=== PATIENT | female | born 1940 | race Hispanic/Latino ===

== ENCOUNTER 2019-06-08 15:08 | Inpatient (IN) | payer OTHER ==
[2019-06-08 15:45] LABS: Absolute Lymphocytes (CBC) 1.2 K/uL (0.7-4.9); Basophils % 0.5 % (0-1.3); Hematocrit 41.4 % (36.0-45.0); Lymphocytes % 16.4 % (15.3-44.8); MPV 9.6 fL (7.6-11.3); Protime INR 1.04; RBC Red Blood Cell Count 4.86 M/uL (3.86-4.86)
--- NOTE | 2019-06-08 16:03 | RAD REPORT ---
EXAM DESCRIPTION: RAD - Chest Single View - 06/08/2019 3:56 pm CLINICAL HISTORY: CHEST PAIN Chest pain. COMPARISON: Chest Pa And Lat (2 Views) dated 06/09/2016; CHEST SINGLE VIEW dated 02/24/2013; CHEST SIN GLE VIEW dated 12/13/2008; CHEST PA AND LAT 2 VIEW dated 10/28/2003; BREAST/AXILLA, LIMITED dated 018; MAMMO DIGITAL SCR BILAT W CAD dated 08/12/2014; SPINE CERVICAL W OBLIQUES dated 08/24/2014; SPINE LUMBAR W OBLIQUE dated 08/24/2014; Hip Left 2 View dated 04/05/2016 FINDINGS: Portable technique limits examination quality. Elevation of the right hemidiaphragm is seen, slightly progressive since the comparative study. Lungs are grossly clear. The heart is mildly enlarged in size. Old left posterior rib fractures.
[2019-06-08 16:04] LABS: Albumin 3.9 g/dL (3.4-5.0); Bilirubin Direct 0.1 mg/dL (0-0.2); Bilirubin Total 0.4 mg/dL (0.2-1.0); Potassium 4.3 mmol/L (3.5-5.1); Protein, Total 7.4 g/dL (6.4-8.2); Troponin (Emerg Dept Use Only) 0.08 ng/mL (0.0-0.045)
--- NOTE | 2019-06-08 16:35 | EDPHYS ---
Physician Documentation [facility] Name: Aditi Arreola Age: 78 yrs Sex: Female : 1940 Arrival Date: 06/08/2019 Time: 15:10 Bed 4 Private MD: ED Physician Gabriel Medina HPI: 06/08 14:00 This 78 yrs old Female presents to ER via Wheelchair with complaints of Chest pm1 Pain, Shortness Of Breath. 14:00 The patient or guardian reports chest pain that is located primarily in the mid-sternal pm1 area. Onset: this morning, today. The pain does not radiate. Associated signs and symptoms: Pertinent positives: headache, shortness of breath. Duration: The patient or guardian reports a single episode, that is still ongoing. Modifying factors: The symptoms are alleviated by nothing. the symptoms are aggravated by nothing. Severity of pain: in the emergency department the pain is unchanged. The patient has not experienced similar symptoms in the past. The patient has not recently seen a physician, the patient's primary care provider is Dr. Infante. Patient presents to the ER with complaints of chest pain and shortness of breath that started this AM. She reports not feeling well for th past three days that is primarily described by her as feeling chills, shaky and cold. Reports history of HTN, DM, and fibromyalgia which she apparently takes her medications as needed. Since she was feeling worst this AM she took aspirin and her prescription medications. Unable to recall her prescription medications . Historical: - Allergies: 15:26 Codeine; aj1 - Home Meds: 17:35 amlodipine 10 mg tab 1 tab once daily [Active]; aspirin 81 mg Oral chew 1 tab once sg daily [Active]; furosemide 40 mg Oral tab 1 tab once daily [Active]; hydrochlorothiazide 25 mg Oral tab 1 tab once daily [Active]; Metoprolol Tartrate Oral 1 tab 2 times per day [Active]; Tramadol Oral 1 cap [Active]; Xarelto 10 mg Oral tab 1 tab once daily [Active]; Metformin Oral [Active]; - PMHx: 15:26 Diabetes - NIDDM; Hypertension; aj1 - Immunization history:: Adult Immunizations up to date. - Social history:: Smoking status: Patient/guardian denies using tobacco. - Ebola Screening: : Patient negative for fever greater than or equal to 101.5 degrees Fahrenheit, and additional compatible Ebola Virus Disease symptoms Patient denies exposure to infectious person Patient denies travel to an Ebola-affected area in the 21 days before illness onset No symptoms or risks identified at this time. ROS: 16:14 Eyes: Negative for injury, pain, redness, and discharge, ENT: Negative for injury, pm1 pain, and discharge, Neck: Negative for injury, pain, and swelling. 16:14 Abdomen/GI: Negative for abdominal pain, nausea, vomiting, diarrhea, and constipation, Back: Negative for injury and pain, : Negative for injury, bleeding, discharge, and swelling, MS/Extremity: Negative for injury and deformity, Skin: Negative for injury, rash, and discoloration, Neuro: Negative for headache, weakness, numbness, tingling, and seizure. 16:14 Constitutional: Positive for chills, Negative for body aches, fever, poor PO intake. 16:14 Cardiovascular: Positive for chest pain, Negative for edema, orthopnea, palpitations. 16:14 Respiratory: Positive for shortness of breath, Negative for cough, sputum production, wheezing. Exam: 16:14 Constitutional: This is a well developed, well nourished patient who is awake, alert, pm1 and in no acute distress. Head/Face: Normocephalic, atraumatic. Neck: Trachea midline, no thyromegaly or masses palpated, and no cervical lymphadenopathy. Supple, full range of motion without nuchal rigidity, or vertebral point tenderness. No Meningismus. Chest/axilla: Normal chest wall appearance and motion. Nontender with no deformity. No lesions are appreciated. Cardiovascular: Regular rate and rhythm with a normal S1 and S2. No gallops, murmurs, or rubs. Normal PMI, no JVD. No pulse deficits. Respiratory: Lungs have equal breath sounds bilaterally, clear to auscultation and percussion. No rales, rhonchi or wheezes noted. No increased work of breathing, no retractions or nasal flaring. Abdomen/GI: Soft, non-tender, with normal bowel sounds. No distension or tympany. No guarding or rebound. No evidence of tenderness throughout. Back: No spinal tenderness. No costovertebral tenderness. Full range of motion. Skin: Warm, dry with normal turgor. Normal color with no rashes, no lesions, and no evidence of cellulitis. MS/ Extremity: Pulses equal, no cyanosis. Neurovascular intact. Full, normal range of motion. 16:14 Neuro: Orientation: is normal, Mentation: is normal, Motor: moves all fours, Sensation: is normal, no obvious gross deficits. Vital Signs: 15:25 BP 208 / 74; Pulse 87; Resp 17; Pulse Ox 100% on R/A; aj1 15:26 Temp 97.8(O); aj1 16:25 BP 203 / 74; Pulse 80; Resp 19; Temp 98.4(TE); Pulse Ox 100% on R/A; Pain 10/10; sg 17:02 BP 186 / 57; Pulse 72; Resp 17; Pulse Ox 100% on R/A; Pain 6/10; sg 18:00 BP 189 / 62; Pulse 77; Resp 17; Pulse Ox 100% ; sg 19:00 BP 187 / 66; Pulse 79; Resp 17; Pulse Ox 98% on R/A; rv 20:29 BP 180 / 67; Pulse 81; Resp 18; Pulse Ox 98% on R/A; rv 15:25 Patient is moving arm during vitals signs, states she does not know how much she aj1 weights or how tall she is MDM: 15:16 Patient medically screened. pm1 16:21 Data reviewed: vital signs. Data interpreted: Pulse oximetry: on room air is 100 %. pm1 Interpretation: normal. 16:29 The patient's pulmonary embolism risk score was calculated as follows: Total Score: 0-2 pm1 points. This patient was found to be at low risk for a pulmonary embolism by using the Well's assessment criteria. 16:29 Counseling: I had a detailed discussion with the patient and/or guardian regarding: the pm1 historical points, exam findings, and any diagnostic results supporting the discharge/admit diagnosis, lab results, radiology results, the need for further work-up and treatment in the hospital. 16:47 Physician consultation: Isac Aparicio MD was called at 16:47, was contacted at 16:47, pm1 regarding admission, patient's condition, and will see patient in ED. 06/08 15:16 Order name: Basic Metabolic Panel; Complete Time: 16:07 pm1 06/08 15:16 Order name: CBC with Diff; Complete Time: 15:49 pm1 06/08 15:16 Order name: LFT's; Complete Time: 16:07 pm1 06/08 15:16 Order name: Magnesium; Complete Time: 16:07 pm1 06/08 15:16 Order name: NT PRO-BNP; Complete Time: 16:07 pm1 06/08 15:16 Order name: PT-INR; Complete Time: 16:04 pm1 06/08 15:16 Order name: Troponin (emerg Dept Use Only); Complete Time: 16:07 pm1 06/08 15:16 Order name: XRAY Chest (1 view); Complete Time: 16:04 pm1 06/08 15:31 Order name: Urine Microscopic Only pm1 06/08 15:31 Order name: Flu pm1 06/08 15:31 Order name: Influenza Screen (A ; Complete Time: 16:31 EDMS 06/08 16:03 Order name: Glucose, Ancillary Testing; Complete Time: 16:07 EDMS 06/08 15:12 Order name: EKG; Complete Time: 15:12 ss 06/08 15:12 Order name: EKG - Nurse/Tech; Complete Time: 15:36 ss 06/08 15:16 Order name: Cardiac monitoring; Complete Time: 15:36 pm1 06/08 15:16 Order name: IV Saline Lock; Complete Time: 15:36 pm1 06/08 15:16 Order name: Labs collected and sent; Complete Time: 15:36 pm1 06/08 15:16 Order name: O2 Per Protocol; Complete Time: 15:36 pm1 06/08 15:16 Order name: O2 Sat Monitoring; Complete Time: 15:36 pm1 Administered Medications: 16:20 Drug: Aspirin Chewable Tablet 324 mg Route: PO; sg 17:00 Follow up: Response: No adverse reaction sg 16:50 Drug: fentaNYL (PF) 25 mcg Route: IVP; Site: right antecubital; sg 17:30 Follow up: Response: No adverse reaction; Pain is decreased sg 16:50 Drug: Zofran 4 mg Route: IVP; Site: right antecubital; sg 17:30 Follow up: Response: No adverse reaction sg 17:20 Drug: Lasix 40 mg Route: IVP; Site: right antecubital; sg 18:22 Follow up: Response: No adverse reaction sg Disposition: 06/09 07:05 Co-signature as Attending Physician, Gabriel Medina MD. rn Disposition: 06/08/19 16:34 Hospitalization ordered by Isac Aparicio for Inpatient Admission. Preliminary diagnosis are Chest pain, unspecified, Unspecified combined systolic (congestive) and diastolic (congestive) heart failure. - Bed requested for Telemetry/MedSurg (Inpatient). - Status is Inpatient Admission. rv - Condition is Stable. - Problem is new. - Symptoms have improved. UTI on Admission? No Signatures: Dispatcher [employer] EDMS Surekha Browne RN RN aj1 Kelvin Gooden RN RN Gabriel Medina MD MD rn Smirch, Shelby, RN RN ss Gary Zurita, QU[employer] ASSISTANT [employer] AND FIELD COACH pm1 Ayden Blair RN RN rv Corrections: (The following items were deleted from the chart) 06/08 18:38 16:34 Hospitalization Ordered by Isac Aparicio MD for Inpatient Admission. Preliminary ss diagnosis is Chest pain, unspecified; Unspecified combined systolic (congestive) and diastolic (congestive) heart failure. Bed requested for Telemetry/MedSurg (Inpatient). Status is Inpatient Admission. Condition is Stable. Problem is new. Symptoms have improved. UTI on Admission? No. pm1 20:37 18:38 06/08/2019 16:34 Hospitalization Ordered by Isac Aparicio MD for Inpatient rv Admission. Preliminary diagnosis is Chest pain, unspecified; Unspecified combined systolic (congestive) and diastolic (congestive) heart failure. Bed requested for Telemetry/MedSurg (Inpatient). Status is Inpatient Admission. Condition is Stable. Problem is new. Symptoms have improved. UTI on Admission? No. ss
--- NOTE | 2019-06-08 16:35 | ER ---
Nurse's Notes [facility] Name: Aditi Arreola Age: 78 yrs Sex: Female : 1940 Arrival Date: 06/08/2019 Time: 15:10 Bed 4 Private MD: Diagnosis: Chest pain, unspecified;Unspecified combined systolic (congestive) and diastolic (congestive) heart failure Presentation: 06/08 15:22 Presenting complaint: Patient states: Chest pain and shortness of breath. Patient will aj1 not answer when chest pain started. Patient states that she has not been feeling well but will not answer any further questions regarding the symptoms she is feeling. Transition of care: patient was not received from another setting of care. Onset of symptoms is unknown. Risk Assessment: Do you want to hurt yourself or someone else? Patient reports no desire to harm self or others. Initial Sepsis Screen: Does the patient meet any 2 criteria? HR > 90 bpm. No. Patient's initial sepsis screen is negative. Does the patient have a suspected source of infection? No. Patient's initial sepsis screen is negative. Care prior to arrival: None. 15:22 Method Of Arrival: Wheelchair aj1 15:22 Acuity: LUIS ARMANDO 3 aj1 Triage Assessment: 15:26 General: Appears ill, Behavior is anxious, crying. Pain: Complains of pain in chest. aj1 Neuro: Level of Consciousness is awake, alert. Cardiovascular: Patient's skin is warm and dry. Historical: - Allergies: 15:26 Codeine; aj1 - Home Meds: 17:35 amlodipine 10 mg tab 1 tab once daily [Active]; aspirin 81 mg Oral chew 1 tab once sg daily [Active]; furosemide 40 mg Oral tab 1 tab once daily [Active]; hydrochlorothiazide 25 mg Oral tab 1 tab once daily [Active]; Metoprolol Tartrate Oral 1 tab 2 times per day [Active]; Tramadol Oral 1 cap [Active]; Xarelto 10 mg Oral tab 1 tab once daily [Active]; Metformin Oral [Active]; - PMHx: 15:26 Diabetes - NIDDM; Hypertension; aj1 - Immunization history:: Adult Immunizations up to date. - Social history:: Smoking status: Patient/guardian denies using tobacco. - Ebola Screening: : Patient negative for fever greater than or equal to 101.5 degrees Fahrenheit, and additional compatible Ebola Virus Disease symptoms Patient denies exposure to infectious person Patient denies travel to an Ebola-affected area in the 21 days before illness onset No symptoms or risks identified at this time. Screenin:38 Abuse screen: Denies threats or abuse. Denies injuries from another. Nutritional ss screening: No deficits noted. Tuberculosis screening: Never had TB. 20:27 Fall Risk None identified. rv Assessment: 15:30 General: Appears in no apparent distress. well groomed, well developed, well nourished, sg Behavior is cooperative, appropriate for age, anxious. Pain: Complains of pain in mid-sternal area Pain currently is 6 out of 10 on a pain scale. Quality of pain is described as sharp. Neuro: Level of Consciousness is awake, alert, obeys commands, Oriented to person, place, time, Speech is normal, Facial symmetry appears normal. Cardiovascular: Capillary refill is brisk in bilateral fingers Patient's skin is warm and dry. Chest pain is described as mild, is located in substernal area. Respiratory: Reports shortness of breath through nose for several days due to nasal congestion Airway is patent Respiratory effort is even, unlabored, Respiratory pattern is regular, symmetrical. GI: No signs and/or symptoms were reported involving the gastrointestinal system. : No signs and/or symptoms were reported regarding the genitourinary system. EENT: Nares are clear bilaterally Oral mucosa is moist. Reports nasal congestion. Derm: Skin is pink, warm \T\ dry. Musculoskeletal: Circulation, motion, and sensation intact. Range of motion: intact in all extremities. 16:30 Reassessment: Patient appears in no apparent distress at this time. Patient and/or sg family updated on plan of care and expected duration. Pain level reassessed. Patient is alert, oriented x 3, equal unlabored respirations, skin warm/dry/pink. 17:25 Reassessment: Patient appears in no apparent distress at this time. Patient and/or sg family updated on plan of care and expected duration. Pain level reassessed. Patient is alert, oriented x 3, equal unlabored respirations, skin warm/dry/pink. pt family remains at bedside. 18:19 Reassessment: Patient appears in no apparent distress at this time. Patient and/or sg family updated on plan of care and expected duration. Pain level reassessed. Patient is alert, oriented x 3, equal unlabored respirations, skin warm/dry/pink. pt complaining of dull pain only in upper back at this time, pt reports repositioning helps, awaiting pt to void at this time. 20:27 Pain: Pain does not radiate. Pain began suddenly. rv Vital Signs: 15:25 BP 208 / 74; Pulse 87; Resp 17; Pulse Ox 100% on R/A; aj1 15:26 Temp 97.8(O); aj1 16:25 BP 203 / 74; Pulse 80; Resp 19; Temp 98.4(TE); Pulse Ox 100% on R/A; Pain 10/10; sg 17:02 BP 186 / 57; Pulse 72; Resp 17; Pulse Ox 100% on R/A; Pain 6/10; sg 18:00 BP 189 / 62; Pulse 77; Resp 17; Pulse Ox 100% ; sg 19:00 BP 187 / 66; Pulse 79; Resp 17; Pulse Ox 98% on R/A; rv 20:29 BP 180 / 67; Pulse 81; Resp 18; Pulse Ox 98% on R/A; rv 15:25 Patient is moving arm during vitals signs, states she does not know how much she aj1 weights or how tall she is ED Course: 15:10 Patient arrived in ED. as 15:12 Gary Zurita NP is PHCP. pm1 15:12 Gabriel Medina MD is Attending Physician. pm1 15:25 Triage completed. aj1 15:25 Arm band placed on. sg 15:35 Inserted saline lock: 20 gauge in right antecubital area, using aseptic technique. ss Blood collected. Patient maintains SpO2 saturation greater than 95% on room air. 15:56 XRAY Chest (1 view) In Process Unspecified. EDMS 16:34 Isac Aparicio MD is Hospitalizing Provider. pm1 16:51 Kelvin Gooden, KYLAH is Primary Nurse. sg 18:28 Flu Sent. sg 19:00 Patient has correct armband on for positive identification. Bed in low position. rv stogie packer on. Pulse ox on. NIBP on. 20:24 Ayden Blair, KYLAH is Primary Nurse. rv 20:27 No provider procedures requiring assistance completed. Patient admitted, IV remains in rv place. Administered Medications: 16:20 Drug: Aspirin Chewable Tablet 324 mg Route: PO; sg 17:00 Follow up: Response: No adverse reaction sg 16:50 Drug: fentaNYL (PF) 25 mcg Route: IVP; Site: right antecubital; sg 17:30 Follow up: Response: No adverse reaction; Pain is decreased sg 16:50 Drug: Zofran 4 mg Route: IVP; Site: right antecubital; sg 17:30 Follow up: Response: No adverse reaction sg 17:20 Drug: Lasix 40 mg Route: IVP; Site: right antecubital; sg 18:22 Follow up: Response: No adverse reaction sg Outcome: 16:34 Decision to Hospitalize by Provider. pm1 20:28 Admitted to Med/surg accompanied by tech, via wheelchair, room 209, with chart, Report rv called to RAYA MONTERO 20:28 Condition: good 20:28 Instructed on the need for admit. 20:37 Patient left the ED. rv Signatures: Dispatcher [employer] EDMS Surekha Browne RN RN aj1 Kelvin Gooden RN RN sg Martinez, Amelia as Martinez, Eric em1 Kateryna Rock RN RN Gary Zurita, QUYEN HOT DOG VENDOR pm1 Ayden Blair RN RN rv Corrections: (The following items were deleted from the chart) 15:28 15:25 BP 208 / 74; Pulse 87bpm; Resp 17bpm; Pulse Ox 100% RA; sg aj1 17:01 16:25 BP 203 / 74; Pulse 80bpm; Resp 99bpm; Pulse Ox 100% RA; Temp 98.4F Temporal; Pain sg 10/10; em1 17:18 15:30 General: Appears in no apparent distress. well groomed, well developed, well sg nourished, Behavior is calm, cooperative, appropriate for age, sg
[2019-06-08] MEDS ORDERED: ASPIRIN 81 MG CHEWABLE TABLET ONE (16:39)
[2019-06-08] MEDS ORDERED: ONDANSETRON 4 MG/2 ML VIAL ONE (16:39)
[2019-06-08] MEDS ORDERED: FENTANYL CITR 100 MCG/2 ML ONE (16:41)
[2019-06-08] MEDS ORDERED: FUROSEMIDE 40 MG/4 ML VIAL ONE (18:12)
[2019-06-08] MEDS: INSULIN -REGULAR HUMAN 50 UNIT/0.5 ML ML SQ SCH (21:19)
[2019-06-08] MEDS ORDERED: HYDRALAZINE HCL 20 MG/ML VIAL IV PRN (21:19)
[2019-06-08] MEDS ORDERED: ONDANSETRON 4 MG/2 ML VIAL IV PRN (21:19)
[2019-06-08] MEDS: METOPROLOL TAR 50 MG TAB PO SCH (22:10)
[2019-06-08] MEDS: ACETAMINOPHEN 500 MG TAB PO PRN (22:11)
--- NOTE | 2019-06-09 03:18 | HP ---
Date of Admission: 06/08/2019 Chief Complaint: Shortness of breath. Code Status: Full. Primary Care Physician: Dr. High, hospitalist service covering for Dr. High until 06/19/2019. History Of Present Illness: Patient is a 78-year-old female with past medical history of hypertensio n, diabetes, hyperlipidemia, who was in her usual state of health until 2 weeks prior to admission. Patient had sudden onset of chills. Denies any specific fevers. Also started having worsening short ness of breath over the past few days along with some edema. Patient's symptoms are worse with exert ion. She denies any ill contacts. Patient felt that she may have the flu; therefore, came into the ER for further evaluation. Her workup revealed negative flu screen. Her white blood cell count was normal. Her BNP was elevated at 3800. Creatinine was 1.36. Chest x-ray showed CHF, volume overload . Patient was given Lasix. Her blood pressure was severely elevated at 200/74. Patient was then re ferred for admission. When seen in the ER, she was awake, alert, oriented x3, in some mild distress. Past Medical History: Hypertension; hyperlipidemia; diabetes mellitus type 2, [id number]; mild coronary artery disease; diverticulosis. Surgical History: Patient has had colonoscopy with polyp removal. Allergies: CODEINE. Medications: Patient takes hydralazine 50 mg twice a day. Takes pravastatin and metformin. Patient is noncompliant with her medications. Social History: Patient denies any tobacco use, alcohol use, or illicit drug use. She has been expo sed to secondhand smoke. She is independent in her activities of daily living. Takes care of her sband and still drives. Has good social support. Family History: Patient denies any premature coronary artery disease in the family. Review of Systems: Ten-point system reviewed, negative except as per HPI. Physical Examination: Vital Signs: Blood pressure 208/74, pulse 87, respirations 17, O2 100% on room air, temperature 97.8 . General: Awake, alert, oriented x3. Elderly female, ill appearing. HEENT: Normocephalic, atraumatic. PERRLA. EOMI. Moist mucous membranes. Oropharynx is clear. Po or dentition. Conjunctivae anicteric. Neck: Supple. Trachea midline. CV: S1, S2. Regular rate and rhythm. Peripheral pulses present. Respiratory: Diminished breath sounds. Some crackles present. No wheezing or stridor. No use of a ccessory muscles. Gastrointestinal: Abdomen is soft, nontender, nondistended. Positive bowel sounds. No guarding or rigidity. Extremities: No clubbing, cyanosis. No calf tenderness. Patient has pedal edema. Neurologic: Cranial nerves 2 through 12 intact grossly. No focal neurological deficit. Speech is n ormal. Strength is symmetric bilateral upper and lower extremities. Skin: No rashes. Normal skin turgor. Psychiatric: Mood is anxious. Affect is congruent with mood. Insight and judgment are good. Laboratory Data: Sodium 145, potassium 4.3, chloride 112, CO2 of 25, BUN 21, creatinine 1.36, glucos e 96, calcium 9.1, magnesium 2. Troponin 0.08. BNP 3879. INR 1.04. WBC 7.3, H and H, 13.6 and 41. 4, platelets 195. UA is pending. Influenza screen is negative. Chest x-ray shows elevation of the right hemidiaphragm, slightly progressive since comparative study. Lungs are grossly clear. Heart i s mildly enlarged in size. Old left posterior rib fractures. Assessment: 78-year-old female with: 1.Acute new-onset congestive heart failure, unknown ejection fraction. We will start on diuretics. BNP is elevated. Chest x-ray officially does not show much in terms of pulmonary congestion; howeve r, does show enlarged heart, elevated right hemidiaphragm. We will need 2-view for further assessmen t. We will obtain echocardiogram and consult Cardiology. We will start on congestive heart failure guidelines. Start on diuretics, free fluid restriction, daily weights. 2.Elevated troponin level, likely secondary to congestive heart failure. No chest pain. 3.Hypertensive urgency. Blood pressure in the 200s. Patient also complaining of some blurry vision . We will restart home medications, hydralazine p.r.n. patient is noncompliant with her medications . 4.Diabetes mellitus, type 2, non-insulin requiring. We will start on sliding scale insulin and cont inue Accu-Cheks. 5.Mixed hyperlipidemia. Continue statin. 6.History of diverticulosis, stable. 7.Acute kidney injury. Creatinine is 1.36, baseline is normal. We will monitor kidney function alice sely. We will likely expect bump in creatinine with diuretics. We may need to adjust diuretic dose. Plan: Admit patient to Med-Surg, place as inpatient. Length of stay greater than 2 midnights. DVT prophylaxis with Lovenox renally dosed. DARLENE Voice ID: [id number]
[2019-06-09 03:32] LABS: Absolute Lymphocytes (CBC) 0.8 K/uL (0.7-4.9); Basophils % 0.2 % (0-1.3); Lymphocytes % 15.4 % (15.3-44.8); MPV 9.5 fL (7.6-11.3)
[2019-06-09 03:50] LABS: Albumin 3.1 g/dL (3.4-5.0); Bilirubin Total 0.3 mg/dL (0.2-1.0); Protein, Total 6.1 g/dL (6.4-8.2)
--- NOTE | 2019-06-09 05:33 | P.PN ---
Date of Service: 06/09/19 Noted rise in troponin from 0.08 to 0.3. The patient presenting with new onset CHF and accelerated hypertension. History of coronary artery disease. Will treat for NSTEMI with heparin drip. Cardiology consult.
[2019-06-09] MEDS ORDERED: HEPARIN 10,000 UNIT/10 ML VIAL IV ONE ×2 (05:35→07:31)
[2019-06-09] MEDS ORDERED: HEPARIN/D5W 25,000 UNIT/500 ML BAG IV PRN (05:35)
[2019-06-09 06:14] LABS: Protime INR 1.11
[2019-06-09] MEDS: INSULIN -REGULAR HUMAN 50 UNIT/0.5 ML ML SQ SCH ×4 (07:30→21:00)
[2019-06-09 07:50] VITALS: BMI 24.6
[2019-06-09] MEDS ORDERED: HEPARIN 5000 UNIT/ML 1 ML VIAL IV ONE (08:00)
[2019-06-09] MEDS: METOPROLOL TAR 50 MG TAB PO SCH ×2 (08:22→21:11)
[2019-06-09] MEDS: lisinopriL 10 MG TAB PO SCH (08:24)
[2019-06-09] MEDS: FUROSEMIDE 40 MG/4 ML VIAL IV SCH ×2 (08:24→17:21)
[2019-06-09] MEDS ORDERED: ENOXAPARIN 60 MG/0.6 ML SQ SCH (09:00)
[2019-06-09] MEDS ORDERED: ENOXAPARIN 30 MG/0.3 ML SQ SCH (09:00)
--- NOTE | 2019-06-09 09:07 | CON ---
Chief Complaint: Visual changes. Reason For Consult: Abnormal troponin. History Of Present Illness: Mrs. Arreola has had two spells now, one was 2 months ago, she did not see k medical attention for it. The second one was yesterday. She was sitting when her vision changed. Her vision did not go black or black out, it became blurred and she saw flashing, moving lights or s omething shimmered in her visual field. It lasted a couple of hours. There was nausea. No headache . Two months ago she did not seek medical attention for this. She was not having chest pain and she was brought to the hospital, troponins were drawn. She has had 3 troponins drawn and they are all s lightly elevated. Almost 3 years ago now, she had a cardiac cath. There was mild disease, but there was a 70% lesion in a small branch of the circumflex. It was recommended the patient follow up with Dr. Cartwright at that time, but the patient says that has not happened. I have not checked with our r ecords in the office. The patient has not had any history of myocardial infarction or stroke. She h as diabetes, hypertension, dyslipidemia. Apparently, yesterday in the ER, the patient gave a slightl y different history. Not sure if it was a matter of confusion or forgetfulness or she was still unde r the effect of having some kind of TIA or something migraine. Her home medications are amlodipine, aspirin, furosemide, hydrochlorothiazide, metoprolol, tramadol, Xarelto, and metformin. The patient does not know the names of her medicines or why she takes them. Physical Examination: General: She is alert, oriented, pleasant, appears to be her stated age. Her vision seems fine. HEENT: Unremarkable. Carotids: No bruit. Lungs: Clear. Cardiac: Exam within normal limits. Abdomen: Soft. Extremities: Diminished distal pulses. No cyanosis, clubbing, or edema. Troponins are elevated modestly. Her electrocardiogram shows no significant abnormality. The recommendation is the patient undergo an other cardiac cath, but she should have a neuro consult for those transient visual changes. I am not sure if it is a TIA due to migraine or true TIA, but neurological input should be had with those sym ptoms. SH/MODL Voice ID: [id number] Report ID: [id number]
--- NOTE | 2019-06-09 10:02 | RAD REPORT ---
EXAM DESCRIPTION: CT - Head Brain Wo Cont - 06/09/2019 3:02 am CLINICAL HISTORY: Transient loss of vision COMPARISON: None available TECHNIQUE: Axial CT of the head obtained from the skull apex to the skull base without contrast. FINDINGS: No acute intracranial hemorrhage identified. No mass effect, shift of the midline, abnorma l extra-axial fluid collection or CT evidence of acute ischemic change identified. Peripherally calci fied density extra-axial mass arising from the anterior midline falx measuring 1.3 x 1.5 cm. The vent ricular system and sulcal spaces are enlarged. Scattered areas of hypodensity throughout the suprat entorial white matter are nonspecific and may be related to chronic small vessel ischemic change. The visualized paranasal sinuses and the mastoids are clear. No skull fracture identified. Visua lized orbits and globes are unremarkable. Atherosclerotic calcification of the intracranial internal carotid arteries. IMPRESSION: 1. No acute intracranial abnormality by CT criteria. 2. High-density peripherally calcified extra-axial mass arising from the anterior aspect of midline falx measuring 1.5 cm in greatest dimension. No significant mass effect. This likely represents a me ningioma. Follow-up contrast-enhanced MRI of the brain recommended for complete characterization. This exam was performed according to our departmental dose-optimization program, which includes autom ated exposure control, adjustment of the mA and/or kV according to patient size and/or use of iterati ve reconstruction technique. Electronically signed by: Sebastian Bishop 06/09/2019 12:00 AM [facility] Due to temporary technical issues with the PACS/Fluency reporting system, reports are being signed by the in house radiologist as a courtesy to ensure prompt reporting. The interpreting radiologist is f ruly responsible for the content of the report.
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
--- NOTE | 2019-06-09 14:09 | RAD REPORT ---
EXAM DESCRIPTION: USCarotid Artery Bilateral06/09/2019 1:50 pm CLINICAL HISTORY: CVA COMPARISON: None FINDINGS: The velocity of the right internal carotid artery equals 133 cm/sec. The right ICA/CCA rat io 1.6 The velocity of the left internal carotid artery equals 135 cm/sec. The left ICA/CCA ratio 1.1 Mild plaque is present within the common internal carotid arteries. Moderate plaque is present within the external carotid arteries. The carotid arteries are tortuous The vertebral arteries demonstrate antegrade flow IMPRESSION: Mild plaque within the common and internal carotid arteries without evidence of a hemody namically significant stenosis NASCET criteria used. Mild 0-49% stenosis Moderate 50-69% stenosis Severe 70-99% stenosis
--- NOTE | 2019-06-09 14:27 | PN ---
Date of Progress Note: 06/09/2019 Subjective: Patient is seen and examined. Chart reviewed and case discussed with RN. Patient had uneventful night. Medications: List reviewed. Physical Examination: Vital Signs: Temperature 97.5, heart rate 61, blood pressure 183/75, respirations 16, O2 96% on room air. General: Awake, alert and oriented x3. Elderly female, in some mild distress. Ill-appearing. CV: S1, S2. Regular rate and rhythm. Respiratory: Diminished breath sounds at the bases. No wheezing or stridor. Patient has crackles. Gastrointestinal: Abdomen is soft, nontender, nondistended. Positive bowel sounds. Extremities: No clubbing, cyanosis. Trace pedal edema. Neurologic: Nonfocal. Laboratory Data: Troponin level 0.31, 0.39, 0.42. Sodium 145, potassium 4, chloride 112, CO2 of 29, BUN 26, creatinine 1.44, glucose 90, calcium 8.5, albumin 3.1. WBC 5.4, H and H of 11.7 and 36, platelets 172, neutrophils 74%. Assessment And Plan: 78-year-old female with: 1. Acute new onset congestive heart failure, unknown ejection fraction. Continue diuretics. Monitor I's and O's, free fluid restriction. Echocardiogram is pending. Appreciate Cardiology input. 2. [id number] myocardial infarction. Troponin levels became elevated last night, started on heparin drip, going for heart catheterization tomorrow. 3. Hypertensive urgency. Blood pressure still elevated, now in the 130s to 180s, initially in the 200s. Medications have been adjusted. Continue hydralazine p.r.n. 4. Blurry vision, possible transient ischemic attack. We will obtain MRI of the brain. CT head did not show any acute changes. Does show meningioma. We will consult Neurology. 5. Acute kidney injury. Creatinine is slightly elevated from yesterday, likely secondary to diuretics. We will need to monitor closely. Consult Nephrology. 6. Diabetes mellitus type 2, non-insulin requiring. We will continue sliding scale insulin. Monitor Accu-Cheks. 7. Mixed hyperlipidemia. Continue statin. 8. History of diverticulosis, stable. 9. Coronary artery disease, [place] artery and che[place]is heart, now with angina. Patient's previous heart catheterization was 3 years ago. 10. Meningioma. Has been present for several years stable. Plan: Anticipate heart catheterization in a.m. Neuro eval. Nephrology eval. MRI of the brain to rule out cerebrovascular accident. 15:28 ADDENDUM:Case discussed with Dr. Bansal. He does not feel that the meningioma is causing her visual symptoms. Possible basilar artery stroke. Follow up on MRI brain SA/MODL Voice ID: [id number] Report ID: [id number]
[2019-06-09] MEDS ORDERED: LORAZEPAM 0.5 MG TABLET PO ONE ×2 (14:29→16:00)
--- NOTE | 2019-06-09 15:26 | ECHO ---
HEIGHT: 5 ft 4 in WEIGHT: 143 lb 0 oz DATE OF STUDY: 06/09/[address]: Isac Aparicio MD 2-DIMENSIONAL: YES M.MODE: YES DOPPLER: YES COLOR FLOW: YES TDS: YES PORTABLE: NO DEFINITY: NO BUBBLE STUDY: NO DIAGNOSIS: CONGESTIVE HEART FAILURE CARDIAC HISTORY: CATHERIZATION: NO SURGERY: NO PROSTHETIC VALVE: NO PACEMAKER: NO MEASUREMENTS (cm) DIASTOLIC (NORMALS) SYSTOLIC (NORMALS) IVSd 1.0 (0.6-1.2) LA Diam 3.8 (1.9-4.0) LVEF 53% LVIDd 5.2 (3.5-5.7) LVIDs 3.8 (2.0-3.5) %FS 28% LVPWd 1.2 (0.6-1.2) Ao Diam 2.7 (2.0-3.7) 2 DIMENSIONAL ASSESSMENT: RIGHT ATRIUM: NORMAL LEFT ATRIUM: NORMAL RIGHT VENTRICLE: NORMAL LEFT VENTRICLE: NORMAL TRICUSPID VALVE: NORMAL MITRAL VALVE: NORMAL PULMONIC VALVE: NORMAL AORTIC VALVE: NORMAL PERICARDIAL EFFUSION: NONE AORTIC ROOT: NORMAL LEFT VENTRICULAR WALL MOTION: NORMAL. DOPPLER/COLOR FLOW: NORMAL. COMMENTS: NORMAL 2D ECHO WITH DOPPLER. TECHNOLOGIST: LIZZETH WAY
[2019-06-09] MEDS: ENOXAPARIN 60 MG/0.6 ML SQ SCH ×2 (17:21→18:14)
--- NOTE | 2019-06-09 17:59 | RAD REPORT ---
EXAM DESCRIPTION: MRI - MRA Head Wo Cont - 06/09/2019 5:08 pm CLINICAL HISTORY: CVA, blurred vision COMPARISON: None. TECHNIQUE: Axial and coronal 3D [id number] image acquisition was performed. 3D rotational images were generated with source and reconstruction images reviewed. Horizontal and vertical axis rotation al views generated using MIP protocol. FINDINGS: No aneurysm or vascular malformation identified. Basilar artery and distal vertebral arter y show no significant finding. Distal right vertebral artery is small as a normal variant. Distal int ernal carotid artery's shows significant atherosclerotic change near the supraclinoid portion on the right. Atherosclerotic narrowing seen in the bilateral A1 anterior cerebral artery segments. Distal a nterior cerebral artery shows no significant finding. The posterior cerebral and middle cerebral jay ry show no substantial disease. Left posterior communicating artery is present. IMPRESSION: Significant atherosclerotic changes are present near the right-side wainwright of [place] inv olving the terminal portion of the right internal carotid artery and the bilateral A1 anterior cerebr al artery segments. No aneurysm or vascular malformation.
--- NOTE | 2019-06-09 18:02 | RAD REPORT ---
EXAM DESCRIPTION: MRI - Brain W/Wo Cont - 06/09/2019 5:08 pm CLINICAL HISTORY: CVA, blurred vision, stroke-like symptoms COMPARISON: CT head June 08 TECHNIQUE: Sagittal and axial T1-weighted images were obtained. Axial PD/heavily T2-weighted and T2- FLAIR images were obtained along with axial DWI/ADC mapping sequences. Coronal heavily T2 weighted s equence obtained. Axial and coronal post-contrast T1-weighted images were also obtained. A 14 ml Mul tihance contrast following utilized. FINDINGS: No intracranial hemorrhage, intraparenchymal mass or acute infarction. There is no edema or shift of midline structures. No extra-axial fluid collections. Marie-matter/white matter junction i s preserved. Signal voids are seen as a normal finding in the major intracranial vessels. Patient childress s mild atrophy and mild to moderate chronic ischemic change. Ventricles are in proportion. Along the anterior falx there is a 15 millimeter mass. This is isodense to brain on the T1 weighted imaging. Po stcontrast images show vigorous, homogeneous enhancement. No mass effect on adjacent brain parenchyma . Post-contrast images show no abnormal enhancement of the brain parenchyma. No other site of dural thi ckening or enhancement. Mastoid air cells and paranasal sinuses are clear. IMPRESSION: No acute infarction changes present. Mild atrophy and mild to moderate chronic ischemic changes are present. Incidental 15 millimeter anterior falx meningioma.
--- NOTE | 2019-06-09 18:04 | RAD REPORT ---
EXAM DESCRIPTION: MRI - MRA Neck W/Wo Cont - 06/09/2019 5:07 pm CLINICAL HISTORY: CVA, stroke-like symptoms, blurred vision TECHNIQUE: MR angiography of the cervical vasculature performed. Coronal imaging plane acquisition u tilized. A 14 MultiHance contrast volume was utilized. Coronal reformatted images were generated and reviewed. Vertical axis 3D rotational projections obtained using maximum intensity projection protoco l. FINDINGS: Bovine configuration aortic arch shows no origin stenosis. Left vertebral artery is domina nt. Right vertebral artery is very small making it difficult to fully assess for acute finding. Left vertebral artery is tortuous. No basilar artery abnormality. Bilateral common carotid artery's are tortuous but otherwise unremarkable. No internal carotid artery significant finding from origin to skullbase. IMPRESSION: No carotid abnormalities identified. Dominant left vertebral artery is tortuous but otherwise unremarkable. Right vertebral artery is very small is a normal variant making it difficult to accurately assess for patency or significant athero sclerotic disease. Right vertebral artery cannot be confirmed is patent along its entire course.
[2019-06-09] MEDS ORDERED: levETIRAcetam 500 MG in NA CHLORIDE 0.9% 100 ML IV ONE ×2 (19:44→19:50)
[2019-06-09] MEDS ORDERED: HALOPERIDOL LACT 5 MG/ML INJ IV ONE (20:23)
[2019-06-09] MEDS: GLUCERNA SHAKE 237 ML CAN PO SCH (21:00)
[2019-06-09] MEDS ORDERED: levETIRAcetam 500 MG TAB PO SCH ×2 (21:00)
[2019-06-09] MEDS: ATORVASTATIN 40 MG TAB PO SCH (21:11)
[2019-06-09] MEDS: NA CHLORIDE 0.9% 1,000 ML IV SCH (22:45)
[2019-06-09] MEDS ORDERED: LEVETIRACETAM 500 MG/5 ML VIAL IV ONE (23:03)
[2019-06-09] MEDS ORDERED: NA CHLORIDE 0.9% 100 ML ONE (23:11)
--- NOTE | 2019-06-10 01:14 | CON ---
Reason For Consultation: Consultation called because of possible transient ischemic attacks. Primary Care Physician: Dr. High. History Of Present Illness: Ms. Arreola is a 78-year-old right-handed patient with hypertensi on and diabetes mellitus, who reports 2 episodes of sudden-onset loss of vision. One episode lasted about 20 minutes and the second episode about 10 minutes. The patient did not have loss of strength in her face, arm, or leg on either side and no numbness in the face, arm, or leg. She said she was u nable to see her hand in front of her, and after the first episode, she summoned family members who b rought her to the hospital, and by the time she arrived to the hospital, symptoms began to resolve. Her head CT scan at [facility] done at 3:02 a.m. on 06/09/2019 showed a high-density periphe ral calcified extra-axial mass arising from the anterior aspect of the falx measuring 1.5 cm. There was no acute ischemic or hemorrhagic change identified. Subsequent brain MRI done at 5:08 p.m. on showed no acute infarctions. There was mild atrophy and moderate small vessel ischemic diseas e, and again a 15 mm mass was identified along the anterior falx. The patient's family noted later t his afternoon that she actually had some visual disturbances, apparently similar to what she had in t he past, but she was seeing spots as though they were on her family's faces, but there was no confusi on or disorientation. It should be noted that the rest of the brain workup did include an MRA that s howed significant atherosclerotic changes present near the right-sided eek of [place] involving the terminal portion of the right internal carotid artery and bilateral A1 anterior cerebral artery segm ents. Her neck MRA showed a dominant left vertebral artery, which was tortuous. Right vertebral art med was very small and it cannot confirm to be patent throughout its course. Her echocardiogram show ed ejection fraction 53% and was a normal study. Carotid artery ultrasound showed mild plaque in the common and internal carotid arteries without evidence of hemodynamically significant stenosis. The patient was placed on aspirin 160 mg daily along with Lipitor 40 mg at bedtime for stroke risk reduct ion and Prinivil 10 mg daily along with Lopressor 25 mg twice daily. It should be noted her EKG did not show any significant abnormalities except for some nonspecific ST and T wave changes and was norm al sinus rhythm. The patient is now placed on Keppra 500 mg IV load and then 500 mg twice daily. Past Medical History: As indicated. Allergies: CODEINE. Medications At Home: Amlodipine 10 mg daily, aspirin 81 mg daily, furosemide 40 mg daily, hydrochlor othiazide 25 mg daily, metoprolol 25 mg daily, tramadol as needed, Xarelto once daily, and metformin. Family History: Noncontributory. Social History: No alcohol, tobacco, or IV drug use. Review of Systems: No recent fevers, chills, nausea, vomiting, myalgias, arthralgias, headache, weight change, rash, psy chiatric complaints, gastrointestinal or genitourinary issues. Physical Examination: Vital Signs: Blood pressure 148/66, pulse 73, respiratory rate 14, temperature 97.7, oxygen saturati on 97%. Weight 143 pounds, height 5 feet 4 inches, BMI 24.5. General: Ms. Arreola is sitting in bed, in no acute distress. She is normocephalic, atraumatic. Scle damian are anicteric. Oropharynx is pink and moist. Neck: Supple. Chest: Clear. Heart: Regular. Extremities: Show no clubbing, cyanosis, or edema. Neurological: She is alert and oriented to person, place, time, and situation. She follows all comm ands appropriately. She has no cranial nerve deficits. She has full visual arambula to confrontation. Pupils are equally round and reactive to light and accommodation. Her extraocular movements are in tact. Her facial sensation is intact to light touch, pinprick, temperature bilaterally. Tongue and palate are in midline. Motor examination, she has 5/5 strength proximally and distally in the upper and lower extremities. Sensory examination, she has stocking-glove loss to light touch and temperatu re in the upper and lower extremities. Reflexes are depressed at 1+ in the upper and lower extremiti es, 0 at the heels. Coordination intact in the upper and lower extremities. Gait, good stance, righ t arm swing. Assessment: Ms. Arreola is a 78-year-old patient with anterior falcine meningioma and stereotyped repe titive visual disturbances and loss of vision, potentially related to seizures. Brain MRI shows no e vidence of stroke, but chronic small vessel ischemic disease and she has some intracerebral arterial blockages that are moderate. Plan: 1.Keppra 500 mg twice daily. 2.Will have EEG in the morning. 3.Aggressive management of hypertension and continue aspirin, Plavix, although the decision may be m tracy to probably discontinue Xarelto. 4.High-dose statin. 5.VANCE inhibitor and the patient may have folic acid 1 mg daily. 6.EEG will be read tomorrow and after the patient is discharged, follow up with Dr. Bansal in 1 [address] [facility] in clinic. ALAN/CAROLE Voice ID: [id number] Report ID: [id number]
--- NOTE | 2019-06-10 04:02 | CON ---
Date of Consultation: 06/09/2019 Chief Complaint: Abnormal renal function test, severe hypertension, accelerated hypertension. History Of Present Illness: Patient presented to the hospital because of chest pain, generalized weakness. She was found to have elevated BUN and creatinine, BUN is 26, creatinine 1.44. Electrolytes as follows: Sodium 145, potassium 4.0 , chloride 112, CO2 29. The patient has multiple medical problems including history of hypertension. Patient is undergoing workup for acute coronary syndrome as well as patient had an MRI done without contrast to check for carotid artery stent. Patient was found to have abnormal troponin level and is undergoing workup to rule out acute coronary syndrome. Apparently, she has some vision changes prior to this admission as well as she was experiencing seeing flashing lights or something shimmers in her visual field. It lasted couple of hours. She denies tremor. She was having chest pain and was brought to the hospital. Troponin was elevated. She has mild coronary artery disease, 70% lesion in the small branch of circumflex. The patient has not had any history of myocardial infarction or stroke. She denies history of kidney problems. She has diabetes, hypertension, and dyslipidemia. Review of Systems: Constitutional: Denies fever, chills. Eyes: Denies diplopia, although she had blurred vision. Ears, Mouth, Nose and Throat: Denies sore throat or earaches. Respiratory: Has some shortness of breath and heaviness in the chest. GI: Denies nausea, vomiting. : Denies dysuria or hematuria. Musculoskeletal: Denies muscle aches or joint swelling. All other systems reviewed and all are negative. Past Medical History: Hypertension, diabetes mellitus, coronary artery disease , hyperlipidemia. Social History: Denies tobacco, alcohol, or illicit drugs. Family History: No kidney disease in the family. Physical Examination: General: The patient is awake, alert, follows commands. HEENT: Anicteric sclerae. EOMI. Ears, Nose, Mouth and Throat: Oral mucosa moist. No pallor. Neck: Supple. No bruits. Lungs: Few rhonchi. No wheezing Heart: S1, S2. No pericardial friction rub. Abdomen: Soft, benign, nontender. Extremities: No edema. NO clubbing Skin: warm and dry , no skin oozing Neurologic: no tremor , CN intact Laboratory Data: Hemoglobin 11.7, WBC 5.4, platelet count 172,000. Chemistries showed sodium 145, potassium 4.0, chloride 112, CO2 of 29, BUN 26, creatinine 1.44, glucose 90, calcium 8.5, albumin 3.1, total protein 6.1. Urinalysis is pending. Impression And Plan: 1. Severe hypertension and headaches, vision changes. Patient needs to be ruled out for carotid artery stenosis and MRI was ordered to rule out acute stroke. 2. Abnormal renal function. Patient has multiple risk factors for chronic kidney disease. Plan is to monitor electrolytes, fluid balance, and adjust treatment as needed for fluid overload. Patient may be need furosemide. 3. Renal osteodystrophy. Monitor phosphorus and calcium level. Adjust binders as needed. At this point, patient will continue diabetic diet. She has history of diabetes mellitus and plan is to re-evaluate phosphorus level to rule out hyperphosphatemia. BEATA/CAROLE Voice ID: [id number] Report ID: [id number] MTDMary
[2019-06-10] MEDS: ENOXAPARIN 60 MG/0.6 ML SQ SCH (05:04)
[2019-06-10 05:49] LABS: MPV 9.5 fL (7.6-11.3)
[2019-06-10] MEDS: ASPIRIN EC 81 MG TAB PO SCH (06:49)
[2019-06-10] MEDS: lisinopriL 10 MG TAB PO SCH (06:49)
[2019-06-10 07:08] LABS: Platelet Estimate ADEQ
[2019-06-10] MEDS: INSULIN -REGULAR HUMAN 50 UNIT/0.5 ML ML SQ SCH ×4 (07:30→21:00)
--- NOTE | 2019-06-10 07:32 | P.PN ---
Date of Service: 06/09/19 Called to assess patient. She appears to be sundowning. MRI of the brain was essentially unremarkable except for some atherosclerotic changes and a small meningioma. No acute findings noted. Patient thinks that people are wanting to hurt her. She apparently had woke up from a nap and was seeing things and was having paranoid thoughts. This started around 6:00 p.m.. She has not required hospitalization in quite a while. With her current mentation will give her a small dose of Haldol and hopefully she can sleep. She was given Ativan earlier today-patient is claustrophobic and prior to MRI this was given so we could complete MRI. We did notify and Neurology and they have recommended the EEG and anti epileptics. However, in the current clinical situation this is most likely delirium/sundowning. Hopefully we can get her to rest and when she wakes up she will feel much better.
[2019-06-10] MEDS: GLUCERNA SHAKE 237 ML CAN PO SCH ×2 (08:40→21:00)
[2019-06-10] MEDS: FUROSEMIDE 40 MG/4 ML VIAL IV SCH (08:42)
[2019-06-10 09:05] LABS: Absolute Lymphocytes (CBC) 1.1 K/uL (0.7-4.9); Basophils % 0.3 % (0-1.3); Hematocrit 33.2 % (36.0-45.0); Lymphocytes % 20.6 % (15.3-44.8); RBC Red Blood Cell Count 3.86 M/uL (3.86-4.86)
[2019-06-10] MEDS ORDERED: HEPA 1000U/500MLS 1,000 UNIT/500 ML BAG IV ONE (09:11)
[2019-06-10] MEDS ORDERED: MIDAZOLAM HCL 2 MG/2 ML INJ ONE (09:23)
[2019-06-10] MEDS ORDERED: NA CHLORIDE 0.9% 0 ML ONE (09:24)
[2019-06-10] MEDS ORDERED: ATROPINE SULF 1 MG/10 ML SYR IV ONE (09:24)
[2019-06-10] MEDS ORDERED: FENTANYL CITR 100 MCG/2 ML ONE (09:24)
[2019-06-10] MEDS ORDERED: NA CHLORIDE 0.9% 500 ML ONE (09:47)
[2019-06-10] MEDS ORDERED: ACETYLCYST 20% 4 ML VIAL IH ONE (10:28)
[2019-06-10] MEDS ORDERED: HYDRALAZINE HCL 20 MG/ML VIAL ONE (10:47)
[2019-06-10 11:19] LABS: Blood Morphology Comment NOT SEEN (NOT SEEN); Platelet Estimate DECR
[2019-06-10] MEDS: METOPROLOL TAR 50 MG TAB PO SCH (12:05)
[2019-06-10] MEDS: ACETAMINOPHEN 500 MG TAB PO PRN (12:51)
[2019-06-10] MEDS: levETIRAcetam 500 MG TAB PO SCH ×2 (12:55→21:28)
--- NOTE | 2019-06-10 13:32 | P.PN ---
Subjective Date of Service: 06/10/19 For cath today. Delirious overnight. Oriented to self only. Physical Examination - Vital Signs Temperature: 96.8 F Blood Pressure: 184/65 Pulse: 64 Respirations: 18 Pulse Ox (%): 97 - Physical Exam General: Alert, In no apparent distress HEENT: Atraumatic, PERRLA, EOMI Neck: Supple, JVD not distended Respiratory: Diminished, Crackles/rales Cardiovascular: Regular rate/rhythm, Normal S1 S2 Gastrointestinal: Normal bowel sounds, No tenderness Musculoskeletal: No tenderness Integumentary: No rashes Neurological: Normal speech, Normal tone, Normal affect Lymphatics: No axilla or inguinal lymphadenopathy - Studies reviewed Medications List Reviewed: Yes Assessment And Plan - Plan # Acute new onset congestive heart failure,LVEF 53%-diastolic HF - Continue diuretics. Monitor I's and O's, free fluid restriction. -procedure rn on consult. For cath today # Pyt-YS-nxjiweyka myocardial infarction. -continue on heparin drip, going for heart catheterization today # Hypertensive urgency- Blood pressure still elevated. -Medications have been adjusted yesterday, will monitor for effectiveness. - Continue hydralazine p.r.n. # Blurry vision-MRI rule out acute issues. - CT head did not show any acute changes. Does show meningioma, which is stable. -DC Neurology. # Acute kidney injury-Creatinine is elevated. - for cath today. monitor for LUTHER post procedure -Cardiology Technician on consult. # Diabetes mellitus type 2, non-insulin requiring. - continue sliding scale insulin. Monitor Accu-Cheks. # Mixed hyperlipidemia. Continue statin. # History of diverticulosis, stable. # Coronary artery disease, hamilton artery and hamilton heart, now with angina. -Patient's previous heart catheterization was 3 years ago. # Meningioma. Has been present for several years stable. DVT ppx- on heparin drip
[2019-06-10] MEDS: carvediloL 12.5 MG TAB PO SCH ×2 (14:14→18:00)
--- NOTE | 2019-06-10 14:41 | RAD REPORT ---
EXAM DESCRIPTION: US - Renal Ultrasound-Complete - 06/10/2019 2:32 pm CLINICAL HISTORY: GURMEET COMPARISON: None. FINDINGS: The right kidney measures 5.1 x 2.6 x 2.5 cm. The left kidney measures 8.9 x 4.6 x 3.7 cm . Left renal cortical thickness and echogenicity are normal. Right kidney shows significant cortical thinning with an increase in cortical echogenicity. No hydronephrosis or suspicious renal mass. A 14 mm cyst is present lower pole right kidney. No bladder wall thickening or mass. No intraluminal stone or mass. IMPRESSION: Right kidney is significantly smaller than the left and show significant cortical thinni ng and increased cortical echogenicity indicating medical renal disease. Echogenicity of the left kidney is within normal range. No bladder abnormality. No hydronephrosis or solid mass of either kidney.
--- NOTE | 2019-06-10 17:38 | PN ---
Date of Progress Note: 06/10/2019 Subjective: The patient was admitted with CHF exacerbation, acute kidney injury, lzz-QJ-wfybhglle [place] . Patient did undergo cardiac cath today. Physical Examination: Vital Signs: Blood pressure 184/65, pulse of 64. Patient had urine output only 600. Chest: Faint rales with decreased entry on the right base. Heart: S1, S2. Systolic murmur. Abdomen: Soft, nontender. Extremities: No edema. Laboratory Data: WBC 5.2, H and H of 11/33.2, platelet 143. Sodium 147, potassium 4, bicarb 29, BUN 39, creatinine 1.6. Calcium 8.5. Urine still pending. Current Medications: The patient on is: 1.Lisinopril. 2.Lovenox. 3.Heparin. 4.Atorvastatin. 5.Metoprolol. 6.Keppra. 7.Haloperidol. 8.Lasix. 9.Normal saline. Assessment And Plan: 1.Acute kidney injury secondary to toxic acute tubular necrosis, poor perfusion acute tubular necros is/cardiorenal, status post superimposed with VANCE inhibitor, status post cardiac cath today. I am go ing to go ahead and get full workup for the patient given the worsening in the kidney function, espec ially the exposure to contrast today and decline in the urine output. I am going to start the patien t on gentle hydration given the exposure to contrast. Discontinue her VANCE inhibitor and Lasix for no w and we will monitor the patient. 2.Hypertension with the presence of acute kidney injury, discontinue Lasix. 3.Aur-OS-qyhxfsuhw myocardial infarction, congestive heart failure exacerbation, status post cardiac cath today. We will follow up with Cardiology. 4.Oap-XL-zkskoeusi myocardial infarction as by Cardiology. SHAKIRA/CAROLE Voice ID: [id number] Report ID: [id number]
--- NOTE | 2019-06-10 18:05 | PN ---
Date of Progress Note: 06/10/2019 Subjective: Patient doing better, more awake today. Still blood pressure has been elevated. Patient was admitted originally with CHF exacerbation, non-ST- elevation [place]. Patient is status post cardiac cath. No intervention was done. Objective: Vital Signs: When I saw the patient, blood pressure 184/65, pulse of 64. Patient had urine output of 600. Chest: Faint crackles on the left base. Heart: S1, S2. Regular. Abdomen: Soft, nontender. Extremities: No edema. Laboratory Data: Sodium 147, potassium 4, bicarb 29, BUN 39, creatinine 1.6, calcium 8.5. WBC 5.2, H and H 11/33.2, platelets 143. Current Medications: The patient on include: 1. Aspirin. 2. Lovenox. 3. Atorvastatin. 4. Lisinopril. 5. Hydralazine. 6. Metoprolol. 7. Haloperidol. 8. Lasix. 9. Zofran. Assessment And Plan: 1. Acute kidney injury secondary to poor perfusion, acute tubular necrosis/ cardiorenal, superimposed with VANCE inhibitor, exposure to contrast yesterday. Kidney function has been plateaued. a. I am going to go ahead and discontinue IV fluid. Keep holding VANCE inhibitor for the time being. Keep holding Lasix and we will monitor the patient. b. Given the blood pressure being controlled, no over volume currently. I do not see the need to proceed with MRA for the time being. If kidney function did not improve, we will consider patient to undergo cardiac cath yesterday. 2. Hypertension, controlled, optimal with the presence of disproportion in the kidney size. Renal artery stenosis has a possibility as I mentioned above. Currently, blood pressure being controlled. I do not see the need to ruth that possibility. 3. Hqo-RN-nxfyiqiun myocardial infarction, status post cardiac cath. Follow up with Cardiology. SHAKIRA/CAROLE Voice ID: [id number] Report ID: [id number] MTDD
[2019-06-10] MEDS: NA CHLORIDE 0.9% 1,000 ML IV SCH ×2 (18:38→20:49)
[2019-06-10 19:01] LABS: Absolute Lymphocytes (CBC) 0.7 K/uL (0.7-4.9); Basophils % 0.4 % (0-1.3); Hematocrit 36.1 % (36.0-45.0); Lymphocytes % 11.3 % (15.3-44.8); MPV 9.6 fL (7.6-11.3); RBC Red Blood Cell Count 4.19 M/uL (3.86-4.86)
--- NOTE | 2019-06-10 20:11 | OP ---
Surgeon: Augustus Cartwright MD Dry Ice Maker: Jorge Almaraz. Indication: Her troponin is elevated, consistent with rfd-XY-jauledbfm myocardial infarction. She h ad come in with no chest pain, but had a possible TIA, very hypertensive. Description Of Procedure: Brought to the custodial laborer today as an inpatient. She had a left heart adriana terization with selective coronary arteriogram. She was prepped and draped in the routine sterile fa shion. Had Versed for sedation. 6-Faroese sheath introduced in the right common femoral artery succe ssfully. Angiography there was normal. Angio-Seal was used to close the case. The angiography usin g Celine catheter 6-Faroese left and right Celine were used to cannulate the left main and right tank n respectively. She was found to have a normal left main, normal RCA. She was right dominant. She had a 40% ostial circumflex stenosis which was nondominant. She had a 20% mid LAD stenosis, 30% osti al diagonal. Complication: There were no complications. Blood Loss: 5 mL. Anesthesia: Total conscious sedation was 30 minutes. Final Diagnoses: 1.Mild coronary artery disease. 2.Severe hypertension. Plan: Plan is for medical therapy. Patient did get 10 mg of hydralazine IV in the custodial laborer for bloo d pressure over 200. Anesthesia: Total conscious sedation was 30 minutes. The patient will be treated medically, observed for 2 hours of bedrest and hopefully can go home late r on today or tomorrow. We will see her in the office in 2 weeks. BOBY/CAROLE Voice ID: [id number] Report ID: [id number]
--- NOTE | 2019-06-10 20:54 | EKG ---
Test Date: 2019-06-10 Test Time: 13:56:36 Bander Operator: TC MEASUREMENT RESULTS: Intervals: Rate: 70 AK: 130 QRSD: 106 QT: 398 QTc: 429 [place]: P: 52 AK: 130 QRS: 0 T: 251 INTERPRETIVE STATEMENTS: Normal sinus rhythm Left ventricular hypertrophy with repolarization abnormality Abnormal ECG Compared to ECG 06/08/2019 15:30:36 Left ventricular hypertrophy now present Early repolarization now present ST (T wave) deviation no longer present Electronically Signed On 06-10-19 20:53:00 REGIONAL ACCOUNT DIRECTOR by Augustus Cartwright
[2019-06-10] MEDS: ATORVASTATIN 40 MG TAB PO SCH (21:28)
[2019-06-10] MEDS: METOPROLOL TAR 25 MG TAB PO SCH (21:28)
[2019-06-11 04:39] LABS: Absolute Lymphocytes (CBC) 0.9 K/uL (0.7-4.9); Basophils % 0.4 % (0-1.3); Hematocrit 35.7 % (36.0-45.0); Lymphocytes % 17.1 % (15.3-44.8); MPV 9.7 fL (7.6-11.3); RBC Red Blood Cell Count 4.16 M/uL (3.86-4.86)
[2019-06-11 05:03] LABS: Albumin 3.3 g/dL (3.4-5.0); Phosphorus 4.4 mg/dL (2.5-4.9); Potassium 4.1 mmol/L (3.5-5.1); Thyroid Stimulating Hormone 1.3 uIU/mL (0.360-3.740)
[2019-06-11] MEDS: carvediloL 12.5 MG TAB PO SCH (05:38)
[2019-06-11] MEDS: ENOXAPARIN 60 MG/0.6 ML SQ SCH (05:38)
[2019-06-11] MEDS: INSULIN -REGULAR HUMAN 50 UNIT/0.5 ML ML SQ SCH ×4 (07:30→21:00)
[2019-06-11] MEDS: GLUCERNA SHAKE 237 ML CAN PO SCH ×2 (08:28→21:00)
[2019-06-11] MEDS: levETIRAcetam 500 MG TAB PO SCH ×2 (08:28→21:59)
[2019-06-11] MEDS: ASPIRIN EC 81 MG TAB PO SCH (08:28)
[2019-06-11] MEDS: METOPROLOL TAR 25 MG TAB PO SCH ×2 (08:29→21:59)
[2019-06-11 10:47] LABS: Urine Appearance CLEAR; Urine Bilirubin NEGATIVE (NEG); Urine Blood NEGATIVE (NEG); Urine Color YELLOW; Urine Glucose NEGATIVE (NEG); Urine Protein NEGATIVE (NEG); Urine Specific Gravity 1.025 (1.005-1.030); Urine Urobilinogen 0.2 mg/dL (0.2-1.0); Urine pH 5.5 (5.0-7.0)
[2019-06-11] MEDS: NA CHLORIDE 0.9% 1,000 ML IV SCH (10:47)
[2019-06-11 10:49] LABS: Urine Microscopic Reflex ORDER UMIC
[2019-06-11 11:01] LABS: Urine Protein/Creatinine Ratio 0.11 ratio (<0.15)
--- NOTE | 2019-06-11 11:22 | P.PN ---
Subjective Date of Service: 06/11/19 Status post cardiac catheterization, no intervention. Patient denies any chest pain. No acute event ON. Patient is currently alert & oriented x3. Daughter is at bedside. Physical Examination - Vital Signs Temperature: 97.4 F Blood Pressure: 140/86 Pulse: 73 Respirations: 18 Pulse Ox (%): 94 - Physical Exam General: Alert, In no apparent distress HEENT: Atraumatic, PERRLA, EOMI Neck: Supple, JVD not distended Respiratory: Clear to auscultation bilaterally, Normal air movement Cardiovascular: Regular rate/rhythm, Normal S1 S2 Gastrointestinal: Normal bowel sounds, No tenderness Musculoskeletal: No tenderness Integumentary: No rashes Neurological: Normal speech, Normal tone, Normal affect Lymphatics: No axilla or inguinal lymphadenopathy - Studies Medications List Reviewed: Yes Assessment And Plan - Plan # Acute new onset congestive heart failure, LVEF 53%-diastolic HF - Continue diuretics. Monitor I's and O's, free fluid restriction. -teacher public health on consult. For cath today # Nld-VS-orpoozrsj myocardial infarction-status post heart catheterization with no intervention. -discontinue heparin drip. -teacher public health on consult. # Hypertensive urgency- Blood pressure is uncontrolled. -Continue current therapy. If needed, will add nifedipine. - Continue hydralazine p.r.n. # Blurry vision-MRI rule out acute issues. - CT head did not show any acute changes. Does show meningioma, which is stable. -DC Neurology. # Acute kidney injury-Creatinine is elevated, not worse. - monitor for LUTHER post procedure -Loan Review Officer on consult. # Diabetes mellitus type 2, non-insulin requiring. - continue sliding scale insulin. Monitor Accu-Cheks. -check hemoglobin A1c # Mixed hyperlipidemia. Continue statin. # History of diverticulosis, stable. # Meningioma-has been present for several years stable. DVT ppx- on Lovenox. PT/OT
[2019-06-11 11:49] LABS: Urine Bacteria 20-50 /HPF (<20); Urine RBC <5 /HPF (NONE SEEN)
[2019-06-11 11:50] LABS: Urine Culture Reflex Order REFLEXED
[2019-06-11] MEDS: ATORVASTATIN 40 MG TAB PO SCH (21:59)
--- NOTE | 2019-06-11 23:35 | PN ---
Date of Progress Note: 06/11/2019 Subjective: Patient was admitted with acute kidney injury, status post cardiac cath. Also, patient was admitted with rig-PA-qsfyrvudz [place]. Patient had cardiac cath yesterday. Workup for the patient s how severe disproportion in the kidney size. Physical Examination: Vital Signs: Blood pressure of 148/65, pulse of 60. Patient had good urine output of 600, positive of 300. Chest: Clear to auscultation. Heart: S1, S2. Systolic murmur. Abdomen: Soft, nontender. Extremities: Trace edema. Laboratory Data: WBC 5.5, H and H 11.8/35.7, platelets 167. Sodium 145, potassium 4.1, bicarb 30, B UN 44, creatinine 1.6, calcium 8.7, phosphorus 4.4, albumin 3.3. Serum protein electrophoresis is st ill pending. PTH 188. Urinalysis P-C ratio 0.1. Serology still pending. Renal ultrasound showing severe disproportion in kidney size, right kidney of 5.1, left kidney 8.9. Echogenic. Assessment And Plan: 1.Acute kidney injury secondary to poor perfusion, acute tubular necrosis/cardiorenal, superimposed with VANCE inhibitor, exposure to contrast yesterday. Kidney function has been plateaued. a.I am going to go ahead and discontinue IV fluid. Keep holding VANCE inhibitor for the time being. Keep holding Lasix and we will monitor the patient. b.Given the blood pressure being controlled, no over volume currently. I do not see the need to pro ceed with MRA for the time being. If kidney function did not improve, we will consider patient to un dergo cardiac cath yesterday. 2.Hypertension, controlled, optimal with the presence of disproportion in the kidney size. Renal ar dru stenosis has a possibility as I mentioned above. Currently, blood pressure being controlled. I do not see the need to ruth that possibility. 3.Ahr-AQ-hsrixhbuv myocardial infarction, status post cardiac cath. Follow up with Cardiology. SHAKIRA/CAROLE Voice ID: [id number] Report ID: [id number]
[2019-06-11 23:39] LABS: Rheumatoid Factor NEG (NEG)
[2019-06-12 05:54] LABS: Albumin 3.1 g/dL (3.4-5.0); Magnesium 2.4 mg/dL (1.8-2.4); Phosphorus 3.5 mg/dL (2.5-4.9); Potassium 4.4 mmol/L (3.5-5.1)
[2019-06-12 05:57] LABS: Absolute Lymphocytes (CBC) 0.9 K/uL (0.7-4.9); Basophils % 0.2 % (0-1.3); Lymphocytes % 16.6 % (15.3-44.8); MPV 9.8 fL (7.6-11.3); RBC Red Blood Cell Count 3.87 M/uL (3.86-4.86)
[2019-06-12] MEDS: ENOXAPARIN 60 MG/0.6 ML SQ SCH (06:13)
[2019-06-12] MEDS: INSULIN -REGULAR HUMAN 50 UNIT/0.5 ML ML SQ SCH ×4 (07:30→21:00)
[2019-06-12] MEDS ORDERED: NIFEDIPINE XL 30 MG TABLET PO SCH (09:00)
[2019-06-12] MEDS: METOPROLOL TAR 25 MG TAB PO SCH ×2 (09:06→20:16)
[2019-06-12] MEDS: levETIRAcetam 500 MG TAB PO SCH ×2 (09:07→20:15)
[2019-06-12] MEDS: ASPIRIN EC 81 MG TAB PO SCH (09:07)
[2019-06-12] MEDS: GLUCERNA SHAKE 237 ML CAN PO SCH ×2 (09:08→20:16)
[2019-06-12 09:50] VITALS: O2SAT 98
[2019-06-12] MEDS: NIFEDIPINE XL 60 MG TABLET PO SCH (11:12)
[2019-06-12] MEDS: HYDRALAZINE HCL 25 MG TABLET PO SCH ×2 (13:51→20:15)
--- NOTE | 2019-06-12 16:37 | P.PN ---
Subjective Date of Service: 06/12/19 Status post cardiac catheterization, no intervention. Patient denies any chest pain. No acute event ON. Patient is currently alert & oriented x3. Daughter is at bedside. BP remains elevated Physical Examination - Vital Signs Temperature: 97.3 F Blood Pressure: 185/75 Pulse: 65 Respirations: 18 Pulse Ox (%): 96 - Physical Exam General: Alert, In no apparent distress HEENT: Atraumatic, PERRLA, EOMI Neck: Supple, JVD not distended Respiratory: Clear to auscultation bilaterally, Normal air movement Cardiovascular: Regular rate/rhythm, Normal S1 S2 Gastrointestinal: Normal bowel sounds, No tenderness Musculoskeletal: No tenderness Integumentary: No rashes Neurological: Normal speech, Normal tone, Normal affect Lymphatics: No axilla or inguinal lymphadenopathy - Studies Medications List Reviewed: Yes Assessment And Plan - Plan # Acute new onset congestive heart failure, LVEF 53%-diastolic HF - Continue diuretics. Monitor I's and O's, free fluid restriction. -bronze plater on consult. For cath today # Ltr-ZE-gftrpchcu myocardial infarction-status post heart catheterization with no intervention. -discontinue heparin drip. -bronze plater on consult. # Hypertensive urgency- Blood pressure is uncontrolled. -Continue current therapy. Nifedipine added. - Continue hydralazine p.r.n. # Blurry vision-MRI rule out acute issues. - CT head did not show any acute changes. Does show meningioma, which is stable. -DC Neurology. # Acute kidney injury-Creatinine is elevated, not worse. - monitor for LUTHER post procedure -Patient Support Partner on consult. # Diabetes mellitus type 2, non-insulin requiring. - continue sliding scale insulin. Monitor Accu-Cheks. -hemoglobin A1c # Mixed hyperlipidemia. Continue statin. # History of diverticulosis, stable. # Meningioma-has been present for several years stable. DVT ppx- on Lovenox. PT/OT Plan- dc later today once BP is controlled; otherwise, further work per engineering design supervisor.
[2019-06-12] MEDS: ATORVASTATIN 40 MG TAB PO SCH (20:15)
--- NOTE | 2019-06-12 21:01 | RAD REPORT ---
EXAM DESCRIPTION: MRI - MRA Abdomen W/Wo Cont - 06/12/2019 7:46 pm CLINICAL HISTORY: Acute kidney injury, hypertension COMPARISON: CT study November 2008 TECHNIQUE: Coronal heavily T2 weighted and axial T1 weighted and T2 haste sequences were obtained. C oronal acquisition plane utilized during 40 milliliter MultiHance contrast volume administration. Cor onal postcontrast re-formatted images were generated and reviewed. Horizontal and vertical axes 3D ro tational images obtained using maximum intensity projection protocol. FINDINGS: Anatomic assessment shows a small right kidney with cortical thinning. Small renal cysts p resent. Cyst is present posterior left kidney. The small right kidney is a new finding from the 2009 [address] study. Significant irregular or atherosclerotic changes are present in the aorta from the level of the galdino c artery to the bifurcation. No aneurysm or dissection. No significant luminal narrowing in the aorta . Bilateral common iliac and proximal portions of the external iliac arteries are unremarkable. Aorta above the celiac artery level shows no significant disease. 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 Superior mesenteric artery do es not show significant disease. Inferior mesenteric artery is patent but there is significant lumina l stenosis. There is very significant short-segment signal loss in the proximal left vertebral artery estimated a t 80%. There is no history of left renal artery stenting. There is a short stump of the right renal a rtery identified. There is truncation of the right renal artery with little or no identifiable flow w ithin the right renal artery. 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 Blood flow was difficult to identified at sonography as well. The right kidney is very small with cortical thinning. This is new from 2009. This finding would be c onsistent with infarcted or significantly compromised renal parenchyma. The left kidney has short-segment high-grade 80% stenosis near the origin. 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 Significant atherosclerotic change in the aorta without significant luminal narrowing or dissection.
--- NOTE | 2019-06-13 00:49 | PN ---
Date of Progress Note: 06/12/2019 History: Patient was admitted with urgent hypertension, over volume, undergo cardiac cath, was negat uvaldo. Primary workup showed disproportion in the kidney size. Blood pressure today getting uncontrol led. Physical Examination: Vital Signs: Blood pressure of 181/83, pulse of 65, afebrile. Chest: Clear to auscultation. Heart: S1, S2 regular. Abdomen: Soft, nontender. Extremities: No edema. Laboratory Data: Patient WBC 5.3, H and H 11.1 and 33, platelets 133. Sodium 146, potassium 4.4, bi carb 30, BUN 48, creatinine 1.3, calcium 8.6, phosphorus 3.5, magnesium 2.4. Current Medications: Include, 1.Nifedipine 30. 2.Hydralazine p.r.n. 3.Atorvastatin. 4.Metoprolol 25. 5.Keppra. Assessment And Plan: 1.Acute kidney injury secondary to cardiorenal on the recovery, status post acute kidney injury seco ndary to contrast and urgent hypertension, start recovering. We will hold all IV fluids. We will mo nitor the patient. 2.The patient had a component of renal artery stenosis. If the blood pressure continued to be uncon trolled, we will go ahead and proceed with MRA of the renal artery. 3.Hypertension, possible secondary to the renal artery stenosis. I am going to go ahead and increas e nifedipine to 60, start the patient on hydralazine 25 t.i.d. If her blood pressure in the next few hours did not improve, I am going to go ahead and do MRA for the renal artery to rule out any renal artery stenosis. 4.Urgent hypertension as above. 5.Congestive heart failure/non-ST elevation myocardial infarction by Cardiology. If MRA came positi ve for renal artery stenosis, we need to call Cardiology again for angioplasty. SHAKIRA/CAROLE Voice ID: [id number] Report ID: [id number]
[2019-06-13 05:31] LABS: Albumin 2.9 g/dL (3.4-5.0); Phosphorus 3.2 mg/dL (2.5-4.9); Potassium 4.6 mmol/L (3.5-5.1)
[2019-06-13] MEDS: ENOXAPARIN 60 MG/0.6 ML SQ SCH (06:09)
[2019-06-13] MEDS: INSULIN -REGULAR HUMAN 50 UNIT/0.5 ML ML SQ SCH (07:30)
[2019-06-13 09:23] VITALS: TEMP 97.7
[2019-06-13] MEDS: METOPROLOL TAR 25 MG TAB PO SCH (09:41)
[2019-06-13] MEDS: ASPIRIN EC 81 MG TAB PO SCH (09:41)
[2019-06-13] MEDS: NIFEDIPINE XL 60 MG TABLET PO SCH (09:42)
[2019-06-13] MEDS: HYDRALAZINE HCL 25 MG TABLET PO SCH (09:42)
[2019-06-13] MEDS: levETIRAcetam 500 MG TAB PO SCH (09:42)
[2019-06-13 09:43] VITALS: BP 146/65
[2019-06-13] MEDS: GLUCERNA SHAKE 237 ML CAN PO SCH (09:43)
--- NOTE | 2019-06-13 11:18 | P.DS ---
Admission Date: 06/08/19 Discharge Date: 06/13/19 Disposition: ROUTINE DISCHARGE Discharge Condition: GOOD Consultations: Cardiology Nephrology Procedures: Cardiac catheterization Brief History of Present Illness: Acute Diastolic HF Hypertensive emergency Urinary tract infection Renal artery stenosis Obesity Meningioma Acute kidney injury Hospital Course: Ms. Arreola is 78-year-old female with past medical history of hypertension, diabetes, hyperlipidemia, who was in her usual state of health until 2 weeks prior to admission. Patient had sudden onset of chills; then proceeded to worsening shortness of breath and edema. Initial evaluation found patient to be in hypertensive emergency with associated acute CHF. Patient denies any prior history of CHF. She also had elevated troponin, suggestive of type 2 [place] versus ACS. She was evaluated by water meter installer and underwent cardiac catheterization which showed mild disease;therefore no intervention was done. Her echocardiogram showed preserved LVEF. Patient was treated for decompensated diastolic heart failure and currently euvolemic. She continued to have uncontrolled blood pressure requiring work up for secondary etiology. MRI /MRA abdomen showed evidence of right artery stenosis. She was evaluated by scrubber system attendant whom she will follow up outpatient for further treatment. Her blood pressures have been optimized with medical management. Patient also has urinary tract infection with urine culture growing Proteus mirabilis. She has been initiated on oral antibiotics. She may hemodynamically stable for discharge on follow up with her PCP, scrubber system attendant and water meter installer as outpatient. Vital Signs/Physical Exam: Temp Pulse Resp BP Pulse Ox 97.7 F 75 15 146/65 H 94 06/13/19 08:00 06/13/19 09:42 06/13/19 08:00 06/13/19 09:42 06/13/19 08:00 General: Alert, In no apparent distress HEENT: Atraumatic, PERRLA, EOMI Neck: Supple, JVD not distended Respiratory: Clear to auscultation bilaterally, Normal air movement Cardiovascular: Regular rate/rhythm, Normal S1 S2 Gastrointestinal: Normal bowel sounds, No tenderness Musculoskeletal: No tenderness Integumentary: No rashes Neurological: Normal speech, Normal tone, Normal affect Lymphatics: No axilla or inguinal lymphadenopathy Laboratory Data at Discharge: WBC 5.3 K/uL (4.3-10.9) 06/12/19 05:19 Hgb 11.1 g/dL (12.0-15.0) L 06/12/19 05:19 Hct 33.0 % (36.0-45.0) L 06/12/19 05:19 Plt Count 133 K/uL (152-406) L D 06/12/19 05:19 PT 13.1 SECONDS (9.5-12.5) H 06/09/19 05:53 INR 1.11 06/09/19 05:53 APTT 140.2 SECONDS (24.3-36.9) H* 06/09/19 12:18 Sodium 146 mmol/L (136-145) H 06/13/19 04:55 Potassium 4.6 mmol/L (3.5-5.1) 06/13/19 04:55 BUN 34 mg/dL (7-18) H 06/13/19 04:55 Creatinine 1.04 mg/dL (0.55-1.3) 06/13/19 04:55 Glucose 86 mg/dL (74-106) 06/13/19 04:55 Phosphorus 3.2 mg/dL (2.5-4.9) 06/13/19 04:55 Magnesium 2.4 mg/dL (1.8-2.4) 06/12/19 05:19 Total Bilirubin 0.3 mg/dL (0.2-1.0) 06/09/19 03:12 AST 13 U/L (15-37) L 06/09/19 03:12 ALT 17 U/L (12-78) 06/09/19 03:12 Alkaline Phosphatase 85 U/L (45-117) 06/09/19 03:12 Troponin I 0.42 ng/mL (0.0-0.045) H 06/09/19 07:00 Triglycerides 137 mg/dL (<150) 06/10/19 05:20 Cholesterol 168 mg/dL (<200) 06/10/19 05:20 HDL Cholesterol 49 mg/dL (40-60) 06/10/19 05:20 Cholesterol/HDL Ratio 3.43 06/10/19 05:20 Home Medications: Pravastatin Sodium 40 mg PO BEDTIME 06/12/19 Aspirin 81 mg PO DAILY #90 tab.chew 06/13/19 Cephalexin [Keflex*] 500 mg PO Q12HR 5 Days #10 cap 06/13/19 Hydralazine [Apresoline*] 50 mg PO TID #90 tab 06/13/19 Metformin HCl 500 mg PO BID #60 tablet 06/13/19 Metoprolol Tartrate [Lopressor*] 25 mg PO BID #60 tab 06/13/19 Nifedipine Xl [Procardia XL] 60 mg PO DAILY #30 tab 06/13/19 levETIRAcetam [Keppra*] 500 mg PO BID #60 tab 06/13/19 New Medications: Aspirin 81 mg PO DAILY #90 tab.chew Cephalexin [Keflex*] 500 mg PO Q12HR 5 Days #10 cap Hydralazine [Apresoline*] 50 mg PO TID #90 tab levETIRAcetam [Keppra*] 500 mg PO BID #60 tab Metformin HCl 500 mg PO BID #60 tablet Metoprolol Tartrate [Lopressor*] 25 mg PO BID #60 tab Nifedipine Xl [Procardia XL] 60 mg PO DAILY #30 tab Patient Discharge Instructions: Follow up for renal artery stenosis Diet: [facility] Activity: Ad manuela Followup: Gabriela Ramirez MD [ACTIVE - CAN ADMIT] - 1 Week Adilson Murray MD [ACTIVE - CAN ADMIT] - 1 Week NONE,NONE [Primary Care Provider] - 1 Week
[2019-06-13] MEDS ORDERED: CEPHALEXIN 500 MG CAP PO SCH (12:00)
--- NOTE | 2019-06-13 12:29 | P.PN ---
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, Will f/u as an OP in 2-3 wks Physical Examination - Vital Signs Temperature: 97.7 F Blood Pressure: 146/65 Pulse: 75 Respirations: 15 Pulse Ox (%): 94 - Physical Exam General: In no apparent distress, Oriented x3 HEENT: Atraumatic Neck: Supple, Without JVD or thyroid abnormality Respiratory: Clear to auscultation bilaterally, Normal air movement Cardiovascular: No edema, Normal pulses, Regular rate/rhythm, Normal S1 S2, No gallops, No rubs, No murmurs Gastrointestinal: Normal bowel sounds, Soft and benign Musculoskeletal: No swelling - Studies Medications List Reviewed: Yes Assessment And Plan - Plan GURMEET due to prerenal and Contrast nephropathy resloved Chest pain S/P cardiac cath HTN Bp ontrolled now on Nifedipine and metoprolol MRA with Rt renal artery occlusion and Lt 805 stenosis BP controlled now , Cont ASA and statin will refer to vascular as an OP renal artery stenosis as above
[2019-06-13] MEDS ORDERED: ENOXAPARIN 60 MG/0.6 ML SQ SCH (18:00)
[2019-06-13 19:19] LABS: Hepatitis C Virus RNA (PCR)log <1.18 log IU/mL
[2019-06-14 22:05] LABS: Albumin, (SPE) 3.4 g/dL (3.8-4.8); Alpha-1-Globulins 0.2 g/dL (0.2-0.3); Alpha-2-Globulins 0.5 g/dL (0.5-0.9); INTERPRETATION REPORT
[2019-06-15 00:08] LABS: HBsAG Nonreactive (Nonreactive)
[2019-06-16 11:28] LABS: Vitamin D 1,25-Dihydroxy Total 27 pg/mL (18-72); Vitamin D,1,25-OH2, D2 <8 pg/mL
--- NOTE | 2019-06-18 13:29 | EEG ---
CHART: [id number] TEST ID#: [id number] DATE OF STUDY: 06/10/2019 THE EEG WAS RECORDED PORTABLE IN THE PATIENTS ROOM ON A 17 CHANNEL MACHINE. ELECTRODES WERE APPLIED IN THE USUAL MANNER USING THE INTERNATIONAL 10-20 SYSTEM. THE WAKING BACKGROUND RHYTHM IN THIS RECORD CONSISTS OF VERY WELL DEVELOPED AND WELL ORGANIZED WAVES OF 9 HZ., MAXIMAL IN THE POSTERIOR HEAD REGIONS WHICH ATTENUATE NORMALLY WITH EYE OPENING. LOW-VOLTAGE 18-22 HZ ACTIVITY IS EXPRESSED IN THE FRONTAL REGIONS. THERE ARE NO FOCAL OR LATERALIZING FEATURES. NO EPILEPTIFORM ACTIVITY APPEARS. PHOTIC STIMULATION PRODUCED POOR DRIVING BILATERALLY. IMPRESSION: NORMAL EEG FOR THE AGE OF THE PATIENT IN [place].
== END 2019-06-13 12:23 | disposition home or self-care (01) | DRG 280 ==
LOC: ER 15:08 → ERHOLD 17:06 → 2ND 20:28
PROVIDERS: ADMIT Family Medicine; ATTEND Hospitalist
PROC: 4A023N7 Measurement of Cardiac Sampling and Pressure, Left Heart, Percutaneous Approach (ICD-10-PCS; principal; 2019-06-10)
PROC: B211YZZ Fluoroscopy of Multiple Coronary Arteries using Other Contrast (ICD-10-PCS; 2019-06-10)
DX: I21.A1 Myocardial infarction type 2 (principal); I50.33 Acute on chronic diastolic (congestive) heart failure; N17.0 Acute kidney failure with tubular necrosis; N39.0 Urinary tract infection, site not specified; I11.0 Hypertensive heart disease with heart failure; E78.2 Mixed hyperlipidemia; N25.0 Renal osteodystrophy; I16.0 Hypertensive urgency; I25.119 Atherosclerotic heart disease of native coronary artery with unspecified angina pectoris; D32.0 Benign neoplasm of cerebral meninges; E78.5 Hyperlipidemia, unspecified; B96.4 Proteus (mirabilis) (morganii) as the cause of diseases classified elsewhere
CPT/HCPCS: 36415; 70450; 70544; 70549; 70553; 71045; 76770; 80048; 80053; 80061; 80069; 80076; 81003; 81015; 82570; 82652; 82947; 83036; 83520; 83735; 83880; 83970; 84156; 84165; 84443; 84484; 85025; 85049; 85610; 85730; 86021; 86038; 86160; 86225; 86317; 86430; 86704; 86706; 87077; 87086; 87088; 87186; 87340; 87522; 87804; 92610; 93005; 93306; 93454; 93880; 94760; 95816; 96374; 96375; 97112; 97116; 97161; 99285; A9577; C1760; C1893; C8902; J0360; J0583; J1630; J1644; J1650; J1940; J1953; J2250; J2405; J3010; J7030; J7040

== ENCOUNTER 2020-04-10 10:56 | Observation (INO) | payer OTHER ==
[2020-04-10] MEDS ORDERED: ONDANSETRON 4 MG/2 ML VIAL ONE (11:31)
[2020-04-10] MEDS ORDERED: MORPHINE 2 MG/ML SYR ONE (11:42)
--- NOTE | 2020-04-10 12:07 | RAD REPORT ---
EXAM DESCRIPTION: RAD - Chest Single View - 04/10/2020 11:43 am CLINICAL HISTORY: CHEST PAIN COMPARISON: Portable June 08, 2019 TECHNIQUE: AP portable chest image was obtained 04/10/2020 11:43 am . FINDINGS: Chronic interstitial lung changes are evident similar to comparison. No new mass or consol idation. Right hemidiaphragm elevation again noted. Heart size is prominent but not clearly different . Central vasculature also prominent but stable. No measurable pleural effusion and no pneumothorax. Old rib trauma noted on the left. No acute bony findings. No acute aortic findings suspected. IMPRESSION: No acute cardiopulmonary process. Above detailed chest findings not clearly different from comparison.
[2020-04-10 12:21] LABS: Basophils % 0.2 % (0-1.3); Hematocrit 37.4 % (36.0-45.0); Lymphocytes % 13.2 % (15.3-44.8); RBC Red Blood Cell Count 4.44 M/uL (3.86-4.86)
[2020-04-10 12:25] LABS: Protime INR 1.04
[2020-04-10 12:41] LABS: Albumin 3.5 g/dL (3.4-5.0); Bilirubin Direct 0.1 mg/dL (0-0.2); Bilirubin Total 0.3 mg/dL (0.2-1.0); Potassium 3.3 mmol/L (3.5-5.1); Protein, Total 7.4 g/dL (6.4-8.2); Troponin (Emerg Dept Use Only) 0.02 ng/mL (0.0-0.045)
[2020-04-10] MEDS ORDERED: ASPIRIN 81 MG CHEWABLE TABLET ONE (13:16)
[2020-04-10] MEDS ORDERED: METOPROLOL TARTRATE 5 MG/5 ML INJ IV ONE (13:16)
[2020-04-10] MEDS ORDERED: METOPROLOL TAR 25 MG TAB ONE (13:16)
--- NOTE | 2020-04-10 13:20 | ER ---
Nurse's Notes [facility] Name: Aditi Arreola Age: 79 yrs Sex: Female : 1940 Arrival Date: 04/10/2020 Time: 10:57 Bed 3 Private MD: Ryan Infante R Diagnosis: Chest pain, unspecified;Persistent atrial fibrillation Presentation: 04/10 11:05 Chief complaint: Patient states: Chest pain with SOB started this morning, [place] at this ca1 time. Diarrhea this morning. Denies fever. Coronavirus screen: Client denies travel out of the [place] in the last 14 days. diarrhea, nausea, vomiting. Client presents with at least one sign or symptom that may indicate coronavirus-19. Standard/surgical mask placed on the client. Provider contacted for isolation considerations. Ebola Screen: Patient negative for fever greater than or equal to 101.5 degrees Fahrenheit, and additional compatible Ebola Virus Disease symptoms Patient denies exposure to infectious person. Patient denies travel to an Ebola-affected area in the 21 days before illness onset. No symptoms or risks identified at this time. Initial Sepsis Screen: Does the patient meet any 2 criteria? No. Patient's initial sepsis screen is negative. Does the patient have a suspected source of infection? No. Patient's initial sepsis screen is negative. Risk Assessment: Do you want to hurt yourself or someone else? Patient reports no desire to harm self or others. Onset of symptoms was April 10, 2020. 11:05 Method Of Arrival: Wheelchair ca1 11:05 Acuity: LUIS ARMANDO 2 ca1 Historical: - Allergies: 11:25 Codeine; ca1 - Home Meds: 11:25 metoprolol succinate 100 mg oral Tb24 1 tab once daily [Active]; hydralazine 50 mg Oral ca1 tab 1 tab 4 times per day [Active]; levetiracetam 500 mg oral tab 1 tab 2 times per day [Active]; nifedipine 60 mg Oral TbER 1 tab once daily [Active]; metformin 500 mg oral tab 1 tab 2 times per day [Active]; hydrochlorothiazide 25 mg Oral tab 1 tab once daily [Active]; furosemide 20 mg oral tab 1 tab once daily [Active]; - PMHx: 11:25 Diabetes - NIDDM; Hypertension; ca1 11:15 A-Fib; rb3 - PSHx: 11:15 Cholecystectomy; ; Left knee replacement; ankle; rb3 - Immunization history:: Adult Immunizations up to date, Flu vaccine is not up to date. - Social history:: Smoking status: Patient denies any tobacco usage or history of. - Family history:: not pertinent. - Hospitalizations: : No recent hospitalization is reported. Screenin:09 Abuse screen: Denies threats or abuse. Nutritional screening: No deficits noted. rb3 Tuberculosis screening: No symptoms or risk factors identified. Fall Risk None identified. Assessment: 11:09 General: Appears uncomfortable, Behavior is calm, cooperative, Denies fever. Pain: rb3 Complains of pain in chest Pain does not radiate. Pain currently is 9 out of 10 on a pain scale. Pain began this morning. Neuro: Level of Consciousness is awake, alert, obeys commands, Oriented to person, place, time, situation. Neuro: Under Presser are equal bilaterally Moves all extremities. Gait is unsteady, Speech is normal, Facial symmetry appears normal, Pupils are PERRLA. Cardiovascular: Patient's skin is warm and dry. Respiratory: Airway is patent Respiratory effort is even, unlabored, Respiratory pattern is regular, symmetrical. GI: Reports diarrhea, nausea, vomiting. : No signs and/or symptoms were reported regarding the genitourinary system. Musculoskeletal: Range of motion: intact in all extremities. 12:00 Reassessment: Patient appears in no apparent distress at this time. Patient and/or rb3 family updated on plan of care and expected duration. Pain level reassessed. Patient is alert, oriented x 3, equal unlabored respirations, skin warm/dry/pink. 12:19 Reassessment: Patient appears in no apparent distress at this time. Patient and/or rb3 family updated on plan of care and expected duration. Pain level reassessed. 13:00 Reassessment: Patient appears in no apparent distress at this time. Patient and/or rb3 family updated on plan of care and expected duration. Pain level reassessed. Patient is alert, oriented x 3, equal unlabored respirations, skin warm/dry/pink. 14:00 Reassessment: Patient appears in no apparent distress at this time. No changes from rb3 previously documented assessment. Family at the bedside. 15:00 Reassessment: Patient appears in no apparent distress at this time. Patient and/or rb3 family updated on plan of care and expected duration. Pain level reassessed. Patient is alert, oriented x 3, equal unlabored respirations, skin warm/dry/pink. Family remains at the bedside Patient denies pain at this time. 16:07 Reassessment: Unable to give report at this time, KYLAH Marquez is unavailable. rb3 16:28 Reassessment: Gave report to KYLAH Marquez. Information from the SB[facility] was given. All rb3 questions asked and answered. 16:45 Pain: rb3 Vital Signs: 11:05 BP 145 / 89; Pulse 120; Resp 14 S; Temp 97.3(TE); Pulse Ox 98% on R/A; Weight 61.69 kg ca1 (R); Height 5 ft. 4 in. (162.56 cm) (R); Pain 10/10; 12:01 BP 118 / 54; Pulse 116; Resp 16; Pulse Ox 99% ; Pain 9/10; rb3 13:00 BP 138 / 68; Pulse 116; Resp 19; Pulse Ox 100% ; rb3 13:30 BP 152 / 61; Pulse 81; Resp 16; Pulse Ox 95% ; rb3 14:30 BP 144 / 62; Pulse 78; Resp 17; Pulse Ox 96% ; rb3 15:30 BP 159 / 57; Pulse 71; Resp 15; Pulse Ox 100% ; rb3 11:05 Body Mass Index 23.34 (61.69 kg, 162.56 cm) ca1 ED Course: 10:57 Patient arrived in ED. ag5 10:57 Ryan Infante MD is Private Physician. ag5 11:05 Gabriel Medina MD is Attending Physician. rn 11:06 Robe Salcido, KYLAH is Primary Nurse. bp 11:09 Patient has correct armband on for positive identification. Placed in gown. Bed in low rb3 position. Call light in reach. Side rails up X2. teletypesetter monitor on. Pulse ox on. NIBP on. Warm blanket given. 11:22 Triage completed. ca1 11:25 Arm band placed on right wrist. EKG completed in triage. Results shown to MD. ca1 11:43 XRAY Chest (1 view) In Process Unspecified. EDMS 11:49 Inserted saline lock: 20 gauge in left antecubital area, using aseptic technique. Blood rb3 collected. Patient maintains SpO2 saturation greater than 95% on room air. 13:18 Jax Medina MD is Hospitalizing Provider. rn 16:43 No provider procedures requiring assistance completed. Patient admitted, IV remains in rb3 place. Administered Medications: 11:49 Drug: morphine 2 mg Route: IVP; Site: left antecubital; rb3 12:05 Follow up: Response: No adverse reaction; Pain is decreased rb3 11:52 Drug: Zofran (Ondansetron) 4 mg Route: IVP; Site: left antecubital; rb3 12:05 Follow up: Response: No adverse reaction; Nausea is decreased rb3 13:00 Drug: Metoprolol TARTRATE (Lopressor) 25 mg Route: PO; rb3 13:30 Follow up: Response: No adverse reaction rb3 13:09 Drug: Metoprolol 5 mg Route: IVP; Site: left antecubital; rb3 13:30 Follow up: Response: No adverse reaction; Pulse decreased. rb3 13:09 Drug: Aspirin Chewable Tablet 324 mg Route: PO; rb3 13:25 Follow up: Response: No adverse reaction rb3 Intake: Output: 11:34 Stool: 1 (Loose Stool) ; Total: 0ml. rb3 Outcome: 13:19 Decision to Hospitalize by Provider. rn 16:43 Admitted to Med/surg accompanied by tech, via wheelchair, room 222, with chart, Report rb3 called to KYLAH Marquez 16:43 Condition: stable 16:43 Instructed on the need for admit. 16:43 Patient left the ED. rb3 Signatures: Dispatcher [employer] EDMS Gabriel Medina MD MD rn Peltier, Brian, RN RN bp Acob, Cheryl, RN RN ca1 Gaskin, Ajare ag5 Sheron Singh RN RN rb3 Corrections: (The following items were deleted from the chart) 11:53 11:49 morphine 2 mg IVP in left antecubital rb3 rb3 16:45 11:09 Pain: Complains of pain in chest Pain currently is 9 out of 10 on a pain scale. rb3 Pain began this morning rb3 16:48 16:48 Patient left the ED. rb3 rb3
--- NOTE | 2020-04-10 13:20 | EDPHYS ---
Physician Documentation [facility] Name: Aditi Arreola Age: 79 yrs Sex: Female : 1940 Arrival Date: 04/10/2020 Time: 10:57 Bed 3 Private MD: Ryan Infante R ED Physician Gabriel Medina HPI: 04/10 11:17 This 79 yrs old Female presents to ER via Unassigned with complaints of Chest rn Pain. 11:17 The patient or guardian reports chest pain that is located primarily in the substernal rn area. Onset: this morning. The pain does not radiate. Associated signs and symptoms: Pertinent positives: None. nausea, vomiting, Pertinent negatives: abdominal pain, cough, headache, lightheadedness, shortness of breath, syncope. The chest pain is described as burning, a heaviness. Duration: The patient or guardian reports a single episode, that is still ongoing. Modifying factors: The symptoms are alleviated by nothing. the symptoms are aggravated by nothing. Severity of pain: At its worst the pain was moderate in the emergency department the pain is unchanged. The patient has experienced a previous episode. The patient has not recently seen a physician. Reports chest pain, substernal and right sided, no radiation, feels heavy, assoc with nausea/vomiting, no fever/cough. Reports similar to previous time when had heart attack. NO trauma. . Historical: - Allergies: 11:25 Codeine; ca1 - Home Meds: 11:25 metoprolol succinate 100 mg oral Tb24 1 tab once daily [Active]; hydralazine 50 mg Oral ca1 tab 1 tab 4 times per day [Active]; levetiracetam 500 mg oral tab 1 tab 2 times per day [Active]; nifedipine 60 mg Oral TbER 1 tab once daily [Active]; metformin 500 mg oral tab 1 tab 2 times per day [Active]; hydrochlorothiazide 25 mg Oral tab 1 tab once daily [Active]; furosemide 20 mg oral tab 1 tab once daily [Active]; - PMHx: 11:25 Diabetes - NIDDM; Hypertension; ca1 11:15 A-Fib; rb3 - PSHx: 11:15 Cholecystectomy; ; Left knee replacement; ankle; rb3 - Immunization history:: Adult Immunizations up to date, Flu vaccine is not up to date. - Social history:: Smoking status: Patient denies any tobacco usage or history of. - Family history:: not pertinent. - Hospitalizations: : No recent hospitalization is reported. ROS: 11:17 Constitutional: Negative for fever, chills, and weight loss, Eyes: Negative for injury, rn pain, redness, and discharge, Neck: Negative for injury, pain, and swelling, Cardiovascular: Negative for edema Respiratory: Negative for cough, wheezing, and pleuritic chest pain, Abdomen/GI: + nausea/vomiting, negative for abd pain Back: Negative for injury and pain, MS/Extremity: Negative for injury and deformity, Skin: Negative for injury, rash, and discoloration, Neuro: Negative for headache, weakness, numbness, tingling, and seizure. Exam: 11:20 Constitutional: This is a well developed, well nourished patient who is awake, alert, rn appears like doens't feel well, requests emesis bag immediately upon arrival to room Head/Face: Normocephalic, atraumatic. Cardiovascular: Irregular rhythm, tachycardic Respiratory: Mild tachypnea, diminished at bases Abdomen/GI: soft, non-tender, non-distended Skin: Warm, dry MS/ Extremity: Pulses equal, no cyanosis. Neurovascular intact. Full, normal range of motion. Equal circumference. Neuro: Awake and alert, GCS 15, oriented to person, place, time, and situation. Cranial nerves II-XII grossly intact. Motor strength 5/5 in all extremities. Sensory grossly intact. 11:21 ECG was reviewed by the Attending Physician. rn Vital Signs: 11:05 BP 145 / 89; Pulse 120; Resp 14 S; Temp 97.3(TE); Pulse Ox 98% on R/A; Weight 61.69 kg ca1 (R); Height 5 ft. 4 in. (162.56 cm) (R); Pain 10/10; 12:01 BP 118 / 54; Pulse 116; Resp 16; Pulse Ox 99% ; Pain 9/10; rb3 13:00 BP 138 / 68; Pulse 116; Resp 19; Pulse Ox 100% ; rb3 13:30 BP 152 / 61; Pulse 81; Resp 16; Pulse Ox 95% ; rb3 14:30 BP 144 / 62; Pulse 78; Resp 17; Pulse Ox 96% ; rb3 15:30 BP 159 / 57; Pulse 71; Resp 15; Pulse Ox 100% ; rb3 11:05 Body Mass Index 23.34 (61.69 kg, 162.56 cm) ca1 MDM: 11:05 Patient medically screened. rn 13:01 Differential diagnosis: abnormal EKG, acute myocardial infarction, acute pericarditis, rn anxiety, coronary artery disease chest wall pain, esophagitis, gastritis, gastroesophageal reflux disease (GERD), pericarditis, pleurisy, pneumothorax, stable angina, unstable angina. The patient was given aspirin in the Emergency Department. 13:17 Data reviewed: vital signs, nurses notes, lab test result(s), EKG, radiologic studies, rn plain films, and as a result, I will admit patient. Counseling: I had a detailed discussion with the patient and/or guardian regarding: the historical points, exam findings, and any diagnostic results supporting the discharge/admit diagnosis, lab results, radiology results, the need for further work-up and treatment in the hospital. Response to treatment: the patient's symptoms have mildly improved after treatment, and as a result, I will admit patient. Admission orders: after a detailed discussion of the patient's condition and case, the admit orders are written by me. ED course: Neg trop, likely angina 2/2 afib with rvr and rate related changes. . 04/10 11:10 Order name: Basic Metabolic Panel; Complete Time: 12:46 04/10 11:10 Order name: CBC with Diff; Complete Time: 12:32 04/10 11:10 Order name: LFT's; Complete Time: 12:46 04/10 11:10 Order name: NT PRO-BNP; Complete Time: 12:46 rn 04/10 11:10 Order name: PT-INR; Complete Time: 12:32 rn 04/10 11:10 Order name: Troponin (emerg Dept Use Only); Complete Time: 12:46 rn 04/10 11:10 Order name: XRAY Chest (1 view); Complete Time: 12:15 rn 04/10 11:10 Order name: EKG; Complete Time: 11:11 rn 04/10 11:10 Order name: Lipase; Complete Time: 12:46 04/10 11:10 Order name: Cardiac monitoring; Complete Time: 11:53 rn 04/10 11:10 Order name: EKG - Nurse/Tech; Complete Time: 11:25 rn 04/10 11:10 Order name: IV Saline Lock; Complete Time: 11:53 rn 04/10 11:10 Order name: Labs collected and sent; Complete Time: 11:53 rn 04/10 11:10 Order name: O2 Per Protocol; Complete Time: 11:54 rn 04/10 11:10 Order name: O2 Sat Monitoring; Complete Time: 11:54 rn 04/10 14:57 Order name: CONS Physician Consult EDMS EC:21 Rate is 120 beats/min. Rhythm is irregularly irregular. QRS interval is normal. QT rn interval is normal. No Q waves. T waves are Normal. ST Segment is depressed in leads II, V3, V4, V5, V6. Clinical impression: Atrial Fibrillation. Interpreted by me. Reviewed by me. Administered Medications: 11:49 Drug: morphine 2 mg Route: IVP; Site: left antecubital; rb3 12:05 Follow up: Response: No adverse reaction; Pain is decreased rb3 11:52 Drug: Zofran (Ondansetron) 4 mg Route: IVP; Site: left antecubital; rb3 12:05 Follow up: Response: No adverse reaction; Nausea is decreased rb3 13:00 Drug: Metoprolol TARTRATE (Lopressor) 25 mg Route: PO; rb3 13:30 Follow up: Response: No adverse reaction rb3 13:09 Drug: Metoprolol 5 mg Route: IVP; Site: left antecubital; rb3 13:30 Follow up: Response: No adverse reaction; Pulse decreased. rb3 13:09 Drug: Aspirin Chewable Tablet 324 mg Route: PO; rb3 13:25 Follow up: Response: No adverse reaction rb3 Disposition: 04/10/20 13:19 Hospitalization ordered by Jax Medina for Inpatient Admission. Preliminary diagnosis are Chest pain, unspecified, Persistent atrial fibrillation. - Bed requested for Telemetry/MedSurg (Inpatient). - Status is Inpatient Admission. rb3 - Condition is Stable. - Problem is an acute exacerbation. - Symptoms have improved. Signatures: Dispatcher [employer] EDMS Gabriel Medina MD MD rn Aguilar, Jose, RN RN ja1 Acob, Cheryl, RN RN ca1 Barber, Rebecca RN RN rb3 Corrections: (The following items were deleted from the chart) 11:20 11:17 Constitutional: Negative for fever, chills, and weight loss, Neck: Negative for rn injury, pain, and swelling, Cardiovascular: Negative for edema Respiratory: Negative for cough, wheezing, and pleuritic chest pain, Abdomen/GI: + nausea/vomiting, negative for abd pain MS/Extremity: Negative for injury and deformity, Skin: Negative for injury, rash, and discoloration, Neuro: Negative for headache, weakness, numbness, tingling, and seizure, rn 15:36 13:19 Hospitalization Ordered by Jax Medina MD for Inpatient Admission. Preliminary ja1 diagnosis is Chest pain, unspecified; Persistent atrial fibrillation. Bed requested for Telemetry/MedSurg (Inpatient). Status is Inpatient Admission. Condition is Stable. Problem is an acute exacerbation. Symptoms have improved. rn 16:48 15:36 04/10/2020 13:19 Hospitalization Ordered by Jax Medina MD for Inpatient rb3 Admission. Preliminary diagnosis is Chest pain, unspecified; Persistent atrial fibrillation. Bed requested for Telemetry/MedSurg (Inpatient). Status is Inpatient Admission. Condition is Stable. Problem is an acute exacerbation. Symptoms have improved. ja1
--- NOTE | 2020-04-10 15:42 | P.HP ---
Certification for Inpatient Patient admitted to: Observation With expected LOS: <2 Midnights Practitioner: I am a practitioner with admitting privileges, knowledge of patient current condition, hospital course, and medical plan of care. Services: Services provided to patient in accordance with Admission requirements found in Title 42 Section 412.3 of the Code of Federal Regulations Patient History Date of Service: 04/10/20 Reason for admission: Chest Pain, AFib with RVR History of Present Illness: 79-year-old female, PMH: HTN, DM 2) non-insulin dependent), renal artery sten osis, and history of diastolic CHF presents to the ED with severe substernal chest pain. Patient describes this as a moderate heaviness, burning, this began shortly after she woke up this and has continued. She states she was in her usual state of health up until this occurrence. There is no radiation of the pain, nothing seems to alleviate or worsen the pain prior to arrival. In the ED, she was found today in AFib with RVR, heart rate in the 120-130s. EKG with some ST depressions in leads 2, V3-V6. She had some improvement of her pain with morphine. While seen the patient, she converted to sinus rhythm. She received 5 mg IV Lopressor. She is unsure of history of atrial fibrillation. She did report some nausea. Labwork notable for mild hypokalemia of 3.3, elevated BNP of 1411, negative initial troponin. Allergies codeine Allergy (Verified 06/09/19 00:52) Nausea/Vomiting lorazepam Allergy (Verified 06/10/19 06:56) hallucination, confusion morphine Adverse Reaction (Verified 06/09/19 00:52) Anaphylaxis Home Medications: Pravastatin Sodium 40 mg PO BEDTIME 06/12/19 Aspirin 81 mg PO DAILY #90 tab.chew 06/13/19 Cephalexin [Keflex*] 500 mg PO Q12HR 5 Days #10 cap 06/13/19 Hydralazine [Apresoline*] 50 mg PO TID #90 tab 06/13/19 Metformin HCl 500 mg PO BID #60 tablet 06/13/19 Metoprolol Tartrate [Lopressor*] 25 mg PO BID #60 tab 06/13/19 Nifedipine Xl [Procardia XL] 60 mg PO DAILY #30 tab 06/13/19 levETIRAcetam [Keppra*] 500 mg PO BID #60 tab 06/13/19 - Past Medical/Surgical History Diabetic: Yes -: NIDDM -: HTN -: Renal artery stenosis -: HFpEF -: L KNEE RX - Family History Father -: Heart disease - Social History Smoking Status: Never smoker Alcohol use: No CD- Drugs: No Caffeine use: Yes Place of Residence: Home Review of Systems 10-point ROS is otherwise unremarkable Physical Examination - Physical Exam General: Alert, In no apparent distress, Oriented x3, Other (Appears uncomfortable) HEENT: Mucous membr. moist/pink, Sclerae nonicteric Respiratory: Clear to auscultation bilaterally, Normal air movement Cardiovascular: No edema, Regular rate/rhythm, No murmurs Gastrointestinal: Soft and benign, Non-distended, No tenderness Musculoskeletal: No erythema, No tenderness Integumentary: No rashes Neurological: Normal speech, Normal affect - Studies Laboratory Data (last 24 hrs) 04/10/20 11:49: PT 12.3, INR 1.04 04/10/20 11:49: WBC 7.2, Hgb 12.5, Hct 37.4, Plt Count 274 04/10/20 11:49: Sodium 145, Potassium 3.3 L, BUN 30 H, Creatinine 1.18, Glucose 107 H, Total Bilirubin 0.3, AST 12 L, ALT 13, Alkaline Phosphatase 99, Lipase 157 Assessment and Plan - Advance Directives Does patient have a Living Will: No Does patient have a Durable POA for Healthcare: No Physician Review Additional Text: Angina, ACS rule out AFib with RVR, ?new onset HTN Renal artery stenosis Chronic diastolic heart failure -initial EKG with ST depression in lateral leads, repeat EKG after conversion of sinus rhythm with T-wave inversions in leads 2, 3, aVF, V3-V6, with mild ST depression in V4/V5 -[facility] will start patient on Eliquis 5mg BID, continue metoprolol 25 mg b.i.d. -Last echocardiogram (06/09/2019): Normal EF 50%. -Patient reportedly underwent cardiac catheterization on 06/10/2019 which showed mild disease and no intervention was done. -will obtain home meds and resume as appropriate VTE: Eliquis anticoagulation Code: full Dispo: anticipate dc home in 24-48hrs Time Spent Managing Pts Care (In Minutes): 55
[2020-04-10 17:35] VITALS: BMI 23.3
[2020-04-10] MEDS ORDERED: MORPHINE 2 MG/ML SYR IV PRN (17:45)
[2020-04-10 18:27] LABS: Thyroid Stimulating Hormone 0.579 uIU/mL (0.360-3.740)
[2020-04-10 18:33] LABS: Troponin I 1.53 ng/mL (0.0-0.045)
[2020-04-10] MEDS: APIXABAN 5 MG TABLET PO SCH (21:06)
[2020-04-10] MEDS: METOPROLOL TAR 50 MG TAB PO SCH (21:06)
[2020-04-10] MEDS ORDERED: POTASSIUM 25 MEQ EFFERV TAB PO ONE (21:15)
[2020-04-10 23:51] LABS: Urine Appearance CLEAR; Urine Bilirubin NEGATIVE (NEG); Urine Blood NEGATIVE (NEG); Urine Color YELLOW; Urine Glucose NEGATIVE (NEG); Urine Protein NEGATIVE (NEG); Urine Urobilinogen 0.2 mg/dL (0.2-1.0); Urine pH 7.5 (5.0-7.0)
[2020-04-10 23:57] LABS: Urine Microscopic Reflex ORDER UMIC
[2020-04-11 00:13] LABS: Urine Culture Reflex Order REFLEXED
[2020-04-11 00:14] LABS: Urine Bacteria <20 /HPF (<20); Urine RBC <5 /HPF (NONE SEEN)
[2020-04-11 05:48] LABS: Basophils % 0.3 % (0-1.3); Hematocrit 31.6 % (36.0-45.0); Lymphocytes % 23.3 % (15.3-44.8); MPV 8.8 fL (7.6-11.3); RBC Red Blood Cell Count 3.78 M/uL (3.86-4.86)
[2020-04-11 06:19] LABS: Protime INR 1.24
[2020-04-11 06:23] LABS: Albumin 2.9 g/dL (3.4-5.0); Bilirubin Total 0.3 mg/dL (0.2-1.0); Phosphorus 2.8 mg/dL (2.5-4.9); Potassium 4.1 mmol/L (3.5-5.1)
[2020-04-11 06:25] LABS: Troponin I 3.82 ng/mL (0.0-0.045)
--- NOTE | 2020-04-11 07:42 | EKG ---
Test Date: 2020-04-10 Test Time: 11:15:31 Quality Assurance Monitor Body: DORIAN MEASUREMENT RESULTS: Intervals: Rate: 120 VT: QRSD: 102 QT: 334 QTc: 472 [place]: P: VT: QRS: -4 T: 213 INTERPRETIVE STATEMENTS: Atrial fibrillation with rapid ventricular response Marked ST abnormality, possible inferior subendocardial injury Marked ST abnormality, possible anterolateral subendocardial injury Abnormal ECG Compared to ECG 06/10/2019 13:56:36 ST (T wave) deviation now present Sinus rhythm no longer present Left ventricular hypertrophy no longer present Early repolarization no longer present Electronically Signed On 04-11-20 07:40:40 CAT SWAMPER by Augustus Cartwright
[2020-04-11] MEDS: APIXABAN 5 MG TABLET PO SCH (08:48)
[2020-04-11] MEDS: METOPROLOL TAR 50 MG TAB PO SCH (08:48)
[2020-04-11 08:53] VITALS: TEMP 97.5
[2020-04-11] MEDS ORDERED: levETIRAcetam 500 MG TAB PO SCH (09:00)
[2020-04-11 09:20] VITALS: O2SAT 96
--- NOTE | 2020-04-11 10:58 | P.DS ---
Admission Date: 04/10/20 Discharge Date: 04/11/20 Disposition: ROUTINE DISCHARGE Discharge Condition: GOOD Reason for Admission: Chest Pain, AFib with RVR Consultations: Cardiology - Dr. Cartwright Procedures: CXR (04/10): no acute cardiopulmonary process. Chronic interstitial lung changes are evident similar to comparison. No new mass or consolidation. Right hemidiaphragm elevation again noted. Heart size is prominent but not clearly different. Central vasculature also prominent but stable. No measurable pleural effusion and no pneumothorax. Old rib trauma noted on the left. No acute bony findings. No acute aortic findings suspected. Problem List Angina, NSTEMI type 2 (demand ischemia) AFib with RVR, new onset HTN Renal artery stenosis Chronic diastolic heart failure Brief History of Present Illness: 79-year-old female, PMH: HTN, DM 2) non-insulin dependent), renal artery stenosis, and history of diastolic CHF presents to the ED with severe substernal chest pain. Patient describes this as a moderate heaviness, burning, this began shortly after she woke up this and has continued. She states she was in her usual state of health up until this occurrence. There is no radiation of the pain, nothing seems to alleviate or worsen the pain prior to arrival. In the ED, she was found today in AFib with RVR, heart rate in the 120-130s. EKG with some ST depressions in leads 2, V3-V6. She had some improvement of her pain with morphine. While seen the patient, she converted to sinus rhythm. She received 5 mg IV Lopressor. She is unsure of history of atrial fibrillation. She did report some nausea. Labwork notable for mild hypokalemia of 3.3, elevated BNP of 1411, negative initial troponin. Hospital Course: Patient converted to sinus rhythm in the ER after receiving IV Lopressor. Her home dose of metoprolol was doubled and she was monitored overnight. Her chest pain continued throughout the night and resolved in the morning. Her initial troponin was negative, but then continues to trend up towards 3.82. Repeat EKG in the morning of discharge was without any acute/new ischemic changes. Cardiology was consulted and attributed this elevation to demand ischemia in setting of Afib with RVR and felt patient was appropriate for discharge. She was started on Eliquis, she has a CHADSVASc of at least 6. Vital Signs/Physical Exam: Temp Pulse Resp BP Pulse Ox 97.5 F 63 18 146/67 H 95 04/11/20 08:00 04/11/20 08:48 04/11/20 08:00 04/11/20 08:48 04/11/20 08:00 General: Alert, In no apparent distress, Oriented x3 HEENT: Mucous membr. moist/pink, Sclerae nonicteric Neck: Supple Respiratory: Clear to auscultation bilaterally, Normal air movement Cardiovascular: No edema, Regular rate/rhythm Gastrointestinal: Soft and benign, Non-distended, No tenderness Musculoskeletal: No tenderness Integumentary: No rashes Neurological: Normal speech, Normal affect Laboratory Data at Discharge: WBC 4.3 K/uL (4.3-10.9) D 04/11/20 05:03 Hgb 10.8 g/dL (12.0-15.0) L 04/11/20 05:03 Hct 31.6 % (36.0-45.0) L D 04/11/20 05:03 Plt Count 222 K/uL (152-406) 04/11/20 05:03 PT 14.6 SECONDS (9.5-12.5) H 04/11/20 05:03 INR 1.24 04/11/20 05:03 Sodium 145 mmol/L (136-145) 04/11/20 05:03 Potassium 4.1 mmol/L (3.5-5.1) 04/11/20 05:03 BUN 29 mg/dL (7-18) H 04/11/20 05:03 Creatinine 0.93 mg/dL (0.55-1.3) 04/11/20 05:03 Glucose 69 mg/dL (74-106) L 04/11/20 05:03 Phosphorus 2.8 mg/dL (2.5-4.9) 04/11/20 05:03 Magnesium 2.0 mg/dL (1.8-2.4) 04/11/20 05:03 Total Bilirubin 0.3 mg/dL (0.2-1.0) 04/11/20 05:03 AST 19 U/L (15-37) 04/11/20 05:03 ALT 13 U/L (12-78) 04/11/20 05:03 Alkaline Phosphatase 78 U/L (45-117) 04/11/20 05:03 Troponin I Cancelled 04/11/20 11:00 Lipase 157 U/L (73-393) 04/10/20 11:49 Home Medications: Hydralazine HCl [Apresoline] 1 tab PO QID 04/10/20 Levetiracetam [Keppra] 1 tab PO BID 04/10/20 Metformin HCl [Glucophage*] 1 tab PO BID 04/10/20 Nifedipine [Nifedipine ER] 1 tab PO DAILY 04/10/20 hydroCHLOROthiazide [Hydrodiuril*] 1 tab PO DAILY 04/10/20 Apixaban [Eliquis] 5 mg PO BID 30 Days #60 tablet 04/11/20 Metoprolol Succinate [Toprol Xl] 200 mg PO DAILY 30 Days #30 tab.er.24h 04/11/20 New Medications: Apixaban [Eliquis] 5 mg PO BID 30 Days #60 tablet Metoprolol Succinate [Toprol Xl] 200 mg PO DAILY 30 Days #30 tab.er.24h Patient Discharge Instructions: Follow up with PCP within 1 week. Follow up with Cardiology, Dr Cartwright, this coming week. Medication changes- (1) metoprolol 100 mg daily was increased to 200 mg daily. (2) started on Eliquis (apixaban) 5mg twice a day - blood thinner Diet: AHA Activity: Ad manuela Followup: Augustus Cartwright MD [ACTIVE - CAN ADMIT] - Ryan Infante MD [Primary Care Provider] - Time spent managing pt's care (in minutes): 35
[2020-04-11 13:43] VITALS: BP 173/75
--- NOTE | 2020-04-12 09:33 | PN ---
Date of Progress Note: 04/11/2020 Ms. Arreola was admitted on 04/10/2020 with rapid atrial fibrillation and chest pain, positive troponin . Received beta-blockers IV. Her metoprolol was increased to 100 b.i.d. Troponin was elevated. No chest pain. No further atrial fibrillation. She is in sinus rhythm and has had no complaint. Her examination did not reveal any congestive heart failure. She has no rales. No edema. She has S4 ga llop. Her diagnostic data is unremarkable. The potassium had been corrected. I am comfortable with Ms. Arreola going home on her home medications plus an anticoagulant, Eliquis. Level of the metoprolo l. I will see her in the office as an outpatient and have her do an outpatient echocardiogram and an MPI. BOBY/CAROLE Voice ID: [id number] Report ID: [id number]
--- NOTE | 2020-04-12 09:53 | CON ---
Reason For Consultation: Atrial fibrillation and chest pain. History Of Present Illness: Ms. Arreola is a 79-year-old woman who has a history of seizure disorder, hypertension, diabetes, dyslipidemia, mild coronary artery disease by previous catheterization. Came in with rapid atrial fibrillation. Potassium of 3.3. Her BNP was 1411. Her troponin was elevated. Her atrial fibrillation resolved after using IV metoprolol. Her chest pain resolved. Her heart ra te initially was 30. She is back in sinus rhythm right now. Denied PND, orthopnea, pedal edema, or syncope. Denied any nausea, vomiting, diaphoresis, fever or chills. Past Medical History: Otherwise as stated above. Allergies: CODEINE, LORAZEPAM, AND MORPHINE. Review of Systems: Negative. Social History: Negative. Family History: Negative. Medications: Include Keppra, pravastatin, Lasix, metformin, aspirin, hydralazine, metoprolol, and Pr ocardia. Physical Examination: Vital Signs: Stable. She was in sinus rhythm, afebrile. HEENT: Negative. Neck: Supple with no bruit. Chest: Clear. Cardiac: Revealed regular rhythm and rate with an S4 gallop and an aortic sclerosis murmur. No rubs . Abdomen: Benign. Extremities: Revealed no clubbing, cyanosis, or edema. Diagnostic Data: As stated earlier. Impression And Plan: Atrial fibrillation with rapid ventricular response that has resolved with IV b eta-jose. I would order a higher dose of metoprolol at home, double up her metoprolol to 100 b.i. d. She needs to be on anticoagulation, preferably Eliquis. The case was discussed with Dr. Medina. Her elevated troponin is secondary to demand ischemia from the rapid atrial fibrillation. I would ma ke arrangements for her to have an outpatient stress test. She is pain-free now and in sinus rhythm. Her other problems include diabetes, hypertension, and mild coronary artery disease appears to be s table at this point. I will continue to follow her. I think it would be reasonable to observe her o vernight. BOBY/CAROLE Voice ID: [id number] Report ID: [id number]
== END 2020-04-11 12:03 | disposition home or self-care (01) ==
LOC: ER 10:56 → ERHOLD 14:55 → 2ND 16:28 → OBSVTOIN 04-11 09:01 → INTOOBSV 04-11 09:01
PROVIDERS: ADMIT Hospitalist; ATTEND Hospitalist
DX: I21.A1 Myocardial infarction type 2 (principal); I48.91 Unspecified atrial fibrillation; R07.9 Chest pain, unspecified; R74.8 Abnormal levels of other serum enzymes; I11.0 Hypertensive heart disease with heart failure; I50.32 Chronic diastolic (congestive) heart failure; I70.1 Atherosclerosis of renal artery; E11.9 Type 2 diabetes mellitus without complications; Z79.84 Long term (current) use of oral hypoglycemic drugs; Z79.82 Long term (current) use of aspirin; R94.31 Abnormal electrocardiogram [ECG] [EKG]
CPT/HCPCS: 93005 ×3; 87088; 85025 ×2; 87086; 80048; 36415 ×2; 83735; 84100; 85610 ×2; 82947 ×3; 80076; 84443; 84484 ×4; 84439; 83690; 80053; 83880; 71045; 94760 ×3; 96375; 96374; 99285; J2270; J2405; 81003; 81015

== ENCOUNTER 2020-04-29 12:16 | Observation (INO) | payer OTHER ==
[2020-04-29] MEDS ORDERED: ONDANSETRON 4 MG/2 ML VIAL ONE ×2 (12:40→14:13)
[2020-04-29] MEDS ORDERED: MORPHINE 4 MG/ML SYR ONE (12:40)
--- NOTE | 2020-04-29 12:40 | ER ---
Nurse's Notes [facility] Name: Aditi Arreola Age: 79 yrs Sex: Female : 1940 Arrival Date: 04/29/2020 Time: 12:22 Bed 4 Private MD: Diagnosis: Angina pectoris Presentation: 04/29 12:29 Chief complaint: EMS states: SENT FROM [employer] FOR EKG CHANGES DURING STRESS TEST. bp PER EMS, ST DEPRESSION NOTED ON EKG. Coronavirus screen: At this time, the client does not indicate any symptoms associated with coronavirus-19. Ebola Screen: No symptoms or risks identified at this time. Initial Sepsis Screen: Does the patient meet any 2 criteria? No. Patient's initial sepsis screen is negative. Does the patient have a suspected source of infection? No. Patient's initial sepsis screen is negative. Risk Assessment: Do you want to hurt yourself or someone else? Patient reports no desire to harm self or others. Onset of symptoms was April 29, 2020 at 12:00. 12:29 Method Of Arrival: EMS: [facility] bp 12:29 Acuity: LUIS ARMANDO 2 bp Triage Assessment: 12:34 General: Appears distressed, uncomfortable, Behavior is cooperative, appropriate for bp age, anxious. Pain: Complains of pain in chest Pain currently is 7 out of 10 on a pain scale. EENT: No deficits noted. Neuro: No deficits noted. Cardiovascular: Rhythm is sinus rhythm with unifocal PVCs. Respiratory: No deficits noted. GI: No signs and/or symptoms were reported involving the gastrointestinal system. : No signs and/or symptoms were reported regarding the genitourinary system. Derm: No deficits noted. Musculoskeletal: No deficits noted. Historical: - Allergies: 12:34 Codeine; bp - Home Meds: 12:34 furosemide 20 mg Oral tab 1 tab once daily [Active]; hydralazine 50 mg Oral tab 1 tab 4 bp times per day [Active]; hydrochlorothiazide 25 mg Oral tab 1 tab once daily [Active]; levetiracetam 500 mg Oral tab 1 tab 2 times per day [Active]; metformin 500 mg Oral tab 1 tab 2 times per day [Active]; metoprolol succinate 100 mg Oral Tb24 1 tab once daily [Active]; nifedipine 60 mg Oral TbER 1 tab once daily [Active]; - PMHx: 12:34 a-fib; Diabetes - NIDDM; Hypertension; bp - Immunization history:: Adult Immunizations up to date. - Social history:: Smoking status: Patient denies any tobacco usage or history of. Screenin:30 Abuse screen: Denies threats or abuse. Denies injuries from another. Nutritional bp screening: No deficits noted. Tuberculosis screening: No symptoms or risk factors identified. Fall Risk None identified. Assessment: 12:29 General: SEE TRIAGE NOTE. bp 12:36 Reassessment: PT PREPPED FOR OUTPATIENT FACILITY PHYSICAL THERAPIST. OUTPATIENT FACILITY PHYSICAL THERAPIST AT B/S. bp Vital Signs: 12:29 BP 163 / 61; Pulse 85; Resp 16; Temp 98; Pulse Ox 100% on 2 lpm NC; bp 12:36 BP 136 / 52; Pulse 82; Resp 21; Pulse Ox 100% ; bp ED Course: 12:22 Patient arrived in ED. em1 12:26 Javier Lopez MD is Attending Physician. kdr 12:29 Robe Salcido, RN is Primary Nurse. bp 12:30 Patient has correct armband on for positive identification. Bed in low position. Call bp light in reach. Side rails up X2. 12:30 Inserted saline lock: 20 gauge in left antecubital area, using aseptic technique. bp Maintain EMS IV. Dressing intact. Good blood return noted. Site clean \T\ dry. Gauge \T\ site: 22G R AC. 12:31 Triage completed. bp 12:34 Arm band placed on. bp 12:39 Jose Tom is Hospitalizing Provider. kdr Administered Medications: 12:29 Drug: morphine 4 mg Route: IVP; Site: left antecubital; aa5 12:37 Follow up: Response: Pain is decreased bp 12:29 Drug: Zofran (Ondansetron) 4 mg Route: IVP; Site: left antecubital; aa5 12:37 Follow up: Response: Nausea is decreased bp Outcome: 12:39 Decision to Hospitalize by Provider. kdr Signatures: Javier Lopez MD MD kdr Martinez, Eric em1 Ramandeep Guerra RN RN aa5 Robe Salcido, KYLAH RN bp Corrections: (The following items were deleted from the chart) 13:14 13:14 Patient left the ED. aa5 aa5
--- NOTE | 2020-04-29 12:40 | EDPHYS ---
Physician Documentation [facility] Name: Aditi Arreola Age: 79 yrs Sex: Female : 1940 Arrival Date: 04/29/2020 Time: 12:22 Bed 4 Private MD: ED Physician Javier Lopez HPI: 04/29 14:21 This 79 yrs old Female presents to ER via EMS with complaints of chest pain. kdr 14:21 The patient or guardian reports chest pain that is located primarily in the substernal kdr area, anterior chest wall, left. Onset: suddenly, just prior to arrival. The pain radiates to the left shoulder. Associated signs and symptoms: Pertinent positives: lightheadedness, nausea, shortness of breath, Pertinent negatives: abdominal pain, cough, diaphoresis, dizziness, headache. The chest pain is described as dull, a heaviness, a pressure, sharp. Duration: The patient or guardian reports a single episode, that is still ongoing. Modifying factors: The symptoms are alleviated by nothing. the symptoms are aggravated by emotionally stressful situations, exertion, movement. Severity of pain: At its worst the pain was moderate severe incapacitating a 7 / 10. The patient has not experienced similar symptoms in the past. The patient has been recently seen by a physician: The patient was in Dr. Patino sent the patient from his office after she began to have CP while preparing for a stress test.. Historical: - Allergies: 12:34 Codeine; bp - Home Meds: 12:34 furosemide 20 mg Oral tab 1 tab once daily [Active]; hydralazine 50 mg Oral tab 1 tab 4 bp times per day [Active]; hydrochlorothiazide 25 mg Oral tab 1 tab once daily [Active]; levetiracetam 500 mg Oral tab 1 tab 2 times per day [Active]; metformin 500 mg Oral tab 1 tab 2 times per day [Active]; metoprolol succinate 100 mg Oral Tb24 1 tab once daily [Active]; nifedipine 60 mg Oral TbER 1 tab once daily [Active]; - PMHx: 12:34 a-fib; Diabetes - NIDDM; Hypertension; bp - Immunization history:: Adult Immunizations up to date. - Social history:: Smoking status: Patient denies any tobacco usage or history of. ROS: 14:21 Constitutional: Negative for fever, chills, and weight loss, Eyes: Negative for injury, kdr pain, redness, and discharge, ENT: Negative for injury, pain, and discharge, Neck: Negative for injury, pain, and swelling, Respiratory: Negative for shortness of breath, cough, wheezing, and pleuritic chest pain, Abdomen/GI: Negative for abdominal pain, nausea, vomiting, diarrhea, and constipation, Back: Negative for injury and pain, : Negative for injury, bleeding, discharge, and swelling, MS/Extremity: Negative for injury and deformity, Skin: Negative for injury, rash, and discoloration, Neuro: Negative for headache, weakness, numbness, tingling, and seizure activity. Psych: Negative for depression, anxiety, suicide ideation, homicidal ideation, and hallucinations, Allergy/Immunology: Negative for hives, rash, and allergies, Endocrine: Negative for neck swelling, polydipsia, polyuria, polyphagia, and marked weight changes, Hematologic/Lymphatic: Negative for swollen nodes, abnormal bleeding, and unusual bruising. 14:21 Cardiovascular: Positive for chest pain, of the left clavicle, anterior aspect of left upper chest and mid-sternal area, Negative for edema, orthopnea, palpitations, paroxysmal nocturnal dyspnea. Exam: 14:21 Constitutional: This is a well developed, well nourished patient who is awake, alert, kdr and in moderate distress. Head/Face: Normocephalic, atraumatic. Eyes: Pupils equal round and reactive to light, extra-ocular motions intact. Lids and lashes normal. Conjunctiva and sclera are non-icteric and not injected. Cornea within normal limits. Periorbital areas with no swelling, redness, or edema. Neck: Trachea midline, no thyromegaly or masses palpated, and no cervical lymphadenopathy. Supple, full range of motion without nuchal rigidity, or vertebral point tenderness. No Meningismus. Chest/axilla: Normal chest wall appearance and motion. Nontender with no deformity. No lesions are appreciated. Cardiovascular: Regular rate and rhythm with a normal S1 and S2. No gallops, murmurs, or rubs. Normal PMI, no JVD. No pulse deficits. Respiratory: Lungs have equal breath sounds bilaterally, clear to auscultation and percussion. No rales, rhonchi or wheezes noted. No increased work of breathing, no retractions or nasal flaring. Abdomen/GI: Soft, non-tender, with normal bowel sounds. No distension or tympany. No guarding or rebound. No evidence of tenderness throughout. Back: No spinal tenderness. No costovertebral tenderness. Full range of motion. Skin: Warm, dry with normal turgor. Normal color with no rashes, no lesions, and no evidence of cellulitis. MS/ Extremity: Pulses equal, no cyanosis. Neurovascular intact. Full, normal range of motion. Neuro: Awake and alert, GCS 15, oriented to person, place, time, and situation. Cranial nerves II-XII grossly intact. Motor strength 5/5 in all extremities. Sensory grossly intact. Cerebellar exam normal. Normal gait. Psych: Awake, alert, with orientation to person, place and time. Behavior, mood, and affect are within normal limits. Vital Signs: 12:29 BP 163 / 61; Pulse 85; Resp 16; Temp 98; Pulse Ox 100% on 2 lpm NC; bp 12:36 BP 136 / 52; Pulse 82; Resp 21; Pulse Ox 100% ; bp MDM: 12:39 Patient medically screened. kdr 14:21 Data reviewed: vital signs, nurses notes, lab test result(s), EKG, radiologic studies. kdr 04/29 12:36 Order name: Basic Metabolic Panel [facility] 04/29 12:36 Order name: CBC with Diff [facility] 04/29 12:36 Order name: LFT's [facility] 04/29 12:36 Order name: Magnesium [facility] 04/29 12:36 Order name: NT PRO-BNP [facility] 04/29 12:36 Order name: PT-INR [facility] 04/29 12:36 Order name: Troponin (emerg Dept Use Only) [facility] 04/29 12:36 Order name: EKG; Complete Time: 12:37 [facility] 04/29 12:36 Order name: Cardiac monitoring; Complete Time: 12:36 [facility] 04/29 12:36 Order name: EKG - Nurse/Tech; Complete Time: 12:36 [facility] 04/29 12:36 Order name: IV Saline Lock; Complete Time: 12:36 [facility] 04/29 12:36 Order name: Labs collected and sent; Complete Time: 12:36 [facility] 04/29 12:36 Order name: O2 Per Protocol; Complete Time: 12:36 aa5 04/29 12:36 Order name: O2 Sat Monitoring; Complete Time: 12:37 aa5 Administered Medications: 12:29 Drug: morphine 4 mg Route: IVP; Site: left antecubital; aa5 12:37 Follow up: Response: Pain is decreased bp 12:29 Drug: Zofran (Ondansetron) 4 mg Route: IVP; Site: left antecubital; aa5 12:37 Follow up: Response: Nausea is decreased bp Disposition: 04/29/20 12:39 Hospitalization ordered by Jose Tom for Inpatient Admission. Preliminary diagnosis is Angina pectoris. - Bed requested for Intensive Care Unit. - Status is Inpatient Admission. aa5 - Condition is Serious. - Problem is new. - Symptoms have improved. Signatures: Dispatcher [employer] EDMS Javier Lopez MD MD kdr Ramandeep Guerra RN RN aa5 Robe Salcido RN RN bp Corrections: (The following items were deleted from the chart) 12:52 12:37 Chest Single View+RAD.RAD.BRZ ordered. EDMS EDMS 13:14 12:39 Hospitalization Ordered by Jose Tom for Inpatient Admission. Preliminary aa5 diagnosis is Angina pectoris. Bed requested for Intensive Care Unit. Status is Inpatient Admission. Condition is Serious. Problem is new. Symptoms have improved. kdr
[2020-04-29] MEDS ORDERED: HEPA 1000U/500MLS 2,000 UNIT/1,000 ML BAG IV ONE (13:03)
[2020-04-29] MEDS ORDERED: NA CHLORIDE 0.9% 500 ML ONE (13:03)
[2020-04-29 13:13] LABS: Protime INR 1.39
[2020-04-29 13:14] LABS: Absolute Lymphocytes (CBC) 1.6 K/uL (0.7-4.9); Albumin 3.9 g/dL (3.4-5.0); Basophils % 0.3 % (0-1.3); Bilirubin Direct 0.1 mg/dL (0-0.2); Bilirubin Total 0.5 mg/dL (0.2-1.0); Hematocrit 39.6 % (36.0-45.0); Lymphocytes % 31.1 % (15.3-44.8); MPV 9.7 fL (7.6-11.3); Magnesium 1.8 mg/dL (1.8-2.4); Potassium 3.2 mmol/L (3.5-5.1); Protein, Total 7.6 g/dL (6.4-8.2); Troponin (Emerg Dept Use Only) 0.12 ng/mL (0.0-0.045)
[2020-04-29] MEDS ORDERED: MIDAZOLAM HCL 2 MG/2 ML INJ ONE (13:17)
[2020-04-29] MEDS ORDERED: HEPARIN 5000 UNIT/ML 1 ML VIAL ONE (13:17)
[2020-04-29] MEDS ORDERED: HEPARIN 10,000 UNIT/10 ML VIAL IV ONE (13:18)
[2020-04-29] MEDS ORDERED: FENTANYL CITR 100 MCG/2 ML ONE (13:18)
[2020-04-29] MEDS ORDERED: ATROPINE SULF 1 MG/10 ML SYR IV ONE (13:18)
[2020-04-29] MEDS ORDERED: VERAPAMIL HCL 10 MG/4 ML VIAL IV ONE (13:18)
[2020-04-29] MEDS ORDERED: POTASSIUM CL SA 10 MEQ TAB PO ONE (13:30)
[2020-04-29] MEDS ORDERED: NITROGLYCERIN/D5W 25 MG/250 ML BTL IV ONE (13:33)
[2020-04-29] MEDS ORDERED: NITROGLYCERIN 100 MCG/ML SYR (for cath lab use only) IV ONE (13:33)
[2020-04-29] MEDS ORDERED: REGADENOSON 0.4 MG/5 ML SYR IV ONE ×2 (14:00→14:11)
--- NOTE | 2020-04-29 14:32 | P.HP ---
Certification for Inpatient Patient admitted to: Inpatient With expected LOS: >2 Midnights Practitioner: I am a practitioner with admitting privileges, knowledge of patient current condition, hospital course, and medical plan of care. Services: Services provided to patient in accordance with Admission requirements found in Title 42 Section 412.3 of the Code of Federal Regulations Patient History Date of Service: 04/29/20 Reason for admission: Chest discomfort History of Present Illness: 79-year-old woman with a history of atrial fibrillation was recently hospitalized for rapid AFib and elevated troponin. She had her metoprolol dose increased which controlled her heart rate. The troponin at that time was considered secondary to demand ischemia from the rapid AFib. She was then discharged in as to have an outpatient stress test. She experienced chest discomfort at the cardiology office when she went there today for arrangement for outpatient stress test. EKG done demonstrated ST depressions in the lateral leads. Patient was then referred to the emergency department in other to be admitted for cardiac catheterization. She was given a dose of nitroglycerin. She was also given morphine in the ED. She was being prepped for cardiac catheterization when I saw her in the ED. EKG demonstrated ST depression in V5 V6 and lead II. Initial troponin was mildly elevated to 0.12. Allergies codeine Allergy (Verified 06/09/19 00:52) Nausea/Vomiting lorazepam Allergy (Verified 06/10/19 06:56) hallucination, confusion Home Medications: Hydralazine HCl [Apresoline] 1 tab PO QID 04/10/20 Levetiracetam [Keppra] 1 tab PO BID 04/10/20 Metformin HCl [Glucophage*] 1 tab PO BID 04/10/20 Nifedipine [Nifedipine ER] 1 tab PO DAILY 04/10/20 hydroCHLOROthiazide [Hydrodiuril*] 1 tab PO DAILY 04/10/20 Apixaban [Eliquis] 5 mg PO BID 30 Days #60 tablet 04/11/20 Metoprolol Succinate [Toprol Xl] 200 mg PO DAILY 30 Days #30 tab.er.24h 04/11/20 - Past Medical/Surgical History Diabetic: Yes -: NIDDM -: HTN -: Renal artery stenosis -: HFpEF (Heart Failure w/ Preserved Ejection Fraction) -: L KNEE RX - Family History Father -: Heart disease - Social History Alcohol use: No CD- Drugs: No Caffeine use: Yes Review of Systems Other: Except as documented, all other systems reviewed and negative. Physical Examination - Physical Exam General: Alert, In no apparent distress HEENT: Mucous membr. moist/pink Neck: Supple, JVD not distended Respiratory: Clear to auscultation bilaterally, Normal air movement Cardiovascular: No edema, Normal S1 S2, Irregular heart rate/rhythm Gastrointestinal: Normal bowel sounds, Soft and benign, No tenderness Musculoskeletal: No swelling, No tenderness Integumentary: No rashes, No erythema Neurological: Normal speech, Normal strength at 5/5 x4 extr, Cranial nerves 3-12 intact - Studies Laboratory Data (last 24 hrs) 04/29/20 12:30: PT 16.3 H, INR 1.39 04/29/20 12:30: WBC 5.0, Hgb 13.1, Hct 39.6, Plt Count 183 04/29/20 12:30: Sodium 145, Potassium 3.2 L, BUN 30 H, Creatinine 1.31 H, Glucose 83, Magnesium 1.8, Total Bilirubin 0.5, AST 14 L, ALT 17, Alkaline Phosphatase 87 Assessment and Plan - Problems (Diagnosis) (1) Unstable angina Current Visit: Yes Status: Acute (2) Chronic atrial fibrillation Current Visit: Yes Status: Acute (3) Diabetes mellitus type 2 in nonobese Current Visit: Yes Status: Acute (4) Hypertension Current Visit: Yes Status: Acute - Plan Patient is scheduled for immediate cardiac catheterization. She will be admitted to the medical floor after the cardiac catheterization. Aspirin. Plavix per cardiology. Obtain echocardiogram. Continue home dose metoprolol and antihypertensives. Patient is on Eliquis which should be continued after the cardiac catheterization. Insulin sliding scale for glucose management. Hold metformin given IV contrast use. - Advance Directives Does patient have a Living Will: No Does patient have a Durable POA for Healthcare: No
[2020-04-29] MEDS ORDERED: HEPA 1000U/500MLS 1,000 UNIT/500 ML BAG IV ONE (14:38)
[2020-04-29] MEDS ORDERED: CLOPIDOGREL 75 MG TABLET ONE (14:56)
[2020-04-29] MEDS ORDERED: PROMETHAZINE INJ 25 MG/ML AMP IV SCH (15:00)
[2020-04-29] MEDS ORDERED: NITROGLYCERIN 0.4 MG/TAB SL ONE (15:15)
[2020-04-29] MEDS ORDERED: ACETYLCYST 20% 4 ML VIAL IH ONE (15:17)
[2020-04-29] MEDS ORDERED: GLUCAGON 1 MG/VIAL IM PRN (16:14)
[2020-04-29] MEDS ORDERED: D50W 25 GM/50 ML SYRINGE IV PRN (16:14)
[2020-04-29] MEDS ORDERED: NITROGLYCERIN 0.4 MG/TAB SL PRN (16:14)
[2020-04-29] MEDS ORDERED: MORPHINE 2 MG/ML SYR IV PRN (16:30)
[2020-04-29] MEDS: INSULIN -REGULAR HUMAN 50 UNIT/0.5 ML ML SQ SCH ×2 (16:30→21:00)
[2020-04-29 17:28] VITALS: BMI 22.6
[2020-04-29] MEDS ORDERED: ACETAMINOPHEN 325 MG TABLET PO PRN (17:33)
[2020-04-29] MEDS ORDERED: NA CHLORIDE 0.9% 1,000 ML IV SCH (18:00)
[2020-04-29] MEDS ORDERED: ATORVASTATIN 20 MG TAB PO SCH (21:00)
[2020-04-29] MEDS: APIXABAN 5 MG TABLET PO SCH ×2 (21:00→21:46)
[2020-04-29] MEDS ORDERED: ATORVASTATIN 10 MG TAB PO SCH (21:00)
[2020-04-29] MEDS: hydroCHLOROthiazide 25 MG TAB PO SCH (21:35)
[2020-04-29] MEDS: HYDRALAZINE HCL 25 MG TABLET PO SCH (21:35)
--- NOTE | 2020-04-29 23:22 | OP ---
Date of Procedure: 04/29/2020 Surgeon: TULIO DEL CID Procedure Performed: 1.Selective coronary angiogram. 2.IFR of ostial left circumflex, moderate stenosis which was negative at 0.97. 3.FFR of proximal to mid LAD, moderate stenosis, 60% disease which was significant at 0.72, status p ost PCI using 2.75 x 28 mm Synergy drug-eluting stent. Indication: Acute coronary syndrome, unstable angina, and abnormal and positive stress test. Access: Right femoral artery 6-English closed with 6-English Angio-Seal. Complications: None. Bleeding: Less than 50 mL. Anesthesia: Total sedation time was 90 minutes. Description Of Procedure: After risks, benefits, and alternatives were explained, the patient agreed to proceed and signed informed consent and then the patient was brought into the cardiac catheteriza tion laboratory and prepped and draped in the usual sterile fashion. We accessed the right femoral a rtery using ultrasound guidance and fluoroscopy. Placed 6-English Sharon sheath and then we took a 6-English JR4 catheter into the aortic root, engaged the RCA, and exchanged for 6-English JL4, engaged the left main, took standard views, and then proceeded with intervention. Intervention Details: We gave heparin to assure ACT level above 250 throughout the procedure and we took a 6-English EBU 3.5 guide into the aortic root over the J-wire into the aortic root, engaged the left main, and then we took the FFR wire into the aortic root and equalized in the aortic root and th en we crossed the left circumflex ostial lesion and recorded the IFR that was negative and then took the wire into the LAD crossing proximal to mid lesion and recorded IFR which was positive at 0.88 and then FFR was positive at 0.72, and then we will proceed with PCI. We used a 2.5 x 20 mm Compliant b alloon at high pressure and then used 2.75 x 28 mm Synergy drug-eluting stent that was inflated to hi gh pressure that gave a size of 3.0 x 28 mm. The patient tolerated the procedure very well. We took the wires out and took final picture that showed no complications and then we took the sheath out an d we placed a 6-English Angio-Seal with good hemostasis. Findings: 1.Left main is normal. 2.Left circumflex ostial has 60%, negative IFR of 0.97. 3.LAD has proximal to mid 60% stenosis. IFR was 0.88 and then FFR was 0.72. We then proceeded with PCI as above. 4.D1 has ostial 70% stenosis and had ARIAS-3 flow at the end of the procedure and not need to do any intervention on it. 5.RCA has mild proximal stenosis about 30% and it is a dominant circulation. Conclusion: Severe proximal to mid LAD stenosis, status post PCI as above. Recommendation: Plavix, aspirin, statin, and follow up in 4 weeks post discharge. SR/MODL Voice ID: [id number] Report ID: [id number]
[2020-04-30 05:25] LABS: Urine Appearance CLEAR; Urine Bilirubin NEGATIVE (NEG); Urine Blood NEGATIVE (NEG); Urine Color YELLOW; Urine Glucose NEGATIVE (NEG); Urine Protein NEGATIVE (NEG); Urine Specific Gravity >=1.030 (1.005-1.030); Urine Urobilinogen 0.2 mg/dL (0.2-1.0)
[2020-04-30 05:29] LABS: Urine Microscopic Reflex ORDER UMIC
[2020-04-30 05:57] LABS: Absolute Lymphocytes (CBC) 0.8 K/uL (0.7-4.9); Basophils % 0.3 % (0-1.3); Hematocrit 32.5 % (36.0-45.0); Lymphocytes % 16.5 % (15.3-44.8); MPV 9.2 fL (7.6-11.3); RBC Red Blood Cell Count 3.89 M/uL (3.86-4.86)
[2020-04-30 06:06] LABS: Potassium 3.6 mmol/L (3.5-5.1)
[2020-04-30 06:13] LABS: Urine Bacteria 20-50 /HPF (<20); Urine RBC <5 /HPF (NONE SEEN)
[2020-04-30] MEDS: INSULIN -REGULAR HUMAN 50 UNIT/0.5 ML ML SQ SCH (07:30)
[2020-04-30 08:48] VITALS: BP 164/69; TEMP 97.7
[2020-04-30] MEDS ORDERED: CLOPIDOGREL 75 MG TABLET PO SCH (09:00)
[2020-04-30] MEDS ORDERED: METOPROLOL XL 100 MG TAB PO SCH (09:00)
[2020-04-30] MEDS ORDERED: NIFEDIPINE XL 60 MG TABLET PO SCH (09:00)
[2020-04-30] MEDS ORDERED: ASPIRIN EC 81 MG TAB PO SCH (09:00)
--- NOTE | 2020-04-30 09:00 | P.DS ---
Admission Date: 04/29/20 Discharge Date: 04/30/20 Reason for Admission: Chest discomfort Consultations: Cardiology-Dr. Cohen. - Problems (1) Unstable angina Current Visit: Yes Status: Acute (2) Chronic atrial fibrillation Current Visit: Yes Status: Acute (3) Diabetes mellitus type 2 in nonobese Current Visit: Yes Status: Acute (4) Hypertension Current Visit: Yes Status: Acute Brief History of Present Illness: 79-year-old woman with a history of atrial fibrillation was recently hospitalized for rapid AFib and elevated troponin. She had her metoprolol dose increased which controlled her heart rate. The troponin at that time was considered secondary to demand ischemia from the rapid AFib. She was then discharged in as to have an outpatient stress test. She experienced chest discomfort at the cardiology office when she went there today for arrangement for outpatient stress test. EKG done demonstrated ST depressions in the lateral leads. Patient was then referred to the emergency department in other to be admitted for cardiac catheterization. She was given a dose of nitroglycerin. She was also given morphine in the ED. She was being prepped for cardiac catheterization when I saw her in the ED. EKG demonstrated ST depression in V5 V6 and lead II. Initial troponin was mildly elevated to 0.12. Hospital Course: Patient was sent to cardiac cath where PCI was performed with stent in the distal LAD. Patient was monitored overnight, had no symptoms. Vitals were stable after cardiac catheterization. Her serum creatinine was mildly elevated before the cardiac catheterization but this has resolved with IV fluid. Lipid profile showed LDL of 109. Patient is started on Plavix per cardiology recommendation. Of note patient is also on Eliquis. Her UA suggested the presence of UTI. Patient is prescribed Omnicef to treat the UTI. She is deemed clinically stable for discharge. She is supposed to follow with Dr. Cartwright within 2 weeks as an outpatient. Vital Signs/Physical Exam: Temp Pulse Resp BP Pulse Ox 97.7 F 81 16 164/69 H 97 04/30/20 08:00 04/30/20 08:00 04/30/20 08:00 04/30/20 08:00 04/30/20 08:00 General: Alert, In no apparent distress Neck: Supple, JVD not distended Respiratory: Clear to auscultation bilaterally, Normal air movement Cardiovascular: No edema, Regular rate/rhythm, Normal S1 S2 Gastrointestinal: Normal bowel sounds, Soft and benign Musculoskeletal: No swelling Integumentary: No rashes, No erythema Neurological: Other (Nonfocal) Laboratory Data at Discharge: WBC 4.7 K/uL (4.3-10.9) 04/30/20 05:24 Hgb 11.1 g/dL (12.0-15.0) L 04/30/20 05:24 Hct 32.5 % (36.0-45.0) L D 04/30/20 05:24 Plt Count 140 K/uL (152-406) L D 04/30/20 05:24 PT 16.3 SECONDS (9.5-12.5) H 04/29/20 12:30 INR 1.39 04/29/20 12:30 Sodium 145 mmol/L (136-145) 04/30/20 05:24 Potassium 3.6 mmol/L (3.5-5.1) 04/30/20 05:24 BUN 24 mg/dL (7-18) H 04/30/20 05:24 Creatinine 0.98 mg/dL (0.55-1.3) 04/30/20 05:24 Glucose 81 mg/dL (74-106) 04/30/20 05:24 Magnesium 1.8 mg/dL (1.8-2.4) 04/29/20 12:30 Total Bilirubin 0.5 mg/dL (0.2-1.0) 04/29/20 12:30 AST 14 U/L (15-37) L 04/29/20 12:30 ALT 17 U/L (12-78) 04/29/20 12:30 Alkaline Phosphatase 87 U/L (45-117) 04/29/20 12:30 Triglycerides 70 mg/dL (<150) 04/30/20 05:24 Cholesterol 179 mg/dL (<200) 04/30/20 05:24 HDL Cholesterol 56 mg/dL (40-60) 04/30/20 05:24 Cholesterol/HDL Ratio 3.20 04/30/20 05:24 Home Medications: Hydralazine HCl [Apresoline] 1 tab PO QID 04/10/20 Levetiracetam [Keppra] 1 tab PO BID 04/10/20 Metformin HCl [Glucophage*] 1 tab PO BID 11/14/20 Nifedipine [Nifedipine ER] 1 tab PO DAILY 04/10/20 hydroCHLOROthiazide [Hydrodiuril*] 1 tab PO DAILY 04/10/20 Apixaban [Eliquis] 5 mg PO BID 30 Days #60 tablet 04/11/20 Metoprolol Succinate [Toprol Xl] 200 mg PO DAILY 30 Days #30 tab.er.24h 04/11/20 Atorvastatin Calcium [Lipitor*] 20 mg PO BEDTIME #30 tab 04/30/20 Cefdinir [Omnicef] 300 mg PO BID #10 capsule 04/30/20 Clopidogrel Bisulfate [Plavix] 75 mg PO DAILY #30 tablet 04/30/20 New Medications: Atorvastatin Calcium [Lipitor*] 20 mg PO BEDTIME #30 tab Cefdinir [Omnicef] 300 mg PO BID #10 capsule Clopidogrel Bisulfate [Plavix] 75 mg PO DAILY #30 tablet Followup: NONE,NONE [Primary Care Provider] - 1-2 Weeks Augustus Cartwright MD [ACTIVE - CAN ADMIT] - (Follow up in 2 weeks)
[2020-04-30 09:54] VITALS: O2SAT 96
[2020-04-30] MEDS: APIXABAN 5 MG TABLET PO SCH (09:57)
[2020-04-30] MEDS: HYDRALAZINE HCL 25 MG TABLET PO SCH (09:57)
[2020-04-30] MEDS: hydroCHLOROthiazide 25 MG TAB PO SCH (09:58)
--- NOTE | 2020-04-30 13:40 | EKG ---
Test Date: 2020-04-29 Test Time: 12:23:15 [facility] Director: BP MEASUREMENT RESULTS: Intervals: Rate: 89 UT: 128 QRSD: 100 QT: 408 QTc: 496 [place]: P: 55 UT: 128 QRS: -5 T: 138 INTERPRETIVE STATEMENTS: Sinus rhythm with frequent premature ventricular complexes ST & T wave abnormality, consider lateral ischemia Prolonged QT Abnormal ECG Compared to ECG 04/11/2020 08:56:39 Prolonged QT interval now present ST (T wave) deviation still present Possible ischemia still present Electronically Signed On 04-30-20 13:37:13 [employer] by Augustus Cartwright
--- NOTE | 2020-04-30 19:53 | CON ---
Date of Consultation: 04/29/2020 Reason For Admission: Unstable angina and abnormal stress test. History Of Present Illness: Ms. Arreola is a 79-year-old female, a patient of mine in the office that had history of coronary artery disease that is mild to moderate, hypertension, diabetes, paroxysmal a trial fibrillation, had come into the office today with the purpose of doing a stress test. While philip kay was doing the stress test, she developed severe ST depression couplets and a chest pain, and was se nt to the emergency room to be evaluated and was admitted by Dr. Lopez to Dr. Tom for that purpo se. She denied PND, orthopnea, pedal edema. She had palpitation, but no syncope. Denied any fever or chills. She had substernal chest pressures radiating to her shoulders with some diaphoresis and s hortness of breath. Past Medical History: As stated above. Allergies: SHE IS ALLERGIC TO CODEINE. Review of Systems: Negative. Social History: Negative. Family History: Negative. Medications: At home include Lasix, hydralazine, hydrochlorothiazide, Keppra, metformin, metoprolol, nifedipine. Physical Examination: Vital Signs: Blood pressure 163/61, sinus rhythm, temperature is 98, respiratory rate is 16, her pul se is 85, O2 saturation on 2 L was 100%. HEENT: Negative. Neck: Supple without any bruit, lymphadenopathy, JVD, or thyromegaly. Chest: Clear to auscultation and percussion. Cardiac: Regular rhythm and rate. No murmurs, gallops, or rubs. Abdomen: Benign. Extremities: No clubbing, cyanosis, or edema. Diagnostic Data: Her EKG showed normal sinus rhythm with ST depression anterolaterally. Her chest x -ray was negative. Laboratory evaluation showed a creatinine of 1.31. Her hemoglobin was 11.1. Pot assium was 3.6. Her BNP was 1548 and her troponin was 0.12. Impression And Plan: 1.Non-ST elevation myocardial infarction. 2.Moderate coronary artery disease. 3.Diabetes. 4.Hypertension. 5.Dyslipidemia. 6.History of seizure disorder. 7.Mild renal insufficiency. I think patient needs to have a rather urgent heart catheterization today, which will be done by Dr. Cohen. She understands the risk and the benefits of the procedure. She agrees to proceed. For now , we will continue her home medication. Hold Lovenox until after the catheterization. She takes Kellie josé luis at home for paroxysmal atrial fibrillation and that has been held. We will see what her cathete rization shows before making further decisions. BOBY/CAROLE Voice ID: [id number] Report ID: [id number]
--- NOTE | 2020-04-30 22:14 | PN ---
Date of Progress Note: 04/30/2020 History Of Present Illness: Ms. Arreola had a rather urgent admission yesterday for chest pain, abnorm al stress test, non-ST elevation myocardial infarction. Had an urgent heart catheterization yesterda y by Dr. Cohen and underwent an LAD stent successfully. Overnight, the patient has no complaint. Physical Examination: Vital Signs: Stable. Telemetry shows sinus rhythm. HEENT: Negative. Chest: Clear. Cardiac: Normal. Extremities: Revealed no clubbing, cyanosis, or edema. Her right groin catheterization site is inta ct. Diagnostic Data: Today, unremarkable. Impression And Plan: 1.Non-ST elevation myocardial infarction, status post urgent LAD stent by Dr. Cohen. The patient i s on Eliquis at home, which we will resume. She should be on Plavix. No aspirin. Continue her beta -blockers and statin at home. 2.Paroxysmal atrial fibrillation. We will resume Eliquis. Rate is controlled. She is in sinus rhy thm on beta-blockers. 3.Hypertension, well controlled. 4.Dyslipidemia, well controlled. 5.Diabetes, well controlled. 6.Renal insufficiency that has improved. 7.History of seizure. The patient can go home today. We will see her in the office in the next 2 w eeangela. BOBY/CAROLE Voice ID: [id number] Report ID: [id number]
== END 2020-04-30 11:29 | disposition home or self-care (01) ==
LOC: ER 12:16 → ERHOLD 14:20 → INTOOBSV 14:20 → 2ND 16:34
PROVIDERS: ADMIT Internal Medicine; ATTEND Internal Medicine
DX: I21.4 Non-ST elevation (NSTEMI) myocardial infarction (principal); I48.0 Paroxysmal atrial fibrillation; I25.10 Atherosclerotic heart disease of native coronary artery without angina pectoris; Z79.01 Long term (current) use of anticoagulants; I10 Essential (primary) hypertension; Z20.828 Contact with and (suspected) exposure to other viral communicable diseases; E78.5 Hyperlipidemia, unspecified; E11.9 Type 2 diabetes mellitus without complications; N28.9 Disorder of kidney and ureter, unspecified; R94.31 Abnormal electrocardiogram [ECG] [EKG]; G40.909 Epilepsy, unspecified, not intractable, without status epilepticus; N39.0 Urinary tract infection, site not specified; Z79.84 Long term (current) use of oral hypoglycemic drugs
CPT/HCPCS: 93005; 87088; 85025 ×2; 87086; 80048 ×2; 36415; 83735; 85610; 80061; 82947 ×3; 80076; 85347 ×2; 84484; 83880; 92928; 93454; 93571; 93572; 96375; 96374; 99284; U0002; C1893; C1760; C1725; J2550; J3010; J2785 ×2; J7040; J1644 ×2; J2405 ×2; G0378 ×3; 81003; 81015; J2250

== ENCOUNTER 2020-09-02 13:26 | Observation (INO) | payer OTHER ==
--- OUTSIDE RECORDS SUMMARY | 2020-09-02 13:28 | XMS REPORT | Continuity of Care Document ---
:1940 Author Organization [facility] t Address 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 Hyperlipid 06-08 [facility] emia due emia Due 00:00: Practi c to type 2 to Type 2 00 e diabetes Diabetes mellitus Mellitus Complicati Complicati Problem Active [facility] due to on Due to 06-07 [facility] diabetes Diabetes 00:00: Practi c mellitus Mellitus 00 e Neuropathy Neuropathy Problem Active [facility] 06-07 Family 00:00: [facility] 00 e Coronary Coronary Problem Active [facility] arterioscl Arterioscl 06-07 [facility] erosis erosis 00:00: Practic 00 e 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 Social History Smoking Status Start Date Stop Date Source Never Smoker [facility] Family P lani Medications Ordered Filled Start Stop Current Ordering Indication Dosage Frequency Signature Comments Components Source Medication Medication Date Date Medication? Clinician (SIG) Name Name Asprin Ec Asprin Ec No 1 Q1D Asprin Ec [facility] Low Dose 81 Low Dose 81 Low Dose Family mg mg 81 mg [facility] tablet,luis tablet,luis tablet,del e yed release yed release ayed Take 1 Take 1 release tablet tablet Take 1 every day every day tablet by oral by oral every day route. route. by oral route. atorvastati atorvastati No 1 Q1D atorvastat [facility] n 20 mg n 20 mg in 20 mg Famil y tablet Take tablet Take tablet Pract[facility] 1 tablet 1 tablet Take 1 e every day every day tablet by oral by oral every day route at route at by oral bedtime for bedtime for route at 30 days. 30 days. bedtime for 30 days. clopidogrel clopidogrel No 1 Q1D clopidogre [facility] 75 mg 75 mg l 75 mg Family tablet Take tablet Take tablet Pract[facility] 1 tablet 1 tablet Take 1 e every day every day tablet by oral by oral every day route. route. by oral route. hydralazine hydralazine No 1 QID hydralazin [facility] 50 mg 50 mg e 50 mg Family tablet Take tablet Take tablet [facility] 1 tablet 4 1 tablet 4 Take 1 e times a day times a day tablet 4 by oral by oral times a route. route. day by oral route. hydrochloro hydrochloro No 1 Q1D hydrochlor [facility] thiazide 50 thiazide 50 othiazide Family mg tablet mg tablet 50 mg Prac tic Take 1 Take 1 tablet e tablet tablet Take 1 every day every day tablet by oral by oral every day route. route. by oral route. levetiracet levetiracet No 1 Q12H levetirace [facility] am 1,000 mg am 1,000 mg de oliveira 1,000 Family tablet Take tablet Take mg tablet [facility] 1 tablet 1 tablet Take 1 e every 12 every 12 tablet hours by hours by every 12 oral route. oral route. hours by oral route. metformin metformin No 1 BID metformin [facility] 500 mg 500 mg 500 mg Family tablet Take tablet Take tablet [facility] 1 tablet 1 tablet Take 1 e twice a day twice a day tablet by oral by oral twice a route. route. day by oral route. metoprolol metoprolol No 1capsul Q1D metoprolol [facility] succinate succinate e(s) succinate Family ER 200 mg ER 200 mg ER 200 mg [facility] capsule capsule capsule e sprinkle, sprinkle, sprinkle, ext. ext. ext. release 24 release 24 release 24 hr Take 1 hr Take 1 hr Take 1 capsule capsule capsule every day every day every day by oral by oral by oral route. route. route. nifedipine nifedipine No 1 Q1D nifedipine [facility] ER 60 mg ER 60 mg ER 60 mg Fam mayda tablet,exte tablet,exte tablet,ext [facility] nded nded ended e release release release Take 1 Take 1 Take 1 tablet tablet tablet every day every day every day by oral by oral by oral route. route. route. Vital Signs Vital Name Observation Time Observation Value Comments Source Height 2020-06-07 00:00:00 62 [in_i] [facility] BMI (Body Mass 2020-06-07 00:00:00 23.8 kg/m2 [facility] Index) Practice Body Weight 2020-06-07 00:00:00 130 [lb_av] [facility] Procedures Procedure Date / Time Performed Performing Clinician Abi rahul Placement of Stent [facility] Screening Colonoscopy [facility] Screening Mammography [facility] Knee Replacement [facility] Plan of Care Planned Activity Planned Date Details Comments Source Future Appointment 2020-09-07 00:00:00 Sandy Gould [facility] [address]; Practice Suite [facility], [place] [address] Instructions [facility] Encounters Start End Encounter Admission Attending Care Care Encounter Source Date/Time Date/Time Type Type Clinicians Facility Department ID 2020-06-07 2020-06-07 [facility] - [id number] [facility] 00:00:00 00:00:00 Chandana Gould y [employer]PER[employer]OR: [id number] [facility] - Pract ic Sahri Humphreys, [email or web address] Suite [facility], [facility] [id number] , Ph. Results This patient has no known results.
[2020-09-02 18:25] LABS: Protime INR 1.06
[2020-09-02 18:26] LABS: Absolute Lymphocytes (CBC) 0.7 K/uL (0.7-4.9); Basophils % 0.1 % (0-1.3); Hematocrit 34.7 % (36.0-45.0); MPV 9.2 fL (7.6-11.3); RBC Red Blood Cell Count 4.12 M/uL (3.86-4.86)
[2020-09-02 18:37] LABS: ALT/SGPT 16 U/L (12-78); AST/SGOT 11 U/L (15-37); Albumin 3.6 g/dL (3.4-5.0); Alkaline Phosphatase 79 U/L (45-117); BUN Blood Urea Nitrogen 26 mg/dL (7-18); Bicarbonate 27 mmol/L (21-32); Bilirubin Direct < 0.1 mg/dL (0-0.2); Bilirubin Total 0.3 mg/dL (0.2-1.0); Glucose Level 117 mg/dL (74-106); Magnesium 2.2 mg/dL (1.8-2.4); NT PRO-BNP 4309 pg/mL (<450); Potassium 3.7 mmol/L (3.5-5.1); Sodium Level 144 mmol/L (136-145); Troponin (Emerg Dept Use Only) 0.04 ng/mL (0.0-0.045)
[2020-09-02] MEDS ORDERED: ONDANSETRON 4 MG/2 ML VIAL ONE (18:41)
[2020-09-02] MEDS ORDERED: NA CHLORIDE 0.9% 500 ML ONE (18:41)
--- NOTE | 2020-09-02 18:45 | RAD REPORT ---
EXAM DESCRIPTION: RAD - Chest Single View - 09/02/2020 6:20 pm CLINICAL HISTORY: CHEST PAIN Chest pain. COMPARISON: Chest Single View dated 04/10/2020; Chest Single View dated 06/08/2019; Chest Pa And Lat (2 Views) dated 06/09/2016; CHEST SINGLE VIEW dated 02/24/2013 FINDINGS: Portable technique limits examination quality. Chronic elevation the right hemidiaphragm is noted. The lungs are grossly clear. The heart is mildly enlarged in size. Old left posterior rib fractures. IMPRESSION: No acute intrathoracic process suspected.
--- NOTE | 2020-09-02 21:18 | ER ---
Nurse's Notes [facility] Name: Aditi Arreola Age: 79 yrs Sex: Female : 1940 Arrival Date: 09/02/2020 Time: 13:27 Bed 19 Private MD: Diagnosis: Chest pain, unspecified Presentation: 09/02 14:19 Chief complaint: Patient's son or daughter states: nausea, diarrhea yesterday and she iw vomited last night, also c/o chest pains intermittent X 2 days. Coronavirus screen: diarrhea, vomiting. Ebola Screen: Patient negative for fever greater than or equal to 101.5 degrees Fahrenheit, and additional compatible Ebola Virus Disease symptoms Patient denies exposure to infectious person. Patient denies travel to an Ebola-affected area in the 21 days before illness onset. No symptoms or risks identified at this time. Initial Sepsis Screen: Does the patient meet any 2 criteria? No. Patient's initial sepsis screen is negative. Does the patient have a suspected source of infection? No. Patient's initial sepsis screen is negative. Risk Assessment: Do you want to hurt yourself or someone else? Patient reports no desire to harm self or others. Onset of symptoms was August 30, 2020. 14:19 Method Of Arrival: Wheelchair iw 14:19 Acuity: LUIS ARMANDO 3 iw Historical: - Allergies: 14:22 Codeine; iw - Home Meds: 14:22 furosemide 20 mg Oral tab 1 tab once daily [Active]; hydralazine 50 mg Oral tab 1 tab 4 iw times per day [Active]; hydrochlorothiazide 25 mg Oral tab 1 tab once daily [Active]; levetiracetam 500 mg Oral tab 1 tab 2 times per day [Active]; metoprolol succinate 100 mg Oral Tb24 1 tab once daily [Active]; metformin 500 mg Oral tab 1 tab 2 times per day [Active]; nifedipine 60 mg Oral TbER 1 tab once daily [Active]; - PMHx: 14:22 a-fib; Diabetes - NIDDM; Hypertension; iw - PSHx: 14:22 Heart stents; Cholecystectomy; ; ankle; Knee surgery; iw - Immunization history:: Adult Immunizations up to date. - Social history:: Smoking status: Patient denies any tobacco usage or history of. Screenin:45 Abuse screen: Denies threats or abuse. Denies injuries from another. Nutritional ca1 screening: No deficits noted. Tuberculosis screening: No symptoms or risk factors identified. Fall Risk IV access (20 points). Assessment: 17:45 General: Appears in no apparent distress. comfortable, Behavior is calm, cooperative, ca1 appropriate for age, Reports feeling ill for 2-3 days. Pain: Complains of pain in mid-sternal area Pain does not radiate. Pain currently is 0 out of 10 on a pain scale. at worst was 6 out of 10 on a pain scale. Pain began 2-3 days ago. Is intermittent. Neuro: Level of Consciousness is awake, alert, obeys commands, Oriented to person, place, time, situation. Cardiovascular: Heart tones S1 S2 present Capillary refill < 3 seconds Rhythm is sinus bradycardia. Respiratory: Airway is patent Respiratory effort is even, unlabored, Respiratory pattern is regular, symmetrical, Breath sounds are clear bilaterally. GI: Abdomen is flat, non-distended, Bowel sounds present X 4 quads. Abd is soft and non tender X 4 quads. Reports diarrhea, nausea, vomiting, since 2 days HAND SHAKER. : No signs and/or symptoms were reported regarding the genitourinary system. EENT: No signs and/or symptoms were reported regarding the EENT system. Derm: Skin is intact, is healthy with good turgor, Skin is pink, warm \T\ dry. Musculoskeletal: Circulation, motion, and sensation intact. Capillary refill < 3 seconds. 18:45 Reassessment: Patient appears in no apparent distress at this time. Patient and/or ca1 family updated on plan of care and expected duration. Pain level reassessed. Patient is alert, oriented x 3, equal unlabored respirations, skin warm/dry/pink. 19:27 Reassessment: Patient appears in no apparent distress at this time. Patient and/or ca1 family updated on plan of care and expected duration. Pain level reassessed. Patient is alert, oriented x 3, equal unlabored respirations, skin warm/dry/pink. 20:12 Reassessment: Patient appears in no apparent distress at this time. Patient and/or ca1 family updated on plan of care and expected duration. Pain level reassessed. Patient is alert, oriented x 3, equal unlabored respirations, skin warm/dry/pink. 20:30 Reassessment: Patient appears in no apparent distress at this time. Patient and/or ca1 family updated on plan of care and expected duration. Pain level reassessed. Patient is alert, oriented x 3, equal unlabored respirations, skin warm/dry/pink. 22:00 Reassessment: Patient appears in no apparent distress at this time. Patient and/or jb4 family updated on plan of care and expected duration. Pain level reassessed. Patient is alert, oriented x 3, equal unlabored respirations, skin warm/dry/pink. 23:00 Reassessment: Patient appears in no apparent distress at this time. Patient and/or jb4 family updated on plan of care and expected duration. Pain level reassessed. Patient is alert, oriented x 3, equal unlabored respirations, skin warm/dry/pink. 09/03 00:00 Reassessment: Patient appears in no apparent distress at this time. Patient and/or jb4 family updated on plan of care and expected duration. Pain level reassessed. Patient is alert, oriented x 3, equal unlabored respirations, skin warm/dry/pink. 01:00 Reassessment: Patient appears in no apparent distress at this time. Patient and/or jb4 family updated on plan of care and expected duration. Pain level reassessed. Patient is alert, oriented x 3, equal unlabored respirations, skin warm/dry/pink. Vital Signs: 09/02 14:19 BP 180 / 45; Pulse 52; Resp 16; Temp 97.2; Pulse Ox 99% on R/A; iw 17:45 BP 185 / 45; Pulse 66; Resp 13; Pulse Ox 100% on R/A; ca1 19:00 BP 180 / 59; Pulse 68; Resp 20 S; Pulse Ox 99% on R/A; ca1 20:15 BP 175 / 72; Pulse 64; Resp 18 S; Pulse Ox 100% on R/A; ca1 21:30 BP 150 / 54; Pulse 53; Resp 16 S; Pulse Ox 98% on R/A; ca1 23:00 BP 164 / 43; Pulse 55; Resp 15; Pulse Ox 93% ; jb4 09/03 00:00 BP 181 / 102; Pulse 57; Resp 15; Pulse Ox 99% on R/A; jb4 01:00 BP 160 / 41; Pulse 52; Resp 12; Pulse Ox 97% on R/A; jb4 ED Course: 09/02 13:27 Patient arrived in ED. as 14:21 Triage completed. iw 17:44 Shirin Dumont, RN is Primary Nurse. ca1 17:45 Javier Lopez MD is Attending Physician. kdr 17:45 Patient has correct armband on for positive identification. Placed in gown. Bed in low ca1 position. Call light in reach. Side rails up X2. ekg monitor tech on. Pulse ox on. NIBP on. Warm blanket given. 17:45 Arm band placed on. ca1 17:55 No provider procedures requiring assistance completed. ca1 18:10 Initial lab(s) drawn, by ut, sent to lab. Inserted saline lock: 20 gauge in right ca1 antecubital area, using aseptic technique. Blood collected. 19:02 Attending Physician role handed off by Javier Lopez MD [facility] 19:02 Gillian Kraft MD is Attending Physician. nh2 21:16 Silverio Puente DO is Hospitalizing Provider. [facility] 21:59 Primary Nurse role handed off by Shirin Dumont RN [facility] 21:59 Lion Marin RN is Primary Nurse. [facility] 09/03 01:35 Patient admitted, IV remains in place. [facility] Administered Medications: 09/02 18:26 Drug: NS 0.9% 500 ml Route: IV; Rate: bolus; Site: right antecubital; ca1 18:27 Drug: Zofran (Ondansetron) 4 mg Route: IVP; Site: right antecubital; ca1 21:12 Follow up: Response: No adverse reaction; Nausea is decreased ca1 21:36 Drug: Aspirin Chewable Tablet 324 mg Route: PO; ca1 21:55 Follow up: Response: No adverse reaction ca1 Outcome: 21:17 Decision to Hospitalize by Provider. [facility] 09/03 01:35 Admitted to Med/surg accompanied by tech, via stretcher, room 222, with chart, Report jb called to KYLAH Trujillo Condition: stable Discharge instructions given to patient, Instructed on the need for admit, Demonstrated understanding of instructions. 02:02 Patient left the ED. em Signatures: Javier Lopez MD MD kdr Munoz, Edgar, RN RN em Debbie Pham as Rae Chaudhari RN RN Lion Marin RN RN [facility] Gillian Kraft MD MD ma2 Shirin Dumont, RN RN ca1
--- NOTE | 2020-09-02 21:18 | EDPHYS ---
Physician Documentation [facility] Name: Aditi Arreola Age: 79 yrs Sex: Female : 1940 Arrival Date: 09/02/2020 Time: 13:27 Bed 19 Private MD: ED Physician Gillian Kraft HPI: 09/02 17:58 This 79 yrs old Female presents to ER via Wheelchair with complaints of kdr Vomiting/Diarrhea, Chest Pain. 17:58 The patient presents to the emergency department with nausea, that is mild, vomiting, kdr that is intermittent, diarrhea, that is intermittent. Onset: The symptoms/episode began/occurred suddenly, 2 day(s) ago. Possible causes: unknown. The symptoms are aggravated by food , The symptoms are alleviated by nothing. Severity of symptoms: At their worst the symptoms were mild in the emergency department the symptoms have improved moderately. The patient has not experienced similar symptoms in the past. The patient has not recently seen a physician. Historical: - Allergies: 14:22 Codeine; iw - Home Meds: 14:22 furosemide 20 mg Oral tab 1 tab once daily [Active]; hydralazine 50 mg Oral tab 1 tab 4 iw times per day [Active]; hydrochlorothiazide 25 mg Oral tab 1 tab once daily [Active]; levetiracetam 500 mg Oral tab 1 tab 2 times per day [Active]; metoprolol succinate 100 mg Oral Tb24 1 tab once daily [Active]; metformin 500 mg Oral tab 1 tab 2 times per day [Active]; nifedipine 60 mg Oral TbER 1 tab once daily [Active]; - PMHx: 14:22 a-fib; Diabetes - NIDDM; Hypertension; iw - PSHx: 14:22 Heart stents; Cholecystectomy; ; ankle; Knee surgery; iw - Immunization history:: Adult Immunizations up to date. - Social history:: Smoking status: Patient denies any tobacco usage or history of. ROS: 17:58 Constitutional: Negative for fever, chills, and weight loss, Eyes: Negative for injury, kdr pain, redness, and discharge, ENT: Negative for injury, pain, and discharge, Neck: Negative for injury, pain, and swelling, Respiratory: Negative for shortness of breath, cough, wheezing, and pleuritic chest pain, Abdomen/GI: Negative for abdominal pain, nausea, vomiting, diarrhea, and constipation, Back: Negative for injury and pain, : Negative for injury, bleeding, discharge, and swelling, MS/Extremity: Negative for injury and deformity, Skin: Negative for injury, rash, and discoloration, Neuro: Negative for headache, weakness, numbness, tingling, and seizure activity. Psych: Negative for depression, anxiety, suicide ideation, homicidal ideation, and hallucinations, Allergy/Immunology: Negative for hives, rash, and allergies, Endocrine: Negative for neck swelling, polydipsia, polyuria, polyphagia, and marked weight changes, Hematologic/Lymphatic: Negative for swollen nodes, abnormal bleeding, and unusual bruising. 17:58 Cardiovascular: Positive for chest pain, of the chest. 17:58 Abdomen/GI: Positive for nausea and vomiting, diarrhea, Negative for abdominal cramps, abdominal distension, black/tarry stool, rectal pain, rectal bleeding. Exam: 17:58 Constitutional: This is a well developed, well nourished patient who is awake, alert, kdr and in no acute distress. Head/Face: Normocephalic, atraumatic. Eyes: Pupils equal round and reactive to light, extra-ocular motions intact. Lids and lashes normal. Conjunctiva and sclera are non-icteric and not injected. Cornea within normal limits. Periorbital areas with no swelling, redness, or edema. Neck: Trachea midline, no thyromegaly or masses palpated, and no cervical lymphadenopathy. Supple, full range of motion without nuchal rigidity, or vertebral point tenderness. No Meningismus. Chest/axilla: Normal chest wall appearance and motion. Nontender with no deformity. No lesions are appreciated. Cardiovascular: Regular rate and rhythm with a normal S1 and S2. No gallops, murmurs, or rubs. Normal PMI, no JVD. No pulse deficits. Respiratory: Lungs have equal breath sounds bilaterally, clear to auscultation and percussion. No rales, rhonchi or wheezes noted. No increased work of breathing, no retractions or nasal flaring. Abdomen/GI: Soft, non-tender, with normal bowel sounds. No distension or tympany. No guarding or rebound. No evidence of tenderness throughout. Back: No spinal tenderness. No costovertebral tenderness. Full range of motion. Skin: Warm, dry with normal turgor. Normal color with no rashes, no lesions, and no evidence of cellulitis. MS/ Extremity: Pulses equal, no cyanosis. Neurovascular intact. Full, normal range of motion. Neuro: Awake and alert, GCS 15, oriented to person, place, time, and situation. Cranial nerves II-XII grossly intact. Motor strength 5/5 in all extremities. Sensory grossly intact. Cerebellar exam normal. Normal gait. Psych: Awake, alert, with orientation to person, place and time. Behavior, mood, and affect are within normal limits. Vital Signs: 14:19 BP 180 / 45; Pulse 52; Resp 16; Temp 97.2; Pulse Ox 99% on R/A; iw 17:45 BP 185 / 45; Pulse 66; Resp 13; Pulse Ox 100% on R/A; ca1 19:00 BP 180 / 59; Pulse 68; Resp 20 S; Pulse Ox 99% on R/A; ca1 20:15 BP 175 / 72; Pulse 64; Resp 18 S; Pulse Ox 100% on R/A; ca1 21:30 BP 150 / 54; Pulse 53; Resp 16 S; Pulse Ox 98% on R/A; ca1 23:00 BP 164 / 43; Pulse 55; Resp 15; Pulse Ox 93% ; jb4 04 00:00 BP 181 / 102; Pulse 57; Resp 15; Pulse Ox 99% on R/A; jb4 01:00 BP 160 / 41; Pulse 52; Resp 12; Pulse Ox 97% on R/A; jb4 MDM: 09/02 17:58 Data reviewed: vital signs, nurses notes, lab test result(s), radiologic studies. kdr 19:02 Patient medically screened. ma2 21:13 Differential diagnosis: Nonspecific abd pain, gastritis, cholecystitis, ma2 gastroenteritis. Counseling: I had a detailed discussion with the patient and/or guardian regarding: the historical points, exam findings, and any diagnostic results supporting the discharge/admit diagnosis, the presence of at least one elevated blood pressure reading (>120/80) during this emergency department visit, lab results, radiology results. Response to treatment: the patient's symptoms have markedly improved after treatment. ED course: patient states she had chest pain in the morning, hx of mi and stents in the last 2 yrs. no chest pain at this time. ekg with no ischemic changes, trop negative and cxr unremarkable. she is bernard score 2 and heart score 3, she did have vomiting and diarrhea, however her left chest pain is not associated with that and she describe it as heaviness, will give aspiring in er, will obs her for acs rule out. . 09/03 00:24 ED course: called dr. james at 12:30 he advised that hospitalist cover him . ma2 09/02 17:45 Order name: Basic Metabolic Panel [facility] 09/02 17:45 Order name: CBC with Diff [facility] 09/02 17:45 Order name: LFT's [facility] 09/02 17:45 Order name: Magnesium kdr 09/02 17:45 Order name: NT PRO-BNP; Complete Time: 19:31 [facility] 09/02 17:45 Order name: PT-INR; Complete Time: 19:31 [facility] 09/02 17:45 Order name: Troponin (emerg Dept Use Only); Complete Time: 19:31 [facility] 09/02 17:46 Order name: Basic Metabolic Panel; Complete Time: 19:31 EDCT 09/02 17:46 Order name: CBC with Automated Diff; Complete Time: 19:31 EDCT 09/02 17:46 Order name: Liver (Hepatic) Function; Complete Time: 19:31 EDCT 09/02 17:46 Order name: Magnesium; Complete Time: 19:31 EDCT 09/02 20:41 Order name: COVID-19 : Document "Date of Symptom Onset" if Symptomatic. tt3 09/02 21:55 Order name: CORONAVIRUS EDCT 09/02 22:40 Order name: SARS-COV-2 RT PCR [facility] 09/02 17:45 Order name: XRAY Chest (1 view) [facility] 09/02 17:45 Order name: EKG; Complete Time: 17:46 [facility] 09/02 17:45 Order name: Cardiac monitoring; Complete Time: 17:52 [facility] 09/02 17:45 Order name: EKG - Nurse/Tech; Complete Time: 17:52 [facility] 09/02 17:45 Order name: IV Saline Lock; Complete Time: 18:09 [facility] 09/02 17:45 Order name: Labs collected and sent; Complete Time: 18:10 [facility] 09/02 17:45 Order name: O2 Per Protocol; Complete Time: 17:52 [facility] 09/02 17:45 Order name: O2 Sat Monitoring; Complete Time: 17:52 kdr 09/02 18:46 Order name: RAD; Complete Time: 19:31 EDMS 09/03 00:57 Order name: CONS Physician Consult EDCT Administered Medications: 09/02 18:26 Drug: NS 0.9% 500 ml Route: IV; Rate: bolus; Site: right antecubital; ca1 18:27 Drug: Zofran (Ondansetron) 4 mg Route: IVP; Site: right antecubital; ca1 21:12 Follow up: Response: No adverse reaction; Nausea is decreased ca1 21:36 Drug: Aspirin Chewable Tablet 324 mg Route: PO; ca1 21:55 Follow up: Response: No adverse reaction ca1 Disposition: 09/02/20 21:17 Hospitalization ordered by Silverio Puente for Observation. Preliminary diagnosis is Chest pain, unspecified. - Bed requested for Telemetry/MedSurg (observation). - Status is Observation. em - Condition is Stable. - Problem is new. - Symptoms are unchanged. Signatures: Dispatcher [employer] [facility] Javier Lopez MD MD kdr Munoz, Edgar, RN RN em Rae Chaudhari RN RN Janeth West RN RN tl1 Gillian Kraft MD MD mt2 Shirin Dumont RN RN ca1 Corrections: (The following items were deleted from the chart) 09/03 01:22 09/02 21:17 Hospitalization Ordered by Silverio Puente DO for Observation. Preliminary tl1 diagnosis is Chest pain, unspecified. Bed requested for Telemetry/MedSurg (observation). Status is Observation. Condition is Stable. Problem is new. Symptoms are unchanged. ma2 09/03 02:02 01:22 09/02/2020 21:17 Hospitalization Ordered by Silverio Puente DO for Observation. em Preliminary diagnosis is Chest pain, unspecified. Bed requested for Telemetry/MedSurg (observation). Status is Observation. Condition is Stable. Problem is new. Symptoms are unchanged. tl1
[2020-09-02] MEDS ORDERED: ASPIRIN 81 MG CHEWABLE TABLET ONE (21:53)
[2020-09-03 02:28] VITALS: BMI 25.3
--- NOTE | 2020-09-03 02:35 | P.HP ---
Certification for Inpatient Patient admitted to: Observation With expected LOS: <2 Midnights Patient will require the following post-hospital care: None Practitioner: I am a practitioner with admitting privileges, knowledge of patient current condition, hospital course, and medical plan of care. Services: Services provided to patient in accordance with Admission requirements found in Title 42 Section 412.3 of the Code of Federal Regulations <Itz Browne - Last Filed: 09/03/20 02:30> Patient History Date of Service: 09/03/20 Primary Care Provider: Arelis Reason for admission: chest pain History of Present Illness: Ms. Arreola is a 79 yo female with DM, HTN, paroxysmal afib, NSTEMI 04/2020 s/p PCI here today for intermittent 7/10 left sided heavy chest pain lasting for 30 minutes to an hour occurring at rest for the past month. She says she last felt like this a few months ago. She says she feels anxious with the pain, and feels better when she stries to relax. She also reports nausea, vomiting, and diarrhea. BNP 4309. Initial troponin wnl. CXR wnl. Home medications list reviewed: Yes - Past Medical/Surgical History Diabetic: Yes -: NIDDM -: HTN -: Renal artery stenosis -: HFpEF (Heart Failure w/ Preserved Ejection Fraction) -: paroxysmal atrial fibrillation -: NSTEMI 04/2020 -: L KNEE RX -: C section - Family History Father -: Heart disease Notes: NM Brother Notes: NM - Social History Smoking Status: Never smoker Alcohol use: No CD- Drugs: No Caffeine use: No Place of Residence: Home <Itz Browne Perico - Last Filed: 09/03/20 02:30> Date of Service: 09/03/20 <Gillian Kc - Last Filed: 09/08/20 23:52> Allergies codeine Allergy (Verified 09/03/20 02:23) Nausea/Vomiting lorazepam Allergy (Verified 09/03/20 02:23) hallucination, confusion Home Medications: Amlodipine [Norvasc*] 10 mg PO DAILY #30 tab 09/03/20 Aspirin [Aspirin EC 81 MG] 81 mg PO DAILY 09/03/20 Clopidogrel Bisulfate [Plavix*] 75 mg PO DAILY 09/03/20 Hydralazine [Apresoline*] 50 mg PO QID 09/03/20 Levetiracetam [Keppra] 500 mg PO BID 09/03/20 Metformin HCl [Glucophage*] 500 mg PO BID 09/03/20 Metoprolol Succinate 25 mg PO DAILY #30 tab.er.24h 09/03/20 hydroCHLOROthiazide [Hydrochlorothiazide] 25 mg PO DAILY 09/03/20 Review of Systems General: Unremarkable Eyes: Unremarkable ENT: Unremarkable Respiratory: Unremarkable Cardiovascular: Chest Pain, As per HPI Gastrointestinal: Nausea, Vomiting, Diarrhea, As per HPI Genitourinary: Unremarkable Musculoskeletal: Unremarkable Integumentary: Unremarkable Neurological: Unremarkable Lymphatics: Unremarkable <Itz Browne Perico - Last Filed: 09/03/20 02:30> Physical Examination - Vital Signs Temperature: 97.9 F Blood Pressure: 188/62 Pulse: 54 Respirations: 16 Pulse Ox (%): 97 - Physical Exam General: Alert, In no apparent distress, Oriented x3, Cooperative HEENT: Atraumatic, Normocephalic, PERRLA, Mucous membr. moist/pink, EOMI, Sclerae nonicteric Neck: Supple, 2+ carotid pulse no bruit, JVD not distended, No Thyromegaly, No LAD Respiratory: Clear to auscultation bilaterally, Normal air movement Cardiovascular: No edema, Normal pulses, Regular rate/rhythm, Normal S1 S2, No gallops, No rubs, No murmurs Capillary refill: <2 Seconds Gastrointestinal: Normal bowel sounds, Soft and benign, W/out succussion splash, No ascites, No tenderness, No masses, No rebound, No guarding Musculoskeletal: No clubbing, No swelling, No contractures, No erythema, No tenderness, No warmth Integumentary: No rashes, No breakdown, No significant lesion, No tenderness/swelling, No erythema, No warmth, No cyanosis Neurological: Normal speech, Normal strength at 5/5 x4 extr, Normal tone, Sensation intact, Cranial nerves 3-12 intact, Normal affect Lymphatics: No axilla or inguinal lymphadenopathy - Studies Laboratory Data (last 24 hrs) 09/02/20 18:09: PT 12.2, INR 1.06 09/02/20 18:09: WBC 5.30, Hgb 11.5 L, Hct 34.7 L, Plt Count 183 09/02/20 18:09: Sodium 144, Potassium 3.7, BUN 26 H, Creatinine 1.02, Glucose 117 H, Magnesium 2.2, Total Bilirubin 0.3, AST 11 L, ALT 16, Alkaline Phosphatase 79 <Itz Browne - Last Filed: 09/03/20 02:30> Assessment and Plan - Problems (Diagnosis) (1) History of non-ST elevation myocardial infarction (NSTEMI) Status: Chronic (2) Chest pain Status: Acute Qualifiers: Chest pain type: unspecified Qualified Code(s): R07.9 - Chest pain, unspecified (3) Chronic atrial fibrillation Status: Chronic (4) Diabetes mellitus type 2 in nonobese Status: Chronic (5) Hypertension Status: Chronic Qualifiers: Hypertension type: essential hypertension Qualified Code(s): I10 - Essential (primary) hypertension - Plan cardiology consulted trend troponins and EKG continue home eliquis and statin reconcile and continue home BP medications hydralazine IV PRN for BP control sliding scale and accuchecks for BP morphine and nitro PRN for pain Discharge Plan: Home Plan to discharge in: 24 Hours - Advance Directives Does patient have a Living Will: No Does patient have a Durable POA for Healthcare: No - Code Status/Comfort Care Code Status Assessed: Yes (full code) Critical Care: No Time Spent Managing Pts Care (In Minutes): 70 <Itz Browne - Last Filed: 09/03/20 02:30> Date of Service: 09/03/20 Chart reviewed. Agree with plan of care as mentioned above. <Gillian Kc - Last Filed: 09/08/20 23:52>
[2020-09-03] MEDS ORDERED: ONDANSETRON 4 MG/2 ML VIAL IV PRN (02:46)
[2020-09-03] MEDS ORDERED: ACETAMINOPHEN 500 MG TAB PO PRN (02:46)
[2020-09-03] MEDS ORDERED: NITROGLYCERIN 0.4 MG/TAB SL PRN (02:46)
[2020-09-03] MEDS ORDERED: MORPHINE 2 MG/ML SYR IV PRN (02:46)
[2020-09-03] MEDS ORDERED: HYDRALAZINE HCL 20 MG/ML VIAL IV PRN (02:46)
[2020-09-03 03:51] LABS: Thyroid Stimulating Hormone 0.709 uIU/mL (0.360-3.740); Troponin I 0.04 ng/mL (0.0-0.045)
[2020-09-03 05:43] VITALS: O2SAT 98
[2020-09-03 05:58] LABS: Urine Appearance CLOUDY (Clear); Urine Bilirubin NEGATIVE (Negataive); Urine Blood NEGATIVE (Negative); Urine Color YELLOW (Yellow); Urine Glucose NEGATIVE (Negative); Urine Protein NEGATIVE (Negative); Urine Specific Gravity 1.015 (1.005-1.030); Urine Urobilinogen 0.2 mg/dL (0.2-1.0); Urine pH 5.5 (5.0-7.0)
[2020-09-03 06:33] LABS: Urine Microscopic Reflex ORDER UMIC
[2020-09-03 07:00] LABS: Urine Bacteria >50 /HPF (<20); Urine RBC <5 /HPF (NONE SEEN)
[2020-09-03] MEDS: INSULIN -REGULAR HUMAN 50 UNIT/0.5 ML ML SQ SCH ×2 (07:30→11:30)
[2020-09-03] MEDS ORDERED: POTASSIUM 25 MEQ EFFERV TAB PO ONE (08:00)
[2020-09-03] MEDS ORDERED: APIXABAN 5 MG TABLET PO SCH (09:00)
[2020-09-03 12:18] VITALS: BP 170/97; TEMP 98.1
--- NOTE | 2020-09-03 12:47 | EKG ---
Test Date: 2020-09-02 Test Time: 17:49:32 Senior Teller: DORIAN MEASUREMENT RESULTS: Intervals: Rate: 49 [place]: 140 QRSD: 104 QT: 454 QTc: 410 [place]: P: 61 [place]: 140 QRS: 22 T: 260 INTERPRETIVE STATEMENTS: Marked sinus bradycardia ST & T wave abnormality, consider inferior ischemia ST & T wave abnormality, consider anterolateral ischemia Abnormal ECG Compared to ECG 04/29/2020 12:23:15 Sinus rhythm no longer present Ventricular premature complex(es) no longer present Prolonged QT interval no longer present ST (T wave) deviation still present Possible ischemia still present Electronically Signed On 09-03-20 12:45:29 CDT by Augustus Cartwright
[2020-09-03] MEDS ORDERED: ATORVASTATIN 20 MG TAB PO SCH (21:00)
--- NOTE | 2020-09-03 22:11 | CON ---
Date of Consultation: 09/03/2020 Reason For Consultation: Atypical chest pain. History Of Present Illness: Ms. Arreola is a 79-year-old woman who recently had a heart catheterizatio n in April of 2020 with stent placed, had diffuse coronary artery disease. Has a history of gumaro cystectomy, , knee surgery, hypertension, diabetes, and paroxysmal atrial fibrillation. She really came in mostly with dizziness, vomiting and diarrhea and mid epigastric chest pain. Denied P ND, orthopnea, pedal edema, palpitations, or syncope. Her pain was not exertional. It did not radia te. TN has already been ruled out. Past Medical History: As stated above. Allergies: CODEINE. Review of Systems: Negative. Social History: Negative. Family History: Negative. Medications: At home include: 1.Lasix. 2.Hydralazine. 3.Hydrochlorothiazide. 4.Keppra 500 mg b.i.d. 5.Metoprolol 100 mg. 6.Nifedipine 60 mg daily. 7.Metformin 500 mg 1 p.o. b.i.d. Physical Examination: Vital Signs: Stable. She was afebrile HEENT: Negative. Neck: Supple with no bruit. Chest: Clear to auscultation and percussion. Cardiac exam: Revealed a regular rhythm and rate. No murmurs, gallops, or rubs. Abdomen: Benign. Extremities: Revealed no clubbing, cyanosis, or edema. Laboratory Data: On her laboratory evaluation, she had a BNP of 4309. Her EKG showed sinus bradycar torsten with inferolateral and inferior ischemia, which was chronic. Her chest x-ray was unremarkable. Impression And Plan: I think Ms. Arreola's symptoms are more related to her dizziness, which may be ca using her nausea and vomiting and chest pain. I do not think we are dealing with an acute coronary s yndrome. Her troponin is negative. Her EKG is chronically abnormal. She definitely has significant coronary artery disease. We would be focused on maybe changing her medication, possibly treatment f or vertigo. I would add a proton pump inhibitor and I will send her home and we will see her in the office in the next few weeks. I do not recommend any further cardiac workup at this point. Her othe r problems including hypertension, diabetes, and dyslipidemia seem to be stable at this point. In 2019, she underwent a heart catheterization where she underwent a stent of her LAD. She had o stial circumflex stenosis, which was moderate. She will need a stress test around April 2021. We will make an arrangement for that as an outpatient. It may be reasonable to do an echocardiogram as well. She has had a carotid Doppler in May in 2019 that was unremarkable. BOBY/CAROLE Voice ID: [id number] Report ID: [id number]
--- NOTE | 2020-09-08 23:54 | P.DS ---
Discharge Date: 09/03/20 Primary Care Provider: Arelis Disposition: ROUTINE DISCHARGE Discharge Condition: GOOD Reason for Admission: chest pain Consultations: Cardiology Brief History of Present Illness: Ms. Arreola is a 79 yo female with DM, HTN, paroxysmal afib, NSTEMI 04/2020 s/p PCI here today for intermittent 7/10 left sided heavy chest pain lasting for 30 minutes to an hour occurring at rest for the past month. She says she last felt like this a few months ago. She says she feels anxious with the pain, and feels better when she stries to relax. She also reports nausea, vomiting, and diarrhea. BNP 4309. Initial troponin wnl. CXR wnl. Hospital Course: Patient's workup was unremarkable. Patient's dizziness has resolved. At this time, patient is stable for discharge home. Vital Signs/Physical Exam: Temp Pulse Resp BP Pulse Ox 98.1 F 48 L 18 170/97 H 96 09/03/20 12:00 09/03/20 12:00 09/03/20 12:00 09/03/20 12:00 09/03/20 12:00 General: Alert, In no apparent distress, Oriented x3 Laboratory Data at Discharge: WBC 5.30 K/uL (4.3-10.9) 09/02/20 18:09 Hgb 11.5 g/dL (12.0-15.0) L 09/02/20 18:09 Hct 34.7 % (36.0-45.0) L 09/02/20 18:09 Plt Count 183 K/uL (152-406) 09/02/20 18:09 PT 12.2 SECONDS (9.5-12.5) 09/02/20 18:09 INR 1.06 09/02/20 18:09 Sodium 144 mmol/L (136-145) 09/02/20 18:09 Potassium 3.7 mmol/L (3.5-5.1) 09/02/20 18:09 BUN 26 mg/dL (7-18) H 09/02/20 18:09 Creatinine 1.02 mg/dL (0.55-1.3) 09/02/20 18:09 Glucose 117 mg/dL (74-106) H 09/02/20 18:09 Magnesium 2.2 mg/dL (1.8-2.4) 09/02/20 18:09 Total Bilirubin 0.3 mg/dL (0.2-1.0) 09/02/20 18:09 AST 11 U/L (15-37) L 09/02/20 18:09 ALT 16 U/L (12-78) 09/02/20 18:09 Alkaline Phosphatase 79 U/L (45-117) 09/02/20 18:09 Troponin I 0.04 ng/mL (0.0-0.045) 09/03/20 07:24 Home Medications: RX: Amlodipine [Norvasc*] 10 mg PO DAILY #30 tab 09/03/20 RX: Aspirin [Aspirin EC 81 MG] 81 mg PO DAILY 09/03/20 RX: Clopidogrel Bisulfate [Plavix*] 75 mg PO DAILY 09/03/20 RX: Hydralazine [Apresoline*] 50 mg PO QID 09/03/20 RX: Levetiracetam [Keppra] 500 mg PO BID 09/03/20 RX: Metformin HCl [Glucophage*] 500 mg PO BID 09/03/20 RX: Metoprolol Succinate 25 mg PO DAILY #30 tab.er.24h 09/03/20 RX: hydroCHLOROthiazide [Hydrochlorothiazide] 25 mg PO DAILY 09/03/20 New Medications: RX: Metoprolol Succinate 25 mg PO DAILY #30 tab.er.24h RX: Amlodipine [Norvasc*] 10 mg PO DAILY #30 tab Physician Discharge Instructions: OK TO DC IV AND DC HOME FOLLOW-UP WITH PRIMARY CARE PROVIDER IN 1-2 WEEKS FOLLOW-UP WITH CARDIOLOGY IN 1-2 WEEKS RETURN TO THE ER IF symptoms worsens CALL or TEXT DR. ROMERO AT [phone] IF ANY QUESTIONS REGARDING HOSPITAL STAY. PLEASE CALL THE FLOOR AT [phone] IF ANY MEDICATION OR NURSING QUESTIONS. Diet: AHA Activity: Fall precautions Followup: Ryan Infante MD [Primary Care Provider] - Time spent managing pt's care (in minutes): 35
== END 2020-09-03 15:36 | disposition home or self-care (01) ==
LOC: ER 13:26 → ERHOLD 09-03 01:05 → 2ND 09-03 01:32
PROVIDERS: ADMIT Hospitalist; ATTEND Hospitalist
DX: R07.89 Other chest pain (principal); Z20.822 Contact with and (suspected) exposure to COVID-19; R94.31 Abnormal electrocardiogram [ECG] [EKG]; I25.10 Atherosclerotic heart disease of native coronary artery without angina pectoris; Z95.5 Presence of coronary angioplasty implant and graft; E11.9 Type 2 diabetes mellitus without complications; I48.0 Paroxysmal atrial fibrillation; R42 Dizziness and giddiness; Z79.84 Long term (current) use of oral hypoglycemic drugs; I25.2 Old myocardial infarction; I11.0 Hypertensive heart disease with heart failure; I50.30 Unspecified diastolic (congestive) heart failure
CPT/HCPCS: 93005; 87088; 85025; 87086; 80048; 36415; 83735; 85610; 82947 ×3; 80076; 84443; 87077; 87186; 84484 ×3; 84439; 83880; 71045; 94760; 96374; 99285; U0003; J7040; J2405; 81003; 81015; G0378

== ENCOUNTER 2021-01-15 18:50 | Inpatient (IN) | payer OTHER ==
--- OUTSIDE RECORDS SUMMARY | 2021-01-15 18:53 | XMS REPORT | Continuity of Care Document ---
:1940 Author Organization [facility] t Address 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 Purpura 414 Family 00:00: Practic 00 e Hemorrhagi Hemorrhagi Problem Active [facility] disorder c Disorder [address] [facility] due to Due to 00:00: Practic circulatin Circulatin 00 e g g anticoagul Anticoagul ants ants Hypertensi Hypertensi Problem Active [facility] ve heart ve Heart 304 Family and renal and Renal 00:00: Prac tic disease Disease 00 e with with (congestiv (Congestiv e) heart e) Heart failure Failure Mixed Mixed Problem Active [facility] hyperlipid Hyperlipid 112 vijaya emia due emia Due 00:00: Practi c to type 2 to Type 2 00 e diabetes Diabetes mellitus Mellitus Complicati Complicati Problem Active [facility] due to on Due to 06-07 Fami ly diabetes Diabetes 00:00: Practi c mellitus Mellitus 00 e Neuropathy Neuropathy Problem Active [facility] 06-07 Family 00:00: Practic 00 e Coronary Coronary Problem Active [facility] arterioscl Arterioscl [address] [facility] erosis erosis 00:00: Practic 00 e 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 Social History Smoking Status Start Date Stop Date Source Never Smoker [facility] Medications Ordered Filled Start Stop Current Ordering Indication Dosage Frequency Signature Comments Components Source Medication Medication Date Date Medication? Clinician (SIG) Name Name Kaylene Patel No 1 Q1D Kaylene Patel [facility] Low Dose 81 Low Dose 81 Low Dose Family mg mg 81 mg Practic tablet,luis tablet,luis tablet,del e yed release yed release ayed Take 1 Take 1 release tablet tablet Take 1 every day every day tablet by oral by oral every day route. route. by oral route. atorvastati atorvastati No 1 Q1D atorvastat [facility] n 20 mg n 20 mg in 20 mg Famil y tablet Take tablet Take tablet Practic 1 tablet 1 tablet Take 1 e every day every day tablet by oral by oral every day route at route at by oral bedtime for bedtime for route at 30 days. 30 days. bedtime for 30 days. clopidogrel clopidogrel No 1 Q1D clopidogre [facility] 75 mg 75 mg l 75 mg Family tablet Take tablet Take tablet Practic 1 tablet 1 tablet Take 1 e every day every day tablet by oral by oral every day route. route. by oral route. hydralazine hydralazine No 1 QID hydralazin [facility] 50 mg 50 mg e 50 mg Family tablet Take tablet Take tablet Practic 1 tablet 4 1 tablet 4 Take 1 e times a day times a day tablet 4 by oral by oral times a route. route. day by oral route. hydrochloro hydrochloro No 1 Q1D hydrochlor [facility] thiazide 50 thiazide 50 othiazide Family mg tablet mg tablet 50 mg Prac tic Take 1 Take 1 tablet e tablet tablet Take 1 every day every day tablet by oral by oral every day route. route. by oral route. levetiracet levetiracet No 1 Q12H levetirace [facility] am 1,000 mg am 1,000 mg de oliveira 1,000 Family tablet Take tablet Take mg tablet Practic 1 tablet 1 tablet Take 1 e every 12 every 12 tablet hours by hours by every 12 oral route. oral route. hours by oral route. metformin metformin No 1 BID metformin [facility] 500 mg 500 mg 500 mg Family tablet Take tablet Take tablet Practic 1 tablet 1 tablet Take 1 e twice a day twice a day tablet by oral by oral twice a route. route. day by oral route. metoprolol metoprolol No 1capsul Q1D metoprolol [facility] succinate succinate e(s) succinate [facility] ER 200 mg ER 200 mg ER 200 mg Practic capsule capsule capsule e sprinkle, sprinkle, sprinkle, ext. ext. ext. release 24 release 24 release 24 hr Take 1 hr Take 1 hr Take 1 capsule capsule capsule every day every day every day by oral by oral by oral route. route. route. nifedipine nifedipine No 1 Q1D nifedipine [facility] ER 60 mg ER 60 mg ER 60 mg Fam mayda tablet,exte tablet,exte tablet,ext Practic nded nded ended e release release release Take 1 Take 1 Take 1 tablet tablet tablet every day every day every day by oral by oral by oral route. route. route. Vital Signs Vital Name Observation Time Observation Value Comments Source BP Diastolic 2020-09-08 00:00:00 78 mm[Hg] [facility] Height 2020-09-08 00:00:00 62 [in_i] [facility] BMI (Body Mass 2020-09-08 00:00:00 22.1 kg/m2 [facility] Family Index) Practice BP Systolic 2020-09-08 00:00:00 134 mm[Hg] [facility] Body Weight 2020-09-08 00:00:00 121 [lb_av] [facility] Height 2020-06-07 00:00:00 62 [in_i] [facility] BMI (Body Mass 2020-06-07 00:00:00 23.8 kg/m2 [facility] Family Index) Practice Body Weight 2020-06-07 00:00:00 130 [lb_av] [facility] Procedures Procedure Date / Time Performed Performing Clinician [facility] e Placement of Stent [facility] Practice Screening Colonoscopy [facility] Screening Mammography 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 2020-06-07 2020-06-07 [facility] [place] - [id number] [facility] 00:00:00 00:00:00 Chandana Gould TRIP MOTOR OPERATOR: [id number] [facility] [address] [address], [email or web address] [place] [id number], [facility] [id number] , Ph. Results This patient has no known results.
[2021-01-15 20:49] LABS: Absolute Lymphocytes (CBC) 0.6 K/uL (0.7-4.9); Basophils % 0.2 % (0-1.3); Hematocrit 33.9 % (36.0-45.0); Lymphocytes % 9.9 % (15.3-44.8); MPV 8.6 fL (7.6-11.3); RBC Red Blood Cell Count 4.08 M/uL (3.86-4.86)
[2021-01-15 21:06] LABS: Protime INR 1.05
[2021-01-15 21:25] LABS: Albumin 3.1 g/dL (3.4-5.0); Bilirubin Direct 0.2 mg/dL (0-0.2); Bilirubin Total 0.5 mg/dL (0.2-1.0); Magnesium 2.4 mg/dL (1.8-2.4); Protein, Total 7.6 g/dL (6.4-8.2); Troponin (Emerg Dept Use Only) 0.22 ng/mL (0.0-0.045)
[2021-01-15 21:38] LABS: SARS-COV-2 RT PCR POSITIVE (NEGATIVE)
[2021-01-15] MEDS ORDERED: MORPHINE 4 MG/ML SYR ONE (21:55)
[2021-01-15] MEDS ORDERED: ONDANSETRON 4 MG/2 ML VIAL ONE (21:55)
[2021-01-15 21:57] LABS: Urine Blood Negative (Negative); Urine Glucose Negative (Negative); Urine Protein Negative (Negative); Urine Specific Gravity 1.015 (1.005-1.030); Urine pH 5.5 (5.0-7.0)
[2021-01-15] MEDS ORDERED: DIPHENHYDRAMINE 50 MG/ML VIAL ONE (22:04)
--- NOTE | 2021-01-15 22:20 | RAD REPORT ---
EXAM DESCRIPTION: Edin Single View01/15/2021 10:04 pm CLINICAL HISTORY: sob COMPARISON: August 2020 FINDINGS: Moderate right and mild left pulmonary opacities are present. Heart is borderline enlarge d. Old left rib fractures IMPRESSION: Bilateral pulmonary opacities probably pneumonia
[2021-01-15] MEDS ORDERED: METHYLPREDNISOLONE 125 MG INJ ONE (22:25)
[2021-01-15] MEDS ORDERED: CEFTRIAXONE/SWI 1gm 1 GM/10 ML SYR ONE (22:25)
[2021-01-15] MEDS ORDERED: ONDANSETRON 4 MG/2 ML VIAL IV PRN (22:37)
--- NOTE | 2021-01-15 22:41 | EDPHYS ---
Physician Documentation [facility] Name: Aditi Arreola Age: 80 yrs Sex: Female : 1940 Arrival Date: 01/15/2021 Time: 18:53 Bed 19 Private MD: ED Physician Mike Huerta HPI: 01/15 20:10 This 80 yrs old Female presents to ER via Wheelchair with complaints of mh7 Urinary Problem - blood, Shortness Of Breath - covid+, Cough, Decreased Appetite. 20:10 The patient has shortness of breath at rest, with light activity. Onset: The mh7 symptoms/episode began/occurred 1 week(s) ago. Duration: The symptoms are intermittent, with no pattern. The patient's shortness of breath is aggravated by coughing, exertion, light activity, is alleviated by nothing. Associated signs and symptoms: Pertinent positives: non-productive cough, Muscle aches, decreased appetite, pain with urination, Pertinent negatives: chest pain, productive cough, diaphoresis, dizziness, fever, hemoptysis, loss of consciousness, nausea, numbness in extremities, visual changes, vomiting. Severity of symptoms: At their worst the symptoms were moderate last night, in the emergency department the symptoms are unchanged. Historical: - Allergies: 19:37 Codeine; kg 01/16 07:08 Morphine; ea - Home Meds: 01/15 19:37 metformin 500 mg Oral tab 1 tab 2 times per day [Active]; levetiracetam 500 mg Oral tab kg 1 tab 2 times per day [Active]; metoprolol succinate 100 mg Oral Tb24 1 tab once daily [Active]; hydrochlorothiazide 25 mg Oral tab 1 tab once daily [Active]; hydralazine 50 mg Oral tab 1 tab 4 times per day [Active]; clopidogrel 75 mg oral tab 1 tab once daily [Active]; aspirin 81 mg Oral TbEC 1 tab once daily [Active]; - PMHx: 19:37 a-fib; Diabetes - NIDDM; Hypertension; kg - PSHx: 19:37 cardiac stent; Left knee sx; Cholecystectomy; kg - Immunization history:: Adult Immunizations not up to date, Client reports having NOT received the Covid vaccine. - Social history:: Smoking status: Patient denies any tobacco usage or history of. ROS: 20:10 Constitutional: Negative for fever, chills, and weight loss, Eyes: Negative for injury, mh7 pain, redness, and discharge, ENT: Negative for injury, pain, and discharge, Neck: Negative for injury, pain, and swelling, Cardiovascular: Negative for chest pain, palpitations, and edema, Abdomen/GI: Negative for abdominal pain, nausea, vomiting, diarrhea, and constipation, Back: Negative for injury and pain, MS/Extremity: Negative for injury and deformity, Skin: Negative for injury, rash, and discoloration, Neuro: Negative for headache, weakness, numbness, tingling, and seizure, Psych: Negative for depression, anxiety, suicide ideation, homicidal ideation, and hallucinations, Allergy/Immunology: Negative for hives, rash, and allergies, Endocrine: Negative for neck swelling, polydipsia, polyuria, polyphagia, and marked weight changes, Hematologic/Lymphatic: Negative for swollen nodes, abnormal bleeding, and unusual bruising. Exam: 20:10 Head/Face: Normocephalic, atraumatic. Eyes: Pupils equal round and reactive to light, mh7 extra-ocular motions intact. Lids and lashes normal. Conjunctiva and sclera are non-icteric and not injected. Cornea within normal limits. Periorbital areas with no swelling, redness, or edema. Neck: Trachea midline, no thyromegaly or masses palpated, and no cervical lymphadenopathy. Supple, full range of motion without nuchal rigidity, or vertebral point tenderness. No Meningismus. Chest/axilla: Normal chest wall appearance and motion. Nontender with no deformity. No lesions are appreciated. 20:10 Back: No spinal tenderness. No costovertebral tenderness. Full range of motion. Skin: Warm, dry with normal turgor. Normal color with no rashes, no lesions, and no evidence of cellulitis. MS/ Extremity: Pulses equal, no cyanosis. Neurovascular intact. Full, normal range of motion. Neuro: Awake and alert, GCS 15, oriented to person, place, time, and situation. Cranial nerves II-XII grossly intact. Motor strength 5/5 in all extremities. Sensory grossly intact. Cerebellar exam normal. Normal gait. Psych: Awake, alert, with orientation to person, place and time. Behavior, mood, and affect are within normal limits. 20:10 Constitutional: The patient appears in no acute distress, alert, awake, uncomfortable. 20:10 Cardiovascular: Rate: bradycardic, Rhythm: regular, Pulses: no pulse deficits are appreciated, Heart sounds: normal, normal S1and S2, Edema: is not appreciated, JVD: is not appreciated. 20:10 Respiratory: the patient does not display signs of respiratory distress, Respirations: prolonged exhalation, that is mild, Breath sounds: rhonchi, that are mild, are scattered, Respiratory rate: 18 20:10 Abdomen/GI: Inspection: abdomen appears normal, Bowel sounds: normal, in all quadrants, Palpation: moderate abdominal tenderness, in the suprapubic area, right lower quadrant and left lower quadrant, mass, is not appreciated, rebound tenderness, is not appreciated, voluntary guarding, is not appreciated, involuntary guarding, is not appreciated, no appreciated organomegaly, Indicators: McBurney's point is not tender, Angulo's sign is negative, Rovsing's sign is negative, Obturator sign is negative, Psoas sign is negative, Liver: no appreciated palpable abnormalities, Hernia: not appreciated. 21:43 Abdomen/GI: Rectal exam: rectal tone normal, Stool: brown, guaiac negative, mh7 hemorrhoid(s), are not appreciated, mass, is not appreciated, swelling, is not appreciated, tenderness, is not appreciated, fecal impaction, is not appreciated, the exam is chaperoned by the nurse. Vital Signs: 19:34 BP 144 / 60; Pulse 56; Resp 18; Temp 99.0(O); Pulse Ox 96% on R/A; Weight 58.97 kg (R); kg Height 5 ft. 2 in. (157.48 cm) (R); 19:34 Body Mass Index 23.78 (58.97 kg, 157.48 cm) kg MDM: 22:38 Differential diagnosis: Anemia Anxiety Reaction asthma, Bronchitis CHF exacerbation, mh7 Chronic Obstructive Pulmonary Disease Myocardial Infarction pneumonia, Pneumothorax Psychogenic pulmonary edema, reactive airway disease. Data reviewed: vital signs, nurses notes, lab test result(s), cardiac enzymes, CBC, electrolytes, urinalysis, EKG, radiologic studies, plain films. Data interpreted: Pulse oximetry: on room air is 96 %. Interpretation: normal. Counseling: I had a detailed discussion with the patient and/or guardian regarding: the historical points, exam findings, and any diagnostic results supporting the discharge/admit diagnosis, the presence of at least one elevated blood pressure reading (>120/80) during this emergency department visit, lab results, radiology results, the need for further work-up and treatment in the hospital. Response to treatment: the patient's symptoms have mildly improved after treatment. 22:40 Patient medically screened. [facility] 01/15 20:23 Order name: Basic Metabolic Panel [facility] 01/15 20:23 Order name: CBC with Diff [facility] 01/15 20:23 Order name: LFT's; Complete Time: 21:32 [facility] 01/15 20:23 Order name: Magnesium; Complete Time: 21:32 [facility] 01/15 20:23 Order name: NT PRO-BNP; Complete Time: 21:32 [facility] 01/15 20:23 Order name: PT-INR; Complete Time: 21:32 [facility] 01/15 20:23 Order name: Troponin (emerg Dept Use Only); Complete Time: 21:32 [facility] 01/15 20:23 Order name: Basic Metabolic Panel; Complete Time: 21:32 [facility] 01/15 20:23 Order name: CBC with Automated Diff; Complete Time: 21:06 [facility] 01/15 20:25 Order name: Blood Culture Adult (2) [facility] 01/15 20:25 Order name: Lactate; Complete Time: 05:20 [facility] 01/15 20:25 Order name: Procalcitonin; Complete Time: 22:09 [facility] 01/15 20:28 Order name: CRP la1 01/15 20:28 Order name: C-Reactive Protein; Complete Time: 21:42 [facility] 01/15 21:38 Order name: COVID-19/FLU A+B; Complete Time: 21:42 [facility] 01/15 21:56 Order name: Urine Dipstick-Ancillary; Complete Time: 21:57 [facility] 01/15 21:57 Order name: Urine Culture tt3 01/16 05:27 Order name: CBC with Automated Diff [facility] 01/16 05:40 Order name: D-Dimer [facility] 01/16 06:01 Order name: Comprehensive Metabolic Panel [facility] 01/16 06:01 Order name: Troponin I [facility] 01/16 06:01 Order name: C-Reactive Protein [facility] 01/16 06:01 Order name: T4 Free [facility] 01/16 06:01 Order name: Magnesium ED[facility] 01/16 06:01 Order name: Thyroid Stimulating Hormone EDMS 01/16 06:01 Order name: Ferritin EDMS 01/16 08:14 Order name: Glucose, Ancillary Testing [facility] 01/16 11:43 Order name: Troponin I [facility] 01/16 12:22 Order name: Glucose, Ancillary Testing [facility] 01/16 17:11 Order name: Glucose, Ancillary Testing ED[facility] 01/17 03:20 Order name: CBC with Automated Diff [facility] 01/17 03:22 Order name: D-Dimer EDMS 01/17 03:26 Order name: Comprehensive Metabolic Panel EDMS 01/17 03:26 Order name: C-Reactive Protein EDMS 01/17 03:26 Order name: Magnesium EDMS 01/17 03:26 Order name: Ferritin EDMS 01/17 07:52 Order name: Glucose, Ancillary Testing EDMS 01/17 12:04 Order name: Glucose, Ancillary Testing EDMS 01/17 22:48 Order name: Glucose, Ancillary Testing EDMS 01/17 22:49 Order name: Glucose, Ancillary Testing EDMS 01/18 03:05 Order name: CBC with Automated Diff EDMS 01/18 03:06 Order name: D-Dimer EDMS 01/18 03:12 Order name: Comprehensive Metabolic Panel ED[facility] 01/18 03:12 Order name: C-Reactive Protein EDMS 01/18 03:12 Order name: Magnesium EDMS 01/18 03:12 Order name: Ferritin EDMS 01/18 07:44 Order name: Glucose, Ancillary Testing EDMS 01/18 12:03 Order name: Glucose, Ancillary Testing EDMS 01/18 17:07 Order name: Glucose, Ancillary Testing [facility] 01/18 20:34 Order name: Glucose, Ancillary Testing ED[facility] 01/18 23:42 Order name: Urinalysis EDMS 01/19 00:01 Order name: Urine Microscopic Only EDMS 01/19 03:11 Order name: CBC with Automated Diff EDMS 01/19 03:11 Order name: D-Dimer EDMS 01/19 03:25 Order name: Comprehensive Metabolic Panel EDMS 01/19 03:25 Order name: C-Reactive Protein EDMS 01/19 03:25 Order name: Magnesium EDMS 01/19 03:25 Order name: Ferritin EDMS 01/19 08:00 Order name: Glucose, Ancillary Testing EDLA 01/15 20:23 Order name: XRAY Chest (1 view); Complete Time: 22:36 [facility] 01/15 20:23 Order name: EKG; Complete Time: 20:24 [facility] 01/15 20:23 Order name: Cardiac monitoring; Complete Time: 20:56 [facility] 01/15 20:23 Order name: EKG - Nurse/Tech; Complete Time: 20:56 [facility] 01/15 20:23 Order name: IV Saline Lock; Complete Time: 20:56 [facility] 01/15 20:23 Order name: Labs collected and sent; Complete Time: 20:56 [facility] 01/15 20:23 Order name: O2 Per Protocol; Complete Time: 20:56 [facility] 01/15 20:23 Order name: O2 Sat Monitoring; Complete Time: 20:56 [facility] 01/15 20:23 Order name: Urine Dipstick-Ancillary (obtain specimen); Complete Time: 23:45 [facility] 01/15 21:42 Order name: CT Abd/Pelvis - Without Contrast [facility] 01/15 21:49 Order name: CT Head Brain wo Cont la1 01/15 23:04 Order name: CT Head Brain wo Cont la1 01/15 23:04 Order name: CT Abd/Pelvis - Without Contrast la1 01/16 08:32 Order name: US EDMS 01/17 11:51 Order name: CT EDMS 01/17 11:52 Order name: CT EDMS 01/18 07:42 Order name: RAD EDMS 01/19 12:39 Order name: Glucose, Ancillary Testing EDLA Administered Medications: 21:20 Drug: morphine 2 mg Route: IVP; Site: left antecubital; bs2 21:30 Follow up: Response: Adverse reaction, Physician notified; Dr Huerta was present when bs2 medication was administered, pt c/o pain, arm turned red and whelped. verbal order for 25mg benadryl given . 21:20 Drug: Zofran (Ondansetron) 4 mg Route: IVP; Site: left antecubital; bs2 22:12 Follow up: Response: No adverse reaction bs2 21:30 Drug: Benadryl (diphenhydrAMINE) 25 mg Route: IVP; Site: left antecubital; bs2 22:09 Drug: SOLU-Medrol (methylPrednisoLONE) 80 mg Route: IVP; Site: left antecubital; bs2 22:09 Drug: Rocephin (cefTRIAXone) 1 grams Route: IV; Rate: calculated rate; Site: left bs2 antecubital; 01/16 00:22 Drug: Lovenox (enoxaparin) 60 mg Route: Sub-Q; Site: right lower abdomen; ea Disposition Summary: 01/15/21 22:40 Hospitalization Ordered Hospitalization Status: Inpatient Admission [facility] Provider: Jax Medina [facility] Condition: Stable [facility] Problem: new [facility] Symptoms: have improved [facility] Bed/Room Type: Standard [facility] Location: Telemetry/MedSurg (Inpatient)(01/19/21 14:42) aa5 Room Assignment: [facility](01/19/21 14:42) aa5 Diagnosis - COVID Pneumonia 7 - Elevated Tropnin Level 7 - UTI [facility] Forms: - Medication Reconciliation Form 7 - SBAR form 7 Signatures: Dispatcher [employer] EDMS Ramandeep Guerra, RN RN aa5 Pavan Ann, DRIVE THRU ORDER TAKER-C DRIVE THRU ORDER TAKER-Cla1 Veronika Montalvo RN RN Stefania Wilson RN RN Mike Huerta MD MD 7 Sary Matamoros RN RN Anayeli Dunaway RN RN bs2 Corrections: (The following items were deleted from the chart) 01/15 20:30 20:25 CORONAVIRUS+MR.LAB.BRZ ordered. EDMS EDMS 20:30 20:25 Influenza Screen (A \T\ B)+BA.LAB.BRZ ordered. EDMS EDMS 23:49 22:40 Telemetry/MedSurg (Inpatient) [facility] cg 23:49 22:40 [facility] cg 01/19 14:42 01/15 23:49 [facility] ER HOLD aa5 01/19 14:42 01/15 23:49 ERHOLD- aa5
--- NOTE | 2021-01-15 22:41 | ER ---
Nurse's Notes [facility] Name: Aditi Arreola Age: 80 yrs Sex: Female : 1940 Arrival Date: 01/15/2021 Time: 18:53 Bed 19 Private MD: Diagnosis: COVID Pneumonia;Elevated Tropnin Level;UTI Presentation: 01/15 19:34 Chief complaint: Patient's son or daughter states: bleeding starting today unsure if kg its bladder, vaginal or rectal. Decreased appetite, fatigue since 01/06. Coronavirus screen: Client denies travel out of the [place] in the last 14 days. At this time, unable to obtain information related to travel outside the [place] Client presents with at least one sign or symptom that may indicate coronavirus-19. Standard/surgical mask placed on the client. Provider contacted for isolation considerations. Ebola Screen: Patient negative for fever greater than or equal to 101.5 degrees Fahrenheit, and additional compatible Ebola Virus Disease symptoms Patient denies exposure to infectious person. Patient denies travel to an Ebola-affected area in the 21 days before illness onset. Initial Sepsis Screen: Does the patient meet any 2 criteria? No. Patient's initial sepsis screen is negative. Does the patient have a suspected source of infection? No. Patient's initial sepsis screen is negative. Risk Assessment: Do you want to hurt yourself or someone else? Patient reports no desire to harm self or others. Onset of symptoms was January 15, 2021. 19:34 Method Of Arrival: Wheelchair kg 19:34 Acuity: LUIS ARMANDO 3 kg Triage Assessment: 19:37 General: Appears in no apparent distress. Behavior is drowsy, quiet. Pain: Complains of kg pain in back Pain radiates to Generalized. Respiratory: Reports shortness of breath at rest on exertion cough that is pain with cough pain with movement pain with respiration Onset: The symptoms/episode began/occurred gradually, the patient has moderate shortness of breath. Historical: - Allergies: 19:37 Codeine; kg 01/16 07:08 Morphine; ea - Home Meds: 01/15 19:37 metformin 500 mg Oral tab 1 tab 2 times per day [Active]; levetiracetam 500 mg Oral tab kg 1 tab 2 times per day [Active]; metoprolol succinate 100 mg Oral Tb24 1 tab once daily [Active]; hydrochlorothiazide 25 mg Oral tab 1 tab once daily [Active]; hydralazine 50 mg Oral tab 1 tab 4 times per day [Active]; clopidogrel 75 mg oral tab 1 tab once daily [Active]; aspirin 81 mg Oral TbEC 1 tab once daily [Active]; - PMHx: 19:37 a-fib; Diabetes - NIDDM; Hypertension; kg - PSHx: 19:37 cardiac stent; Left knee sx; Cholecystectomy; kg - Immunization history:: Adult Immunizations not up to date, Client reports having NOT received the Covid vaccine. - Social history:: Smoking status: Patient denies any tobacco usage or history of. Screenin:42 Abuse screen: Denies threats or abuse. Denies injuries from another. Nutritional kg screening: No deficits noted. Tuberculosis screening: No symptoms or risk factors identified. Fall Risk None identified. Assessment: 19:42 Cardiovascular:. Respiratory: Airway is patent Trachea midline Respiratory effort is kg even, unlabored, relaxed, Respiratory pattern is regular. 22:13 General: assisted Dr Huerta with rectal exam, pt was given morphine in presence of Dr domitila Huerta and had minor reaction. Verbal order for Benadryl received and given per Dr Huerta. No blood present in rectum, vagina or urine. There is obvious blood smear down back of Pt RT thigh. . Vital Signs: 19:34 BP 144 / 60; Pulse 56; Resp 18; Temp 99.0(O); Pulse Ox 96% on R/A; Weight 58.97 kg (R); kg Height 5 ft. 2 in. (157.48 cm) (R); 19:34 Body Mass Index 23.78 (58.97 kg, 157.48 cm) kg ED Course: 18:53 Patient arrived in ED. as 19:37 Triage completed. kg 19:37 Arm band placed on left wrist. kg 19:42 Patient has correct armband on for positive identification. kg 20:08 Mike Huerta MD is Attending Physician. mh7 20:48 Anayeli Rivera, RN is Primary Nurse. bs2 20:56 CRP Sent. bs2 20:56 Lactate Sent. bs2 20:56 Procalcitonin Sent. bs2 20:56 Blood Culture Adult (2) Sent. bs2 20:56 Basic Metabolic Panel Sent. bs2 20:56 Basic Metabolic Panel Sent. bs2 20:56 CBC with Diff Sent. bs2 20:56 XRAY Chest (1 view) Sent. bs2 20:57 LFT's Sent. bs2 20:57 Magnesium Sent. bs2 20:57 NT PRO-BNP Sent. bs2 20:57 PT-INR Sent. bs2 20:57 Troponin (emerg Dept Use Only) Sent. 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 bs2 22:04 XRAY Chest (1 view) In Process Unspecified. EDMS 22:15 Inserted saline lock: 20 gauge in left antecubital area, using aseptic technique. Blood bs2 collected. 22:39 Jax Medina MD is Hospitalizing Provider. [facility] 01/19 07:40 Primary Nurse role handed off by Anayeli Rivera, KYLAH bd 10:35 Lala Bryant, RN is Primary Nurse. jl7 Administered Medications: 01/15 21:20 Drug: morphine 2 mg Route: IVP; Site: left antecubital; bs2 21:30 Follow up: Response: Adverse reaction, Physician notified; Dr Huerta was present when bs2 medication was administered, pt c/o pain, arm turned red and whelped. verbal order for 25mg benadryl given . 21:20 Drug: Zofran (Ondansetron) 4 mg Route: IVP; Site: left antecubital; bs2 22:12 Follow up: Response: No adverse reaction bs2 21:30 Drug: Benadryl (diphenhydrAMINE) 25 mg Route: IVP; Site: left antecubital; bs2 22:09 Drug: SOLU-Medrol (methylPrednisoLONE) 80 mg Route: IVP; Site: left antecubital; bs2 22:09 Drug: Rocephin (cefTRIAXone) 1 grams Route: IV; Rate: calculated rate; Site: left bs2 antecubital; 01/16 00:22 Drug: Lovenox (enoxaparin) 60 mg Route: Sub-Q; Site: right lower abdomen; ea Intake: Outcome: 01/15 22:40 Decision to Hospitalize by Provider. [facility] 01/19 15:18 Patient left the ED. jl7 Signatures: Dispatcher [employer] EDMS Dorothy Porter Amelia as Krzysztof Bryanta, RN RN jl7 Stefania Weiner RN RN Mike Ordaz MD MD 7 Sary Matamoros RN RN Anayeli Dunaway RN RN bs2 Corrections: (The following items were deleted from the chart) 01/15 19:44 19:34 Chief complaint: Patient's son or daughter states: Vaginal bleeding starting kg today. Decreased appetite, fatigue since 01/06 kg
--- NOTE | 2021-01-15 22:43 | P.HP ---
Certification for Inpatient Patient admitted to: Inpatient With expected LOS: >2 Midnights Patient will require the following post-hospital care: None Practitioner: I am a practitioner with admitting privileges, knowledge of patient current condition, hospital course, and medical plan of care. Services: Services provided to patient in accordance with Admission requirements found in Title 42 Section 412.3 of the Code of Federal Regulations Patient History Date of Service: 01/15/21 Primary Care Provider: Dr. Infante Reason for admission: NSTEMI, ARF, Covid pneumonia History of Present Illness: 80-year-old female with history of CAD, diabetes most type II, hypertension, paroxysmal A. fib presents emergency department for weakness, malaise. Patient was evaluated in the emergency department, found to be Covid positive, labs were significant for sodium 146 chloride 111 creatinine 1.73 GFR 28 BUN 66, patient's baseline renal function creatinine around 1 GFR around 55 troponin 0 0.22 BNP 3160 procalcitonin 0.28 urinalysis positive nitrite and leukocyte. No acute ST changes noted on EKG, patient chest pain-free at this time but does have history of CAD. Patient given Rocephin for UTI in the emergency department, patient not requiring submental oxygen at this time although chest x-ray does appear to demonstrate a multifocal pneumonia. Will admit for further evaluation and management of NSTEMI, acute renal failure, Covid pneumonia. Allergies codeine Allergy (Verified 09/03/20 02:23) Nausea/Vomiting lorazepam Allergy (Verified 09/03/20 02:23) hallucination, confusion Home Medications: Amlodipine [Norvasc*] 10 mg PO DAILY #30 tab 09/03/20 Aspirin [Aspirin EC 81 MG] 81 mg PO DAILY 09/03/20 Clopidogrel Bisulfate [Plavix*] 75 mg PO DAILY 09/03/20 Hydralazine [Apresoline*] 50 mg PO QID 09/03/20 Levetiracetam [Keppra] 500 mg PO BID 09/03/20 Metformin HCl [Glucophage*] 500 mg PO BID 09/03/20 Metoprolol Succinate 25 mg PO DAILY #30 tab.er.24h 09/03/20 hydroCHLOROthiazide [Hydrochlorothiazide] 25 mg PO DAILY 09/03/20 - Past Medical/Surgical History Diabetic: Yes -: NIDDM -: HTN -: Renal artery stenosis -: HFpEF (Heart Failure w/ Preserved Ejection Fraction) -: paroxysmal atrial fibrillation -: NSTEMI 04/2020 -: L KNEE RX -: C section Psychosocial/ Personal History: Patient lives at home with her and son - Family History Father -: Heart disease Notes: [place] Brother Notes: [place] - Social History Smoking Status: Never smoker Alcohol use: No CD- Drugs: No Caffeine use: No Place of Residence: Home Review of Systems is unable to be obtained Physical Examination - Physical Exam General: Alert, In no apparent distress, Oriented x2 HEENT: Atraumatic, Normocephalic, Other (Mucous membranes dry) Neck: Supple Cardiovascular: Normal pulses, Regular rate/rhythm, Normal S1 S2 Gastrointestinal: W/out splenomegaly, No ascites, No tenderness, No masses Musculoskeletal: No contractures, No erythema, No tenderness Integumentary: No tenderness/swelling, No erythema, No warmth Neurological: Other (Speech is slow), Dementia - Studies Laboratory Data (last 24 hrs) 01/15/21 08:30: PT 12.1, INR 1.05 01/15/21 08:30: WBC 5.90, Hgb 11.3 L, Hct 33.9 L, Plt Count 162 01/15/21 08:30: Sodium 146 H, Potassium 4.0, BUN 66 H, Creatinine 1.73 H, Glucose 93, Magnesium 2.4, Total Bilirubin 0.5, AST 21, ALT 16, Alkaline Phosphatase 66 Assessment and Plan - Plan Assessment: NSTEMI with history of CAD status post stent April 2020 HFpEF Acute kidney injury COVID-19 pneumonia Urinary tract infection Plan: NSTEMI with history of CAD status post stent April 2020: Trend troponins, monitor on telemetry, no chest pain noted at this time. EKG without acute ST changes, cardiology consulted, continue patient's aspirin, Plavix. CT head pending, if negative will add Lovenox. HFpEF: Last echocardiogram May 2019 with normal EF, diastolic dysfunction. Cardiology consulted, patient appears dry sodium mildly elevated at this time will continue with light fluids overnight. Appreciate further input from cardiology, nephrology. Acute kidney injury: Nephrology consulted continue gentle hydration overnight. Renal ultrasound ordered. COVID-19 pneumonia: No additional oxygen requirement at this time, continue with vitamins, supplementation, pulmonology consulted, trend CRP, ferritin levels. Urinary tract infection: Rocephin, urine culture. DVT PPX: Lovenox Code status: Full Discharge Plan: Home Plan to discharge in: 48 Hours - Advance Directives Does patient have a Living Will: No Does patient have a Durable POA for Healthcare: No - Code Status/Comfort Care Code Status Assessed: Yes (Full code) Critical Care: No Time Spent Managing Pts Care (In Minutes): 55
[2021-01-15] MEDS: D5W 1,000 ML IV SCH (23:00)
[2021-01-16 05:26] LABS: Absolute Lymphocytes (CBC) 0.4 K/uL (0.7-4.9); Basophils % 0.1 % (0-1.3); Lymphocytes % 11.3 % (15.3-44.8); MPV 8.4 fL (7.6-11.3); RBC Red Blood Cell Count 3.65 M/uL (3.86-4.86)
[2021-01-16] MEDS: METOPROLOL XL 50 MG TAB PO SCH (05:32)
[2021-01-16 05:57] LABS: Albumin 2.6 g/dL (3.4-5.0); Bilirubin Total 0.3 mg/dL (0.2-1.0); C-Reactive Protein 75.9 mg/L (<3.00); Ferritin 659.8 ng/mL (8-388); Magnesium 2.4 mg/dL (1.8-2.4); Potassium 4.2 mmol/L (3.5-5.1); Protein, Total 6.6 g/dL (6.4-8.2); Thyroid Stimulating Hormone 0.216 uIU/mL (0.360-3.740); Troponin I 0.2 ng/mL (0.0-0.045)
[2021-01-16] MEDS ORDERED: METOPROLOL XL 25 MG TAB PO SCH (06:00)
[2021-01-16] MEDS: INSULIN -REGULAR HUMAN 50 UNIT/0.5 ML ML SQ SCH ×4 (07:30→21:00)
--- NOTE | 2021-01-16 08:32 | RAD REPORT ---
EXAM DESCRIPTION: US - Renal Ultrasound-Complete - 01/16/2021 8:06 am CLINICAL HISTORY: GURMEET COMPARISON: CT abdomen and pelvis January 15, MRI angio May 2019 FINDINGS: The right kidney is atrophic measuring 7.3 x 3.2. The earlier CT study showed atrophy of t he right kidney. The left kidney measures grossly 9.7 x 4.5 cm. Left-sided renal cortical thickness a nd echogenicity are within range of normal. Right kidney shows cortical thinning and significant incr ease in cortical echogenicity. No hydronephrosis is present. No suspicious mass identified in either kidney. The low-density areas in the posterior mid and inferior aspects left kidney are not clearly s een. Visualization of the kidneys was limited. These appear to be cysts on the MRI study. No bladder wall thickening or mass. No intraluminal stone or mass. IMPRESSION: No hydronephrosis is present. No suspicious mass lesion identifiable. There are 2 rounded low-density areas in the posterior mid an d lower pole left kidney that are not well visualized at sonography but appear to be cysts based on t he CT angio from 2019. No bladder abnormality identifiable.
[2021-01-16] MEDS ORDERED: CEFTRIAXONE 1 GM/NS 50 ML 1 GM/50 ML BAG IV SCH (09:00)
[2021-01-16] MEDS: THIAMINE HCL 100 MG TABLET PO SCH (09:00)
[2021-01-16] MEDS: ASPIRIN EC 81 MG TAB PO SCH (09:00)
[2021-01-16] MEDS: CLOPIDOGREL 75 MG TABLET PO SCH (09:00)
[2021-01-16] MEDS ORDERED: ENOXAPARIN 100 MG/ML SYR SQ SCH (09:00)
[2021-01-16] MEDS: ZINC SULFATE 220 MG CAP PO SCH (09:00)
[2021-01-16] MEDS: ASCORBIC ACID 500 MG TABLET PO SCH ×4 (09:00→21:00)
[2021-01-16] MEDS: VITAMIN D 1000 UNIT TAB PO SCH (09:00)
[2021-01-16] MEDS ORDERED: D5W 1,000 ML IV ONE (09:05)
--- NOTE | 2021-01-16 10:40 | EKG ---
Test Date: 2021-01-15 Test Time: 20:26:53 [employer] Helper: MAURI MEASUREMENT RESULTS: Intervals: Rate: 60 AK: 136 QRSD: 100 QT: 428 QTc: 428 [place]: P: 52 AK: 136 QRS: -14 T: -47 INTERPRETIVE STATEMENTS: Normal sinus rhythm ST & T wave abnormality, consider inferolateral ischemia Abnormal ECG Compared to ECG 09/02/2020 17:49:32 Sinus bradycardia no longer present ST (T wave) deviation still present Possible ischemia still present Electronically Signed On 01-16-21 10:39:44 CDT by Augustus Cartwright
[2021-01-16] MEDS: D5W 1,000 ML IV SCH (12:11)
--- NOTE | 2021-01-16 12:34 | CON ---
Date of Consultation: 01/16/2021 History Of Present Illness: Elevated troponin. History Of Present Illness: Ms. Arreola is an 80-year-old woman. She is very well known to me from of fice visits and admission. She recently had an LAD stent in April [address] Cohen. She has a history of paroxysmal atrial fibrillation, diabetes, hypertension, dyslipidemia, came in with shor tness of breath and diagnosed with COVID. Troponin was elevated. Creatinine was elevated. She also has UTI. She denied any chest pain, nausea, vomiting, diaphoresis, PND, orthopnea, pedal edema, pal pitations, or syncope. Denied any fever or chills. Allergies: NONE. Review of Systems: Negative. Social History: Negative. Family History: Negative. Medications: Include aspirin, hydrochlorothiazide, metoprolol, Plavix, Norvasc, metformin, Keppra, a nd hydralazine. Physical Examination: Vital Signs: Stable, afebrile. HEENT: Negative. Neck: Supple. No bruit. Chest: Reveals rales at both bases. Cardiac: Revealed a regular rhythm and rate with an S4 gallops. No murmurs or rubs. Abdomen: Benign. Extremities: Revealed 1+ edema. Neurologic: She was nonfocal. Skin: Dry and intact. Extremities: Showed positive pulses. Diagnostic Data: Creatinine is 1.73, glucose was 183. D-dimer is 1333. Ferritin is 660. CRP is 76 . Troponin is 0.2. TSH 0.26. She had UTI. Impression And Plan: 1.Elevated troponin secondary to demand ischemia and renal failure. This is not an acute coronary s yndrome. She does not have any ST changes on the EKG. She will be due for Lexiscan in April and I will continue to stick with that plan. Echocardiogram is pending for Sunday. 2.Hypothyroidism. Her TSH is low that needs to be addressed by primary care physician. Her other p roblems include acute renal failure, diabetes, elevated D-dimer and ferritin secondary to COVID. She also has UTI. She needs to be on antibiotics. We need to watch her kidney function. We need to ho ld her hydrochlorothiazide. We need to continue on metoprolol, aspirin, Plavix and Norvasc as well a s hydralazine. Maybe metformin should be held as well. I will leave that up to Nephrology. Her tank n problem right now is COVID and renal dysfunction and UTI. We will continue to follow her along. N o plan for heart catheterization at this point. BOBY/CAROLE Voice ID: [id number] Report ID: [id number]
--- NOTE | 2021-01-16 16:02 | P.PN ---
Subjective Date of Service: 01/16/21 Primary Care Provider: Dr. Infante Chief Complaint: NSTEMI, ARF, Covid pneumonia Subjective: No new changes (Patient with some slight confusion, appears very fatigued, states she is more concerned about her who is admitted here w ith Covid pneumonia. States she feels okay, not really wanting to answer my questions at this time) Review of Systems is unable to be obtained Physical Examination - Vital Signs Temperature: 97.8 F Blood Pressure: 149/44 Pulse: 47 Respirations: 16 Pulse Ox (%): 95 - Studies Laboratory Data (last 24 hrs) 01/15/21 08:30: PT 12.1, INR 1.05 01/15/21 08:30: WBC 5.90, Hgb 11.3 L, Hct 33.9 L, Plt Count 162 01/15/21 08:30: Sodium 146 H, Potassium 4.0, BUN 66 H, Creatinine 1.73 H, Glucose 93, Magnesium 2.4, Total Bilirubin 0.5, AST 21, ALT 16, Alkaline Phosphatase 66 Assessment & Plan Physician Review Additional Text: Physical Exam General: AOx2, fatigued HEENT: Normal conjunctiva, sclera anicteric, dry mucous membranes Cardiovascular: Regular rate/rhythm, no edema Gastrointestinal: Soft, nontender, nondistended Musculoskeletal: No contractures, No erythema, No tenderness Integumentary: No tenderness/swelling, No erythema, No warmth Neurological: +Dementia, slow to respond, mumbles Problem list NSTEMI secondary to demand ischemia history of CAD status post stent April 2020 chronic HFpEF Acute kidney injury without CKD COVID-19 pneumonia Urinary tract infection, acute cystitis Trend troponin, monitor on telemetry Initially reported no chest pain, but states some mild discomfort now EKG without acute ST changes Cardiology consulted, continue aspirin, Plavix, other home medications Heart failure appears stable, diastolic dysfunction noted on her last echocardiogram 05/2019. Patient not hypoxemic from her COVID-19 pneumonia at this time Pulmonology consulted trend inflammatory markers Continue Rocephin for UTI, follow-up urine culture Nephrology consulted for GURMEET, likely prerenal Code: full Dispo: Anticipate DC home in ~3 days, unless becomes more symptomatic from Covid Time Spent Managing Pts Care (In Minutes): 40
--- NOTE | 2021-01-16 18:23 | P.CNS ---
Primary Care Provider: Dr. Infante Chief Complaint: NSTEMI, ARF, Covid pneumonia History of Present Illness: Pt is an 80 y/o female with past medical hx of Allergies codeine Allergy (Verified 09/03/20 02:23) Nausea/Vomiting lorazepam Allergy (Verified 09/03/20 02:23) hallucination, confusion Home Medications: Amlodipine [Norvasc*] 10 mg PO DAILY #30 tab 09/03/20 Aspirin [Aspirin EC 81 MG] 81 mg PO DAILY 09/03/20 Clopidogrel Bisulfate [Plavix*] 75 mg PO DAILY 09/03/20 Hydralazine [Apresoline*] 50 mg PO QID 09/03/20 Levetiracetam [Keppra] 500 mg PO BID 09/03/20 Metformin HCl [Glucophage*] 500 mg PO BID 09/03/20 Metoprolol Succinate 25 mg PO DAILY #30 tab.er.24h 09/03/20 hydroCHLOROthiazide [Hydrochlorothiazide] 25 mg PO DAILY 09/03/20 - Past Medical/Surgical History Diabetic: Yes -: NIDDM -: HTN -: Renal artery stenosis -: HFpEF (Heart Failure w/ Preserved Ejection Fraction) -: paroxysmal atrial fibrillation -: NSTEMI 04/2020 -: L KNEE RX -: C section Psychosocial/ Personal History: Patient lives at home with her and son - Family History Father Medical History: Heart disease Notes: [place] Brother Notes: [place] - Social History Alcohol use: No CD- Drugs: No Caffeine use: No Place of Residence: Home Physical Examination Temp Pulse Resp BP Pulse Ox 97.8 F 47 L 16 149/44 H 95 01/16/21 16:02 01/16/21 16:02 01/16/21 16:02 01/16/21 16:02 01/16/21 16:02 Laboratory Data (last 24 hrs) 01/15/21 08:30: PT 12.1, INR 1.05 01/15/21 08:30: WBC 5.90, Hgb 11.3 L, Hct 33.9 L, Plt Count 162 01/15/21 08:30: Sodium 146 H, Potassium 4.0, BUN 66 H, Creatinine 1.73 H, Glucose 93, Magnesium 2.4, Total Bilirubin 0.5, AST 21, ALT 16, Alkaline Phosphatase 66
[2021-01-16] MEDS: ATORVASTATIN 20 MG TAB PO SCH (21:00)
[2021-01-16] MEDS: ENOXAPARIN 60 MG/0.6 ML SQ SCH (21:00)
[2021-01-16] MEDS ORDERED: D5 0.9 NS 1,000 ML IV ONE (21:37)
[2021-01-16] MEDS: CEFTRIAXONE/SWI 1gm 1 GM/10 ML SYR IV SCH (22:00)
[2021-01-16] MEDS ORDERED: ATORVASTATIN 20 MG TAB ONE (22:34)
[2021-01-16] MEDS ORDERED: ASCORBIC ACID 500 MG TABLET ONE (22:34)
[2021-01-16] MEDS ORDERED: ENOXAPARIN 60 MG/0.6 ML SQ ONE (22:35)
[2021-01-16] MEDS ORDERED: CEFTRIAXONE 1000 MG/VIAL ONE (22:35)
[2021-01-17] MEDS: D5W 1,000 ML IV SCH ×3 (01:40→15:17)
[2021-01-17 03:06] LABS: Absolute Lymphocytes (CBC) 0.5 K/uL (0.7-4.9); Hematocrit 33.9 % (36.0-45.0); Lymphocytes % 11.6 % (15.3-44.8); MPV 8.5 fL (7.6-11.3); RBC Red Blood Cell Count 4.13 M/uL (3.86-4.86)
[2021-01-17 03:26] LABS: Albumin 2.6 g/dL (3.4-5.0); Bilirubin Total 0.4 mg/dL (0.2-1.0); C-Reactive Protein 39.8 mg/L (<3.00); Ferritin 677.8 ng/mL (8-388); Magnesium 2.3 mg/dL (1.8-2.4); Potassium 3.8 mmol/L (3.5-5.1); Protein, Total 6.8 g/dL (6.4-8.2)
--- NOTE | 2021-01-17 05:54 | P.CNS ---
Date of Consult: 01/17/21 Reason for Consult: Catherine lopez Primary Care Provider: Dr. Infante Chief Complaint: NSTEMI, ARF, Covid pneumonia History of Present Illness: age 80. metabolic synd COVID pos, renal failure elevated trops AW weakness and malaise Allergies codeine Allergy (Verified 09/03/20 02:23) Nausea/Vomiting lorazepam Allergy (Verified 09/03/20 02:23) hallucination, confusion Home Medications: Amlodipine [Norvasc*] 10 mg PO DAILY #30 tab 09/03/20 Aspirin [Aspirin EC 81 MG] 81 mg PO DAILY 09/03/20 Clopidogrel Bisulfate [Plavix*] 75 mg PO DAILY 09/03/20 Hydralazine [Apresoline*] 50 mg PO QID 09/03/20 Levetiracetam [Keppra] 500 mg PO BID 09/03/20 Metformin HCl [Glucophage*] 500 mg PO BID 09/03/20 Metoprolol Succinate 25 mg PO DAILY #30 tab.er.24h 09/03/20 hydroCHLOROthiazide [Hydrochlorothiazide] 25 mg PO DAILY 09/03/20 - Past Medical/Surgical History Diabetic: Yes -: NIDDM -: HTN -: Renal artery stenosis -: HFpEF (Heart Failure w/ Preserved Ejection Fraction) -: paroxysmal atrial fibrillation -: NSTEMI 04/2020 -: L KNEE RX -: C section Psychosocial/ Personal History: Patient lives at home with her and son - Family History Father Medical History: Heart disease Notes: ID Brother Notes: ID - Social History Alcohol use: No CD- Drugs: No Caffeine use: No Place of Residence: Home Review of Systems General: Weakness Respiratory: Shortness of Breath Physical Examination Temp Pulse Resp BP Pulse Ox 98.1 F 53 19 126/57 L 95 01/17/21 04:00 01/17/21 04:00 01/17/21 04:00 01/17/21 04:00 01/16/21 16:02 General: Alert, In no apparent distress, Oriented x3 - Problems (1) COVID-19 Current Visit: Yes Status: Acute Plan: ag e80 AW weakness andmalaise,CRF. Inflam change son CXRY on the r side/WBC normal/repest cxry/Stable/ evaluate for poss discharge/labs reviewed/cultures neg
[2021-01-17] MEDS: INSULIN -REGULAR HUMAN 50 UNIT/0.5 ML ML SQ SCH ×4 (07:30→21:00)
[2021-01-17] MEDS ORDERED: METOPROLOL XL 50 MG TAB PO ONE (08:12)
[2021-01-17] MEDS ORDERED: ASCORBIC ACID 500 MG TABLET ONE ×2 (08:12→22:49)
[2021-01-17] MEDS ORDERED: ZINC SULFATE 220 MG CAP ONE (08:13)
[2021-01-17] MEDS ORDERED: THIAMINE HCL 100 MG TABLET ONE (08:13)
[2021-01-17] MEDS ORDERED: VITAMIN D 1000 UNIT TAB ONE (08:13)
[2021-01-17] MEDS ORDERED: AMLODIPINE 10 MG TAB ONE (08:13)
[2021-01-17] MEDS ORDERED: ASPIRIN EC 81 MG TAB PO ONE (08:13)
[2021-01-17] MEDS ORDERED: CLOPIDOGREL 75 MG TABLET ONE (08:13)
[2021-01-17] MEDS: ZINC SULFATE 220 MG CAP PO SCH (09:00)
[2021-01-17] MEDS: THIAMINE HCL 100 MG TABLET PO SCH (09:00)
[2021-01-17] MEDS: AMLODIPINE 10 MG TAB PO SCH (09:00)
[2021-01-17] MEDS: METOPROLOL XL 50 MG TAB PO SCH (09:00)
[2021-01-17] MEDS: ASPIRIN EC 81 MG TAB PO SCH (09:00)
[2021-01-17] MEDS: VITAMIN D 1000 UNIT TAB PO SCH (09:00)
[2021-01-17] MEDS: ASCORBIC ACID 500 MG TABLET PO SCH ×4 (09:00→21:00)
[2021-01-17] MEDS: CLOPIDOGREL 75 MG TABLET PO SCH (09:00)
--- NOTE | 2021-01-17 11:50 | RAD REPORT ---
EXAM DESCRIPTION: CT - Head Brain Wo Cont - 01/16/2021 5:09 am CLINICAL HISTORY: 80 years, Female, CONFUSED COMPARISON: Previous report performed 06/08/2019. FINDINGS: Multiple transaxial tomograms of the brain were obtained from the base of the skull to the vertex without contrast. 2-D multiplanar reformats and the coronal and sagittal plane were performed and reviewed. This exam was performed according to our departmental dose-optimization protocol, which includes auto mated exposure control, adjustment of the mA and/or kV according to patient size and/or use of iterat uvaldo reconstruction technique. Brain parenchyma demonstrate prominence of the sulci and gyri are corresponding to cerebral and cereb ellar atrophy. There is minimal periventricular white matter changes of microvascular ischemia. Previ ous described in previous CT scan there is a anterior frontal extra-axial partially calcified lesion measuring 15 x 12 mm on axial image , perhaps corresponding to a meningioma. There is no midline shift and/or mass effect. There is no evidence for acute intracranial hemorrhage. Lateral ventricl es and cisterns displace normal appearance. No intra or extra axial fluid collections were seen. Th e calvarium is intact with no evidence for fracture. The visualized portions of the paranasal sinuses and orbits demonstrate to be clear. IMPRESSION: No acute intracranial hemorrhage. Stable anterior frontal extra-axial partially calcified lesion measuring 15 x 12 mm, perhaps correspo nding to a meningioma. Minimal periventricular white matter changes of microvascular ischemia. Electronically signed by: Armen Adams MD 01/15/2021 11:46 PM CDT Due to temporary technical issues with the PACS/Fluency reporting system, reports are being signed by the in house radiologist without review as a courtesy to ensure prompt reporting. The interpreting r adiologist is fully responsible for the content of the report.
--- NOTE | 2021-01-17 11:52 | RAD REPORT ---
EXAM DESCRIPTION: CT - Abdomen Pelvis Wo Contrast - 01/16/2021 5:09 am CLINICAL HISTORY: 80 years, Female, ABD PAIN COMPARISON: None. TECHNIQUE: Multiple transaxial tomograms of the abdomen and pelvis were performed from the lung base s to the symphysis pubis 5 mm slice thickness at 5 mm interval reconstruction, without administration of IV and oral contrast. Multiplanar reformats in the sagittal and coronal plane were generated and reviewed. This exam was performed according to our departmental dose-optimization protocol, which includes auto mated exposure control, adjustment of the mA and/or kV according to patient size and/or use of iterat uvaldo reconstruction technique. FINDINGS: The lack of IV and oral contrast limits evaluation of solid organs, subtle lesions cannot be excluded. The lung bases demonstrate presence of subpleural groundglass density within the lateral right lower lobe and posterior segment of the right lower lobe and left lower lobe with minimal questionable craz y paving, possibility of viral pneumonia/Covid 19 pneumonia could be of consideration. The heart is p rominent. There are coronary artery calcification/stenting. There is mitral annular calcification. Th ere is trace of pericardial effusion. Grossly the unopacified liver, pancreas, spleen and adrenal glands demonstrate to be within normal li mits, no significant focal lesions were identified. Surgical clips within the gallbladder fossa cor responding to previous cholecystectomy. There is no biliary duct dictation The the right kidney demonstrate to be atrophic. No evidence for nephrolithiasis and/or hydronephrosi s. The left kidney demonstrate the presence of a posterior upper pole renal cyst measuring 1.5 x 1.5 cm on image 31. There is no evidence for nephrolithiasis and/or hydronephrosis. Grossly the unopacified stomach, small bowel and large bowel demonstrate to be within normal limits. There is no evidence for bowel dilatation/or free air. There is diverticulosis within the sigmoid col on. The urinary bladder demonstrate to be within normal limits. The uterus demonstrate to be within sachin l limits. No adnexal masses are identified. The aorta demonstrate atherosclerotic disease extending t o the aortic bifurcation/iliac arteries. There is no retroperitoneal lymphadenopathy. There is no evidence for ascites. The the bone windows demonstrate diffuse bony osteopenia. Degenerative disc di sease is identified at L1-L3 and L5-S1. Posterior facet hypertrophy is identified L3-S1. There is a a nterior lower pelvic wall hernia containing omentum. IMPRESSION: Commonly reported imaging features of COVID-19 pneumonia are present. Other processes mancera ch as influenza pneumonia and organizing pneumonia, as can be seen with drug toxicity and connective tissue disease, can cause a similar imaging pattern. (Reference: https://pubs.rsna.org/doi/full/10.11 48/ryct.8951892215). Cardiomegaly with coronary artery calcification/stenting. Trace of pericardial effusion. Atrophic right kidney. Left renal cyst. Sigmoid diverticulosis without evidence for acute diverticulitis. Degenerative disc disease lumbar spine. Anterior abdominal wall pelvic hernia. Electronically signed by: Armen Adams MD 01/15/2021 11:53 PM CDT Due to temporary technical issues with the PACS/Fluency reporting system, reports are being signed by the in house radiologist without review as a courtesy to ensure prompt reporting. The interpreting r adiologist is fully responsible for the content of the report.
--- NOTE | 2021-01-17 14:22 | ECHO ---
HEIGHT: 5 ft 2 in WEIGHT: 127 lb 13.89 oz DATE OF STUDY: 01/17/[address]: Augustus Cartwright MD 2-DIMENSIONAL: YES M.MODE: YES DOPPLER: YES COLOR FLOW: YES TDS: PORTABLE: DEFINITY: BUBBLE STUDY: DIAGNOSIS: CARDIAC HISTORY: CATHERIZATION: SURGERY: PROSTHETIC VALVE: PACEMAKER: MEASUREMENTS (cm) DIASTOLIC (NORMALS) SYSTOLIC (NORMALS) IVSd 1.0 (0.6-1.2) LA Diam (1.9-4.0) LVEF 55% LVIDd 4.9 (3.5-5.7) LVIDs 3.5 (2.0-3.5) %FS 28% LVPWd 1.1 (0.6-1.2) Ao Diam 2.7 (2.0-3.7) 2 DIMENSIONAL ASSESSMENT: RIGHT ATRIUM: NORMAL LEFT ATRIUM: NORMAL RIGHT VENTRICLE: NORMAL LEFT VENTRICLE: NORMAL TRICUSPID VALVE: MILD TRICUSPID REGURGITATION MITRAL VALVE: MITRAL ANNULAR CALCIFICATION PULMONIC VALVE: NORMAL AORTIC VALVE: MILD AORTIC INSUFFIENCY PERICARDIAL EFFUSION: NONE AORTIC ROOT: NORMAL LEFT VENTRICULAR WALL MOTION: NORMAL DOPPLER/COLOR FLOW: SEE BELOW COMMENTS: NORMAL LEFT VENTRICULAR EJECTION FRACTION 55-60% WITH NORMAL WALL MOTION. MILD AORTIC INSUFFIENCY, MILD TRICUSPID REGURGITATION. TECHNOLOGIST: KENNETH WICK
--- NOTE | 2021-01-17 15:06 | P.PN ---
Subjective Date of Service: 01/17/21 Primary Care Provider: Dr. Infante Chief Complaint: NSTEMI, ARF, Covid pneumonia Subjective: No new changes (remains confused, breathing ok, no chest pain, no nausea/vomiting, feels generalized weakness) Review of Systems 10-point ROS is otherwise unremarkable Physical Examination - Vital Signs Temperature: 98 F Blood Pressure: 144/75 Pulse: 76 Respirations: 22 Pulse Ox (%): 98 Assessment & Plan Physician Review Additional Text: Physical Exam General: AOx2, fatigued HEENT: Normal conjunctiva, sclera anicteric, dry mucous membranes Cardiovascular: Regular rate/rhythm, no edema Gastrointestinal: Soft, nontender, nondistended Musculoskeletal: No contractures, No erythema, No tenderness Integumentary: No erythema, No warmth Neurological: +Dementia/confusion, slow to respond, mumbles Problem list NSTEMI secondary to demand ischemia history of CAD status post stent April 2020 chronic HFpEF Acute kidney injury without CKD COVID-19 pneumonia Urinary tract infection, acute cystitis monitor on telemetry Initially reported no chest pain, but states some mild discomfort now EKG without acute ST changes Cardiology consulted, continue aspirin, Plavix, other home medications Heart failure appears stable, diastolic dysfunction noted on her last echocardiogram 05/2019. Patient not hypoxemic from her COVID-19 pneumonia at this time Pulmonology consulted trend inflammatory markers Continue Rocephin for UTI, follow-up urine culture Nephrology consulted for GURMEET, likely prerenal Code: full Dispo: Anticipate DC home in ~2-3 days, unless becomes more symptomatic from Covid Time Spent Managing Pts Care (In Minutes): 35
[2021-01-17] MEDS: BENZONATATE 100 MG CAP PO PRN (18:42)
[2021-01-17] MEDS: ACETAMINOPHEN 500 MG TAB PO PRN (18:42)
[2021-01-17] MEDS ORDERED: BENZONATATE 100 MG CAP PO ONE (19:03)
[2021-01-17] MEDS ORDERED: ACETAMINOPHEN 500 MG TAB ONE (19:03)
[2021-01-17] MEDS: ENOXAPARIN 60 MG/0.6 ML SQ SCH (21:00)
[2021-01-17] MEDS: ATORVASTATIN 20 MG TAB PO SCH ×2 (21:00)
[2021-01-17] MEDS: CEFTRIAXONE/SWI 1gm 1 GM/10 ML SYR IV SCH (22:00)
--- NOTE | 2021-01-17 22:35 | PN ---
Date of Progress Note: 01/17/2021 Ms. Arreola was admitted with COVID, elevated creatinine, elevated troponin. This morning, she is feel ing better. No complaint. Blood pressure 126/57, pulse of 53, respiratory rate of 19, temperature i s 98.1, normal sinus rhythm. Last glucose was 132. Her creatinine has improved from 1.73 to 1.27. White count remains normal. Her D-dimer is elevated at 1151 as well as ferritin, BNP and CRP all sec ondary to COVID. Troponin was mildly elevated secondary to demand ischemia. Echocardiogram is pendi ng today. We will continue to follow her. No change in therapy at this point. BOBY/MODL Voice ID: [id number] Report ID: [id number]
[2021-01-17] MEDS ORDERED: ATORVASTATIN 20 MG TAB ONE (22:49)
[2021-01-17] MEDS ORDERED: CEFTRIAXONE 1000 MG/VIAL ONE (22:49)
[2021-01-18 02:54] LABS: Absolute Lymphocytes (CBC) 0.6 K/uL (0.7-4.9); Basophils % 0.1 % (0-1.3); Lymphocytes % 12.4 % (15.3-44.8); MPV 8.8 fL (7.6-11.3); RBC Red Blood Cell Count 3.94 M/uL (3.86-4.86)
[2021-01-18 03:10] LABS: Albumin 2.6 g/dL (3.4-5.0); Bilirubin Total 0.4 mg/dL (0.2-1.0); C-Reactive Protein 17.8 mg/L (<3.00); Ferritin 602.6 ng/mL (8-388); Magnesium 2.2 mg/dL (1.8-2.4); Potassium 3.2 mmol/L (3.5-5.1); Protein, Total 6.3 g/dL (6.4-8.2)
[2021-01-18] MEDS: METOPROLOL XL 50 MG TAB PO SCH (06:00)
[2021-01-18] MEDS: INSULIN -REGULAR HUMAN 50 UNIT/0.5 ML ML SQ SCH ×4 (07:30→21:36)
--- NOTE | 2021-01-18 07:42 | RAD REPORT ---
EXAM DESCRIPTION: [place] Single View01/18/2021 6:26 am CLINICAL HISTORY: Pneumonia COMPARISON: January 16 FINDINGS: Bilateral pulmonary opacities have partially resolved. Right hemidiaphragm remains elevate d. Heart is normal size Subtle lucency adjacent to left mediastinum and heart IMPRESSION: Improvement in the bilateral pulmonary opacities Subtle lucency adjacent to the left mediastinum and heart equivocal for mild pneumomediastinum. This can be monitored on subsequent exam
[2021-01-18] MEDS ORDERED: ASCORBIC ACID 500 MG TABLET ONE ×2 (08:30→21:55)
[2021-01-18] MEDS ORDERED: ZINC SULFATE 220 MG CAP ONE (08:31)
[2021-01-18] MEDS ORDERED: THIAMINE HCL 100 MG TABLET ONE (08:31)
[2021-01-18] MEDS ORDERED: AMLODIPINE 10 MG TAB ONE (08:31)
[2021-01-18] MEDS ORDERED: ASPIRIN EC 81 MG TAB PO ONE (08:31)
[2021-01-18] MEDS ORDERED: CLOPIDOGREL 75 MG TABLET ONE (08:31)
[2021-01-18] MEDS ORDERED: D5W 1,000 ML IV ONE (08:32)
[2021-01-18] MEDS ORDERED: DEXTROSE 10%-WATER 0 ML IV ONE (08:32)
[2021-01-18] MEDS: THIAMINE HCL 100 MG TABLET PO SCH (08:35)
[2021-01-18] MEDS: ASPIRIN EC 81 MG TAB PO SCH (08:35)
[2021-01-18] MEDS: AMLODIPINE 10 MG TAB PO SCH (08:35)
[2021-01-18] MEDS: CLOPIDOGREL 75 MG TABLET PO SCH (08:35)
[2021-01-18] MEDS: ZINC SULFATE 220 MG CAP PO SCH (08:36)
[2021-01-18] MEDS: ASCORBIC ACID 500 MG TABLET PO SCH ×4 (08:36→21:36)
[2021-01-18] MEDS: VITAMIN D 1000 UNIT TAB PO SCH (09:00)
[2021-01-18] MEDS: D5W 1,000 ML IV SCH (11:17)
--- NOTE | 2021-01-18 12:01 | PN ---
Date of Progress Note: 01/18/2021 Ms. Arreola had came in with COVID pneumonia, elevated troponin, elevated creatinine. Echocardiogram w [facility] was done yesterday was perfectly normal without any wall motion abnormalities, or effusion, or c ardiomyopathy. Her troponin elevation was secondary to demand ischemia. She is improving symptomati carlitos. Her creatinine has stabilized. We will sign off her case. I will be available for questions if the need arises. BOBY/CAROLE Voice ID: [id number] Report ID: [id number]
[2021-01-18] MEDS ORDERED: VITAMIN D 1000 UNIT TAB ONE (14:57)
[2021-01-18] MEDS ORDERED: POTASSIUM CL SA 10 MEQ TAB PO ONE ×2 (18:00→18:33)
--- NOTE | 2021-01-18 18:01 | P.PN ---
Subjective Date of Service: 01/18/21 Primary Care Provider: Dr. Infante Chief Complaint: NSTEMI, ARF, Covid pneumonia No new complain from yesterday. Her urine culture is growing ESBL E. coli. Physical Examination - Vital Signs Temperature: 98.1 F Blood Pressure: 144/64 Pulse: 91 Respirations: 24 Pulse Ox (%): 91 - Physical Exam General: In no apparent distress, Confused HEENT: Mucous membr. moist/pink Neck: JVD not distended Respiratory: Other (Nonlabored breathing) Cardiovascular: No edema, Regular rate/rhythm, Normal S1 S2 Gastrointestinal: Soft and benign, Non-distended Musculoskeletal: No swelling Integumentary: No rashes Neurological: Normal strength at 5/5 x4 extr - Studies Microbiology Data (last 24 hrs): 01/15/21 21:50 Catheterized Urine [place] Count - Final >100,000 CFU/ML. 01/15/21 21:50 Catheterized Urine - Final Escherichia Coli Esbl Assessment And Plan Physician Review Additional Text: Problem list NSTEMI secondary to demand ischemia history of CAD status post stent April 2020 chronic HFpEF Acute kidney injury without CKD COVID-19 pneumonia Urinary tract infection, acute cystitis due to ESBL E. coli may likely secondary to demand ischemia. Cardiology input appreciated. No further recommendation from cardiology. Continue aspirin, Plavix, other home medications Heart failure appears stable, diastolic dysfunction noted on her last echocardiogram 05/2019. Patient not hypoxemic from COVID-19 pneumonia at this time Trend inflammatory markers Antibiotics changed to IV meropenem for ESBL E. coli UTI. Nephrology input appreciated. GURMEET resolved. Code: full
[2021-01-18] MEDS ORDERED: Meropenem 0 MG/0 ML BAG ONE (18:33)
--- NOTE | 2021-01-18 19:29 | P.PN ---
Subjective Date of Service: 01/17/21 Primary Care Provider: Dr. Infante Chief Complaint: NSTEMI, ARF, Covid pneumonia Physical Examination - Vital Signs Temperature: 98.1 F Blood Pressure: 144/64 Pulse: 91 Respirations: 24 Pulse Ox (%): 91 - Studies Microbiology Data (last 24 hrs): 01/15/21 21:50 Catheterized Urine [place] Count - Final >100,000 CFU/ML. 01/15/21 21:50 Catheterized Urine - Final Escherichia Coli Esbl Assessment & Plan Physician Review Additional Text: Problem list NSTEMI secondary to demand ischemia history of CAD status post stent April 2020 chronic HFpEF Acute kidney injury without CKD COVID-19 pneumonia Urinary tract infection, acute cystitis due to ESBL E. coli MrSalena may likely secondary to demand ischemia. Cardiology input appreciated. No further recommendation from cardiology. Continue aspirin, Plavix, other home medications Heart failure appears stable, diastolic dysfunction noted on her last echocardiogram 05/2019. Patient not hypoxemic from COVID-19 pneumonia at this time Trend inflammatory markers Antibiotics changed to IV meropenem for ESBL E. coli UTI. Nephrology input appreciated. GURMEET resolved. Code: full
--- NOTE | 2021-01-18 19:29 | P.PN ---
Subjective Date of Service: 01/18/21 Primary Care Provider: Dr. Infante Chief Complaint: NSTEMI, ARF, Covid pneumonia Physical Examination - Vital Signs Temperature: 98.1 F Blood Pressure: 144/64 Pulse: 91 Respirations: 24 Pulse Ox (%): 91 - Studies Microbiology Data (last 24 hrs): 01/15/21 21:50 Catheterized Urine [place] Count - Final >100,000 CFU/ML. 01/15/21 21:50 Catheterized Urine - Final Escherichia Coli Esbl Assessment & Plan Physician Review Additional Text: Problem list NSTEMI secondary to demand ischemia history of CAD status post stent April 2020 chronic HFpEF Acute kidney injury without CKD COVID-19 pneumonia Urinary tract infection, acute cystitis due to ESBL E. coli MrSalena may likely secondary to demand ischemia. Cardiology input appreciated. No further recommendation from cardiology. Continue aspirin, Plavix, other home medications Heart failure appears stable, diastolic dysfunction noted on her last echocardiogram 05/2019. Patient not hypoxemic from COVID-19 pneumonia at this time Trend inflammatory markers Antibiotics changed to IV meropenem for ESBL E. coli UTI. Nephrology input appreciated. GURMEET resolved. Code: full
[2021-01-18] MEDS: ATORVASTATIN 20 MG TAB PO SCH (21:35)
[2021-01-18] MEDS: Meropenem 500 MG/100 ML BAG IV SCH (21:36)
[2021-01-18] MEDS: ENOXAPARIN 60 MG/0.6 ML SQ SCH (21:47)
[2021-01-18] MEDS ORDERED: Meropenem 500 MG/100 ML BAG ONE (21:54)
[2021-01-18] MEDS ORDERED: ENOXAPARIN 60 MG/0.6 ML SQ ONE (21:55)
[2021-01-18] MEDS ORDERED: ATORVASTATIN 40 MG TAB ONE (21:56)
[2021-01-18 23:41] LABS: Urine Appearance CLEAR (Clear); Urine Bilirubin NEGATIVE (Negative); Urine Blood NEGATIVE (Negative); Urine Color YELLOW (Yellow); Urine Glucose NEGATIVE (Negative); Urine Protein NEGATIVE (Negative); Urine Urobilinogen 0.2 mg/dL (0.2-1.0)
[2021-01-18 23:42] LABS: Urine Microscopic Reflex ORDER UMIC
[2021-01-18 23:59] LABS: Urine Bacteria <20 /HPF (<20); Urine RBC <5 /HPF (NONE SEEN)
[2021-01-19 03:08] LABS: Absolute Lymphocytes (CBC) 0.6 K/uL (0.7-4.9); Hematocrit 30.6 % (36.0-45.0); Lymphocytes % 10.2 % (15.3-44.8); MPV 8.7 fL (7.6-11.3); RBC Red Blood Cell Count 3.74 M/uL (3.86-4.86)
[2021-01-19 03:25] LABS: Albumin 2.7 g/dL (3.4-5.0); Bilirubin Total 0.4 mg/dL (0.2-1.0); C-Reactive Protein 18.9 mg/L (<3.00); Ferritin 545.2 ng/mL (8-388); Protein, Total 6.3 g/dL (6.4-8.2)
[2021-01-19] MEDS: METOPROLOL XL 50 MG TAB PO SCH (05:16)
[2021-01-19] MEDS ORDERED: METOPROLOL XL 50 MG TAB PO ONE (05:35)
[2021-01-19] MEDS: INSULIN -REGULAR HUMAN 50 UNIT/0.5 ML ML SQ SCH ×4 (07:30→19:43)
[2021-01-19] MEDS ORDERED: ASCORBIC ACID 500 MG TABLET ONE (08:49)
[2021-01-19] MEDS ORDERED: THIAMINE HCL 100 MG TABLET ONE (08:49)
[2021-01-19] MEDS ORDERED: AMLODIPINE 10 MG TAB ONE (08:49)
[2021-01-19] MEDS ORDERED: CLOPIDOGREL 75 MG TABLET ONE (08:50)
[2021-01-19] MEDS ORDERED: ZINC SULFATE 220 MG CAP ONE (08:50)
[2021-01-19] MEDS ORDERED: Meropenem 500 MG/100 ML BAG ONE (08:50)
[2021-01-19] MEDS: ASCORBIC ACID 500 MG TABLET PO SCH ×4 (09:00→20:17)
[2021-01-19] MEDS: THIAMINE HCL 100 MG TABLET PO SCH (09:00)
[2021-01-19] MEDS: Meropenem 500 MG/100 ML BAG IV SCH ×2 (09:00→20:18)
[2021-01-19] MEDS: ZINC SULFATE 220 MG CAP PO SCH (09:00)
[2021-01-19] MEDS: CLOPIDOGREL 75 MG TABLET PO SCH (09:00)
[2021-01-19] MEDS: AMLODIPINE 10 MG TAB PO SCH (09:00)
[2021-01-19] MEDS: ASPIRIN EC 81 MG TAB PO SCH (09:00)
[2021-01-19] MEDS: VITAMIN D 1000 UNIT TAB PO SCH (09:00)
[2021-01-19 10:44] VITALS: BMI 23.8
[2021-01-19] MEDS: HALOPERIDOL LACT 5 MG/ML INJ IV PRN ×2 (10:49→14:45)
[2021-01-19] MEDS ORDERED: HALOPERIDOL LACT 5 MG/ML INJ ONE ×2 (11:10→14:40)
[2021-01-19] MEDS: D5W 1,000 ML IV SCH (15:40)
--- NOTE | 2021-01-19 16:52 | P.PN ---
Subjective Date of Service: 01/19/21 Primary Care Provider: Dr. Infante Chief Complaint: NSTEMI, ARF, Covid pneumonia No new complain. Patient appear confused. Physical Examination - Vital Signs Temperature: 98.5 F Blood Pressure: 148/72 Pulse: 85 Respirations: 19 Pulse Ox (%): 97 - Physical Exam General: In no apparent distress, Confused HEENT: Mucous membr. moist/pink Respiratory: Other (Nonlabored breathing) Cardiovascular: Regular rate/rhythm, Normal S1 S2 Gastrointestinal: Soft and benign, Non-distended Musculoskeletal: No swelling Integumentary: No rashes, No erythema Neurological: Normal strength at 5/5 x4 extr Assessment And Plan - Plan Problem list NSTEMI secondary to demand ischemia history of CAD status post stent April 2020 chronic HFpEF Acute kidney injury without CKD COVID-19 pneumonia Urinary tract infection, acute cystitis due to ESBL E. coli NSTEMI likely secondary to demand ischemia. Seen by cardiology. No further recommendation from cardiology. Continue aspirin, Plavix, other home medications Heart failure appears stable, diastolic dysfunction noted on her last echocardiogram 05/2019. Patient not hypoxemic from COVID-19 pneumonia at this time Trend inflammatory markers Continue IV meropenem for ESBL E. coli UTI. Place PICC line for outpatient IV antibiotics. Nephrology input appreciated. GURMEET resolved. Discharge planning. Anticipating home with home health. Physician Review Additional Text: Code: full
[2021-01-19] MEDS: ENOXAPARIN 60 MG/0.6 ML SQ SCH (20:17)
[2021-01-19] MEDS: ACETAMINOPHEN 500 MG TAB PO PRN (20:17)
[2021-01-19] MEDS: ATORVASTATIN 20 MG TAB PO SCH (20:17)
[2021-01-20] MEDS: D5W 1,000 ML IV SCH (03:17)
[2021-01-20 05:38] LABS: Absolute Lymphocytes (CBC) 0.5 K/uL (0.7-4.9); Basophils % 0.7 % (0-1.3); Hematocrit 28.8 % (36.0-45.0); Lymphocytes % 8.6 % (15.3-44.8); MPV 7.9 fL (7.6-11.3); RBC Red Blood Cell Count 3.55 M/uL (3.86-4.86)
[2021-01-20 06:04] LABS: Potassium 2.8 mmol/L (3.5-5.1)
[2021-01-20] MEDS: METOPROLOL XL 50 MG TAB PO SCH (06:28)
[2021-01-20] MEDS: INSULIN -REGULAR HUMAN 50 UNIT/0.5 ML ML SQ SCH ×4 (07:30→20:48)
[2021-01-20] MEDS ORDERED: POTASSIUM 25 MEQ EFFERV TAB PO ONE (08:00)
[2021-01-20] MEDS: VITAMIN D 1000 UNIT TAB PO SCH (08:05)
[2021-01-20] MEDS: ASCORBIC ACID 500 MG TABLET PO SCH ×4 (08:05→20:48)
[2021-01-20] MEDS: THIAMINE HCL 100 MG TABLET PO SCH (08:05)
[2021-01-20] MEDS: AMLODIPINE 10 MG TAB PO SCH (08:06)
[2021-01-20] MEDS: ASPIRIN EC 81 MG TAB PO SCH (08:06)
[2021-01-20] MEDS: CLOPIDOGREL 75 MG TABLET PO SCH (08:06)
[2021-01-20] MEDS: ZINC SULFATE 220 MG CAP PO SCH (08:06)
[2021-01-20] MEDS ORDERED: KCL 20 MEQ/100 mL IVPB 20 MEQ/100 ML BAG IV SCH (09:00)
[2021-01-20] MEDS: Meropenem 500 MG/100 ML BAG IV SCH ×2 (10:39→20:48)
[2021-01-20] MEDS ORDERED: POTASSIUM CL SA 10 MEQ TAB PO ONE (11:13)
--- NOTE | 2021-01-20 13:07 | P.PN ---
Subjective Date of Service: 01/20/21 Primary Care Provider: Dr. Infante Chief Complaint: NSTEMI, ARF, Covid pneumonia No new complain. Patient appear confused. Physical Examination - Vital Signs Temperature: 98 F Blood Pressure: 160/70 Pulse: 80 Respirations: 22 Pulse Ox (%): 97 Assessment And Plan - Plan Physical Exam General: Confused. HEENT: sclera anicteric. Cardiovascular: Regular rate/rhythm, no edema Gastrointestinal: Soft, nontender, nondistended Musculoskeletal: No contractures, No erythema, No tenderness Integumentary: No erythema, No warmth Neurological: +Dementia/confusion, no focal motor deficit. Problem list NSTEMI secondary to demand ischemia history of CAD status post stent April 2020 chronic HFpEF Acute kidney injury without CKD COVID-19 pneumonia Urinary tract infection, acute cystitis due to ESBL E. coli Acute metabolic encephalopathy: COVID encephalopathy versus UTI NSTEMI likely secondary to demand ischemia. Seen by cardiology. No further recommendation from cardiology. Continue aspirin, Plavix, other home medications Heart failure appears stable, diastolic dysfunction noted on her last echocardiogram 05/2019. Patient not hypoxemic from COVID-19 pneumonia at this time Trend inflammatory markers Continue IV meropenem for ESBL E. coli UTI. Place PICC line for outpatient IV antibiotics. Nephrology input appreciated. GURMEET resolved. Discharge planning. Patient may need disposition to skilled rehab given the persistent confusion. PT Consul.
[2021-01-20] MEDS: ENOXAPARIN 60 MG/0.6 ML SQ SCH (20:48)
[2021-01-20] MEDS: BENZONATATE 100 MG CAP PO PRN (20:48)
[2021-01-20] MEDS: ATORVASTATIN 20 MG TAB PO SCH (20:48)
[2021-01-20] MEDS: HALOPERIDOL LACT 5 MG/ML INJ IV PRN (20:49)
[2021-01-21] MEDS: METOPROLOL XL 50 MG TAB PO SCH (06:14)
[2021-01-21 06:16] LABS: Absolute Lymphocytes (CBC) 0.5 K/uL (0.7-4.9); Basophils % 0.1 % (0-1.3); Hematocrit 26.7 % (36.0-45.0); Lymphocytes % 8.5 % (15.3-44.8); MPV 8.1 fL (7.6-11.3); RBC Red Blood Cell Count 3.28 M/uL (3.86-4.86)
[2021-01-21 06:55] LABS: Potassium 3.7 mmol/L (3.5-5.1)
[2021-01-21] MEDS: INSULIN -REGULAR HUMAN 50 UNIT/0.5 ML ML SQ SCH ×4 (07:30→20:55)
[2021-01-21] MEDS: D5W 1,000 ML IV SCH (08:48)
[2021-01-21] MEDS: Meropenem 500 MG/100 ML BAG IV SCH ×2 (08:49→20:54)
[2021-01-21] MEDS: ASPIRIN EC 81 MG TAB PO SCH (08:50)
[2021-01-21] MEDS: ASCORBIC ACID 500 MG TABLET PO SCH ×4 (08:50→20:55)
[2021-01-21] MEDS: VITAMIN D 1000 UNIT TAB PO SCH (08:51)
[2021-01-21] MEDS: ZINC SULFATE 220 MG CAP PO SCH (08:51)
[2021-01-21] MEDS: THIAMINE HCL 100 MG TABLET PO SCH (08:51)
[2021-01-21] MEDS: CLOPIDOGREL 75 MG TABLET PO SCH (08:51)
[2021-01-21] MEDS: AMLODIPINE 10 MG TAB PO SCH (08:55)
--- NOTE | 2021-01-21 15:12 | P.PN ---
Subjective Date of Service: 01/21/21 Primary Care Provider: Dr. Infante Chief Complaint: NSTEMI, ARF, Covid pneumonia No new complain. Patient remain confused. Physical Examination - Vital Signs Temperature: 97.6 F Blood Pressure: 165/85 Pulse: 95 Respirations: 20 Pulse Ox (%): 97 - Physical Exam General: In no apparent distress, Confused Respiratory: Other - Studies Microbiology Data (last 24 hrs): 01/15/21 08:40 Blood - Blood Aerobic Blood Culture - Final No growth in 5 days. 01/15/21 08:40 Blood - Blood Anaerobic Blood Culture - Final No growth in 5 days. 01/15/21 08:30 Blood - Blood Aerobic Blood Culture - Final No growth in 5 days. 01/15/21 08:30 Blood - Blood Anaerobic Blood Culture - Final No growth in 5 days. Assessment And Plan - Plan Physical Exam General: Confused. HEENT: sclera anicteric. Cardiovascular: Regular rate/rhythm, no edema Gastrointestinal: Soft, nondistended Musculoskeletal: No contractures, No erythema, No tenderness Integumentary: No erythema, No warmth Neurological: +Dementia/confusion, no focal motor deficit. Problem list NSTEMI secondary to demand ischemia history of CAD status post stent April 2020 chronic HFpEF Acute kidney injury without CKD COVID-19 pneumonia Urinary tract infection, acute cystitis due to ESBL E. coli Acute metabolic encephalopathy: COVID encephalopathy versus UTI NSTEMI likely secondary to demand ischemia. Seen by cardiology. No further recommendation from cardiology. Continue aspirin, Plavix, other home medications Heart failure appears stable, diastolic dysfunction noted on her last echocardiogram 05/2019. Patient not hypoxemic from COVID-19 pneumonia at this time Continue IV meropenem for ESBL E. coli UTI. Place PICC line for outpatient IV antibiotics. Patient ambulated with PT today. Nephrology input appreciated. GURMEET resolved. Discharge planning. Patient may need disposition to skilled rehab given the persistent confusion. Awaiting skilled rehab placement. Physician Review Additional Text: Code: full
--- NOTE | 2021-01-21 18:29 | RAD REPORT ---
EXAM DESCRIPTION: RAD - Chest Single View - 01/21/2021 5:53 pm CLINICAL HISTORY: Device placement PICC line placement IMPRESSION: A PICC line has been placed. The tip is not clearly visualized but probably lies about 4 centimeters into the right atrium
[2021-01-21] MEDS: ENOXAPARIN 60 MG/0.6 ML SQ SCH (20:54)
[2021-01-21] MEDS: ATORVASTATIN 20 MG TAB PO SCH (20:55)
[2021-01-22] MEDS: METOPROLOL XL 50 MG TAB PO SCH (06:14)
[2021-01-22 07:05] LABS: Phosphorus 2.5 mg/dL (2.5-4.9); Potassium 3.4 mmol/L (3.5-5.1)
[2021-01-22 07:06] LABS: Albumin 2.4 g/dL (3.4-5.0)
[2021-01-22] MEDS: INSULIN -REGULAR HUMAN 50 UNIT/0.5 ML ML SQ SCH ×4 (07:30→21:00)
[2021-01-22] MEDS: AMLODIPINE 10 MG TAB PO SCH (09:10)
[2021-01-22] MEDS: ZINC SULFATE 220 MG CAP PO SCH (09:10)
[2021-01-22] MEDS: THIAMINE HCL 100 MG TABLET PO SCH (09:10)
[2021-01-22] MEDS: ASPIRIN EC 81 MG TAB PO SCH (09:11)
[2021-01-22] MEDS: ASCORBIC ACID 500 MG TABLET PO SCH ×4 (09:11→20:47)
[2021-01-22] MEDS: VITAMIN D 1000 UNIT TAB PO SCH (09:11)
[2021-01-22] MEDS: CLOPIDOGREL 75 MG TABLET PO SCH (09:11)
[2021-01-22] MEDS: Meropenem 500 MG/100 ML BAG IV SCH ×2 (09:12→20:47)
[2021-01-22] MEDS: D5W 1,000 ML IV SCH (09:13)
--- NOTE | 2021-01-22 12:52 | P.PN ---
Subjective Date of Service: 01/22/21 Primary Care Provider: Dr. Infante Chief Complaint: NSTEMI, ARF, Covid pneumonia No new complain. Patient remain confused. She developed tachycardia this morning. At a point had AFib with heart rate up to 223. EKG done demonstrated sinus tachycardia with frequent PVCs. Heart rate improved to 110 to 120s. Patient very anxious and worried about her spouse who is also admitted and is next door. Physical Examination - Vital Signs Temperature: 98.1 F Blood Pressure: 143/64 Pulse: 93 Respirations: 23 Pulse Ox (%): 97 - Physical Exam General: In no apparent distress, Confused HEENT: Mucous membr. moist/pink Respiratory: Clear to auscultation bilaterally, Normal air movement Cardiovascular: No edema, Normal S1 S2, Irregular heart rate/rhythm Gastrointestinal: Soft and benign, Non-distended Musculoskeletal: No swelling Integumentary: No rashes Neurological: Normal strength at 5/5 x4 extr Assessment And Plan - Current Problems (Diagnosis) (1) Paroxysmal A-fib Current Visit: Yes Status: Acute - Plan Physical Exam General: Confused. HEENT: sclera anicteric. Cardiovascular: Irregular rhythm, no edema Gastrointestinal: Soft, nondistended Musculoskeletal: No contractures, No erythema, No tenderness Integumentary: No erythema, No warmth Neurological: +Dementia/confusion, no focal motor deficit. Problem list NSTEMI secondary to demand ischemia history of CAD status post stent April 2020 chronic HFpEF Acute kidney injury without CKD COVID-19 pneumonia Urinary tract infection, acute cystitis due to ESBL E. coli Acute metabolic encephalopathy: COVID encephalopathy versus UTI Paroxysmally atrial fibrillation NSTEMI likely secondary to demand ischemia. Seen by cardiology. No further recommendation from cardiology. Continue aspirin, Plavix, other home medications Heart failure appears stable, diastolic dysfunction noted on her last echocardiogram 05/2019. Patient not hypoxemic from COVID-19 pneumonia at this time Continue IV meropenem for ESBL E. coli UTI. Patient to complete [address] PICC line for outpatient IV antibiotics. Patient ambulated with PT today. Nephrology input appreciated. GURMEET resolved. Continue oral metoprolol. Discharge planning. Patient may need disposition to skilled rehab given the persistent confusion. Awaiting skilled rehab placement. Physician Review Additional Text: Code: full
[2021-01-22] MEDS ORDERED: POTASSIUM CL SA 10 MEQ TAB PO ONE (12:55)
[2021-01-22] MEDS: ENOXAPARIN 60 MG/0.6 ML SQ SCH (20:47)
[2021-01-22] MEDS: ATORVASTATIN 20 MG TAB PO SCH (20:47)
[2021-01-23] MEDS: METOPROLOL XL 50 MG TAB PO SCH (05:19)
[2021-01-23 06:16] LABS: Albumin 2.3 g/dL (3.4-5.0); Phosphorus 2.7 mg/dL (2.5-4.9)
[2021-01-23] MEDS: INSULIN -REGULAR HUMAN 50 UNIT/0.5 ML ML SQ SCH ×4 (07:30→20:32)
[2021-01-23] MEDS: Meropenem 500 MG/100 ML BAG IV SCH ×2 (08:35→20:29)
[2021-01-23] MEDS: THIAMINE HCL 100 MG TABLET PO SCH (08:35)
[2021-01-23] MEDS: CLOPIDOGREL 75 MG TABLET PO SCH (08:35)
[2021-01-23] MEDS: VITAMIN D 1000 UNIT TAB PO SCH (08:36)
[2021-01-23] MEDS: AMLODIPINE 10 MG TAB PO SCH (08:39)
[2021-01-23] MEDS: ASCORBIC ACID 500 MG TABLET PO SCH ×4 (08:43→20:30)
[2021-01-23] MEDS: ZINC SULFATE 220 MG CAP PO SCH (08:43)
[2021-01-23] MEDS: ASPIRIN EC 81 MG TAB PO SCH (09:00)
[2021-01-23] MEDS: D5W 1,000 ML IV SCH (10:00)
--- NOTE | 2021-01-23 11:47 | P.PN ---
Subjective Date of Service: 01/23/21 Primary Care Provider: Dr. Infante Chief Complaint: NSTEMI, ARF, Covid pneumonia No new complain. Patient remain confused. She looks better today. No new complain. Physical Examination - Vital Signs Temperature: 97.9 F Blood Pressure: 187/81 Pulse: 98 Respirations: 20 Pulse Ox (%): 95 - Physical Exam General: In no apparent distress Assessment And Plan - Current Problems (Diagnosis) (1) Paroxysmal A-fib Current Visit: Yes Status: Acute - Plan Physical Exam General: Confused. HEENT: sclera anicteric. Cardiovascular: Irregular rhythm, no edema Gastrointestinal: Soft, nondistended Musculoskeletal: No contractures, No erythema, No tenderness Integumentary: No erythema, No warmth Neurological: +Dementia/confusion, no focal motor deficit. Problem list NSTEMI secondary to demand ischemia history of CAD status post stent April 2020 chronic HFpEF Acute kidney injury without CKD COVID-19 pneumonia Urinary tract infection, acute cystitis due to ESBL E. coli Acute metabolic encephalopathy: COVID encephalopathy versus UTI Paroxysmally atrial fibrillation. Chronic anemia Continue aspirin, Plavix. Heart failure appears stable, diastolic dysfunction noted on her last echocardiogram 05/2019. Patient not hypoxemic from COVID-19 pneumonia at this time Continue IV meropenem for ESBL E. coli UTI. Patient to complete [address] PICC line for outpatient IV antibiotics. Patient ambulated with PT today. Nephrology input appreciated. GURMEET resolved. Continue oral metoprolol. Hemoglobin has been stable. Discharge planning. Patient may need disposition to skilled rehab given the persistent confusion. Awaiting skilled rehab placement. Physician Review Additional Text: Code: full
[2021-01-23] MEDS ORDERED: METOPROLOL TAR 25 MG TAB PO ONE (11:57)
[2021-01-23] MEDS: ATORVASTATIN 20 MG TAB PO SCH (20:30)
[2021-01-23] MEDS: HALOPERIDOL LACT 5 MG/ML INJ IV PRN (20:30)
[2021-01-23] MEDS: ENOXAPARIN 60 MG/0.6 ML SQ SCH (20:30)
[2021-01-23] MEDS: GLUCERNA SHAKE 237 ML CAN PO SCH (20:32)
[2021-01-24 04:13] LABS: Albumin 2.2 g/dL (3.4-5.0); Phosphorus 2.4 mg/dL (2.5-4.9); Potassium 3.9 mmol/L (3.5-5.1)
[2021-01-24] MEDS: METOPROLOL XL 50 MG TAB PO SCH (05:22)
[2021-01-24] MEDS: INSULIN -REGULAR HUMAN 50 UNIT/0.5 ML ML SQ SCH ×4 (07:30→21:00)
[2021-01-24] MEDS: ZINC SULFATE 220 MG CAP PO SCH (09:00)
[2021-01-24] MEDS: Meropenem 500 MG/100 ML BAG IV SCH ×2 (09:00→20:04)
[2021-01-24] MEDS: THIAMINE HCL 100 MG TABLET PO SCH (09:52)
[2021-01-24] MEDS: ASCORBIC ACID 500 MG TABLET PO SCH ×4 (09:52→19:56)
[2021-01-24] MEDS: AMLODIPINE 10 MG TAB PO SCH (09:52)
[2021-01-24] MEDS: VITAMIN D 1000 UNIT TAB PO SCH (09:52)
[2021-01-24] MEDS: GLUCERNA SHAKE 237 ML CAN PO SCH ×2 (09:53→19:56)
[2021-01-24] MEDS: CLOPIDOGREL 75 MG TABLET PO SCH (09:53)
[2021-01-24] MEDS: ASPIRIN EC 81 MG TAB PO SCH (11:29)
[2021-01-24] MEDS: D5W 1,000 ML IV SCH (11:34)
--- NOTE | 2021-01-24 13:57 | P.PN ---
Subjective Date of Service: 01/24/21 Primary Care Provider: Dr. Infante Chief Complaint: NSTEMI, ARF, Covid pneumonia No new complain. Patient remain confused. Her from COVID Pneumonia and she in tears during my examination Patient with intermittent rapid heart rate. Physical Examination - Vital Signs Temperature: 97.7 F Blood Pressure: 142/65 Pulse: 116 Respirations: 18 Pulse Ox (%): 99 - Physical Exam General: In no apparent distress, Confused HEENT: Mucous membr. moist/pink Neck: JVD not distended Respiratory: Other (Nonlabored breathing) Cardiovascular: No edema, Normal S1 S2, Irregular heart rate/rhythm Gastrointestinal: Soft and benign, Non-distended, No tenderness Musculoskeletal: No swelling Integumentary: No rashes Neurological: Normal strength at 5/5 x4 extr Assessment And Plan - Current Problems (Diagnosis) (1) Paroxysmal A-fib Current Visit: Yes Status: Acute - Plan Physical Exam General: Confused. HEENT: sclera anicteric. Cardiovascular: Irregular rhythm, no edema Gastrointestinal: Soft, nondistended Musculoskeletal: No contractures, No erythema, No tenderness Integumentary: No erythema, No warmth Neurological: +Dementia/confusion, no focal motor deficit. Problem list NSTEMI secondary to demand ischemia history of CAD status post stent April 2020 chronic HFpEF Acute kidney injury without CKD COVID-19 pneumonia Urinary tract infection, acute cystitis due to ESBL E. coli Acute metabolic encephalopathy: COVID encephalopathy versus UTI Paroxysmally atrial fibrillation. Chronic anemia Continue aspirin, Plavix. Heart failure appears stable, diastolic dysfunction noted on her last echocardiogram 05/2019. Patient not hypoxemic from COVID-19 pneumonia at this time Continue IV meropenem for ESBL E. coli UTI. Patient to complete 2 weeks of treatment. PICC line placed for outpatient IV antibiotics. Patient ambulated with PT. Nephrology input appreciated. GURMEET resolved. Continue oral metoprolol. Metoprolol XL increased to 50 mg daily to better control heart rate. Hemoglobin has been stable. Discharge planning. Disposition to skilled rehab given the persistent confusion and the need for IV antibiotics. Awaiting skilled rehab placement.
[2021-01-24] MEDS: ATORVASTATIN 20 MG TAB PO SCH (19:56)
[2021-01-24] MEDS: ENOXAPARIN 60 MG/0.6 ML SQ SCH (19:57)
[2021-01-25 04:33] LABS: Absolute Lymphocytes (CBC) 0.5 K/uL (0.7-4.9); Basophils % 1.1 % (0-1.3); Hematocrit 25.1 % (36.0-45.0); Lymphocytes % 11.3 % (15.3-44.8); MPV 7.8 fL (7.6-11.3); RBC Red Blood Cell Count 3.07 M/uL (3.86-4.86)
[2021-01-25 04:49] LABS: Magnesium 1.7 mg/dL (1.8-2.4); Potassium 4.2 mmol/L (3.5-5.1)
[2021-01-25] MEDS ORDERED: MAGNESIUM SULFATE 1 gm IVPB 1 GM/100 ML BAG IV ONE (05:01)
[2021-01-25] MEDS: METOPROLOL XL 50 MG TAB PO SCH (05:12)
[2021-01-25] MEDS ORDERED: NA CHLORIDE 0.9% 500 ML IV ONE (05:25)
[2021-01-25] MEDS ORDERED: NA CHLORIDE 0.9% 500 ML ONE (05:48)
[2021-01-25] MEDS: INSULIN -REGULAR HUMAN 50 UNIT/0.5 ML ML SQ SCH ×4 (07:30→21:00)
[2021-01-25] MEDS: ASCORBIC ACID 500 MG TABLET PO SCH ×4 (08:26→21:28)
[2021-01-25] MEDS: Meropenem 500 MG/100 ML BAG IV SCH ×2 (08:26→21:30)
[2021-01-25] MEDS: ZINC SULFATE 220 MG CAP PO SCH (08:27)
[2021-01-25] MEDS: THIAMINE HCL 100 MG TABLET PO SCH (08:27)
[2021-01-25] MEDS: ASPIRIN EC 81 MG TAB PO SCH (08:27)
[2021-01-25] MEDS: AMLODIPINE 10 MG TAB PO SCH (08:27)
[2021-01-25] MEDS: CLOPIDOGREL 75 MG TABLET PO SCH (08:27)
[2021-01-25] MEDS: VITAMIN D 1000 UNIT TAB PO SCH (08:27)
[2021-01-25] MEDS: GLUCERNA SHAKE 237 ML CAN PO SCH ×2 (09:00→21:00)
[2021-01-25] MEDS: D5W 1,000 ML IV SCH (12:00)
--- NOTE | 2021-01-25 13:08 | P.PN ---
Subjective Date of Service: 01/25/21 Primary Care Provider: Dr. Infante Chief Complaint: NSTEMI, ARF, Covid pneumonia Subjective: No new changes (no significant changes. pt reports feeling ok, recently from COVID, remains with some confusion. afebrile, breathing comfortably on room air, reports some chronic back pain) Review of Systems 10-point ROS is otherwise unremarkable Physical Examination - Vital Signs Temperature: 97.9 F Blood Pressure: 158/72 Pulse: 111 Respirations: 18 Pulse Ox (%): 100 Assessment & Plan Physician Review Additional Text: Physical Exam General: Confused. HEENT: sclera anicteric. Cardiovascular: regular rhythm, no edema Gastrointestinal: Soft, nondistended Musculoskeletal: No tenderness Integumentary: No erythema, No warmth Neurological: +Dementia/confusion, no focal motor deficit. Problem list NSTEMI secondary to demand ischemia history of CAD status post stent April 2020 chronic HFpEF Acute kidney injury without CKD COVID-19 pneumonia Urinary tract infection, acute cystitis due to ESBL E. coli Acute metabolic encephalopathy: COVID encephalopathy versus UTI Paroxysmal atrial fibrillation. Chronic anemia Continue aspirin, Plavix. Heart failure appears stable, diastolic dysfunction noted on her last echocardiogram 05/2019. Patient not hypoxemic from COVID-19 pneumonia at this time Continue IV meropenem for ESBL E. coli UTI. Patient to complete 2 weeks of treatment. PICC line placed for outpatient IV antibiotics. Patient ambulated with PT. Nephrology input appreciated. GURMEET resolved. Continue oral metoprolol. Metoprolol XL increased to 50 mg daily to better control heart rate. Hemoglobin slightly downtrending, no evidence of bleed. will check anemia workup Disposition to skilled rehab given the persistent confusion and the need for IV antibiotics. Time Spent Managing Pts Care (In Minutes): 40
[2021-01-25] MEDS: ACETAMINOPHEN 500 MG TAB PO PRN (15:07)
[2021-01-25] MEDS: ATORVASTATIN 20 MG TAB PO SCH (21:28)
[2021-01-26 05:09] LABS: Absolute Lymphocytes (CBC) 0.5 K/uL (0.7-4.9); Basophils % 0.2 % (0-1.3); Hematocrit 23.2 % (36.0-45.0); Lymphocytes % 10.6 % (15.3-44.8); MPV 8.4 fL (7.6-11.3); RBC Red Blood Cell Count 2.83 M/uL (3.86-4.86)
[2021-01-26] MEDS: METOPROLOL XL 50 MG TAB PO SCH (05:55)
--- NOTE | 2021-01-26 06:13 | P.PN ---
Subjective Date of Service: 01/26/21 Primary Care Provider: Dr. Infante Chief Complaint: NSTEMI, ARF, Covid pneumonia Subjective: Improving (Feeling better, reports intermittent anxiety, frustration ferritin meds going on in her life, recently passed. No new complaints) Review of Systems 10-point ROS is otherwise unremarkable Physical Examination - Vital Signs Temperature: 98.1 F Blood Pressure: 128/62 Pulse: 89 Respirations: 18 Pulse Ox (%): 96 Assessment & Plan Physician Review Additional Text: Physical Exam General: calm, pleasant, AAOx2 HEENT: sclera anicteric Cardiovascular: regular rhythm, no edema Gastrointestinal: Soft, nondistended, nontender Musculoskeletal: No tenderness Integumentary: No erythema, No warmth Neurological: +Dementia/confusion, no focal motor deficit. Problem list NSTEMI secondary to demand ischemia history of CAD status post stent April 2020 chronic HFpEF Acute kidney injury without CKD COVID-19 pneumonia Urinary tract infection, acute cystitis due to ESBL E. coli Acute metabolic encephalopathy: COVID encephalopathy versus UTI Paroxysmal atrial fibrillation. Chronic anemia Continue aspirin, Plavix. Heart failure appears stable, diastolic dysfunction noted on her last echocardiogram 05/2019. Patient not hypoxemic from COVID-19 pneumonia at this time Continue IV meropenem for ESBL E. coli UTI. Patient to complete 2 weeks of treatment. PICC line placed for outpatient IV antibiotics. Pt removed picc line when confused / by accident. new picc ordered Patient ambulated with PT. Nephrology input appreciated. GURMEET resolved. Continue oral metoprolol. Metoprolol XL increased to 50 mg daily to better control heart rate. Hemoglobin slightly downtrending, no evidence of bleed. appears to have iron deficiency / anemia of chronic disease will start IV iron 01/26 Disposition to skilled rehab given the persistent confusion and the need for IV antibiotics. Time Spent Managing Pts Care (In Minutes): 45
[2021-01-26 06:31] LABS: Magnesium 1.9 mg/dL (1.8-2.4); Potassium 4.3 mmol/L (3.5-5.1)
[2021-01-26] MEDS: AMLODIPINE 10 MG TAB PO SCH (08:55)
[2021-01-26] MEDS: CLOPIDOGREL 75 MG TABLET PO SCH (08:55)
[2021-01-26] MEDS: VITAMIN D 1000 UNIT TAB PO SCH (08:55)
[2021-01-26] MEDS: Meropenem 500 MG/100 ML BAG IV SCH ×2 (08:55→19:55)
[2021-01-26] MEDS: ZINC SULFATE 220 MG CAP PO SCH (08:55)
[2021-01-26] MEDS: ASCORBIC ACID 500 MG TABLET PO SCH ×4 (08:56→19:55)
[2021-01-26] MEDS: INSULIN -REGULAR HUMAN 50 UNIT/0.5 ML ML SQ SCH ×4 (08:56→19:55)
[2021-01-26] MEDS: ASPIRIN EC 81 MG TAB PO SCH (08:56)
[2021-01-26] MEDS: THIAMINE HCL 100 MG TABLET PO SCH (08:56)
[2021-01-26] MEDS: GLUCERNA SHAKE 237 ML CAN PO SCH ×2 (08:57→19:55)
[2021-01-26] MEDS: SOD FERRIC GLUC COMPLX/SUCROSE 125 MG in NA CHLORIDE 0.9% 100 ML IV SCH (17:05)
[2021-01-26] MEDS: ATORVASTATIN 20 MG TAB PO SCH (19:55)
[2021-01-27 03:41] LABS: Absolute Lymphocytes (CBC) 0.6 K/uL (0.7-4.9); Basophils % 0.5 % (0-1.3); Hematocrit 22.2 % (36.0-45.0); Lymphocytes % 17.6 % (15.3-44.8); MPV 8.2 fL (7.6-11.3); RBC Red Blood Cell Count 2.71 M/uL (3.86-4.86)
[2021-01-27 04:11] LABS: C-Reactive Protein 33.8 mg/L (<3.00); Potassium 4.2 mmol/L (3.5-5.1)
[2021-01-27] MEDS: METOPROLOL XL 50 MG TAB PO SCH (04:59)
[2021-01-27 05:07] LABS: Blood Morphology Comment NOT SEEN (NOT SEEN); Platelet Estimate ADEQ
--- NOTE | 2021-01-27 06:10 | P.PN ---
Subjective Date of Service: 01/27/21 Primary Care Provider: Dr. Infante Chief Complaint: NSTEMI, ARF, Covid pneumonia Subjective: Improving (States her body is feeling better, but her heart is heavy due to her recent loss of her . Denies dark stools, reports no epig astric pain or any other abdominal pain, no evidence of bleeding) Review of Systems 10-point ROS is otherwise unremarkable Physical Examination - Vital Signs Temperature: 97.3 F Blood Pressure: 112/68 Pulse: 93 Respirations: 18 Pulse Ox (%): 98 Assessment & Plan Physician Review Additional Text: Physical Exam General: calm, pleasant, AAOx2 HEENT: sclera anicteric Cardiovascular: regular rhythm, no edema Gastrointestinal: Soft, nondistended, nontender Musculoskeletal: No tenderness Integumentary: No erythema, No warmth Neurological: +Dementia, no focal motor deficit. Problem list NSTEMI secondary to demand ischemia history of CAD status post stent April 2020 chronic HFpEF Acute kidney injury without CKD COVID-19 pneumonia Urinary tract infection, acute cystitis due to ESBL E. coli Acute metabolic encephalopathy: COVID encephalopathy versus UTI Paroxysmal atrial fibrillation. acute on chronic anemia, iron deficiency Continue aspirin, Plavix. Heart failure appears stable, diastolic dysfunction noted on her last echocardiogram 05/2019. Patient not hypoxemic from COVID-19 pneumonia at this time Patient completed 10 days of IV meropenem for her ESBL E. coli Initially plan was for 2 weeks, patient received PICC line, but accidentally pulled it when she was confused She has remained afebrile and has been doing well, per guidelines 7 days should be sufficient. Her repeat UA was negative/culture negative, o'clock. PSA the Patient ambulated with PT. very independent, still with some intermittent confusion / dementia Nephrology input appreciated. GURMEET resolved. Continue oral metoprolol. Metoprolol XL increased to 50 mg daily to better control heart rate. Hemoglobin has consistently down trended. Patient denies any melena, no evidence of bleeding. Denies any prior gastric ulcers/gastric bleeding appears to have iron deficiency / anemia of chronic disease start IV iron 01/26 Transfuse 1 unit PRBC on 01/27 Dispo: Discussed with daughter, plan to discharge home with home health, anticipate in the next 1-2 days. Patient states her 's is coming up and she does not want to miss it. Time Spent Managing Pts Care (In Minutes): 40
[2021-01-27] MEDS ORDERED: NA CHLORIDE 0.9% 250 ML IV SCH (07:00)
[2021-01-27] MEDS: INSULIN -REGULAR HUMAN 50 UNIT/0.5 ML ML SQ SCH ×4 (07:30→19:28)
[2021-01-27] MEDS: AMLODIPINE 10 MG TAB PO SCH (08:01)
[2021-01-27] MEDS: VITAMIN D 1000 UNIT TAB PO SCH (08:01)
[2021-01-27] MEDS: THIAMINE HCL 100 MG TABLET PO SCH (08:01)
[2021-01-27] MEDS: ASCORBIC ACID 500 MG TABLET PO SCH ×4 (08:01→19:32)
[2021-01-27] MEDS: CLOPIDOGREL 75 MG TABLET PO SCH (08:01)
[2021-01-27] MEDS: ASPIRIN EC 81 MG TAB PO SCH (08:01)
[2021-01-27] MEDS: Meropenem 500 MG/100 ML BAG IV SCH (08:02)
[2021-01-27] MEDS: ZINC SULFATE 220 MG CAP PO SCH (08:02)
[2021-01-27] MEDS: GLUCERNA SHAKE 237 ML CAN PO SCH ×2 (08:02→19:33)
[2021-01-27] MEDS: SOD FERRIC GLUC COMPLX/SUCROSE 125 MG in NA CHLORIDE 0.9% 100 ML IV SCH (09:35)
[2021-01-27 19:14] LABS: Hematocrit 31.6 % (36.0-45.0)
[2021-01-27] MEDS: ATORVASTATIN 20 MG TAB PO SCH (19:32)
[2021-01-27 20:38] VITALS: O2SAT 94
[2021-01-28] MEDS: METOPROLOL XL 50 MG TAB PO SCH (05:49)
[2021-01-28 06:06] LABS: Absolute Lymphocytes (CBC) 0.8 K/uL (0.7-4.9); Basophils % 0.4 % (0-1.3); Hematocrit 26.9 % (36.0-45.0); Lymphocytes % 18.1 % (15.3-44.8); MPV 8.2 fL (7.6-11.3); RBC Red Blood Cell Count 3.22 M/uL (3.86-4.86)
[2021-01-28 06:16] LABS: Potassium 4.6 mmol/L (3.5-5.1)
[2021-01-28] MEDS: INSULIN -REGULAR HUMAN 50 UNIT/0.5 ML ML SQ SCH ×2 (07:30→11:30)
[2021-01-28] MEDS: GLUCERNA SHAKE 237 ML CAN PO SCH (09:00)
[2021-01-28] MEDS: AMLODIPINE 10 MG TAB PO SCH (09:38)
[2021-01-28] MEDS: ASCORBIC ACID 500 MG TABLET PO SCH (09:38)
[2021-01-28] MEDS: ASPIRIN EC 81 MG TAB PO SCH (09:38)
[2021-01-28] MEDS: SOD FERRIC GLUC COMPLX/SUCROSE 125 MG in NA CHLORIDE 0.9% 100 ML IV SCH (09:38)
[2021-01-28] MEDS: VITAMIN D 1000 UNIT TAB PO SCH (09:38)
[2021-01-28] MEDS: ZINC SULFATE 220 MG CAP PO SCH (09:39)
[2021-01-28] MEDS: CLOPIDOGREL 75 MG TABLET PO SCH (09:39)
[2021-01-28] MEDS: THIAMINE HCL 100 MG TABLET PO SCH (09:39)
--- NOTE | 2021-01-28 12:16 | P.DS ---
Admission Date: 01/15/21 Discharge Date: 01/28/21 Primary Care Provider: Dr. Infante Disposition: DC HOME/HOME HEALTH CARE Discharge Condition: GOOD Reason for Admission: NSTEMI, ARF, Covid pneumonia Consultations: Nephrology - Dr. Billingsley Pulmonology - Dr. Grant Procedures: CXR (01/15): Moderate right and mild left pulmonary opacities are present. Heart is borderline enlarged. Old left rib fractures IMPRESSION: Bilateral pulmonary opacities probably pneumonia Renal U/S (01/15): IMPRESSION: No hydronephrosis is present. No suspicious mass lesion identifiable. There are 2 rounded low-density areas in the posterior mid and lower pole left kidney that are not well visualized at sonography but appear to be cysts based on the CT angio from 2019. No bladder abnormality identifiable. CT Abd/pelvis (01/15): The lack of IV and oral contrast limits evaluation of solid organs, subtle lesions cannot be excluded. The lung bases demonstrate presence of subpleural groundglass density within the lateral right lower lobe and posterior segment of the right lower lobe and left lower lobe with minimal questionable crazy paving, possibility of viral pneumonia/Covid 19 pneumonia could be of consideration. The heart is prominent. There are coronary artery calcification/stenting. There is mitral annular calcification. There is trace of pericardial effusion. Grossly the unopacified liver, pancreas, spleen and adrenal glands demonstrate to be within normal limits, no significant focal lesions were identified. Surgical clips within the gallbladder fossa corresponding to previous cholecystectomy. There is no biliary duct dictation The the right kidney demonstrate to be atrophic. No evidence for nephrolithiasis and/or hydronephrosis. The left kidney demonstrate the presence of a posterior upper pole renal cyst measuring 1.5 x 1.5 cm on image 31. There is no evidence for nephrolithiasis and/or hydronephrosis. Grossly the unopacified stomach, small bowel and large bowel demonstrate to be within normal limits. There is no evidence for bowel dilatation/or free air. There is diverticulosis within the sigmoid colon. The urinary bladder demonstrate to be within normal limits. The uterus demonstrate to be within normal limits. No adnexal masses are identified. The aorta demonstrate atherosclerotic disease extending to the aortic bifurcation/iliac arteries. There is no retroperitoneal lymphadenopathy. There is no evidence for ascites. The the bone windows demonstrate diffuse bony osteopenia. Degenerative disc disease is identified at L1-L3 and L5-S1. Posterior facet hypertrophy is identified L3-S1. There is a anterior lower pelvic wall hernia containing omentum. Impression: Commonly reported imaging features of COVID-19 pneumonia are present. Other processes such as influenza pneumonia and organizing pneumonia, as can be seen with drug toxicity and connective tissue disease, can cause a similar imaging pattern. (Reference: https://pubs.rsna.org/doi/full/10.1148/ryct.2064119643). Cardiomegaly with coronary artery calcification/stenting. Trace of pericardial effusion. Atrophic right kidney. Left renal cyst. Sigmoid diverticulosis without evidence for acute diverticulitis. Degenerative disc disease lumbar spine. Anterior abdominal wall pelvic hernia. CT Head (01/15): No acute intracranial hemorrhage. Stable anterior frontal extra-axial partially calcified lesion measuring 15 x 12 mm, perhaps corresponding to a meningioma. Minimal periventricular white matter changes of microvascular ischemia. Echo (01/17): normal LVEF : 55-60% with normal wall motion. mild aortic insufficiency. mild TR CXR (01/18): Improvement in the bilateral pulmonary opacities Subtle lucency adjacent to the left mediastinum and heart equivocal for mild pneumomediastinum. This can be monitored on subsequent exam CXR (01/21): A PICC line has been placed. The tip is not clearly visualized but probably lies about 4 centimeters into the right atrium Problem list Urinary tract infection, acute cystitis due to ESBL E. coli COVID-19 pneumonia, mild NSTEMI secondary to demand ischemia history of CAD s/p stent April 2020 chronic HFpEF Acute kidney injury without CKD Acute metabolic encephalopathy secondary to UTI Paroxysmal atrial fibrillation. acute on chronic anemia, iron deficiency Brief History of Present Illness: 80-year-old female with history of CAD, diabetes most type II, hypertension, paroxysmal A. fib presents emergency department for weakness, malaise. Patient was evaluated in the emergency department, found to be Covid positive, labs were significant for sodium 146 chloride 111 creatinine 1.73 GFR 28 BUN 66, patient's baseline renal function creatinine around 1 GFR around 55 troponin 0 0.22 BNP 3160 procalcitonin 0.28 urinalysis positive nitrite and leukocyte. No acute ST changes noted on EKG, patient chest pain-free at this time but does have history of CAD. Patient given Rocephin for UTI in the emergency department, patient not requiring submental oxygen at this time although chest x-ray does appear to demonstrate a multifocal pneumonia. Will admit for further evaluation and management of NSTEMI, acute renal failure, Covid pneumonia. Hospital Course: Patient was found to have a UTI. Urine culture grew esbl e.coli. She was treated with IV meropenem. Initially the plan was for patient to go to SNF to complete 14 days of antibiotics, however she pulled her PICC line when she was confused. She had significant improvement in her symptoms, and it was decided that patient was stable for discharge home after completing 10 days of IV meropenem, as guidelines recommend at least 7 days. She was found to be positive for COVID-19, however, remained asymptomatic and did not require any oxygen supplementation. Unfortunately her due to COVID-19 pneumonia during her hospitalization and she was adamant about being discharged in time to attend his . During her hospitalization her hemoglobin trended down to mid 7s. She did not have any evidence of bleeding, and workup revealed significant iron deficiency. She was given 1u PRBC and received a few days of IV iron. Her hemoglobin improved and was stable before discharge She did have occasional tachycardic episodes to low 100s which improved with increasing her metoprolol. Follow up with PCP in 3-5 days. Repeat CBC with PCP. Vital Signs/Physical Exam: Temp Pulse Resp BP Pulse Ox 97.6 F 96 H 18 168/72 H 100 01/28/21 08:00 01/28/21 09:38 01/28/21 08:00 01/28/21 09:38 01/28/21 08:00 General: Alert, In no apparent distress, Oriented x3 HEENT: Sclerae nonicteric Neck: Supple Respiratory: Clear to auscultation bilaterally, Normal air movement Cardiovascular: No edema, Regular rate/rhythm Gastrointestinal: Soft and benign, Non-distended, No tenderness Musculoskeletal: No erythema, No tenderness Integumentary: No rashes Neurological: Normal speech, Normal strength at 5/5 x4 extr, Normal affect Laboratory Data at Discharge: WBC 4.30 K/uL (4.3-10.9) D 01/28/21 05:25 Hgb 9.0 g/dL (12.0-15.0) L 01/28/21 05:25 Hct 26.9 % (36.0-45.0) L 01/28/21 05:25 Plt Count 199 K/uL (152-406) 01/28/21 05:25 PT 12.1 SECONDS (9.5-12.5) 01/15/21 08:30 INR 1.05 01/15/21 08:30 Sodium 148 mmol/L (136-145) H 01/28/21 05:25 Potassium 4.6 mmol/L (3.5-5.1) 01/28/21 05:25 BUN 14 mg/dL (7-18) 01/28/21 05:25 Creatinine 0.86 mg/dL (0.55-1.3) 01/28/21 05:25 Glucose 74 mg/dL (74-106) 01/28/21 05:25 Phosphorus 2.4 mg/dL (2.5-4.9) L 01/24/21 03:30 Magnesium 1.9 mg/dL (1.8-2.4) 01/26/21 04:44 Total Bilirubin 0.4 mg/dL (0.2-1.0) 01/19/21 02:10 AST 22 U/L (15-37) 01/19/21 02:10 ALT 18 U/L (12-78) 01/19/21 02:10 Alkaline Phosphatase 64 U/L (45-117) 01/19/21 02:10 Troponin I 0.19 ng/mL (0.0-0.045) H 01/16/21 10:50 Home Medications: RX: Amlodipine [Norvasc*] 10 mg PO DAILY #30 tab 09/03/20 RX: Aspirin [Aspirin EC 81 MG] 81 mg PO DAILY 09/03/20 RX: Clopidogrel Bisulfate [Plavix*] 75 mg PO DAILY 09/03/20 RX: Hydralazine [Apresoline*] 50 mg PO QID 09/03/20 RX: Levetiracetam [Keppra] 500 mg PO BID 09/03/20 RX: Metformin HCl [Glucophage*] 500 mg PO BID 09/03/20 RX: hydroCHLOROthiazide [Hydrochlorothiazide] 25 mg PO DAILY 09/03/20 RX: Ferrous Sulfate [Iron] 325 mg PO DAILY 60 Days #60 tablet 01/28/21 RX: Metoprolol Succinate [Toprol Xl*] 50 mg PO DAILY 30 Days #30 tab 01/28/21 New Medications: RX: Ferrous Sulfate [Iron] 325 mg PO DAILY 60 Days #60 tablet RX: Metoprolol Succinate [Toprol Xl*] 50 mg PO DAILY 30 Days #30 tab Physician Discharge Instructions: You were found to have a resistant urinary tract infection in your symptoms with antibiotics. You completed a 10-day course of IV antibiotics. You did not require any antibiotics on discharge. You are also found to be positive for COVID-19. You had minimal symptoms and did not require oxygen. Recommend to continue your other medications as previously prescribed. You can also continue to take your vitamin C and vitamin D daily vitamins. You are also found to have significant iron deficiency anemia. You received a few days of IV iron. You also required 1 unit of blood transfusion. You did not have any obvious bleeding from anywhere. You responded well and there hemoglobin was stable. You are deemed stable and well to be discharged home. Recommend follow-up with your PCP in 3-5 days. Can repeat your blood work to check on your anemia. You are discharged home with home health care. Diet: ADA Activity: Ad manuela Followup: NONE,NONE [Primary Care Provider] - Time spent managing pt's care (in minutes): 45
[2021-01-28 12:37] VITALS: BP 147/54; TEMP 97.7
== END 2021-01-28 13:05 | disposition home health service (06) | DRG 177 ==
LOC: ER 18:50 → ERHOLD 22:16 → 4TH 01-19 15:09
PROVIDERS: ADMIT Hospitalist; ATTEND Hospitalist
PROC: 02H633Z Insertion of Infusion Device into Right Atrium, Percutaneous Approach (ICD-10-PCS; principal; 2021-01-21)
PROC: 30233N1 Transfusion of Nonautologous Red Blood Cells into Peripheral Vein, Percutaneous Approach (ICD-10-PCS; 2021-01-27)
DX: U07.1 COVID-19 (principal); J12.82 Pneumonia due to coronavirus disease 2019; I21.A1 Myocardial infarction type 2; G93.41 Metabolic encephalopathy; N30.00 Acute cystitis without hematuria; Z16.12 Extended spectrum beta lactamase (ESBL) resistance; I50.32 Chronic diastolic (congestive) heart failure; N17.9 Acute kidney failure, unspecified; B96.20 Unspecified Escherichia coli [E. coli] as the cause of diseases classified elsewhere; I25.10 Atherosclerotic heart disease of native coronary artery without angina pectoris; I11.0 Hypertensive heart disease with heart failure; I48.0 Paroxysmal atrial fibrillation; D50.9 Iron deficiency anemia, unspecified; E11.9 Type 2 diabetes mellitus without complications; E03.9 Hypothyroidism, unspecified; Z95.5 Presence of coronary angioplasty implant and graft
CPT/HCPCS: 0240U; 36415; 36430; 36569; 70450; 71045; 74176; 76770; 80048; 80053; 80069; 80076; 81003; 81015; 82728; 82947; 83540; 83605; 83735; 83880; 84132; 84145; 84439; 84443; 84466; 84484; 85014; 85018; 85025; 85044; 85379; 85610; 86140; 86850; 86900; 86901; 87040; 87077; 87086; 87088; 87186; 93005; 93306; 96372; 96374; 96375; 97116; 97161; 99284; J0696; J1200; J1630; J1650; J2185; J2405; J2916; J2930; J3475; J7040; J7042; J7050; J7799; P9016

== ENCOUNTER 2021-04-21 09:46 | Emergency (ER) | payer OTHER ==
--- OUTSIDE RECORDS SUMMARY | 2021-04-21 09:49 | XMS REPORT | Continuity of Care Document ---
:1940 Author Organization [facility] t Address [facility] Marcos Best [address] [place] [id number] Care Team Providers Name Role Phone Miller_S_AH Attending Clinician Unavailable Ige-Odunuga_J_AH Attending Clinician Unavailable Ajibade_O_AH Attending Clinician Unavailable Miller_S_AH Admitting Clinician Unavailable Ige-Odunuga_J_AH Admitting Clinician Unavailable Ajibade_O_AH Admitting Clinician Unavailable Payers Payer Name Policy Type Policy Number Effective Date Expiration Date S lashawn [facility] - [id number] 2019 [employer] 00:00:00 (MEDICARE REPLACEMENT/ADVANT AGE - HMO) Problems Condition Condition Condition Status Onset Resolution Last Treating Co mments Source Name Details Category Date Date Treatment Clinician Date 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 4-14 Family 00:00: Practic 00 e Hemorrhagi Hemorrhagi Problem Active [facility] disorder c Disorder 3-05 Fa vijaya due to Due to 00:00: Practic circulatin Circulatin 00 e g g anticoagul Anticoagul ants ants Hypertensi Hypertensi Problem Active [facility] ve heart ve Heart 3-04 Family and renal and Renal 00:00: Prac tic disease Disease 00 e with with (congestiv (Congestiv e) heart e) Heart failure Failure Mixed Mixed Problem Active [facility]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 Hyperlipid 1-12 Fa vijaya emia due emia Due 00:00: Practi c to type 2 to Type 2 00 e diabetes Diabetes mellitus Mellitus Complicati Complicati Problem Active [facility] on due to on Due to 11 Fami ly diabetes Diabetes 00:00: Practi c mellitus Mellitus 00 e Neuropathy Neuropathy Problem Active [facility] - Family 00:00: Practic 00 e Coronary Coronary Problem Active [facility] arterioscl Arterioscl 06-07 Fa vijaya erosis erosis 00:00: Practic 00 e 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 Social History Smoking Status Start Date Stop Date Source Never Smoker [facility] Medications Ordered Filled Start Stop Current Ordering Indication Dosage Frequency Signature Comments Components Source Medication Medication Date Date Medication? Clinician (SIG) Name Name Kaylene Patel Asprin Ec No 1 Q1D Kaylene Ec [facility] Low Dose 81 Low Dose 81 Low Dose Family mg mg 81 mg Practic tablet,luis tablet,luis tablet,del e yed release yed release ayed Take 1 Take 1 release tablet tablet Take 1 every day every day tablet by oral by oral every day route. route. by oral route. atorvastati atorvastati No 1 Q1D atorvastat [facility] n 20 mg n 20 mg in 20 mg Famil y tablet Take tablet Take tablet Practic 1 tablet 1 tablet Take 1 e every day every day tablet by oral by oral every day route at route at by oral bedtime for bedtime for route at 30 days. 30 days. bedtime for 30 days. clopidogrel clopidogrel No 1 Q1D clopidogre [facility] 75 mg 75 mg l 75 mg Family tablet Take tablet Take tablet Practic 1 tablet 1 tablet Take 1 e every day every day tablet by oral by oral every day route. route. by oral route. hydralazine hydralazine No 1 QID hydralazin [facility] 50 mg 50 mg e 50 mg Family tablet Take tablet Take tablet Practic 1 tablet 4 1 tablet 4 Take 1 e times a day times a day tablet 4 by oral by oral times a route. route. day by oral route. hydrochloro hydrochloro No 1 Q1D hydrochlor [facility] thiazide 50 thiazide 50 othiazide Family mg tablet mg tablet 50 mg Prac tic Take 1 Take 1 tablet e tablet tablet Take 1 every day every day tablet by oral by oral every day route. route. by oral route. levetiracet levetiracet No 1 Q12H levetirace [facility] am 1,000 mg am 1,000 mg de oliveira 1,000 Family tablet Take tablet Take mg tablet Practic 1 tablet 1 tablet Take 1 e every 12 every 12 tablet hours by hours by every 12 oral route. oral route. hours by oral route. metformin metformin No 1 BID metformin [facility] 500 mg 500 mg 500 mg Family tablet Take tablet Take tablet Practic 1 tablet 1 tablet Take 1 e twice a day twice a day tablet by oral by oral twice a route. route. day by oral route. metoprolol metoprolol No 1capsul Q1D metoprolol [facility] succinate succinate e(s) succinate Family ER 200 [...] route. nifedipine nifedipine No 1 Q1D nifedipine [facility] ER 60 mg ER 60 mg ER 60 mg Fam mayda tablet,exte tablet,exte tablet,ext Pract[facility] nded nded ended e release release release Take 1 Take 1 Take 1 tablet tablet tablet every day every day every day by oral by oral by oral route. route. route. Vital Signs Vital Name Observation Time Observation Value Comments Source BP Diastolic 2020-09-08 00:00:00 78 mm[Hg] [facility] Height 2020-09-08 00:00:00 62 [in_i] [facility] BMI (Body Mass 2020-09-08 00:00:00 22.1 kg/m2 [facility]) Practice BP Systolic 2020-09-08 00:00:00 134 mm[Hg] [facility] Body Weight 2020-09-08 00:00:00 121 [lb_av] [facility] Height 2020-06-07 00:00:00 62 [in_i] [facility] BMI (Body Mass 2020-06-07 00:00:00 23.8 kg/m2 [facility]) Practice Body Weight 2020-06-07 00:00:00 130 [lb_av] [facility] Procedures Procedure Date / Time Performed Performing Clinician Sourc e Placement of Stent [facility] Practice Screening Colonoscopy [facility] Screening Mammography [facility] Knee Replacement [facility] Plan of Care Planned Activity Planned Date Details Comments Source Instructions [facility] Encounters Start End Encounter Admission Attending Care Care Encounter Source Date/Time Date/Time Type Type Clinicians Facility Department ID 2021-04-11 Outpatient Miller_S_AH [facility] [id number] [facility] 06:07:30 [id number] [facility] 2021-04-10 Outpatient Ige-Odunuga [facility] VFP [id number] [facility] 20:06:38 _J_AH [id number] Family Practic e 2021-04-10 Outpatient Ajibade_O_A [facility] VFP [id number] [facility] 12:19:36 H [id number] Family Practic e 2021-04-09 Outpatient Ajibade_O_A [facility]FP [id number] [facility] 14:35:06 H [id number] Family Practic e 2021-04-09 Outpatient Ajibade_O_A [facility] VFP [id number] [facility] 11:34:10 H [id number] Family Practic e 2021-04-09 Outpatient Ajibade_O_A [facility] VFP [id number] [facility] 08:31:44 H [id number] Family Practic e 2021-04-09 Outpatient Ajibade_O_A [facility]FP [id number] [facility] 06:37:34 H [id number] Family Practic e 2021-04-08 Outpatient Ajibade_O_A [facility]FP [id number] [facility] 17:08:39 H [id number] Family Practic e 2021-04-08 Outpatient Ajibade_O_A [facility] [id number] [facility] 16:00:39 H [id number] Family Practic e 2020-09-08 2020-09-08 [place] [facility] [place] - [id number] [facility] 00:00:00 00:00:00 Chandana Gould Famil y NAIL KEGGER: [id number] [place], [email or web address] [facility], [facility] [id number] , Ph. 2020-06-07 2020-06-07 iana [facility] [place] - [id number] [facility] 00:00:00 00:00:00 Chandana Gould Famil y NAIL KEGGER: [id number] [facility] [address] [place], [email or web address] [facility], [facility] [id number] , Ph. Results This patient has no known results.
[2021-04-21] MEDS ORDERED: LIDOCAINE 1% MPF 5 ML VIAL ONE (10:02)
[2021-04-21] MEDS ORDERED: ACETAMINOPHEN 325 MG TABLET ONE (10:03)
[2021-04-21] MEDS ORDERED: LIDOCAINE 1% 20 ML MDV ONE (10:03)
[2021-04-21] MEDS ORDERED: TETANUS & DIPHTHERIA TOX,ADULT 0.5 ML VIAL ONE (10:04)
--- NOTE | 2021-04-21 10:41 | RAD REPORT ---
EXAM DESCRIPTION: RAD - Finger-Thumb Right - 04/21/2021 10:09 am CLINICAL HISTORY: Finger laceration FINDINGS: No fracture or dislocation seen. A radiopaque foreign body is not visualized
--- NOTE | 2021-04-21 11:12 | EDPHYS ---
Physician Documentation [facility] Name: Aditi Arreola Age: 80 yrs Sex: Female : 1940 Arrival Date: 04/21/2021 Time: 09:48 Bed 6 Private MD: Ryan Infante R ED Physician Gillian Kraft HPI: 04/21 10:00 This 80 yrs old Female presents to ER via Ambulatory with complaints of Thumb cp Laceration. 10:00 The patient or guardian reports a laceration, irregular. cp 10:00 The complaints affect the ulna side of proximal phalanx right thumb. Context: The cp problem was sustained at home, resulted from broken glass. Onset: The symptoms/episode began/occurred just prior to arrival. Associated signs and symptoms: Pertinent negatives: cyanosis distally, decreased sensation distally, heavy bleeding. Historical: - Allergies: 09:59 Codeine; vg1 09:59 Morphine; vg1 - Home Meds: 09:59 aspirin 81 mg Oral TbEC 1 tab once daily [Active]; clopidogrel 75 mg Oral tab 1 tab vg1 once daily [Active]; hydralazine 50 mg Oral tab 1 tab 4 times per day [Active]; hydrochlorothiazide 25 mg Oral tab 1 tab once daily [Active]; levetiracetam 500 mg Oral tab 1 tab 2 times per day [Active]; metformin 500 mg Oral tab 1 tab 2 times per day [Active]; metoprolol succinate 100 mg Oral Tb24 1 tab once daily [Active]; - PMHx: 09:59 a-fib; Diabetes - NIDDM; Hypertension; vg1 - PSHx: 09:59 cardiac stent; Cholecystectomy; Left knee sx; vg1 - Immunization history:: Client reports having NOT received the Covid vaccine. Last tetanus immunization: unknown. - Social history:: Smoking status: Patient denies any tobacco usage or history of. ROS: 10:05 Skin: Positive for laceration(s), of the ulna side of proximal phalanx right thumb. cp 10:05 Constitutional: Negative for fever. cp Exam: 10:10 Constitutional: The patient appears in no acute distress, alert, awake, comfortable, cp well developed, well nourished. 10:10 Head/Face: Normocephalic, atraumatic. cp 10:10 Cardiovascular: Rate: normal. 10:10 Respiratory: the patient does not display signs of respiratory distress, Respirations: normal, no use of accessory muscles, no retractions. 10:10 Musculoskeletal/extremity: no signs of flexor and/or extensor tendon injury to right thumb, sensation intact, full active ROM of right thumb. 10:10 Skin: injury, laceration(s), of the ulna side proximal phalanx right thumb, that can be described as clean, no foreign body, linear, with mild bleeding. Vital Signs: 09:57 BP 188 / 90; Pulse 78; Resp 16; Temp 99.1; Pulse Ox 100% ; Weight 58.06 kg; Height 5 vg1 ft. 0 in. (152.40 cm); Pain 3/10; 11:39 BP 152 / 82; Pulse 82; Resp 16; Pulse Ox 100% on R/A; kd3 09:57 Body Mass Index 25.00 (58.06 kg, 152.40 cm) vg1 Laceration: 11:08 Wound Repair of 3.5cm ( 1.4in ) subcutaneous laceration to ulna side proximal phalanx cp right thumb. Skin/tissue flap noted.. Distal neuro/vascular/tendon intact. Anesthesia: Wound infiltrated with 5 mls of 1% lidocaine. Wound prep: Moderate cleansing by me, Wound irrigation by me. Skin closed with 5 4-0 Prolene using interrupted sutures and sterile technique. Dressed with Bacitracin, 4x4's. Patient tolerated well. MDM: 09:59 Patient medically screened. cp 10:25 Test interpretation: by ED physician or midlevel provider: xrays of right thumb cp negative for fracture. 11:12 Data reviewed: vital signs, nurses notes, radiologic studies, plain films. cp 11:12 Response to treatment: the patient's symptoms have markedly improved after treatment, cp and as a result, I will discharge patient. 04/21 09:58 Order name: XRAY Finger-Thumb RIGHT; Complete Time: 10:42 cp 04/21 09:58 Order name: Dressing - Wound; Complete Time: 10:35 cp 04/21 09:58 Order name: Gloves, Sterile; Complete Time: 10:35 cp 04/21 09:58 Order name: Setup Suture Tray; Complete Time: 10:35 cp 04/21 11:07 Order name: Thumb Spica Splint cp 04/21 11:07 Order name: Wound dressing cp Administered Medications: 10:15 Drug: Tetanus-Diphtheria Toxoid Adult 0.5 ml {Traffic Workforce Representative: [employer]. Exp: kd3 10/08/2022. Lot #: [id number]. } Route: IM; Site: right deltoid; 11:40 Follow up: Response: No adverse reaction kd3 10:17 Drug: Tylenol 650 mg Route: PO; kd3 11:40 Follow up: Response: No adverse reaction kd3 10:30 Drug: Lidocaine (1 %) 5 ml {Note: AT B/S FOR PROVIDER.} Volume: 20 ml; Route: bp Infiltration; 11:40 Follow up: Response: No adverse reaction kd3 Disposition: 11:20 Chart complete. cp Disposition Summary: 04/21/21 11:12 Discharge Ordered Location: Home cp Problem: new cp Symptoms: have improved cp Condition: Stable cp Diagnosis - Laceration without foreign body of right thumb without damage to nail, initial cp encounter Followup: cp - With: Private Physician - When: 10 - 14 days - Reason: Staple/Suture removal Discharge Instructions: - Discharge Summary Sheet cp - Laceration Care, Adult cp - Sutured Wound Care cp Forms: - Medication Reconciliation Form cp - Thank You Letter cp - Antibiotic Education cp - Prescription Opioid Use cp Signatures: Dispatcher [employer] EDMS Jacek Morales PA PA cp Peltier, Brian, RN RN Charis Trotter RN RN vg1 Jocelyn Flower, RN RN kd3
--- NOTE | 2021-04-21 11:12 | ER ---
Nurse's Notes [facility] Name: Aditi Arreola Age: 80 yrs Sex: Female : 1940 Arrival Date: 04/21/2021 Time: 09:48 Bed 6 Private MD: Ryan Infante R Diagnosis: Laceration without foreign body of right thumb without damage to nail, initial encounter Presentation: 04/21 09:57 Chief complaint: Patient states: Pt was washing dishes when a glass broke and cut pt vg1 Right thumb. Pt states is on a "blood thinner", uncertain of exact name. Coronavirus screen: Vaccine status: Patient reports being unvaccinated. Client denies travel out of the [place] in the last 14 days. Ebola Screen: Patient negative for fever greater than or equal to 101.5 degrees Fahrenheit, and additional compatible Ebola Virus Disease symptoms. Initial Sepsis Screen: Does the patient meet any 2 criteria? No. Patient's initial sepsis screen is negative. Does the patient have a suspected source of infection? No. Patient's initial sepsis screen is negative. Risk Assessment: Do you want to hurt yourself or someone else? Patient reports no desire to harm self or others. Onset of symptoms was April 21, 2021. 09:57 Method Of Arrival: Ambulatory vg1 09:57 Acuity: LUIS ARMANDO 4 vg1 Triage Assessment: 09:59 General: Appears in no apparent distress. uncomfortable, Behavior is calm, cooperative. vg1 Pain: Complains of pain in palmar aspect of proximal phalanx of right thumb Pain currently is 3 out of 10 on a pain scale. Historical: - Allergies: 09:59 Codeine; vg1 09:59 Morphine; vg1 - Home Meds: 09:59 aspirin 81 mg Oral TbEC 1 tab once daily [Active]; clopidogrel 75 mg Oral tab 1 tab vg1 once daily [Active]; hydralazine 50 mg Oral tab 1 tab 4 times per day [Active]; hydrochlorothiazide 25 mg Oral tab 1 tab once daily [Active]; levetiracetam 500 mg Oral tab 1 tab 2 times per day [Active]; metformin 500 mg Oral tab 1 tab 2 times per day [Active]; metoprolol succinate 100 mg Oral Tb24 1 tab once daily [Active]; - PMHx: 09:59 a-fib; Diabetes - NIDDM; Hypertension; vg1 - PSHx: 09:59 cardiac stent; Cholecystectomy; Left knee sx; vg1 - Immunization history:: Client reports having NOT received the Covid vaccine. Last tetanus immunization: unknown. - Social history:: Smoking status: Patient denies any tobacco usage or history of. Screenin:37 Abuse screen: Denies threats or abuse. Denies injuries from another. Nutritional kd3 screening: No deficits noted. Tuberculosis screening: No symptoms or risk factors identified. Fall Risk None identified. Vital Signs: 09:57 BP 188 / 90; Pulse 78; Resp 16; Temp 99.1; Pulse Ox 100% ; Weight 58.06 kg; Height 5 vg1 ft. 0 in. (152.40 cm); Pain 3/10; 11:39 BP 152 / 82; Pulse 82; Resp 16; Pulse Ox 100% on R/A; kd3 09:57 Body Mass Index 25.00 (58.06 kg, 152.40 cm) vg1 ED Course: 09:48 Patient arrived in ED. mr 09:49 Ryan Infante MD is Private Physician. mr 09:50 Jacek Morales PA is PHCP. cp 09:50 Gillian Kraft MD is Attending Physician. cp 09:56 Jocelyn Flower, KYLAH is Primary Nurse. kd3 09:59 Triage completed. vg1 09:59 Arm band placed on. vg1 10:09 XRAY Finger-Thumb RIGHT In Process Unspecified. EDMS 11:37 Patient has correct armband on for positive identification. Bed in low position. Call kd3 light in reach. Side rails up X2. 11:37 Assist provider with laceration repair on palmar aspect of proximal phalanx of right kd3 thumb that was 2.5 cm. or less using sutures. Set up tray. Performed by Ryan Infante MD Dressed with 4X4s, Patient tolerated well. Patient did not have IV access during this emergency room visit. Administered Medications: 10:15 Drug: Tetanus-Diphtheria Toxoid Adult 0.5 ml {President Educational Institution: [employer]. Exp: kd3 10/08/2022. Lot #: [id number]. } Route: IM; Site: right deltoid; 11:40 Follow up: Response: No adverse reaction kd3 10:17 Drug: Tylenol 650 mg Route: PO; kd3 11:40 Follow up: Response: No adverse reaction kd3 10:30 Drug: Lidocaine (1 %) 5 ml {Note: AT B/S FOR PROVIDER.} Volume: 20 ml; Route: bp Infiltration; 11:40 Follow up: Response: No adverse reaction kd3 Outcome: 11:12 Discharge ordered by . qing 11:37 Discharged to home ambulatory, with family. kd3 11:37 Condition: stable 11:37 Discharge instructions given to patient, family, Instructed on discharge instructions, follow up and referral plans. Demonstrated understanding of instructions, follow-up care. 11:40 Patient left the ED. kd3 Signatures: Dispatcher [employer] EDMS Yun Kelly mr Jacek Morales PA PA cp Peltier, Brian, Charis Thomas RN, RN RN vg1 Jocelyn Flower RN RN kd3
[2021-04-21 11:47] VITALS: TEMP 99.1; O2SAT 100
[2021-04-21 11:48] VITALS: BP 152/82
== END 2021-04-21 11:40 | disposition home or self-care (01) ==
LOC: ER 09:46
PROC: 0JQJ0ZZ Repair Right Hand Subcutaneous Tissue and Fascia, Open Approach (ICD-10-PCS; principal; 2021-04-21)
DX: S61.011A Laceration without foreign body of right thumb without damage to nail, initial encounter (principal); W25.XXXA Contact with sharp glass, initial encounter; Y92.009 Unspecified place in unspecified non-institutional (private) residence as the place of occurrence of the external cause; I10 Essential (primary) hypertension; E11.9 Type 2 diabetes mellitus without complications; I48.91 Unspecified atrial fibrillation; Z23 Encounter for immunization; Z79.82 Long term (current) use of aspirin; Z88.5 Allergy status to narcotic agent; Z95.818 Presence of other cardiac implants and grafts
CPT/HCPCS: 90471; 90714; 99283

== ENCOUNTER 2021-05-01 13:49 | Emergency (ER) | payer OTHER ==
--- OUTSIDE RECORDS SUMMARY | 2021-05-01 13:51 | XMS REPORT | Continuity of Care Document ---
:1940 Author Organization [facility] t Address [address] [place] [id number] Care Team Providers Name Role Phone Miller_S_AH Attending Clinician Unavailable Ajibade_O_AH Attending Clinician Unavailable Ige-Oduncaitlin_J_AH Attending Clinician Unavailable Miller_S_AH Admitting Clinician Unavailable Ajibade_O_AH Admitting Clinician Unavailable Ige-Odunuga_J_AH Admitting Clinician Unavailable Payers Payer Name Policy Type Policy Number Effective Date Expiration Date S lashawn [facility] [place] - [id number] 2019 [employer] 00:00:00 (MEDICARE REPLACEMENT/ADVANT AGE - HMO) Problems Condition Condition Condition Status Onset Resolution Last Treating Co mments Source Name Details Category Date Date Treatment Clinician Date 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 4-14 Family 00:00: Practic 00 [...] Heart failure Failure Mixed Mixed Problem Active [facility] hyperlipid Hyperlipid 1-12 Fa vijaya emia due emia Due 00:00: Practi c to type 2 to Type 2 00 e diabetes Diabetes mellitus Mellitus Complicati Complicati Problem Active [facility] due to on Due to 06-07 Fami ly diabetes Diabetes 00:00: Practi c mellitus Mellitus 00 e Neuropathy Neuropathy Problem Active [facility] -11 Family 00:00: Practic 00 e Coronary Coronary Problem Active [facility] Arterioscl 1-11 [place] erosis erosis 00:00: Practic 00 e 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 Social History Smoking Status Start Date Stop Date Source Never Smoker [facility] Family P ractice Medications Ordered Filled Start Stop Current Ordering Indication Dosage Frequency Signature Comments Components Source Medication Medication Date Date Medication? Clinician (SIG) Name Name Kaylene Patel Asprin Ec No 1 Q1D Kaylene Patel [facility] Low Dose 81 Low Dose 81 Low Dose Family mg mg 81 mg Practic tablet,luis tablet,luis tablet,del e yed release yed release ayed Take 1 Take 1 release tablet tablet Take 1 every day every day tablet by oral by oral every day route. route. by oral route. atorvastati atorvastati No 1 Q1D atorvastat [facility] n 20 mg n 20 mg in 20 mg Famil y tablet Take tablet Take tablet Practic 1 tablet 1 tablet Take 1 e every day every day tablet by oral by oral every day route at route at by oral bedtime for bedtime for route at 30 days. 30 days. bedtime for 30 days. clopidogrel clopidogrel No 1 Q1D clopidogre [facility] 75 mg 75 mg l 75 mg Family tablet Take tablet Take tablet Practic 1 tablet 1 tablet Take 1 e every day every day tablet by oral by oral every day route. route. by oral route. hydralazine hydralazine No 1 QID hydralazin [facility] 50 mg 50 mg e 50 mg Family tablet Take tablet Take tablet Practic 1 tablet 4 1 tablet 4 Take 1 e times a day times a day tablet 4 by oral by oral times a route. route. day by oral route. hydrochloro hydrochloro No 1 Q1D hydrochlor [facility] thiazide 50 thiazide 50 othiazide Family mg tablet mg tablet 50 mg Prac tic Take 1 Take 1 tablet e tablet tablet Take 1 every day every day tablet by oral by oral every day route. route. by oral route. levetiracet levetiracet No 1 Q12H levetirace [facility] am 1,000 mg am 1,000 mg de oliveira 1,000 Family tablet Take tablet Take mg tablet Practic 1 tablet 1 tablet Take 1 e every 12 every 12 tablet hours by hours by every 12 oral route. oral route. hours by oral route. metformin metformin No 1 BID metformin [facility] 500 mg 500 mg 500 mg Family tablet Take tablet Take tablet Practic 1 tablet 1 tablet Take 1 e twice a day twice a day tablet by oral by oral twice a route. route. day by oral route. metoprolol metoprolol No 1capsul Q1D metoprolol [facility] succinate succinate e(s) succinate Family ER 200 [...] route. nifedipine nifedipine No 1 Q1D nifedipine [facility] ER 60 mg ER 60 mg ER 60 mg Fam mayda tablet,exte tablet,exte tablet,ext Practic nded nded ended e release release release Take 1 Take 1 Take 1 tablet tablet tablet every day every day every day by oral by oral by oral route. route. route. Vital Signs Vital Name Observation Time Observation Value Comments Source BP Diastolic 2020-09-08 00:00:00 78 mm[Hg] [facility] Height 2020-09-08 00:00:00 62 [in_i] [facility] BMI (Body Mass 2020-09-08 00:00:00 22.1 kg/m2 [facility] Family Index) Practice BP Systolic 2020-09-08 00:00:00 134 mm[Hg] [facility] Body Weight 2020-09-08 00:00:00 121 [lb_av] [facility] Height 2020-06-07 00:00:00 62 [in_i] [facility] BMI (Body Mass 2020-06-07 00:00:00 23.8 kg/m2 [facility] Family Index) Practice Body Weight 2020-06-07 00:00:00 130 [lb_av] [facility] Procedures Procedure Date / Time Performed Performing Clinician Sour e Placement of Stent [facility] Practice Screening Colonoscopy [facility] Screening Mammography [facility] Knee [facility] Plan of Care Planned Activity Planned Date Details Comments Source Instructions [facility] Family Practice Encounters Start End Encounter Admission Attending Care Care Encounter Source Date/Time Date/Time Type Type Clinicians Facility Department ID 2020-11-15 2020-11-15 Outpatient Miller_S_AH VFP VFP [id number] [facility] 05:51:00 05:51:00 [id number] Family Practic e 2020-09-16 2020-09-16 Outpatient Ajibade_O_A VFP VFP [id number] [facility] 04:16:00 04:16:00 H [id number] Family Practic e 2020-09-16 2020-09-16 Outpatient Ajibade_O_A VFP VFP [id number] [facility] 04:16:00 04:16:00 H [id number] Family Practic e 2020-09-13 2020-09-13 Outpatient Ajibade_O_A VFP VFP [id number] [facility] 04:30:00 04:30:00 H [id number] Family Practic e 2020-09-10 2020-09-10 Outpatient Ajibade_O_A VFP VFP [id number] [facility] 02:15:00 02:15:00 H [id number] Family Practic e 2020-09-08 2020-09-08 Outpatient Ajibade_O_A VFP VFP [id number] [facility] 02:23:00 02:23:00 H [id number] Family Practic e 2020-09-08 2020-09-08 [facility]FP - [id number] [facility] 00:00:00 00:00:00 Lammónica Chandana Famil y TOPOGRAPHIC COMPUTATOR: [id number] Medical - Pract CHELE [email or web address] e [address] [id number] , Ph. 2020-06-18 2020-06-18 Outpatient Ajibade_O_A VFP VFP [id number] [facility] 01:01:00 01:01:00 H [id number] Family Practic e 2020-06-07 2020-06-07 Outpatient Ajibade_O_A VFP VFP [id number] [facility] 01:32:00 01:32:00 H [id number] Family Practic e 2020-06-07 2020-06-07 [place] VFP [place] - [id number] [facility] 00:00:00 00:00:00 Chandana Gould Famil y TOPOGRAPHIC COMPUTATOR: [id number] Medical - Pract vitaliy [place], [email or web address] e [place] [address], [facility] [place], [place] [address] , Ph. 2019-07-16 2019-07-16 Outpatient [facility] [id number] [facility] 07:16:00 07:16:00 _J_ [id number] Family Practic e Results This patient has no known results.
--- NOTE | 2021-05-01 14:06 | EDPHYS ---
Physician Documentation [facility] Name: Aditi Arreola Age: 80 yrs Sex: Female : 1940 Arrival Date: 05/01/2021 Time: 13:49 Bed Waiting Private MD: ED Physician Gabriel Medina HPI: 05/01 15:07 This 80 yrs old Female presents to ER via Ambulatory with complaints of Suture kb Removal. 15:07 The patient has sutures on the palmar aspect of proximal phalanx of right thumb. kb Previous treatment: The patient was initially treated on April 21, 2021, the care was rendered at [facility], Treatment type: The patient's original treatment included sutures. Sutures/john progress: The patient has no c/o's. The wound is well-healing with no redness, swelling, discharge, or dehiscence reported. The patient has not experienced similar symptoms in the past. The patient has not recently seen a physician. Historical: - Allergies: 14:03 Codeine; vg1 14:03 Morphine; vg1 - PMHx: 14:03 a-fib; Hypertension; Diabetes - NIDDM; vg1 ROS: 15:06 Constitutional: Negative for fever, chills, and weight loss. kb 15:06 Skin: Positive for sutures in place. 15:06 All other systems are negative. Exam: 15:06 Constitutional: This is a well developed, well nourished patient who is awake, alert, kb and in no acute distress. Head/Face: Normocephalic, atraumatic. ENT: Moist Mucous membranes Respiratory: Respirations even and unlabored. No increased work of breathing, no retractions or nasal flaring. MS/ Extremity: Pulses equal, no cyanosis. Neurovascular intact. Full, normal range of motion. Neuro: Awake and alert, GCS 15, oriented to person, place, time, and situation. Moves all extremities. Normal gait. Psych: Awake, alert, with orientation to person, place and time. Behavior, mood, and affect are within normal limits. 15:06 Skin: Wound recheck: Suture laceration closure: the wound is healing well, the edges are well approximated, no evidence of dehiscence, no drainage, no erythema, no swelling. Vital Signs: 14:04 Pulse 67; Resp 16; Temp 97.7; Pulse Ox 100% ; vg1 Procedures: 15:07 Suture/Staple removal: Removed 5 sutures, from palmar aspect of proximal phalanx of kb right thumb, site appears well healed, Patient tolerated well. MDM: 14:05 Patient medically screened. kb 15:05 Data reviewed: vital signs, nurses notes. Data interpreted: Pulse oximetry: on room air kb is 100 %. Interpretation: normal. Counseling: I had a detailed discussion with the patient and/or guardian regarding: the historical points, exam findings, and any diagnostic results supporting the discharge/admit diagnosis, the need for outpatient follow up, a family practitioner, to return to the emergency department if symptoms worsen or persist or if there are any questions or concerns that arise at home. Administered Medications: No medications were administered Disposition: 15:27 Co-signature as Attending Physician, Gabriel Medina MD I agree with the assessment and rn plan of care. Attestation: The patient's history, exam findings, diagnostics, and a summary of any interventions or procedures was reviewed in detail with Mala STEVENS. Disposition Summary: 05/01/21 14:05 Discharge Ordered Location: Home kb Condition: Stable kb Diagnosis - Encounter for removal of sutures kb Followup: kb - With: Emergency Department - When: As needed - Reason: Worsening of condition Followup: kb - With: Private Physician - When: 2 - 3 days - Reason: Recheck today's complaints, Continuance of care, Re-evaluation by your physician Discharge Instructions: - Discharge Summary Sheet kb - Suture Removal, Care After kb Forms: - Medication Reconciliation Form kb - Thank You Letter kb - Antibiotic Education kb - Prescription Opioid Use kb Signatures: Mala Herbert FNP-C FNP-Gabriel Hill MD MD rn Charis Montalvo, RN RN vg1
--- NOTE | 2021-05-01 14:06 | ER ---
Nurse's Notes [facility] Name: Aditi Arreola Age: 80 yrs Sex: Female : 1940 Arrival Date: 05/01/2021 Time: 13:49 Bed Waiting Private MD: Diagnosis: Encounter for removal of sutures Presentation: 05/01 14:02 Chief complaint: Patient states: Suture removal from 04/21/21. Coronavirus screen: vg1 Vaccine status:. Risk Assessment: Do you want to hurt yourself or someone else? Patient reports no desire to harm self or others. Onset of symptoms was April 21, 2021. 14:02 Method Of Arrival: Ambulatory vg1 14:02 Acuity: LUIS ARMANDO 5 vg1 Triage Assessment: 14:03 General: Appears in no apparent distress. comfortable, Behavior is calm, cooperative. vg1 Pain: Denies pain. Historical: - Allergies: 14:03 Codeine; vg1 14:03 Morphine; vg1 - PMHx: 14:03 a-fib; Hypertension; Diabetes - NIDDM; vg1 Screenin:08 Abuse screen: Denies threats or abuse. Nutritional screening: No deficits noted. vg1 Tuberculosis screening: No symptoms or risk factors identified. Fall Risk None identified. Vital Signs: 14:04 Pulse 67; Resp 16; Temp 97.7; Pulse Ox 100% ; vg1 ED Course: 13:49 Patient arrived in ED. as 14:03 Triage completed. vg1 14:03 Arm band placed on. vg1 14:05 Mala Herbert FNP-C [facility] kb 14:05 Gabriel Medina MD is Attending Physician. kb 14:08 No provider procedures requiring assistance completed. Patient did not have IV access vg1 during this emergency room visit. Administered Medications: No medications were administered Outcome: 14:05 Discharge ordered by . kb 14:08 Discharged to home ambulatory, with family. vg1 14:08 Condition: stable 14:08 Discharge instructions given to patient, Instructed on discharge instructions, follow up and referral plans. Demonstrated understanding of instructions, follow-up care. 14:08 No charge visit due to suture removal. 14:08 Patient left the ED. vg1 Signatures: Mala Herbert FNP-C FNP-Ckb Martinez, Amelia as Garcia, Victoria, RN RN vg1
[2021-05-01 14:23] VITALS: TEMP 97.7; O2SAT 100
== END 2021-05-01 14:08 | disposition home or self-care (01) ==
LOC: ER 13:49
DX: Z48.02 Encounter for removal of sutures (principal)

== ENCOUNTER 2023-03-16 11:46 | Inpatient (IN) | payer OTHER ==
--- OUTSIDE RECORDS SUMMARY | 2023-03-16 11:51 | XMS REPORT | Continuity of Care Document ---
:1940 Author Organization [facility] t Address [address] [place] [address] [place] [id number] Care Team Providers Name Role Phone Bereket Diop Primary Care Physician Bereket Diop Attending Clinician Unavailable FOZIA CHOI Attending Clinician Unavailable Fozia Choi MD Attending Clinician Cheo Fry Attending Clinician Doctor Unassigned, [place] Attending Clinician Unavailable Miller_S_AH Attending Clinician Unavailable Ajibade_O_AH Attending Clinician Unavailable Ige-Odunuga_J_AH Attending Clinician Unavailable FOZIA CHOI Admitting Clinician Unavailable Miller_S_AH Admitting Clinician Unavailable Ajibade_O_AH Admitting Clinician Unavailable Ige-Odunuga_J_AH Admitting Clinician Unavailable Payers Payer Name Policy Type Policy Number Effective Date Expiration Date S [facility] [place] - [id number] [facility] (MEDICARE REPLACEMENT/ADVANT AGE - HMO) Problems Condition Condition Condition Status Onset Resolution Last Treating Co mments Source Name Details Category Date Date Treatment Clinician Date PAF PAF Disease Active Univers (paroxysma (paroxysma 5-30 it y of l atrial l atrial 00:00: [place] fibrillati fibrillati 00 Me dical on) on) Branch Coronary Coronary Disease Active Unive rs artery artery 5-17 ity of disease disease 00:00: [place] involving involving 00 Medi [place] coronary coronary artery of artery of [place] heart heart without without angina angina pectoris pectoris Primary Primary Disease Active 2023-0 Univers hypertensi hypertensi 5-17 it y of on on 00:00: [place] 00 Medical Branch Senile Senile Problem Active [place] purpura Purpura 4-14 Family 00:00: Practic 00 e Hemorrhagi Hemorrhagi Problem Active [facility] ill[facility] c disorder c Disorder 3-05 vijaya due to Due to 00:00: Practic circulatin Circulatin 00 e g g anticoagul Anticoagul ants ants Hypertensi Hypertensi Problem Active [facility] illage ve heart ve Heart 3-04 Family and renal and Renal 00:00: Prac tic disease Disease 00 e with with (congestiv (Congestiv e) heart e) Heart failure Failure Mixed Mixed Problem Active [facility] hyperlipid Hyperlipid 1-12 vijaya emia due emia Due 00:00: Practi c to type 2 to Type 2 00 e diabetes Diabetes mellitus Mellitus Complicati Complicati Problem Active [facility] illage on due to on Due to 1-11 Fami ly diabetes Diabetes 00:00: Practi c mellitus Mellitus 00 e Neuropathy Neuropathy Problem Active V illage 1-11 Family 00:00: Practic 00 e Coronary Coronary Problem Active [facility] arterioscl Arterioscl 1-11 [place] erosis erosis 00:00: Practic 00 e 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 00 e Chronic Chronic Problem Active [facility] kidney Kidney 1-28 Family disease Disease 00:00: Practic stage 3 Stage 3 00 e Chronic Chronic Problem Active [facility] congestive Congestive 1-06 vijaya heart Heart 00:00: Practic failure Failure 00 e Pain Pain Disease Active Univers 3-22 ity of 00:00: [place] 00 Medical Branch Essential Essential Problem Active 2023-03-11 Memoria hypertensi hypertensi 01-20 12:09:30 l on on 00:00: Marcos (disorder) (disorder) 00 Active 01/21/2016 Problem 03/11/2023 [facility] Type II Type II Problem Active 2023-03-11 [place] diabetes diabetes 01-20 12:09:30 l mellitus mellitus 00:00: Marquis n without without 00 complicati complicati on on (disorder) (disorder) Active 01/21/2016 Problem 03/11/2023 [facility] Amnesia Amnesia Problem Active 2023-03-11 Me moria (finding) (finding) 12:09:30 l Active [place]cos Problem 03/11/2023 [facility] Bilateral Bilateral Problem Active 2023-03-11 Memoria stenosis stenosis 12:09:30 l of carotid of carotid [place] arteries arteries Active Problem 03/11/2023 [facility] Diabetes Diabetes Problem Active 2023-03-11 Memoria mellitus mellitus 12:09:30 l (disorder) (disorder) He rmann Active Problem 03/11/2023 [facility] [place] Hyperlipid Problem Active 2023-03-11 M emoria emia Hyperlipid 12:09:30 l (disorder) emia Marquis n (disorder) Active Problem 03/11/2023 [facility] Hypertensi Problem Active 2023-03-11 M emoria ve Hypertensi 12:09:30 l disorder, ve [place] systemic disorder, arterial systemic (disorder) arterial (disorder) Active Problem 03/11/2023 [facility] Pain in Pain in Problem Active 2023-03-11 [place] moriterell face face 12:09:30 l (finding) (finding) Herm marco Active Problem 03/11/2023 [facility] 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 Her spangler (disorder) Active Problem 03/11/2023 [facility] Neuro,[facility] [place],[facility] Seizure Seizure Problem Active 2023-03-11 Me moria (finding) (finding) 12:09:30 l Active [place]cos Problem 03/11/2023 [facility] Dementia Dementia Problem Active 2023-03-11 Memoria (disorder) (disorder) 12:09:30 l Active [place] Problem 03/11/2023 [facility] Fracture Fracture Problem Active 2023-03-11 Memoria of ankle of ankle 12:09:30 l (disorder) (disorder) He rmann Active Problem 03/11/2023 [facility] Allergies, Adverse Reactions, Alerts Allergy Allergy Status Severity Reaction(s) Onset Inactive Treating Comm ents Source Name Type Date Date Clinician Codeine Propensi Active Nausea Univers ty to and/or 3-20 ity of adverse Vomiting 00:00: [place] reaction 00 Medical s to Branch drug CODEINE DRUG Active Med N/V Univers INGREDI 3-20 ity of 00:00: [place] 00 Medical Branch codeine codeine Active Mitchell Rodríguez LORazepa LORazepa Active Adalid Rodríguez Social History Social Habit Start Date Stop Date Quantity Comments Source Gender [facility] Sexual [facility] Alcohol intake 2022-12-15 2022-12-15 0 /d [facility] 00:00:00 00:00:00 Medical Branch History of Social 2022-12-15 2022-12-15 [facility] of [place] function 00:00:00 00:00:00 Medical Branch Exposure to 2022-10-14 2022-10-24 Not sure [facility] SARS-CoV-2 (event) 00:00:00 15:18:[facility] [place] Sex [facility]igned At [birth year] [facility] 00:00:00 00:00:00 Medical Branch Smoking Status Start Date Stop Date Source Tobacco smoking status [facility] Medications Ordered Filled Start Stop Current Ordering Indication Dosage Frequency Signature Comments Components Source Medication Medication Date Date Medication? Clinician (SIG) Name Name levETIRAcet 2022-05 Yes = 1 tab, Me moria am 750 mg 0-13 PO, BID, # l oral tablet 14:44: 60 tab, 4 H ermann 00 Refill(s), Pharmacy: [facility] #[id number], 149.86, cm, 03/08/23 13:57:00 CDT, Height, 63.636, kg, 03/08/23 13:57:00 CDT, Weight OXcarbazepi 2022-05 Yes = 1 tab, Me moria ne 300 mg 0-13 PO, BID, # l oral tablet 14:44: 60 tab, 4 H ermann 00 Refill(s), Pharmacy: [facility] #[id number], 149.86, cm, 03/08/23 13:57:00 CDT, Height, 63.636, kg, 03/08/23 13:57:00 CDT, Weight carvediloL 2022-05 Yes [id number] 12.5mg Take 1 Univers 12.5 mg 0-13 tablet by ity of tablet 00:00: mouth in [place] [address] the [facility] Branch and 1 tablet in the evening. Take with meals. Namend 5 2022-05 Yes 5 mg = 1 Kasi sony mg oral 0-10 tab, PO, l tablet 16:09: BID, # 180 Mary Alice nn 00 tab, 1 Refill(s), Pharmacy: [facility] #[id number], 149.86, cm, 12/14/22 13:21:00 CDT, Height, 63.182, kg, 12/14/22 13:21:00 CDT, Weight Sharon 5 0 Yes 5 mg = 1 Kasi sony mg oral 7-20 tab, PO, l tablet 18:48: BID, # 60 Marquis n 00 tab, 3 Refill(s), Pharmacy: [facility] #[id number], 149.86, cm, 12/14/22 13:21:00 CDT, Height, 63.182, kg, 12/14/22 13:21:00 CDT, Weight metoprolol Yes Univers tartrate 7-20 ity of 100 mg 00:00: [place] tablet 00 Medical Branch memantine 5 2022-0 Yes Univer s mg tablet 7-20 ity of 00:00: [facility] Branch metoprolol 2022-0 Yes Univers tartrate 7-20 ity of 100 mg 00:00: [place] tablet 00 Medical Branch memantine 5 2022-0 Yes Univer s mg tablet 7-20 ity of 00:00: [place] Medical [facility] memantine 5 2022-0 Yes Univer s mg tablet 7-20 ity of 00:00: [place] [facility] Branch metoprolol 2022-0 2022- No Univer s tartrate 7-20 10-13 ity of 100 mg 00:00: 00:00 [place] tablet 00 :00 Medical Branch OXcarbazepi 2022-0 Yes 300 mg = 1 Memoria ne 300 mg 6-22 tab, PO, l oral tablet 23:42: BID, # 60 H ermann 00 tab, 3 Refill(s), [facility][id number], 149.86, cm, 10/24/22 13:50:00 CDT, Height, 63.636, kg, 10/24/22 13:50:00 CDT, Weight levETIRAcet 2022-0 Yes 750 mg = 1 Memoria am 750 mg 6-22 tab, PO, l oral tablet 23:42: BID, # 60 H ermann 00 tab, 4 Refill(s), [id number], 149.86, cm, 10/24/22 13:50:00 CDT, Height, 63.636, kg, 10/24/22 13:50:00 CDT, Weight OXcarbazepi 2022-0 Yes 300 mg = 1 Memoria ne 300 mg 6-22 tab, PO, l oral tablet 23:42: BID, # 60 H ermann 00 tab, 3 Refill(s), [facility][id number], 149.86, cm, 10/24/22 13:50:00 CDT, Height, 63.636, kg, 10/24/22 13:50:00 CDT, Weight levETIRAcet 2022-0 Yes 750 mg = 1 Memoria am 750 mg 6-22 tab, PO, l oral tablet 23:42: BID, # 60 H ermann 00 tab, 4 Refill(s), [id number], 149.86, cm, 10/24/22 13:50:00 CDT, Height, 63.636, kg, 10/24/22 13:50:00 CDT, Weight QUEtiapine 2022-0 Yes TAKE 1 Unive rs 25 mg 5-18 TABLET BY ity of tablet 00:00: MOUTH 1 [place] 00 HOUR Medical BEFORE Branch MRI. MAY REPEAT EVERY 15 MINUTES. IF STILL ANXIOUS QUEtiapine 2022-0 Yes TAKE 1 Unive rs 25 mg 5-18 TABLET BY ity of tablet 00:00: MOUTH 1 [place] 00 HOUR Medical BEFORE Branch MRI. MAY REPEAT EVERY 15 MINUTES. IF STILL ANXIOUS QUEtiapine 2022-0 Yes TAKE 1 Unive rs 25 mg 5-18 TABLET BY ity of tablet 00:00: MOUTH 1 [place] 00 HOUR Medical BEFORE Branch MRI. MAY REPEAT EVERY 15 MINUTES. IF STILL ANXIOUS SEROquel 25 Yes See Memori a mg oral 5-17 Instructio l tablet 21:22: ns, Take 1 Mary Alice nn 00 tab po 1 hour prior to MRI, may repeat q 15 min. if still anxious, # 5 tab, 0 Refill(s), Pharmacy: [facility] #[id number], 149.86, cm, 08/08/22 9:15:00 CDT, Height, 60.966, kg, 08/08/22 9:15:00 CDT, Weight SEROquel 25 Yes See Memori a mg oral 5-17 Instructio l tablet 21:22: ns, Take 1 Mary Alice nn 00 tab po 1 hour prior to MRI, may repeat q 15 min. if still anxious, # 5 tab, 0 Refill(s), Pharmacy: [facility] #[id number], 149.86, cm, 08/08/22 9:15:00 CDT, Height, 60.966, kg, 08/08/22 9:15:00 CDT, Weight SEROquel 25 Yes See Memori a mg oral 5-17 Instructio l tablet 21:22: ns, Take 1 Mary Alice nn 00 tab po 1 hour prior to MRI, may repeat q 15 min. if still anxious, # 5 tab, 0 Refill(s), Pharmacy: [facility] #[id number], 149.86, cm, 08/08/22 9:15:00 CDT, Height, 60.966, kg, 08/08/22 9:15:00 CDT, Weight cloNIDine 2022- No [id number] .1mg Un aixa (CATAPRES) 10-11 ity of tablet 0.1 18:00: 16:58 [place] mg 00 :00 Medical Branch cloNIDine 2022- No [id number] .1mg 0.1 mg, Univers (CATAPRES) 10-11 Oral, ity of tablet 0.1 18:00: 16:58 ONCE, 1 Favio as mg 00 :00 dose, On Medical Wed Branch 10/11/22 at 1300, Routine cloNIDine 2022- No [id number] .1mg Un aixa (CATAPRES) 10-11 ity of tablet 0.1 18:00: 16:58 [place] mg 00 :00 [facility] cloNIDine 0 2022- No [id number] .1mg 0.1 mg, Univers (CATAPRES) 10-11 Oral, ity of tablet 0.1 18:00: 16:58 ONCE, 1 Favio as mg 00 :00 dose, On [facility] 10/11/22 at 1300, Routine cloNIDine 2022-2022- No [id number] .1mg Un aixa (CATAPRES) 10-11 ity of tablet 0.1 18:00: 16:58 [place] mg 00 :00 [facility] cloNIDine 2022- No [id number] .1mg 0.1 mg, Univers (CATAPRES) 10-11 Oral, ity of tablet 0.1 18:00: 16:58 ONCE, 1 Favio as mg 00 :00 dose, On [facility] 10/11/22 at 1300, Routine metFORMIN 3-0 Yes 500mg Take 1 Unive rs 500 mg 5-17 tablet by ity of tablet 11:31: mouth in [address] and 1 tablet in the evening. Take with meals. metFORMIN 2023-0 Yes 500mg Take 1 Unive rs 500 mg 5-17 tablet by ity of tablet 11:31: mouth in [address] and 1 tablet in the evening. Take with meals. metFORMIN 2023-0 Yes 500mg Take 1 Unive rs 500 mg 5-17 tablet by ity of tablet 11:31: mouth in [address] and 1 tablet in the evening. Take with meals. metFORMIN 2023-0 Yes 500mg Take 1 Unive rs 500 mg 5-17 tablet by ity of tablet 11:31: mouth in [address] and 1 tablet in the evening. Take with meals. metFORMIN 2023-0 Yes 500mg Take 1 Unive rs 500 mg 5-17 tablet by ity of tablet 11:31: mouth in [address] and 1 tablet in the evening. Take with meals. metFORMIN 2023-0 Yes 500mg Take 1 Unive rs 500 mg 5-17 tablet by ity of tablet 11:31: mouth in [address] and 1 tablet in the evening. Take with meals. metFORMIN 2023-0 Yes 500mg Take 1 Unive rs 500 mg 5-17 tablet by ity of tablet 11:31: mouth in [address] and 1 tablet in the evening. Take with meals. metFORMIN 2023-0 Yes 500mg Take 1 Unive rs 500 mg 5-17 tablet by ity of tablet 11:31: mouth in [address] and 1 tablet in the evening. Take with meals. metFORMIN 2023-0 Yes 500mg Take 1 Unive rs 500 mg 5-17 tablet by ity of tablet 11:31: mouth in [address] and 1 tablet in the evening. Take with meals. metFORMIN 2023-0 Yes 500mg Take 1 Unive rs 500 mg 5-17 tablet by ity of tablet 11:31: mouth in [address] and 1 tablet in the evening. Take with meals. metFORMIN 2023-0 Yes 500mg Take 1 Unive rs 500 mg 5-17 tablet by ity of tablet 11:31: mouth in [address] and 1 tablet in the evening. Take with meals. metFORMIN 2023-0 Yes 500mg Take 1 Unive rs 500 mg 5-17 tablet by ity of tablet 11:31: mouth in [address] and 1 tablet in the evening. Take with meals. metFORMIN 2023-0 Yes 500mg Take 1 Unive rs 500 mg 5-17 tablet by ity of tablet 11:31: mouth in [address] and 1 tablet in the evening. Take with meals. carvediloL 2023-0 Yes [id number] 12.5mg Take 1 Univers 12.5 mg 5-17 tablet by ity of tablet 00:00: mouth in [address] and 1 tablet in the evening. Take with meals. cloNIDine 2023-0 Yes [id number] .1mg Take 1 U nivers 0.1 mg 5-17 tablet by ity of tablet 00:00: mouth in [address] and 1 tablet in the evening. carvediloL 2023-0 Yes [id number] 12.5mg Take 1 Univers 12.5 mg 5-17 tablet by ity of tablet 00:00: mouth in [address] Medical morning Morse and 1 tablet in the evening. Take with meals. cloNIDine 2023-0 Yes [id number] .1mg Take 1 U nivers 0.1 mg 5-17 tablet by ity of tablet 00:00: mouth in [place] [address] the [facility] morning Morse and 1 tablet in the evening. carvediloL 2023-0 Yes [id number] 12.5mg Take 1 Univers 12.5 mg 5-17 tablet by ity of tablet 00:00: mouth in [address] morning Morse and 1 tablet in the evening. Take with meals. cloNIDine 2023-0 Yes [id number] .1mg Take 1 U nivers 0.1 mg 5-17 tablet by ity of tablet 00:00: mouth in [address] morning Morse and 1 tablet in the evening. carvediloL 2023-0 Yes [id number] 12.5mg Take 1 Univers 12.5 mg 5-17 tablet by ity of tablet 00:00: mouth in [address] morning Morse and 1 tablet in the evening. Take with meals. cloNIDine 3-0 Yes [id number] .1mg Take 1 U nivers 0.1 mg 5-17 tablet by ity of tablet 00:00: mouth in [address] morning Morse and 1 tablet in the evening. cloNIDine 2023-0 Yes [id number] .1mg Take 1 U nivers 0.1 mg 5-17 tablet by ity of tablet 00:00: mouth in [address] morning Morse and 1 tablet in the evening. cloNIDine 2023-0 Yes [id number] .1mg Take 1 U nivers 0.1 mg 5-17 tablet by ity of tablet 00:00: mouth in [address] morning Morse and 1 tablet in the evening. cloNIDine 2023-0 Yes [id number] .1mg Take 1 U nivers 0.1 mg 5-17 tablet by ity of tablet 00:00: mouth in [address] morning Morse and 1 tablet in the evening. cloNIDine 2023-0 Yes [id number] .1mg Take 1 U nivers 0.1 mg 5-17 tablet by ity of tablet 00:00: mouth in [address] morning Morse and 1 tablet in the evening. carvediloL 2023-0 Yes [id number] 12.5mg Take 1 Univers 12.5 mg 5-17 tablet by ity of tablet 00:00: mouth in [place] [address] the Medical morning Morse and 1 tablet in the evening. Take with meals. cloNIDine 3-0 Yes [id number] .1mg Take 1 U nivers 0.1 mg 5-17 tablet by ity of tablet 00:00: mouth in [place] [address] the [facility] morning Morse and 1 tablet in the evening. carvediloL 2022-0 Yes [id number] 12.5mg Take 1 Univers 12.5 mg 5-17 tablet by ity of tablet 00:00: mouth in [address] morning Morse and 1 tablet in the evening. Take with meals. cloNIDine 2022-0 Yes [id number] .1mg Take 1 U nivers 0.1 mg 5-17 tablet by ity of tablet 00:00: mouth in [address] morning Morse and 1 tablet in the evening. carvediloL 2022-0 Yes [id number] 12.5mg Take 1 Univers 12.5 mg 5-17 tablet by ity of tablet 00:00: mouth in [address] morning Morse and 1 tablet in the evening. Take with meals. cloNIDine 2022-0 Yes [id number] .1mg Take 1 U nivers 0.1 mg 5-17 tablet by ity of tablet 00:00: mouth in [address] morning Morse and 1 tablet in the evening. carvediloL 2022-0 Yes [id number] 12.5mg Take 1 Univers 12.5 mg 5-17 tablet by ity of tablet 00:00: mouth in [address] morning Morse and 1 tablet in the evening. Take with meals. cloNIDine 3-0 Yes [id number] .1mg Take 1 U nivers 0.1 mg 5-17 tablet by ity of tablet 00:00: mouth in [address] morning Morse and 1 tablet in the evening. carvediloL 3-0 2023- No [id number] 12.5mg Take 1 Univers 12.5 mg 5-17 07-21 tablet by ity of tablet 00:00: 00:00 mouth in [place] 00 :00 the [facility] morning Morse and 1 tablet in the evening. Take with meals. carvediloL 3-0 2023- No [id number] 12.5mg Take 1 Univers 12.5 mg 5-17 07-21 tablet by ity of tablet 00:00: 00:00 mouth in [place] 00 :00 the Medical morning Branch and 1 tablet in the evening. Take with meals. carvediloL 2022-0 3- No [id number] 12.5mg Take 1 Univers 12.5 mg 5-17 05-17 tablet by ity of tablet 00:00: 00:00 mouth in [place] 00 :00 the Medical morning Branch and 1 tablet in the evening. Take with meals. cloNIDine 2022-0 2022- No [id number] .1mg Take 1 Univers 0.1 mg 5-17 05-17 tablet by ity of tablet 00:00: 00:00 mouth in [place] 00 :00 the Medical morning Branch and 1 tablet in the evening. carvediloL 2022-0 2022- No [id number] 12.5mg Take 1 Univers 12.5 mg 5-17 05-17 tablet by ity of tablet 00:00: 00:00 mouth in [place] 00 :00 the Medical morning Branch and 1 tablet in the evening. Take with meals. cloNIDine 2022-0 2022- No [id number] .1mg Take 1 Univers 0.1 mg 5-17 05-17 tablet by ity of tablet 00:00: 00:00 mouth in [place] 00 :00 the Medical morning Branch and 1 tablet in the evening. hydrALAZINE 2023-0 Yes 50mg Take 1 Univ ers 50 mg 4-11 tablet by ity of tablet 00:00: mouth [place] [address] ([facility]) Medical times Branch daily. clopidogreL 2023-0 Yes 75mg Take 1 Univ ers 75 mg 4-11 tablet by ity of tablet 00:00: mouth in [place] 00 the Medical morning. Branch levETIRAcet 2023-0 Yes 500mg Take 1 Uni vers am 500 mg 4-11 tablet by ity o f tablet 00:00: mouth [place] 00 every 12 Medical (twelve) Branch hours. NIFEdipine 2023-0 Yes 60mg Take 1 Unive rs XL 60 mg 24 4-11 tablet by ity of hr tablet 00:00: mouth [place] 00 every Medical morning. Branch hydrALAZINE 2023-0 Yes 50mg Take 1 Univ ers 50 mg 4-11 tablet by ity of tablet 00:00: mouth 4 [place] [address] (four) Medical times Branch daily. clopidogreL 2023-0 Yes 75mg Take 1 Univ ers 75 mg 4-11 tablet by ity of tablet 00:00: mouth in [place] 00 the Medical morning. Branch levETIRAcet 2023-0 Yes 500mg Take 1 Uni vers am 500 mg 4-11 tablet by ity o f tablet 00:00: mouth [place] 00 every 12 Medical (twelve) Branch hours. NIFEdipine 2023-0 Yes 60mg Take 1 Unive rs XL 60 mg 24 4-11 tablet by ity of hr tablet 00:00: mouth [place] 00 every Medical morning. Branch hydrALAZINE 2023-0 Yes 50mg Take 1 Univ ers 50 mg 4-11 tablet by ity of tablet 00:00: mouth 4 00 (four) Medical times Branch daily. clopidogreL 2023-0 Yes 75mg Take 1 Univ ers 75 mg 4-11 tablet by ity of tablet 00:00: mouth in [place] 00 the Medical morning. Branch levETIRAcet 2023-0 Yes 500mg Take 1 Uni vers am 500 mg 4-11 tablet by ity o f tablet 00:00: mouth [place] 00 every 12 Medical (twelve) Branch hours. NIFEdipine 2023-0 Yes 60mg Take 1 Unive rs XL 60 mg 24 4-11 tablet by ity of hr tablet 00:00: mouth [place] 00 every Medical morning. Branch hydrALAZINE 2023-0 Yes 50mg Take 1 Univ ers 50 mg 4-11 tablet by ity of tablet 00:00: mouth 4 00 (four) Medical times Branch daily. clopidogreL 2023-0 Yes 75mg Take 1 Univ ers 75 mg 4-11 tablet by ity of tablet 00:00: mouth in [place] 00 the Medical morning. Branch levETIRAcet 2023-0 Yes 500mg Take 1 Uni vers am 500 mg 4-11 tablet by ity o f tablet 00:00: mouth [place] 00 every 12 Medical (twelve) Branch hours. NIFEdipine 2023-0 Yes 60mg Take 1 Unive rs XL 60 mg 24 4-11 tablet by ity of hr tablet 00:00: mouth [place] 00 every Medical morning. Branch hydrALAZINE 2023-0 Yes 50mg Take 1 Univ ers 50 mg 4-11 tablet by ity of tablet 00:00: mouth 4 [place] 00 (four) Medical times Branch daily. clopidogreL 2023-0 Yes 75mg Take 1 Univ ers 75 mg 4-11 tablet by ity of tablet 00:00: mouth in [place] 00 the Medical morning. Branch levETIRAcet 2023-0 Yes 500mg Take 1 Uni vers am 500 mg 4-11 tablet by ity o f tablet 00:00: mouth [place] 00 every 12 Medical (twelve) Branch hours. NIFEdipine 2023-0 Yes 60mg Take 1 Unive rs XL 60 mg 24 4-11 tablet by ity of hr tablet 00:00: mouth [place] 00 every Medical morning. Branch hydrALAZINE 2023-0 Yes 50mg Take 1 Univ ers 50 mg 4-11 tablet by ity of tablet 00:00: mouth 4 00 (four) Medical times Branch daily. clopidogreL 2023-0 Yes 75mg Take 1 Univ ers 75 mg 4-11 tablet by ity of tablet 00:00: mouth in [place] 00 the Medical morning. Branch levETIRAcet 2023-0 Yes 500mg Take 1 Uni vers am 500 mg 4-11 tablet by ity o f tablet 00:00: mouth [place] 00 every 12 Medical (twelve) Branch hours. NIFEdipine 2023-0 Yes 60mg Take 1 Unive rs XL 60 mg 24 4-11 tablet by ity of hr tablet 00:00: mouth [place] 00 every Medical morning. Branch hydrALAZINE 2023-0 Yes 50mg Take 1 Univ ers 50 mg 4-11 tablet by ity of tablet 00:00: mouth 4 00 (four) Medical times Branch daily. clopidogreL 2023-0 Yes 75mg Take 1 Univ ers 75 mg 4-11 tablet by ity of tablet 00:00: mouth in [place] 00 the Medical morning. Branch levETIRAcet 2023-0 Yes 500mg Take 1 Uni vers am 500 mg 4-11 tablet by ity o f tablet 00:00: mouth [place] 00 every 12 Medical (twelve) Branch hours. NIFEdipine 2023-0 Yes 60mg Take 1 Unive rs XL 60 mg 24 4-11 tablet by ity of hr tablet 00:00: mouth [place] 00 every Medical morning. Branch hydrALAZINE 2023-0 Yes 50mg Take 1 Univ ers 50 mg 4-11 tablet by ity of tablet 00:00: mouth 4 [place] 00 (four) Medical times Branch daily. clopidogreL 2023-0 Yes 75mg Take 1 Univ ers 75 mg 4-11 tablet by ity of tablet 00:00: mouth in [place] 00 the Medical morning. Branch levETIRAcet 2023-0 Yes 500mg Take 1 Uni vers am 500 mg 4-11 tablet by ity o f tablet 00:00: mouth [place] 00 every 12 Medical (twelve) Branch hours. NIFEdipine 2023-0 Yes 60mg Take 1 Unive rs XL 60 mg 24 4-11 tablet by ity of hr tablet 00:00: mouth [place] 00 every Medical morning. Branch hydrALAZINE 2023-0 Yes 50mg Take 1 Univ ers 50 mg 4-11 tablet by ity of tablet 00:00: mouth 4 00 (four) Medical times Branch daily. clopidogreL 2023-0 Yes 75mg Take 1 Univ ers 75 mg 4-11 tablet by ity of tablet 00:00: mouth in [place] 00 the Medical morning. Branch levETIRAcet 2023-0 Yes 500mg Take 1 Uni vers am 500 mg 4-11 tablet by ity o f tablet 00:00: mouth [place] 00 every 12 Medical (twelve) Branch hours. NIFEdipine 2023-0 Yes 60mg Take 1 Unive rs XL 60 mg 24 4-11 tablet by ity of hr tablet 00:00: mouth [place] 00 every Medical morning. Branch hydrALAZINE 2023-0 Yes 50mg Take 1 Univ ers 50 mg 4-11 tablet by ity of tablet 00:00: mouth (four) Medical times Branch daily. clopidogreL 2023-0 Yes 75mg Take 1 Univ ers 75 mg 4-11 tablet by ity of tablet 00:00: mouth in [place] 00 the Medical morning. Branch levETIRAcet 2023-0 Yes 500mg Take 1 Uni vers am 500 mg 4-11 tablet by ity o f tablet 00:00: mouth [place] 00 every 12 Medical (twelve) Branch hours. NIFEdipine 2023-0 Yes 60mg Take 1 Unive rs XL 60 mg 24 4-11 tablet by ity of hr tablet 00:00: mouth [place] 00 every Medical morning. Branch hydrALAZINE 2023-0 Yes 50mg Take 1 Univ ers 50 mg 4-11 tablet by ity of tablet 00:00: mouth 4 00 (four) Medical times Branch daily. clopidogreL 2023-0 Yes 75mg Take 1 Univ ers 75 mg 4-11 tablet by ity of tablet 00:00: mouth in [place] 00 the Medical morning. Branch levETIRAcet 2023-0 Yes 500mg Take 1 Uni vers am 500 mg 4-11 tablet by ity o f tablet 00:00: mouth [place] 00 every 12 Medical (twelve) Branch hours. NIFEdipine 2023-0 Yes 60mg Take 1 Unive rs XL 60 mg 24 4-11 tablet by ity of hr tablet 00:00: mouth [place] 00 every Medical morning. Branch hydrALAZINE 2023-0 Yes 50mg Take 1 Univ ers 50 mg 4-11 tablet by ity of tablet 00:00: mouth 4 00 (four) Medical times Branch daily. clopidogreL 2023-0 Yes 75mg Take 1 Univ ers 75 mg 4-11 tablet by ity of tablet 00:00: mouth in [place] 00 the Medical morning. Branch levETIRAcet 2023-0 Yes 500mg Take 1 Uni vers am 500 mg 4-11 tablet by ity o f tablet 00:00: mouth [place] 00 every 12 Medical (twelve) Branch hours. NIFEdipine 2023-0 Yes 60mg Take 1 Unive rs XL 60 mg 24 4-11 tablet by ity of hr tablet 00:00: mouth [place] 00 every Medical morning. Branch hydrALAZINE 2023-0 Yes 50mg Take 1 Univ ers 50 mg 4-11 tablet by ity of tablet 00:00: mouth 4 00 (four) Medical times Branch daily. clopidogreL 2023-0 Yes 75mg Take 1 Univ ers 75 mg 4-11 tablet by ity of tablet 00:00: mouth in [place] 00 the Medical morning. Branch levETIRAcet 2023-0 Yes 500mg Take 1 Uni vers am 500 mg 4-11 tablet by ity o f tablet 00:00: mouth [place] 00 every 12 Medical (twelve) Branch hours. NIFEdipine 2023-0 Yes 60mg Take 1 Unive rs XL 60 mg 24 4-11 tablet by ity of hr tablet 00:00: mouth [place] 00 every Medical morning. Branch OXcarbazepi 2023-0 Yes 300 mg = 1 Memoria ne 300 mg 3-14 tab, PO, l oral tablet 14:53: BID, # 60 [place] 00 tab, 3 Refill(s), Pharmacy: [facility] #[id number], 149.86, cm, 08/08/22 9:15:00 CDT, Height, 60.966, kg, 08/08/22 9:15:00 CDT, Weight OXcarbazepi 3-0 Yes 300 mg = 1 Memoria ne 300 mg 3-14 tab, PO, l oral tablet 14:53: BID, # 60 [place] 00 tab, 3 Refill(s), Pharmacy: [facility] #[id number], 149.86, cm, 08/08/22 9:15:00 CDT, Height, 60.966, kg, 08/08/22 9:15:00 CDT, Weight OXcarbazepi 3-0 Yes 300 mg = 1 Memoria ne 300 mg 3-14 tab, PO, l oral tablet 14:53: BID, # 60 [place] 00 tab, 3 Refill(s), Pharmacy: [facility] #[id number], 149.86, cm, 08/08/22 9:15:00 CDT, Height, 60.966, kg, 08/08/22 9:15:00 CDT, Weight OXcarbazepi 2022-0 Yes 300 mg = 1 Memoria ne 300 mg 3-14 tab, PO, l oral tablet 14:53: BID, # 60 [place] 00 tab, 3 Refill(s), Pharmacy: [facility] #[id number], 149.86, cm, 08/08/22 9:15:00 CDT, Height, 60.966, kg, 08/08/22 9:15:00 CDT, Weight OXcarbazepi 2022-0 Yes 300 mg = 1 Memoria ne 300 mg 3-14 tab, PO, l oral tablet 14:53: BID, # 60 H [place] 00 tab, 3 Refill(s), Pharmacy: [facility] #[id number], 149.86, cm, 08/08/22 9:15:00 CDT, Height, 60.966, kg, 08/08/22 9:15:00 CDT, Weight nitroglycer 2022-0 Yes ONE TABLET Memoria in 0.4 mg 3-14 UNDER l sublingual 14:19: TONGUE [place] tablet 00 NEEDED FOR CHEST PAIN NIFEdipine Yes TAKE 1 Memor ia (Eqv-Procar 3-14 TABLET BY l torsten XL) 60 14:19: MOUTH [place] n mg oral 00 EVERY tablet, MORNING extended release clopidogrel Yes TAKE 1 Kasi sony 75 mg oral 3-14 TABLET BY l tablet 14:19: MOUTH [place] 00 EVERY MORNING levETIRAcet Yes TAKE 1 Kasi sony am 500 mg 3-14 TABLET BY l oral tablet 14:19: MOUTH [place] nn 00 TWICE DAILY Metoprolol Yes TAKE 1 Memor ia Tartrate 3-14 TABLET BY l 100 mg oral 14:19: MOUTH [place] nn tablet 00 EVERY DAY nitroglycer Yes ONE TABLET Memoria in 0.4 mg 3-14 UNDER l sublingual 14:19: TONGUE [place] tablet 00 NEEDED FOR CHEST PAIN NIFEdipine Yes TAKE 1 Memor ia (Eqv-Procar 3-14 TABLET BY l torsten XL) 60 14:19: MOUTH [place] n mg oral 00 EVERY tablet, MORNING extended release clopidogrel Yes TAKE 1 Kasi sony 75 mg oral 3-14 TABLET BY l tablet 14:19: MOUTH [place] 00 EVERY MORNING levETIRAcet Yes TAKE 1 Kasi sony am 500 mg 3-14 TABLET BY l oral tablet 14:19: MOUTH [place] nn 00 TWICE DAILY Metoprolol Yes TAKE 1 Memor ia Tartrate 3-14 TABLET BY l 100 mg oral 14:19: MOUTH [place] nn tablet 00 EVERY DAY nitroglycer Yes ONE TABLET Memoria in 0.4 mg 3-14 UNDER l sublingual 14:19: TONGUE [place] tablet 00 NEEDED FOR CHEST PAIN NIFEdipine Yes TAKE 1 Memor ia (Eqv-Procar 3-14 TABLET BY l torsten XL) 60 14:19: MOUTH [place] n mg oral 00 EVERY tablet, MORNING extended release clopidogrel Yes TAKE 1 Kasi sony 75 mg oral 3-14 TABLET BY l tablet 14:19: MOUTH [place] 00 EVERY MORNING levETIRAcet Yes TAKE 1 Kasi sony am 500 mg 3-14 TABLET BY l oral tablet 14:19: MOUTH [place] nn 00 TWICE DAILY Metoprolol Yes TAKE 1 Memor ia Tartrate 3-14 TABLET BY l 100 mg oral 14:19: MOUTH [place] nn tablet 00 EVERY DAY nitroglycer Yes ONE TABLET Memoria in 0.4 mg 3-14 UNDER l sublingual 14:19: TONGUE [place] tablet 00 NEEDED FOR CHEST PAIN NIFEdipine 0 Yes TAKE 1 Memor ia (Eqv-Procar 3-14 TABLET BY l torsten XL) 60 14:19: MOUTH [place] n mg oral 00 EVERY tablet, MORNING extended release clopidogrel 0 Yes TAKE 1 Kasi sony 75 mg oral 3-14 TABLET BY l tablet 14:19: MOUTH [place] 00 EVERY MORNING levETIRAcet 0 Yes TAKE 1 Kasi sony am 500 mg 3-14 TABLET BY l oral tablet 14:19: MOUTH [place] nn 00 TWICE DAILY Metoprolol 0 Yes TAKE 1 Memor ia Tartrate 3-14 TABLET BY l 100 mg oral 14:19: MOUTH [place] nn tablet 00 EVERY DAY nitroglycer 0 Yes ONE TABLET Memoria in 0.4 mg 3-14 UNDER l sublingual 14:19: TONGUE [place] tablet 00 NEEDED FOR CHEST PAIN NIFEdipine 0 Yes TAKE 1 Memor ia (Eqv-Procar 3-14 TABLET BY l torsten XL) 60 14:19: MOUTH [place] n mg oral 00 EVERY tablet, MORNING extended release clopidogrel 0 Yes TAKE 1 Kasi sony 75 mg oral 3-14 TABLET BY l tablet 14:19: MOUTH [place] 00 EVERY MORNING levETIRAcet 0 Yes TAKE 1 Kasi sony am 500 mg 3-14 TABLET BY l oral tablet 14:19: MOUTH [place] nn 00 TWICE DAILY Metoprolol 0 Yes TAKE 1 Memor ia Tartrate 3-14 TABLET BY l 100 mg oral 14:19: MOUTH [place] nn tablet 00 EVERY DAY OXcarbazepi 2023-0 Yes 300mg Take 1 Uni vers ne 300 mg 3-14 tablet by ity o f tablet 00:00: mouth in [place] [address] the Medical morning Branch and 1 tablet in the evening. OXcarbazepi 2023-0 Yes 300mg Take 1 Uni vers ne 300 mg 3-14 tablet by ity o f tablet 00:00: mouth in [place] [facility] morning Branch and 1 tablet in the evening. OXcarbazepi 2023-0 Yes 300mg Take 1 Uni vers ne 300 mg 3-14 tablet by ity o f tablet 00:00: mouth in [place] [facility] morning Branch and 1 tablet in the evening. OXcarbazepi 2023-0 Yes 300mg Take 1 Uni vers ne 300 mg 3-14 tablet by ity o f tablet 00:00: mouth in [place] 00 the Medical morning Branch and 1 tablet in the evening. OXcarbazepi 2023-0 Yes 300mg Take 1 Uni vers ne 300 mg 3-14 tablet by ity o f tablet 00:00: mouth in [place] 00 the Medical morning Branch and 1 tablet in the evening. OXcarbazepi 2023-0 Yes 300mg Take 1 Uni vers ne 300 mg 3-14 tablet by ity o f tablet 00:00: mouth in [place] 00 the Medical morning Branch and 1 tablet in the evening. OXcarbazepi 2023-0 Yes 300mg Take 1 Uni vers ne 300 mg 3-14 tablet by ity o f tablet 00:00: mouth in [place] 00 the Medical morning Branch and 1 tablet in the evening. OXcarbazepi 2023-0 Yes 300mg Take 1 Uni vers ne 300 mg 3-14 tablet by ity o f tablet 00:00: mouth in [place] 00 the Medical morning Branch and 1 tablet in the evening. OXcarbazepi 2023-0 Yes 300mg Take 1 Uni vers ne 300 mg 3-14 tablet by ity o f tablet 00:00: mouth in [place] 00 the Medical morning Branch and 1 tablet in the evening. OXcarbazepi 2023-0 Yes 300mg Take 1 Uni vers ne 300 mg 3-14 tablet by ity o f tablet 00:00: mouth in [place] 00 the Medical morning Branch and 1 tablet in the evening. OXcarbazepi 2023-0 Yes 300mg Take 1 Uni vers ne 300 mg 3-14 tablet by ity o f tablet 00:00: mouth in [place] 00 the Medical morning Branch and 1 tablet in the evening. OXcarbazepi 2023-0 Yes 300mg Take 1 Uni vers ne 300 mg 3-14 tablet by ity o f tablet 00:00: mouth in [place] 00 the Medical morning Branch and 1 tablet in the evening. OXcarbazepi 2023-0 Yes 300mg Take 1 Uni vers ne 300 mg 3-14 tablet by ity o f tablet 00:00: mouth in [place] 00 the Medical morning Branch and 1 tablet in the evening. hydroCHLORO 2017-0 Yes 25mg Take 1 Univ ers thiazide 25 3-27 tablet by ity of mg tablet 00:00: mouth [place] 00 daily. Medical Branch hydroCHLORO [id number] Yes 25mg Take 1 Univ ers thiazide 25 3-27 tablet by ity of mg tablet 00:00: mouth [place] 00 daily. Medical Branch hydroCHLORO 0 Yes 25mg Take 1 Univ ers thiazide 25 3-27 tablet by ity of mg tablet 00:00: mouth [place] 00 daily. Medical Branch hydroCHLORO 20170 Yes 25mg Take 1 Univ ers thiazide 25 3-27 tablet by ity of mg tablet 00:00: mouth [place] 00 daily. Medical Branch hydroCHLORO 20170 Yes 25mg Take 1 Univ ers thiazide 25 3-27 tablet by ity of mg tablet 00:00: mouth [place] 00 daily. Medical Branch hydroCHLORO 0 Yes 25mg Take 1 Univ ers thiazide 25 3-27 tablet by ity of mg tablet 00:00: mouth [place] 00 daily. Medical Branch hydroCHLORO 0 Yes 25mg Take 1 Univ ers thiazide 25 3-27 tablet by ity of mg tablet 00:00: mouth [place] 00 daily. Medical Branch hydroCHLORO 0 Yes 25mg Take 1 Univ ers thiazide 25 3-27 tablet by ity of mg tablet 00:00: mouth [place] 00 daily. Medical Branch hydroCHLORO 0 Yes 25mg Take 1 Univ ers thiazide 25 3-27 tablet by ity of mg tablet 00:00: mouth [place] 00 daily. Medical Branch hydroCHLORO 0 Yes 25mg Take 1 Univ ers thiazide 25 3-27 tablet by ity of mg tablet 00:00: mouth [place] 00 daily. Medical Branch hydroCHLORO 20170 Yes 25mg Take 1 Univ ers thiazide 25 3-27 tablet by ity of mg tablet 00:00: mouth [place] 00 daily. Medical Branch hydroCHLORO 20170 Yes 25mg Take 1 Univ ers thiazide 25 3-27 tablet by ity of mg tablet 00:00: mouth [place] 00 daily. Medical Branch hydroCHLORO 2017-0 Yes 25mg Take 1 Univ ers thiazide 25 3-27 tablet by ity of mg tablet 00:00: mouth [place] 00 daily. Medical Branch aspirin 81 2016-2022- No 81mg Take 1 Univ ers mg chewable 3-27 05-17 tablet by it y of tablet 00:00: 00:00 mouth [place] 00 :00 daily. Medical Branch metoprolol 2022- No 50mg Take 1 Univ ers tartrate 50 3-27 05-17 tablet by it y of mg tablet 00:00: 00[place] :[place] (two) Medical times Branch daily. furosemide 2022- No 40mg Take 1 Univ ers 40 mg 3-27 05-17 tablet by ity of tablet 00:00: 00:00 mouth [place] 00 :00 daily. Medical Branch amLODIPine 2022- No 10mg Take 1 Univ ers 10 mg 3-27 05-17 tablet by ity of tablet 00:00: 00:00 mouth [place] 00 :00 daily. Medical Branch aspirin 81 2022- No 81mg Take 1 Univ ers mg chewable 3-27 05-17 tablet by it y of tablet 00:00: 00:00 mouth [place] 00 :00 daily. Medical Branch metoprolol 2022- No 50mg Take 1 Univ ers tartrate 50 3-27 05-17 tablet by it y of mg tablet 00:00: 00:[place] :[place] (two) Medical times Branch daily. furosemide 2022- No 40mg Take 1 Univ ers 40 mg 3-27 05-17 tablet by ity of tablet 00:00: 00:00 mouth [place] 00 :00 daily. Medical Branch amLODIPine 2022- No 10mg Take 1 Univ ers 10 mg 3-27 05-17 tablet by ity of tablet 00:00: 00:00 mouth [place] 00 :00 daily. Medical Branch aspirin 81 2022- No 81mg Take 1 Univ ers mg chewable 3-27 05-17 tablet by it y of tablet 00:00: 00:00 mouth [place] 00 :00 daily. Medical Branch metoprolol 2022- No 50mg Take 1 Univ ers tartrate 50 3-27 05-17 tablet by it y of mg tablet 00:00: 00:00 [place] :[place] (two) Medical times Branch daily. furosemide 2022- No 40mg Take 1 Univ ers 40 mg 3-27 05-17 tablet by ity of tablet 00:00: 00:00 mouth [place] 00 :00 daily. Medical Branch amLODIPine 2022- No 10mg Take 1 Univ ers 10 mg 3-27 05-17 tablet by ity of tablet 00:00: 00:00 mouth [place] 00 :00 daily. Medical Branch Asprin Ec Asprin Ec No 1 Q1D Asprin Ec [facility] Low Dose 81 Low Dose 81 Low Dose Family mg mg 81 mg Practic tablet,lusi tablet,luis tablet,del e yed release yed release ayed Take 1 Take 1 release tablet tablet Take 1 every day every day tablet by oral by oral every day route. route. by oral route. atorvastati atorvastati No 1 Q1D atorvastat [facility] n 20 mg n 20 mg in 20 mg Famil y tablet Take tablet Take tablet Practic 1 tablet 1 tablet Take 1 e every day every day tablet by oral by oral every day route at route at by oral bedtime for bedtime for route at 30 days. 30 days. bedtime for 30 days. clopidogrel clopidogrel No 1 Q1D clopidogre [facility] 75 mg 75 mg l 75 mg Family tablet Take tablet Take tablet Practic 1 tablet 1 tablet Take 1 e every day every day tablet by oral by oral every day route. route. by oral route. hydralazine hydralazine No 1 QID hydralazin [facility] 50 mg 50 mg e 50 mg Family tablet Take tablet Take tablet Practic 1 tablet 4 1 tablet 4 Take 1 e times a day times a day tablet 4 by oral by oral times a route. route. day by oral route. hydrochloro hydrochloro No 1 Q1D hydrochlor [facility] thiazide 50 thiazide 50 othiazide Family mg tablet mg tablet 50 mg Prac tic Take 1 Take 1 tablet e tablet tablet Take 1 every day every day tablet by oral by oral every day route. route. by oral route. levetiracet levetiracet No 1 Q12H levetirace [facility] am 1,000 mg am 1,000 mg de oliveira 1,000 Family tablet Take tablet Take mg tablet Practic 1 tablet 1 tablet Take 1 e every 12 every 12 tablet hours by hours by every 12 oral route. oral route. hours by oral route. metformin metformin No 1 BID metformin [facility] 500 mg 500 mg 500 mg Family tablet Take tablet Take tablet Practic 1 tablet 1 tablet Take 1 e twice a day twice a day tablet by oral by oral twice a route. route. day by oral route. metoprolol metoprolol No 1capsul Q1D metoprolol [facility] succinate succinate e(s) succinate Family ER [...] route. nifedipine nifedipine No 1 Q1D nifedipine [facility] 60 mg ER 60 mg ER 60 mg Fam mayda tablet,exte tablet,exte tablet,ext Practic nded nded ended e release release release Take 1 Take 1 Take 1 tablet tablet tablet every day every day every day by oral by oral by oral route. route. route. Vital Signs Vital Name Observation Time Observation Value Comments Source Systolic blood 2022-12-15 15:40:00 131 mm[Hg] Univer sity [facility] Diastolic blood 2022-12-15 15:40:00 87 mm[Hg[facility] 2022-12-15 15:40:00 66 /min Universi ty [facility] Respiratory rate 2022-12-15 15:37:00 19 /min [facility] Body height 2022-12-15 15:37:00 160 cm Universi ty [facility] Body weight 2022-12-15 15:37:00 62.778 kg Universi ty [facility] BMI 2022-12-15 15:37:00 24.52 kg/m2 Universi ty [facility] Oxygen saturation in 2022-12-15 15:37:00 98 /min University of Arterial blood by [facility] Pulse oximetry Branch Systolic blood 2022-10-24 20:36:00 169 mm[Hg] Univer sity [facility] Diastolic blood 2022-10-24 20:36:00 66 mm[Hg] Unive rsity [facility] Heart rate 2022-10-24 20:36:00 66 /min Universi ty [facility] Body height 2022-10-24 20:36:00 160 cm Universi ty [facility] Body weight 2022-10-24 20:36:00 63.64 kg Universi [facility] BMI 2022-10-24 20:36:00 24.85 kg/m2 Universi ty [facility] Oxygen saturation in 2022-10-24 20:36:00 98 /min University of Arterial blood by [facility] Pulse oximetry Branch Systolic blood 2022-10-11 17:31:00 191 mm[Hg] Univer sity of pressure [facility] Diastolic blood 2022-10-11 17:31:00 83 mm[Hg] Unive rsity of pressure [facility] Heart rate 2022-10-11 16:41:00 82 /min Universi ty of [facility] Body height 2022-10-11 16:41:00 160 cm Universi ty of [facility] Body weight 2022-10-11 16:41:00 62.551 kg Universi ty [facility] Branch BMI 2022-10-11 16:41:00 24.43 kg/m2 Universi ty [facility] Oxygen saturation in 2022-10-11 16:41:00 98 /min [facility] Arterial blood by [facility] Pulse oximetry Branch BP Diastolic 2020-09-08 00:00:00 78 mm[Hg] [facility] Height 2020-09-08 00:00:00 62 [in_i] [facility] BMI (Body Mass 2020-09-08 00:00:00 22.1 kg/m2 [facility] BP Systolic 2020-09-08 00:00:00 134 mm[Hg] [facility] Body Weight 2020-09-08 00:00:00 121 [lb_av] [facility] Height 2020-06-07 00:00:00 62 [in_i] [facility] BMI (Body Mass 2020-06-07 00:00:00 23.8 kg/m2 [facility] Body Weight 2020-06-07 00:00:00 130 [lb_av] [facility] Systolic (mm Hg) 2023-03-08 18:49:00 Kasi rial [place] Diastolic (mm Hg) 2023-03-08 18:49:00 Mem orial [place] Heart Rate 2023-03-08 18:49:00 [facility] Height 2023-03-08 18:49:00 4 [ft_i] [facility] Weight 2023-03-08 18:49:00 [facility] [place] BMI Calculated 2023-03-08 18:49:00 Memori al [place] Systolic (mm Hg) 2022-12-14 18:09:00 Kasi rial [place] Diastolic (mm Hg) 2022-12-14 18:09:00 Mem orial [place] Heart Rate 2022-12-14 18:09:00 [facility] [place] Height 2022-12-14 18:09:00 4 [ft_i] [facility] [place] Weight 2022-12-14 18:09:00 [facility] [place] BMI Calculated 2022-12-14 18:09:00 Memori al [place] Systolic (mm Hg) 2022-10-24 18:32:00 Kasi rial [place] Diastolic (mm Hg) 2022-10-24 18:32:00 Mem orial [place] Heart Rate 2022-10-24 18:32:00 [facility] [place] Height 2022-10-24 18:32:00 4 [ft_i] [facility] [place] Weight 2022-10-24 18:32:00 [facility] BMI Calculated 2022-10-24 18:32:00 Memori al [place] Systolic (mm Hg) 2022-08-08 14:15:00 Kasi rial [place] Diastolic (mm Hg) 2022-08-08 14:15:00 Mem orial [place] Heart Rate 2022-08-08 14:15:00 [facility] [place] Height 2022-08-08 14:15:00 4 [ft_i] [facility] Weight 2022-08-08 14:15:00 [facility] BMI Calculated 2022-08-08 14:15:00 Memori al [place] Procedures Procedure Date / Time Performing Clinician Source Performed EXTERNAL PROVIDER - [facility] 2022-12-11 05:01:00 Doctor Unassigned, N o [facility] CARDIOLOGY [facility] Medical Branch EXTERNAL PROVIDER - [facility] 2022-10-29 05:01:00 Doctor Unassigned, N o [facility] REFERRAL [facility] Branch HB ECG ROUTINE & RHYTHM 2022-10-11 16:34:59 Fozia Choi [facility] Placement of Stent [facility] Practice Screening Colonoscopy [facility] Screening Mammography [facility] Knee Replacement [facility] Plan of Care Planned Activity Planned Date Details Comments Source Instructions [facility] Encounters Start End Encounter Admission Attending Care Care Encounter Source Date/Time Date/Time Type Type Clinicians Facility Department ID 2023-03-08 Outpatient [facility] [id number] Common 08:37:01 [place] [id number] [facility] 2022-10-04 Outpatient Diop, STLMLC [facility] [id number] Common 10:07:03 [place] [id number] [facility] 2022-08-29 Outpatient Diop, STLMLC [facility] [id number] Common 13:27:01 [place] [id number] [facility] 2023-05-01 2023-05-01 Outpatient MHIE MHIE [id number] Memoria 13:00:00 13:00:00 08 bruce [facility]cos 2023-03-08 2023-03-09 Outpatient MHIE MNA [id number] Memoria 18:45:00 04:59:59 Neurology 07 bruce Lewisann 2023-03-09 2023-03-09 Telephone [facility] [id number] [facility] 00:00:00 00:00:00 Fozia POOLE [id number] [facility] [id number] [id number] [place] [facility] 059 [facility] 2023-03-08 2023-03-08 Outpatient Ang MISCHCRISTINA MISCHER [id number] 13:45:00 23:59:59 Choe 07 Navarro 2023-03-08 2023-03-08 Outpatient MHIE MHIE [id number] Memoria 13:45:00 13:45:00 07 bruce Marcos 2023-03-08 2023-03-08 Outpatient MHIE MHIE [id number] Memoria 13:45:00 13:45:00 07 bruce [place]cos 2022-12-15 2022-12-15 Outpatient R [facility] [id number] Univers 10:40:00 10:55:24 FOZIA beltre f [facility] 2022-12-15 2022-12-15 [facility] [id number] Univers 10:40:00 10:55:24 Visit Fozia POOLE [id number] itisaias [facility] [id number] [id number] [place] N[place] 059 [facility] 2022-12-14 2022-12-15 Outpatient MHIE MNA [id number] Memoria 18:00:00 04:59:59 Neurology 06 l Rick Lewisann 2022-12-14 2022-12-14 Outpatient LISA FryMISCHER MHMISCHER [id number] 13:00:00 23:59:59 Cheo Bear Briceño 2022-12-14 2022-12-14 Outpatient MHIE MHIE [id number] Memoria 13:00:00 13:00:00 06 bruce Rodríguez 2022-12-14 2022-12-14 Outpatient MHIE MHIE [id number] Memoria 13:00:00 13:00:00 06 bruce Marcos 2022-12-11 2022-12-11 Orders Doctor OSMIN [id number] Univers 00:00:00 00:00:00 Only Unassigned, TOSIN [id number] [facility] [id number] Favio as [id number] [address] 2022-11-20 2022-11-20 [place] [facility] [id number] Univers 00:00:00 00:00:00 Fozia POOLE [id number] [id number] [id number] [place] NAL 9 [facility] 2022-11-17 2022-11-17 Outpatient R [facility] [id number] Univers 09:02:56 23:59:00 FOZIA ity o f [facility] 2022-11-16 2022-11-17 Outpatient MHIE MNA [id number] Memoria 18:00:00 04:59:59 Neurology 05 l Rick Marcos 2022-11-16 2022-11-17 Outpatient MHIE MNA [id number] Memoria 18:00:00 04:59:59 Neurology 05 l Bandera [facility]cos 2022-11-16 2022-11-16 Outpatient ANTHONY FrySCHER MHMISCHER [id number] 13:00:00 23:59:59 Cheo Omar Briceño 2022-11-16 2022-11-16 Outpatient MHIE MHIE [id number] Memoria 13:00:00 13:00:00 05 l Marcos 2022-10-30 2022-11-01 Outside MHIE MNA [id number] Memoria 14:16:05 04:59:59 Medical Neurology 01 l Records Rick Rodríguez 2022-10-30 2022-11-01 Outside MHIE MNA [id number] Memoria 14:16:05 04:59:59 Medical Neurology 01 l Records Rick Rodríguez 2022-10-30 2022-10-31 Outpatient MHMISCHER MHMISCHER [id number] 09:16:05 23:59:59 2022-10-29 2022-10-29 Orders Doctor OSMIN [id number] [facility] 00:00:00 00:00:00 Only Unassigned, TOSIN [id number] ity of [facility] [id number] Favio as [id number] [address] 2022-10-24 2022-10-25 Outpatient MHIE MNA [id number] Memoria 18:45:00 04:59:59 Neurology 04 l Rick Lewisann 2022-10-24 2022-10-25 Outpatient MHIE MNA [id number] Memoria 18:45:00 04:59:59 Neurology 04 l Rick [place] 2022-10-24 2022-10-24 Outpatient ANTHONY FrySCHER MHMISCHER [id number] 13:45:00 23:59:59 Cheo 04 [facility] 2022-10-24 2022-10-24 [facility] [id number] Univers 15:40:00 16:00:00 Visit Fozia POOLE [id number] [id number] [id number] [address] 2022-10-24 2022-10-24 Outpatient R [facility] [id number] Univers 15:40:00 15:40:00 FOZIA cardenas o f [facility] 2022-10-24 2022-10-24 Outpatient MHIE MHIE [id number] Memoria 13:45:00 13:45:00 04 bruce [place] 2022-10-11 2022-10-11 Office [facility] [id number] Univers 11:20:00 12:41:38 Visit Claudioflorentin VIRGILIO [id number] ity of [facility] [phone] [place] [address] [place] [address] 2022-10-11 2022-10-11 Outpatient R [facility] [id number] Univers 11:20:00 12:41:38 CLAUDIOFLORENTIN ity o f [facility] 2022-10-11 2022-10-11 Telephone [facility] [id number] Univers 00:00:00 00:00:00 Claudioflorentin POOLE [id number] ity of [facility] [id number] [phone] [place] [address] [place] [address] 2022-10-11 2022-10-11 Telephone [facility] [id number] Univers 00:00:00 00:00:00 Kimberleecalvinflorentin POOLE [id number] ity of [facility] [id number] [phone] [place] 9 [facility] 2022-09-21 2022-09-21 Ambulatory MHIE MNA [id number] Memoria 14:00:00 14:00:00 Pre-Reg Neurology 03 l Rick Lewisann 2022-09-21 2022-09-21 Ambulatory MHIE MNA [id number] Memoria 14:00:00 14:00:00 Pre-Reg Neurology 03 l Bandera Marcos 2022-09-21 2022-09-21 Outpatient MHIE MHIE [id number] Memoria 09:00:00 09:00:00 03 l Marcos 2022-09-21 2022-09-21 Outpatient LISA Fry MISCHER [id number] 09:00:00 09:00:00 Cheo 03 Navarro 2022-08-08 2022-08-09 Outpatient MHIE MNA [id number] Memoria 14:30:00 04:59:59 Neurology 02 l Rick Rodríguez 2022-08-08 2022-08-09 Outpatient MHIE MNA [id number] Memoria 14:30:00 04:59:59 Neurology 02 l Rick Rodríguez 2022-08-08 2022-08-08 Outpatient [facility] [id number] 09:30:00 23:59:59 Cheo 02 Navarro 2022-08-08 2022-08-08 Outpatient MHIE MHIE [id number] Memoria 09:30:00 09:30:00 02 bruce Rodríguez 2020-11-15 2020-11-15 Outpatient Miller_S_AH VFP VFP [id number] [facility] 05:51:00 05:51:00 [id number] Family Practic e 2020-09-16 2020-09-16 Outpatient Ajibade_O_A VFP VFP [id number] [facility] 04:16:00 04:16:00 H [id number] Family Practic e 2020-09-13 2020-09-13 Outpatient Ajibade_O_A VFP VFP [id number] [place] 04:30:00 04:30:00 H [id number] Family Practic e 2020-09-10 2020-09-10 Outpatient Ajibade_O_A VFP VFP [id number] [place] 02:15:00 02:15:00 H [id number] Family Practic e 2020-09-08 2020-09-08 iana Ajibade_O_A VFP [place] - [id number] [facility] 00:00:00 00:00:00 Bryanna H [facility] [address] Famil y ASSISTANT DISTRICT ATTORNEY: 9235 Medical - Pract vitaliy Humphreys, [email or web address]_ e [place] [address], [facility], [place] [address] , Ph. 2020-06-18 2020-06-18 Outpatient Ajibade_O_A VFP VFP [id number] [facility] 01:01:00 01:01:00 H 44454 Family Practic e 2020-06-07 2020-06-07 Sandy Gould_O_A [facility] - [id number] [facility] 00:00:00 00:00:00 Asher [place] [address] Famil y ASSISTANT DISTRICT ATTORNEY: 9235 Medical - Pract ic Shari Humphreys, [email or web address]_ [email or web address] Suite [facility], [facility], [place] [address] , Ph. 2019-07-16 2019-07-16 Outpatient Ige-Odunuga VFP [facility] [id number] [facility] 07:16:00 07:16:00 _J_AH 13908 Family Practic e 2018-03-22 2018-03-22 Ambulatory nullFlavo MNA [id number] Memoria 18:15:00 18:15:00 Pre-Reg r Neurology 01 bruce MarquezBandera Marcos 2018-03-22 2018-03-22 Ambulatory nullFlavo MNA [id number] Memoria 18:15:00 18:15:00 Pre-Reg r Neurology 01 bruce Rodríguez 2018-03-22 2018-03-22 Outpatient MHIE MHIE [id number] Memoria 13:15:00 13:15:00 01 bruce Rodríguez 2018-03-22 2018-03-22 Outpatient LISA Fry RUSTSCHER [id number] 13:15:00 13:15:00 Cheo Briceño 2017-08-17 2017-08-17 Outpatient MHIE MHIE [id number] Memoria 14:45:00 14:45:00 00 bruce Rodríguez 2017-08-17 2017-08-17 Outpatient MHIE MHIE [id number] Memoria 14:45:00 14:45:00 00 bruce Rodríguez Results Test Description Test Time Test Comments Results Result Comments Source CHEMISTRY 2023-03-08 20:17:00 Test Item Value Reference Range Interpretation Comme nts Sodium Lvl (test code = Sodium Lvl) 144 135-146 [facility]-76-91 20:17:00 Test Item Value Reference Range Interpretation Comments Potassium Lvl (test code = Potassium 4.9 3.5-5.3 Lvl) [facility]XrvxwlwHVRYKFJHT8855-80-59 20:17:00 Test Item Value Reference Range Interpretation Comments Chloride Lvl (test code = Chloride Lvl) 109 98-110 [facility]GmjpjnnHIKDBEMQN9980-87-19 20:17:00 Test Item Value Reference Range Interpretation Comments CO2 (test code = CO2) 25 20-32 [facility] HospitalBcxtfveMWNFYYEXVP2875-72-31 20:17:00 Test Item Value Reference Range Interpretation Comments WBC (test code = WBC) 5.4 3.8-10.8 [facility] HospitalQsdmfsgGXQYNBYOPI4142-76-99 20:17:00 Test Item Value Reference Range Interpretation Comments RBC (test code = RBC) 4.50 3.80-5.10 [facility] HospitalOddqslzASZBIMFQBJ8221-63-88 20:17:00 Test Item Value Reference Range Interpretation Comments Hgb (test code = Hgb) 13.0 11.7-15.5 [facility] HospitalUpzxgcsLTTBVOCERU0202-36-72 20:17:00 Test Item Value Reference Range Interpretation Comments Hct (test code = Hct) 39.4 35.0-45.0 [facility] HospitalQjbmxudPKMQQFMFHF7595-77-65 20:17:00 Test Item Value Reference Range Interpretation Comments MCV (test code = MCV) 87.6 80.0-100.0 [facility] HospitalRvkmocsGMBNXQHFQI3369-89-68 20:17:00 Test Item Value Reference Range Interpretation Comments MCH (test code = MCH) 28.9 pg 27.0-33.0 [facility] HospitalVpakfluZEQFJVMBAL4043-05-18 20:17:00 Test Item Value Reference Range Interpretation Comments MCHC (test code = MCHC) 33.0 32.0-36.0 [facility] HospitalDokpparNUDODDTMJE5950-92-04 20:17:00 Test Item Value Reference Range Interpretation Comments RDW (test code = RDW) 12.6 11.0-15.0 [facility] HospitalYnvvsibDQVZTKZLTB9960-02-81 20:17:00 Test Item Value Reference Range Interpretation Comments Platelet (test code = Platelet) 187 140-400 [facility] HospitalQwqeqeaFUEIPSVOMF8567-97-09 20:17:00 Test Item Value Reference Range Interpretation Comments MPV (test code = MPV) 10.7 7.5-12.5 [place] 912563-10-12 20:17:00 Test Item Value Reference Range Interpretation Comments Neutrophils # (test code = Neutrophils 4001 0529-2190 #) [facility] HospitalVvfsjqtGGSVYOVQZF8107-08-05 20:17:00 Test Item Value Reference Range Interpretation Comments Lymphocytes # (test code = Lymphocytes 903 747-8772 #) [facility] HospitalQnypivmBQVHXFOSYE3874-02-23 20:17:00 Test Item Value Reference Range Interpretation Comments Monocytes # (test code = Monocytes #) 394 200-950 [facility] HospitalHkymtkmNEDGRERFEM4917-12-58 20:17:00 Test Item Value Reference Range Interpretation Comments Eosinophils # (test code = Eosinophils 49 15-500 #) [facility] HospitalClbzohiVRAZERRSXN1411-72-81 20:17:00 Test Item Value Reference Range Interpretation Comments Basophils # (test code = Basophils #) 11 <=200 [facility] HospitalJboikgqXXBOSSZCDB2936-36-38 20:17:00 Test Item Value Reference Range Interpretation Comments Segs (test code = Segs) 74.1 [facility] HospitalXctjgmtASSDRJTURL9199-73-77 20:17:00 Test Item Value Reference Range Interpretation Comments Lymphocytes (test code = Lymphocytes) 17.5 [facility] HospitalQooswgzWQHAJQUUGW6625-73-79 20:17:00 Test Item Value Reference Range Interpretation Comments Monocytes (test code = Monocytes) 7.3 [facility] HospitalCtfaejwWUCCQTXDFF4679-52-76 20:17:00 Test Item Value Reference Range Interpretation Comments Eosinophils (test code = Eosinophils) 0.9 [facility] HospitalStcdmsaWJFMOEEZQP3820-30-65 20:17:00 Test Item Value Reference Range Interpretation Comments Basophils (test code = Basophils) 0.2 [facility]
[2023-03-16 12:35] LABS: Hematocrit 39.4 % (36.0-45.0); Lymphocytes % 20.2 % (15.3-44.8); MCV 84.5 fL (80-100); MPV 7.9 fL (7.6-11.3); Platelets 194 thou/uL (152-406); RBC Red Blood Cell Count 4.66 M/uL (3.86-4.86)
[2023-03-16 12:41] LABS: Protime INR 1.05
[2023-03-16 12:42] LABS: Specific Gravity 1.013 (1.005-1.030); Transitional Epithelial <5 /HPF (None Seen); Urine Bacteria >50 /HPF (<20); Urine Bilirubin NEGATIVE (Negative); Urine Blood Negative (Negative); Urine Clarity Extremely Turbid (Clear); Urine Color Light-Yellow (Yellow); Urine Glucose NEGATIVE (Negative); Urine Mucus Slight /HPF (None Seen); Urine Protein NEGATIVE (Negative); Urine RBC <5 /HPF (None Seen); Urine Urobilinogen Normal (Normal)
[2023-03-16 12:51] LABS: SARS-CoV-2 Antigen Rapid Res Negative (Negative)
[2023-03-16 12:53] LABS: Albumin 3.5 g/dL (3.4-5.0); Bilirubin Total 0.3 mg/dL (0.2-1.0); Potassium 4.4 mEq/L (3.5-5.1); Protein, Total 7.2 g/dL (6.4-8.2)
[2023-03-16] MEDS ORDERED: NA CHLORIDE 0.9% 500 ML ONE (12:56)
[2023-03-16] MEDS ORDERED: CEFTRIAXONE 1000 MG/VIAL ONE (13:10)
--- NOTE | 2023-03-16 13:15 | RAD REPORT ---
EXAM DESCRIPTION: [facility]2023 12:45 pm CLINICAL HISTORY: MALAISE COMPARISON: Chest Single View dated 01/21/2021; Chest Single View dated 01/18/2021; Chest Single View dated 01/15/2021; Chest Single View dated 09/02/2020 TECHNIQUE: Portable AP view of the chest. FINDINGS: Patient rotation somewhat limits evaluation. Elevation of the right hemidiaphragm. No new focal airspace opacities, with improvement of patchy opacification at the right apex and left base si nce the most recent comparison radiograph. No pneumothorax or effusion. The cardiomediastinal contou rs are unremarkable. IMPRESSION: No acute cardiopulmonary process. Findings as above.
--- NOTE | 2023-03-16 13:28 | RAD REPORT ---
EXAM DESCRIPTION: CT - Head Brain Wo Cont - 03/16/2023 12:56 pm CLINICAL HISTORY: MENTAL STATUS CHANGE COMPARISON: Head Brain Wo Cont dated 01/15/2021; Head Brain Wo Cont dated 06/08/2019 TECHNIQUE: Noncontrast head CT images were obtained without IV contrast. Multiplanar reformats were generated and reviewed. All CT scans are performed using dose optimization technique as appropriate and may include automated exposure control or mA/KV adjustment according to patient size. FINDINGS: No intracranial hemorrhage, mass, or edema. Midline structures are unremarkable, apart fro m re- demonstrated partially empty sella. Stable marginally calcified anterior falcine 1.7 centimeter mass most compatible with a meningioma. Moderate diffuse parenchymal volume loss. Ventricular caliber is stable. Patchy hypodensities in the periventricular and deep white matter, stable in pattern and nonspecific, but suggestive of chronic small vessel ischemic changes. Focus of hypoattenuation along the inferior right cerebellar folia is stable and may represent sequelae of a small infarct. Marie-white matter di fferentiation is otherwise preserved, without evidence of acute infarct. No abnormal extra-axial flui d collections. Mastoid air cells and visualized portions of the paranasal sinuses are clear. No acute bony findings. IMPRESSION: No evidence of an acute intracranial process. Stable chronic findings as above.
--- NOTE | 2023-03-16 13:30 | EDPHYS ---
Physician Documentation [facility] Name: Aditi Arreola Age: 82 yrs Sex: Female : 1940 Arrival Date: 03/16/2023 Time: 11:46 Bed 19 Private MD: ED Physician Sahara Cerda HPI: 03/16 11:50 This 82 yrs old Female presents to ER via EMS with complaints of AMS. jh7 11:50 The patient presents with decreased responsiveness. Onset: The symptoms/episode jh7 began/occurred acutely. Possible causes: CVA or TIA, HX of stroke, seizure, the patient has a known seizure history, sepsis. EMS toned out for altered mental status. The patient was sitting at the table 45 minutes ago, and according to her son, slumped over and became unresponsive. The patient lost her bowels and bladder at this time. The patient did not fall or injure her head. The patient became more alert once EMS arrived and was initially altered. Patient oriented x4 upon arrival to the ER.. Historical: - PMHx: 12:04 a-fib; Hypertension; Diabetes - NIDDM; kd3 - PSHx: 12:04 Cholecystectomy; cardiac stent; Left knee sx; kd3 - Immunization history:: Adult Immunizations up to date. - Social history:: Smoking status: unknown. ROS: 11:50 Constitutional: Negative for fever, chills, and weight loss, Eyes: Negative for injury, jh7 pain, redness, and discharge, ENT: Negative for injury, pain, and discharge, Neck: Negative for injury, pain, and swelling, Cardiovascular: Negative for chest pain, palpitations, and edema, Respiratory: Negative for shortness of breath, cough, wheezing, and pleuritic chest pain, Back: Negative for injury and pain, MS/Extremity: Negative for injury and deformity, Skin: Negative for injury, rash, and discoloration, 11:50 Abdomen/GI: Positive for abdominal pain, diarrhea, 11:50 Neuro: Positive for altered mental status, loss of consciousness, 11:50 All other systems are negative, Exam: 11:50 Head/Face: Normocephalic, atraumatic. Eyes: Pupils equal round and reactive to light, jh7 extra-ocular motions intact. Lids and lashes normal. Conjunctiva and sclera are non-icteric and not injected. Cornea within normal limits. Periorbital areas with no swelling, redness, or edema. Neck: Trachea midline, no thyromegaly or masses palpated, and no cervical lymphadenopathy. Supple, full range of motion without nuchal rigidity, or vertebral point tenderness. No Meningismus. Cardiovascular: Regular rate and rhythm with a normal S1 and S2. No gallops, murmurs, or rubs. Normal PMI, no JVD. No pulse deficits. Respiratory: Lungs have equal breath sounds bilaterally, clear to auscultation and percussion. No rales, rhonchi or wheezes noted. No increased work of breathing, no retractions or nasal flaring. Abdomen/GI: Soft, non-tender, with normal bowel sounds. No distension or tympany. No guarding or rebound. No evidence of tenderness throughout. Back: No spinal tenderness. No costovertebral tenderness. Full range of motion. Skin: Warm, dry with normal turgor. Normal color with no rashes, no lesions, and no evidence of cellulitis. MS/ Extremity: Pulses equal, no cyanosis. Neurovascular intact. Full, normal range of motion. 11:50 Constitutional: The patient appears alert, awake, anxious, Crying 11:50 Neuro: Orientation: to person, place, time \T\ situation. Mentation: is normal, able to follow commands, Cranial nerves: grossly normal, CN I not tested, Motor: is normal, Sensation: is normal, Vital Signs: 11:59 Pulse 87; Resp 21; Temp 97.2(A); Pulse Ox 98% on R/A; kd3 12:38 BP 180 / 70; kd3 16:46 BP 187 / 72; Pulse 78; Resp 19; Pulse Ox 92% on R/A; kd3 18:12 BP 203 / 66; Pulse 71; Resp 19; Pulse Ox 97% on R/A; kd3 18:22 BP 170 / 69; Pulse 74; Resp 16; Pulse Ox 97% on R/A; kd3 18:41 BP 168 / 56; Pulse 83; Resp 17; Pulse Ox 97% on R/A; kd3 NIH Stroke Scale Scores: 11:50 NIHSS Score: 0 [facility] MDM: 11:52 Patient medically screened. [facility] 13:35 Differential Diagnosis: CVA, electrolyte abnormality, hypoglycemia, intracranial bleed, 7 pneumonia, seizure, sepsis, TIA, UTI, volume depletion. Data reviewed: vital signs, nurses notes, lab test result(s), EKG, radiologic studies, CT scan, plain films. Consideration of Admission/Observation Patient was admitted/placed on observation. Management of patient was discussed with the following: Hospitalist: QUYEN Bill for Dr. Kc. I considered the following discharge prescriptions or medication management in the emergency department Medications were administered in the Emergency Department. See MAR. Independent interpretation of the following test(s) in the Emergency Department X-Ray: My interpretation is no pneumonia. Historians other than the Patient: Daughter/Son: daughters, son. Care significantly affected by the following chronic conditions: Diabetes, Hypertension. Counseling: I had a detailed discussion with the patient and/or guardian regarding the historical points, exam findings, and any diagnostic results supporting the discharge/admit diagnosis, the need for further work-up and treatment in the hospital. Response to treatment: the patient's symptoms have mildly improved after treatment. ED course: After reviewing the patient's medication list and speaking to both of her daughters, it appears that the patient likely had a seizure. Her med list includes carbamazepine and Keppra. Her daughter stated that this is how she gets when she has a UTI. We will admit the patient under inpatient status for IV fluids and antibiotics.. 03/16 11:53 Order name: Blood Culture Adult (2) [facility] 03/16 11:53 Order name: CBC with Diff; Complete Time: 12:38 [facility] 03/16 11:53 Order name: CMP; Complete Time: 13:05 [facility] 03/16 11:53 Order name: Lactate w/ 2H reflex if indic.; Complete Time: 13:05 [facility] 03/16 11:53 Order name: Protime (+inr); Complete Time: 12:52 [facility] 03/16 11:53 Order name: Ptt, Activated; Complete Time: 12:52 [facility] 03/16 11:53 Order name: Urinalysis w/ reflexes; Complete Time: 12:52 [facility] 03/16 11:54 Order name: SARS RAPID; Complete Time: 12:52 [facility] 03/16 12:46 Order name: Urine Culture [facility] 03/16 13:14 Order name: Troponin High Sensitivity; Complete Time: 18:11 [facility] 03/16 15:48 Order name: Lactate w/ 2H reflex if indic. EDMS 03/16 15:48 Order name: T4 Free; Complete Time: 18:11 EDMS 03/16 15:48 Order name: Thyroid Stimulating Hormone; Complete Time: 18:11 EDMS 03/16 15:48 Order name: Basic Metabolic Panel EDMS 03/16 15:48 Order name: Basic Metabolic Panel EDMS 03/16 15:48 Order name: CBC with Automated Diff EDMS 03/16 15:48 Order name: CBC with Automated Diff EDMS 03/16 15:48 Order name: Lipid Profile EDMS 03/16 15:48 Order name: Lipid Profile EDMS 03/16 15:48 Order name: Magnesium EDMS 03/16 15:48 Order name: Magnesium EDMS 03/16 15:48 Order name: Phosphorus EDMS 03/16 15:48 Order name: Phosphorus EDMS 03/16 15:48 Order name: Troponin High Sensitivity EDMS 03/16 15:48 Order name: Troponin High Sensitivity EDMS 03/16 15:48 Order name: Troponin High Sensitivity EDMS 03/16 15:54 Order name: Hemoglobin A1c; Complete Time: 18:11 EDMS 03/16 16:23 Order name: Lactate Sepsis 2 HR Follow-up; Complete Time: 18:11 EDMS 03/16 11:53 Order name: Chest Single View XRAY; Complete Time: 13:23 7 03/16 11:53 Order name: CT Head Brain wo Cont; Complete Time: 13:29 7 03/16 15:51 Order name: Brain Wo Cont EDMS 03/16 15:53 Order name: Echo with Doppler [facility]RI 03/16 11:53 Order name: EKG; Complete Time: 11:53 7 03/16 15:56 Order name: CONS Physician Consult EDMS 03/16 11:53 Order name: Accucheck; Complete Time: 14:46 7 03/16 11:53 Order name: Cardiac monitoring; Complete Time: 12:35 7 03/16 11:53 Order name: EKG - Nurse/Tech; Complete Time: 12:35 7 03/16 11:53 Order name: IV Saline Lock - Large Bore; Complete Time: 12:35 7 03/16 11:53 Order name: Labs collected and sent; Complete Time: 12:35 [facility] 03/16 11:53 Order name: O2 Per Protocol; Complete Time: 12:35 [facility] 03/16 11:53 Order name: O2 Sat Monitoring; Complete Time: 12:35 [facility] 03/16 11:53 Order name: Vital Signs; Complete Time: 12:35 [facility] EC:07 Rate is 66 beats/min. Rhythm is regular. QRS Leopold is Normal. SC interval is normal at [facility] 144 msec. QRS interval is normal at 104 msec. QT interval is normal at 426 msec. No Q waves. T waves are Normal. Clinical impression: NSR w/ Non-specific ST/T Changes. Administered Medications: 13:05 Drug: NS 0.9% IV 500 ml IV at bolus once Route: IV; Rate: bolus; Site: left forearm; kd3 13:05 Drug: Rocephin IV 1 grams IV at 1 calculated rate once; Given slow IV push per pharmacy kd3 instructions Route: IV; Rate: 1 calculated rate; Site: left forearm; 13:23 Drug: NS 0.9% IV 1000 ml IV at 1 bolus Per protocol; 1000 mL bolus Route: IV; Rate: 1 mb9 bolus; Site: right antecubital; 18:22 Drug: hydrALAZINE IVP 10 mg IVP once Route: IVP; Site: left forearm; kd3 Disposition: 12:47 Co-signature as Attending Physician, Sahara Cerda MD I agree with the assessment and 3 plan of care. Disposition Summary: 03/16/23 13:30 Hospitalization Ordered Notes: Hospitalization Status: Inpatient Admission [facility] Provider: Gillian Kc [facility] Condition: Stable [facility] Problem: new [facility] Symptoms: are unchanged [facility] Bed/Room Type: Standard [facility] Room Assignment: 230(03/16/23 17:52) dw Diagnosis - UTI/ Urinary tract infection, site not specified [facility] - Severe sepsis without septic shock [facility] - Altered mental status, unspecified [facility] Forms: - Medication Reconciliation Form [facility] - SBAR form [facility] - Leadership Thank You Letter [facility] NIH Stroke Scale - NIH Stroke Score Date: 03/16/2023 Time: 11:50 Total Score = 0 10. Dysarthria (speech clarity - read or repeat words) - 0(Normal) 11. Extinction and Inattention (visual/tactile/auditory/spatial/personal) - 0(No abnormality) 1a. Level of Consciousness (LOC) - 0(Alert) 1b. Level of Consciousness (LOC) (Month \T\ Age) - 0(Both) 1c. LOC Commands (Open \T\ Closes Eyes/Packer Dried Beef) - 0(Both) 2. Best Gaze (Lateral Gaze Paresis) - 0(Normal) 3. Visual Field Loss - 0(No visual loss) 4. Facial Palsy - 0(Normal) 5a. Left Arm: Motor (10-second hold) - 0(No drift) 5b. Right Arm: Motor (10-second hold) - 0(No drift) 6a. Left Leg: Motor (5-second hold - always test supine) - 0(No drift) 6b. Right Leg: Motor (5-second hold - always test supine) - 0(No drift) 7. Limb Ataxia (finger/nose \T\ heel/najera - test with eyes open) - 0(Absent) 8. Sensory Loss (pinprick arms/legs/face) - 0(Normal) 9. Best Language: Aphasia (description/naming/reading) - 0(No aphasia) Initials: [facility] Signatures: Dispatcher [employer] EDRI Amairani Peña RN RN Sahara Suggs MD MD cp3 Jocelyn Flower RN RN kd3 Elma Hsieh, ADVERTISEMENT DISTRIBUTOR ADVERTISEMENT DISTRIBUTOR [facility] Yun Turner RN RN mb9 Corrections: (The following items were deleted from the chart) 15:48 15:48 Urinalysis w/ reflexes ordered. EDRI EDMS 17:52 13:30 [facility] corey
--- NOTE | 2023-03-16 13:30 | ER ---
Nurse's Notes [facility] Name: Aditi Arreola Age: 82 yrs Sex: Female : 1940 Arrival Date: 03/16/2023 Time: 11:46 Bed 19 Private MD: Diagnosis: UTI/ Urinary tract infection, site not specified;Severe sepsis without septic shock;Altered mental status, unspecified Presentation: 03/16 11:59 Chief complaint: EMS states: EMS was toned out for altered mental status that started kd3 this morning and has lasted for about 45 minutes so far. Pt has a past history of a stroke. Family i concerned that she may have contracted COVID. Pt vital signs are stable. Pt is seen in the stretcher, crying, alert and oriented to self. Coronavirus screen: Vaccine status: unknown. Ebola Screen: No symptoms or risks identified at this time. Initial Sepsis Screen: Does the patient meet any 2 criteria? RR > 20 per min. Altered Mental Status. Yes Does the patient have a suspected source of infection?. Risk Assessment: Do you want to hurt yourself or someone else? Patient reports no desire to harm self or others. Onset of symptoms was March 16, 2023. 11:59 Method Of Arrival: EMS: [facility] kd3 11:59 Acuity: LUIS ARMANDO 3 kd3 Triage Assessment: 12:04 General: Appears uncomfortable, Behavior is anxious, crying. Pain: Denies pain. kd3 Historical: - PMHx: 12:04 a-fib; Hypertension; Diabetes - NIDDM; kd3 - PSHx: 12:04 Cholecystectomy; cardiac stent; Left knee sx; kd3 - Immunization history:: Adult Immunizations up to date. - Social history:: Smoking status: unknown. Screenin:36 [facility] ED Fall Risk Assessment (Adult) History of falling in the last 3 months, kd3 including since admission No falls in past 3 months (0 pts) Confusion or Disorientation Yes (5 pts) Intoxicated or Sedated No (0 pts) Impaired Gait Yes (1 pt) Mobility Assist Device Used No (0 pt) Altered Elimination No (0 pt) Score/Fall Risk Level 3 or more points = High Risk Oriented to surroundings, Maintained a safe environment, Educated pt \T\ family on fall prevention, incl call for assistance when getting out of bed, Assessed \T\ reinforced patient's understanding of fall precautions, Provided non-skid footwear. Abuse screen: Denies threats or abuse. Denies injuries from another. Nutritional screening: No deficits noted. Tuberculosis screening: No symptoms or risk factors identified. Assessment: 12:35 General: Appears uncomfortable, Behavior is crying. Neuro: Level of Consciousness is kd3 awake, alert, obeys commands, Oriented to person, place. Respiratory: Airway is patent Trachea midline Respiratory effort is even, unlabored, Respiratory pattern is tachypnea. 17:04 General: Pt provided a meal tray. Pt assisted with set up. Pt family members at the 3 bedside to assist with feedings. . Neuro: Level of Consciousness is awake, alert, obeys commands, Oriented to person, place, time, situation. Cardiovascular: Patient's skin is warm and dry. Respiratory: Airway is patent Trachea midline Respiratory effort is even, unlabored, Respiratory pattern is regular, symmetrical. 18:26 General: Appears in no apparent distress. Behavior is calm, cooperative. kd3 Cardiovascular: Patient's skin is warm and dry. Respiratory: Airway is patent Trachea midline Respiratory effort is even, unlabored, Respiratory pattern is regular, symmetrical. 18:27 General: Attempted to call report. The nurse will call me back after she finishes kd3 discharging her patient. . Vital Signs: 11:59 Pulse 87; Resp 21; Temp 97.2(A); Pulse Ox 98% on R/A; kd3 12:38 BP 180 / 70; kd3 16:46 BP 187 / 72; Pulse 78; Resp 19; Pulse Ox 92% on R/A; kd3 18:12 BP 203 / 66; Pulse 71; Resp 19; Pulse Ox 97% on R/A; kd3 18:22 BP 170 / 69; Pulse 74; Resp 16; Pulse Ox 97% on R/A; kd3 18:41 BP 168 / 56; Pulse 83; Resp 17; Pulse Ox 97% on R/A; kd3 NIH Stroke Scale Scores: 11:50 NIHSS Score: 0 [facility] ED Course: 11:49 Patient arrived in ED. mb9 11:52 [facility] 11:52 Sahara Cerda MD is Attending Physician. jh7 11:59 Jocelyn Flower, RN is Primary Nurse. kd3 12:04 Triage completed. kd3 12:04 Arm band placed on left wrist. kd3 12:10 Radiology exam delayed due to nurse getting labs and EKG at this time. ls3 12:34 SARS RAPID Sent. kd3 12:35 No provider procedures requiring assistance completed. Inserted saline lock: 22 gauge kd3 in right antecubital area, using aseptic technique. Blood collected. Maintain EMS IV. Dressing intact. Good blood return noted. Site clean \T\ dry. Gauge \T\ site: 20 left forearm . 12:36 Patient has correct armband on for positive identification. Provided Education on: kd3 blood cultures collection . 12:36 SARS RAPID Sent. kd3 12:36 Blood Culture Adult (2) Sent. kd3 12:36 CMP Sent. kd3 12:36 Lactate w/ 2H reflex if indic. Sent. kd3 12:36 Protime (+inr) Sent. kd3 12:37 Ptt, Activated Sent. kd3 12:37 Urinalysis w/ reflexes Sent. kd3 12:47 Chest Single View XRAY In Process Unspecified. EDMS 12:51 Urine Culture Sent. kd3 12:58 CT Head Brain wo Cont In Process Unspecified. EDMS 13:29 Gillian Kc MD is Hospitalizing Provider. jh7 18:41 Patient admitted, IV remains in place. kd3 Administered Medications: 13:05 Drug: NS 0.9% IV 500 ml IV at bolus once Route: IV; Rate: bolus; Site: left forearm; kd3 13:05 Drug: Rocephin IV 1 grams IV at 1 calculated rate once; Given slow IV push per pharmacy kd3 instructions Route: IV; Rate: 1 calculated rate; Site: left forearm; 13:23 Drug: NS 0.9% IV 1000 ml IV at 1 bolus Per protocol; 1000 mL bolus Route: IV; Rate: 1 mb9 bolus; Site: right antecubital; 18:22 Drug: hydrALAZINE IVP 10 mg IVP once Route: IVP; Site: left forearm; kd3 Medication: 18:28 VIS not applicable for this client. kd3 Outcome: 13:30 Decision to Hospitalize by Provider. jh7 18:40 Admitted to Med/surg kd3 18:40 Condition: stable 18:40 Discharge instructions given to patient, family, Instructed on the need for admit, Demonstrated understanding of instructions, 19:03 Patient left the ED. kd3 NIH Stroke Scale - NIH Stroke Score Date: 03/16/2023 Time: 11:50 Total Score = 0 10. Dysarthria (speech clarity - read or repeat words) - 0(Normal) 11. Extinction and Inattention (visual/tactile/auditory/spatial/personal) - 0(No abnormality) 1a. Level of Consciousness (LOC) - 0(Alert) 1b. Level of Consciousness (LOC) (Month \T\ Age) - 0(Both) 1c. LOC Commands (Open \T\ Closes Eyes/Contract Administration Coordinator) - 0(Both) 2. Best Gaze (Lateral Gaze Paresis) - 0(Normal) 3. Visual Field Loss - 0(No visual loss) 4. Facial Palsy - 0(Normal) 5a. Left Arm: Motor (10-second hold) - 0(No drift) 5b. Right Arm: Motor (10-second hold) - 0(No drift) 6a. Left Leg: Motor (5-second hold - always test supine) - 0(No drift) 6b. Right Leg: Motor (5-second hold - always test supine) - 0(No drift) 7. Limb Ataxia (finger/nose \T\ heel/najera - test with eyes open) - 0(Absent) 8. Sensory Loss (pinprick arms/legs/face) - 0(Normal) 9. Best Language: Aphasia (description/naming/reading) - 0(No aphasia) Initials: [facility] Signatures: Dispatcher [employer] EDMS Aron Dalal 3 Jocelyn Flower RN RN kd3 Elma Hsieh, EIGHT SECTION BLOWER EIGHT SECTION BLOWER jh7 Yun Turner, RN RN mb9
[2023-03-16] MEDS ORDERED: NA CHLORIDE 0.9% 1,000 ML ONE (13:34)
--- NOTE | 2023-03-16 16:25 | P.HP ---
Certification for Inpatient Patient admitted to: Inpatient With expected LOS: >2 Midnights Practitioner: I am a practitioner with admitting privileges, knowledge of patient current condition, hospital course, and medical plan of care. Services: Services provided to patient in accordance with Admission requirements found in Title 42 Section 412.3 of the Code of Federal Regulations Patient History Date of Service: 03/16/23 Reason for admission: AMS History of Present Illness: Aditi Arreola is an 82-year-old female with past medical history of hypertension, seizures, congestive heart failure, and I DDM, anxiety, trigeminal neuralgia, 1 kidney present, who presents to the ED complaining of altered mental status. Family is at the bedside and reports Pilo was eating a snack at the table when she slumped over and became unresponsive, lost her bowel and bladder at that time. When EMS arrived she was becoming more alert and oriented. Initial vitals BP 180/70, heart rate 87, respirations 21, temperature 97.2, pulse ox 98% on room air, NIH Stroke Scale 0. Lab results: CBC unremarkable, troponin 140, BUN and creatinine 24/1.42, GFR 37, lactic 0.9. CT head reveals no intracranial hemorrhage, mass or edema. Midline structures are unremarkable.Stable marginally calcified anterior falcine 1.7 centimeter mass most compatible with a meningioma. Patchy hypodensities in the periventricular and deep white matter, stable in pattern and nonspecific, but suggestive of chronic small vessel ischemic changes, Focus of hypoattenuation along the inferior right cerebellar folia is stable and may represent sequelae of a small infarct. Aditi will be admitted for further investigations and treatment of altered mental status and UTI. Allergies codeine Allergy (Verified 09/03/20 02:23) Nausea/Vomiting lorazepam Allergy (Verified 09/03/20 02:23) hallucination, confusion Home Medications: Amlodipine [Norvasc*] 10 mg PO DAILY #30 tab 09/03/20 Aspirin [Aspirin EC 81 MG] 81 mg PO DAILY 09/03/20 Clopidogrel Bisulfate [Plavix*] 75 mg PO DAILY 09/03/20 Hydralazine [Apresoline*] 50 mg PO QID 09/03/20 Metformin HCl [Glucophage*] 500 mg PO BID 09/03/20 hydroCHLOROthiazide [Hydrochlorothiazide] 25 mg PO DAILY 09/03/20 levETIRAcetam [Keppra] 500 mg PO BID 09/03/20 Ferrous Sulfate [Iron] 325 mg PO DAILY 60 Days #60 tablet 01/28/21 Metoprolol Succinate [Toprol Xl*] 50 mg PO DAILY 30 Days #30 tab 01/28/21 - Past Medical/Surgical History Diabetic: Yes -: NIDDM -: HTN -: Renal artery stenosis -: HFpEF (Heart Failure w/ Preserved Ejection Fraction) -: paroxysmal atrial fibrillation -: NSTEMI 04/2020 -: L KNEE RX -: C section Psychosocial/ Personal History: Patient lives at home with her and son - Family History Father -: Heart disease Notes: SC Brother Notes: SC - Social History Alcohol use: No CD- Drugs: No Caffeine use: No Review of Systems General: Weakness, Malaise Eyes: Unremarkable ENT: Mouth Pain, Unremarkable (trigeminal neuralgia) Respiratory: Unremarkable Cardiovascular: Unremarkable Gastrointestinal: Unremarkable Genitourinary: Unremarkable Musculoskeletal: Unremarkable Integumentary: Unremarkable Neurological: Other (AMS, syncopal episode, unresponsive at home) Physical Examination - Physical Exam General: Alert, Oriented x3, Mild distress HEENT: Atraumatic, Normocephalic, PERRLA, Other (pain to left jaw on palpation) Neck: Supple, 2+ carotid pulse no bruit, JVD not distended Respiratory: Clear to auscultation bilaterally, Normal air movement Cardiovascular: No edema, Normal pulses, Regular rate/rhythm, Normal S1 S2 Capillary refill: <2 Seconds Gastrointestinal: Normal bowel sounds, Soft and benign Musculoskeletal: No clubbing, No swelling, No contractures Integumentary: No rashes, No breakdown, No significant lesion Neurological: Normal speech, Abnormal strength (general weakness) - Studies Laboratory Data (last 24 hrs) 03/16/23 03/16/23 03/16/23 12:15 12:15 12:15 WBC 5.10 Hgb 13.4 Hct 39.4 Plt Count 194 PT 11.6 INR 1.05 APTT 30.8 Sodium 136 Potassium 4.4 BUN 24 H Creatinine 1.42 H Glucose 130 H Total Bilirubin 0.3 AST 16 ALT 20 Alkaline Phosphatase 135 H Assessment and Plan - Plan Assessnent and plan Alerted mental status 2/2 UTI Questionable small infarct Syncopal episode h/o Seizures -head CT: Focus of hypoattenuation along the inferior right cerebellar folia is stable and may represent sequelae of a small infarct -MRi pending -consult Dr. Bansal -folic acid, statin, and asa -A1C, TSH, Lipid panel pending -Fall risk -aspiration precautions Elevated troponin in a patient with history of coronary stent placement and CHF -ECHO pending -serial trop 140, redraw pending -Restart home medications when available UTI -continue rocephin -urine cultures pending -blood cultures pending h/o trigeminal neuralgia -continue home medications DNR DVT ppx: SCD for now LOS >2 days Discharge Plan: Home Plan to discharge in: 72 Hours - Advance Directives Does patient have a Living Will: No Does patient have a Durable POA for Healthcare: Yes Time Spent Managing Pts Care (In Minutes): 55
[2023-03-16 17:50] LABS: Thyroid Stimulating Hormone 0.617 uIU/mL (0.358-3.740)
[2023-03-16] MEDS ORDERED: HYDRALAZINE HCL 20 MG/ML VIAL ONE (18:25)
[2023-03-16 19:34] VITALS: O2SAT 97
[2023-03-16] MEDS: ATORVASTATIN 40 MG TAB PO SCH (20:17)
[2023-03-16] MEDS: levETIRAcetam 500 MG in NA CHLORIDE 0.9% 100 ML IV SCH (20:17)
[2023-03-16] MEDS: FOLIC ACID 1 MG TABLET PO SCH (20:17)
[2023-03-16] MEDS: ASPIRIN EC 81 MG TAB PO SCH (20:17)
[2023-03-16] MEDS ORDERED: ACETAMINOPHEN 500 MG TAB PO PRN (20:31)
[2023-03-16] MEDS: METOPROLOL TARTRATE 5 MG/5 ML INJ IV PRN (20:55)
[2023-03-16 22:06] VITALS: BMI 23.0
[2023-03-17 03:21] LABS: Absolute Lymphocytes (CBC) 0.5 K/uL (0.7-4.9); Hematocrit 32.6 % (36.0-45.0); Lymphocytes % 9.4 % (15.3-44.8); MCV 84.1 fL (80-100); MPV 8.1 fL (7.6-11.3); Platelets 150 thou/uL (152-406); RBC Red Blood Cell Count 3.88 M/uL (3.86-4.86)
[2023-03-17 03:45] LABS: BUN Blood Urea Nitrogen 19 mg/dL (7-18); Bicarbonate 25 mEq/L (21-32); Glomerular Filtration Rate 59 ml/min (=/>90); Glucose Level 90 mg/dL (74-106); HDL Cholesterol 56 mg/dL (40-60); LDL Cholesterol, Calculated 130 mg/dL (<130); Magnesium 2.1 mg/dL (1.6-2.4); Phosphorus 3.3 mg/dL (2.5-4.9); Potassium 3.8 mEq/L (3.5-5.1); Sodium Level 138 mEq/L (136-145)
[2023-03-17] MEDS: levETIRAcetam 500 MG in NA CHLORIDE 0.9% 100 ML IV SCH ×2 (06:18→20:14)
[2023-03-17] MEDS ORDERED: POTASSIUM CL SA 10 MEQ TAB PO ONE (08:00)
[2023-03-17] MEDS: FOLIC ACID 1 MG TABLET PO SCH (08:05)
[2023-03-17] MEDS: ASPIRIN EC 81 MG TAB PO SCH (08:05)
--- NOTE | 2023-03-17 10:11 | RAD REPORT ---
EXAM DESCRIPTION: US - CP - 03/17/2023 6:28 am CLINICAL HISTORY: Syncope COMPARISON: Carotid Artery Bilateral dated 10/12/2022 TECHNIQUE: Real-time sonographic grayscale, color duplex, and spectral wave Doppler evaluation of jess carotid systems was performed. FINDINGS: Normal high resistance waveforms are noted in both external carotid arteries. The common c arotid arteries and internal carotid arteries show normal low resistance waveforms. Moderate to advanced calcified irregular atherosclerotic plaque most notably at the distal right CC 8 and carotid bulb, and mid to distal left CCA, and to lesser extent at the left carotid bulb and prox imal left ICA. Elevated peak systolic velocity at the right carotid bulb with significant narrowing, peak systolic v elocity measures 258 cm/sec. Peak systolic velocity is mildly elevated bilaterally along the internal carotid arteries, up to 142 cm/ sec bilaterally. ICA/CCA peak systolic ratios less than 2.0 bilatera lly. Antegrade flow seen in both vertebral arteries. IMPRESSION: Moderate to advanced bilateral atherosclerotic changes noted. Mildly elevated bilateral ICA peak systolic velocities amounting to 50-69% stenosis. Markedly elevate d peak systolic velocity at the right carotid bulb, not factored in the calculations, and most likely involving the ECA origin. Evaluation of carotid artery stenosis, if any, is reported based on consensus recommendations of the Society of Radiologists in Ultrasound (Pablo et al., Radiology, 2003)
--- NOTE | 2023-03-17 12:31 | P.CNS ---
Date of Consult: 03/17/23 Reason for Consult: GURMEET Requesting Physician: Gillian Kc Primary Care Provider: Dr. Bereket Diop Chief Complaint: AMS History of Present Illness: Aditi Arreola is an 82-year-old female with past medical history of hypertension, seizures, congestive heart failure, and I DDM, anxiety, trigeminal neuralgia, 1 kidney present, who presents to the ED complaining of altered mental status. Family is at the bedside and reports Pilo was eating a snack at the table when she slumped over and became unresponsive, lost her bowel and bladder at that time. When EMS arrived she was becoming more alert and oriented. Initial vitals BP 180/70, heart rate 87, respirations 21, temperature 97.2, pulse ox 98% on room air, NIH Stroke Scale 0. Lab results: CBC unremarkable, troponin 140, BUN and creatinine 24/1.42, GFR 37, lactic 0.9. CT head reveals no intracranial hemorrhage, mass or edema. Midline structures are unremarkable.Stable marginally calcified anterior falcine 1.7 centimeter mass most compatible with a meningioma. Patchy hypodensities in the periventricular and deep white matter, stable in pattern and nonspecific, but suggestive of chronic small vessel ischemic changes, Focus of hypoattenuation along the inferior right cerebellar folia is stable and may represent sequelae of a small infarct. Aditi will be admitted for further investigations and treatment of altered mental status and UTI. 11:50 This 82 yrs old Female presents to ER via EMS with complaints of AMS. jh7 11:50 The patient presents with decreased responsiveness. Onset: The symptoms/episode jh7 began/occurred acutely. Possible causes: CVA or TIA, HX of stroke, seizure, the patient has a known seizure history, sepsis. EMS toned out for altered mental status. The patient was sitting at the table 45 minutes ago, and according to her son, slumped over and became unresponsive. The patient lost her bowels and bladder at this time. The patient did not fall or injure her head. The patient became more alert once EMS arrived and was initially altered. Patient oriented x4 upon arrival to the ER.. No NSAIDs. No difficulty with urination. Occasional low back pain. Allergies codeine Allergy (Verified 09/03/20 02:23) Nausea/Vomiting lorazepam Allergy (Verified 09/03/20 02:23) hallucination, confusion Home medications list reviewed: Yes Home Medications: Aspirin [Aspirin EC 81 MG] 81 mg PO DAILY 09/03/20 Clopidogrel Bisulfate [Plavix*] 75 mg PO DAILY 09/03/20 Hydralazine [Apresoline*] 50 mg PO QID 09/03/20 levETIRAcetam [Keppra] 750 mg PO BID 09/03/20 Metoprolol Succinate [Toprol Xl*] 50 mg PO DAILY 30 Days #30 tab 01/28/21 Memantine HCl [Namenda] 5 mg PO BID 03/16/23 OXcarbazepine [Oxcarbazepine] 300 mg PO BID 03/16/23 NIFEdipine [Nifedipine ER] 1 tab PO DAILY 03/17/23 - Past Medical/Surgical History Diabetic: Yes -: NIDDM -: HTN -: 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 -: HFpEF (Heart Failure w/ Preserved Ejection Fraction) -: Paroxysmal atrial fibrillation -: CAD/ Stent/ NSTEMI 04/2020 -: PAD/ Atherosclerosis of Aorta/ Celiac artery/ Carotid Disease -: L KNEE RX -: C section Psychosocial/ Personal History: Patient lives at home with her and son - Family History Father Medical History: Heart disease Notes: CA Brother Notes: CA - Social History Smoking Status: Never smoker (Second hand smoke exposure from her ) Alcohol use: No CD- Drugs: No Caffeine use: No Place of Residence: Home Review of Systems 10-point ROS is otherwise unremarkable General: Weakness Physical Examination Temp Pulse Resp BP Pulse Ox 97.9 F 70 18 194/77 H 97 03/17/23 08:00 03/17/23 08:00 03/17/23 08:00 03/17/23 08:00 03/17/23 08:00 General: In no apparent distress, Oriented x3, Cooperative HEENT: Atraumatic Neck: Supple Respiratory: Clear to auscultation bilaterally Cardiovascular: No edema, Regular rate/rhythm Gastrointestinal: Soft and benign, Non-distended Musculoskeletal: No clubbing, No contractures Integumentary: No rashes, No cyanosis Neurological: Normal speech Laboratory Data (last 24 hrs) 03/16/23 03/16/23 03/16/23 12:15 12:15 12:15 WBC 5.10 Hgb 13.4 Hct 39.4 Plt Count 194 PT 11.6 INR 1.05 APTT 30.8 Sodium 136 Potassium 4.4 BUN 24 H Creatinine 1.42 H Glucose 130 H Total Bilirubin 0.3 AST 16 ALT 20 Alkaline Phosphatase 135 H Imagings Data: EXAM DESCRIPTION: RADChest Single View03/16/2023 12:45 pm CLINICAL HISTORY: MALAISE COMPARISON: Chest Single View dated 01/21/2021; Chest Single View dated 01/18/2021; Chest Single View dated 01/15/2021; Chest Single View dated 09/02/2020 TECHNIQUE: Portable AP view of the chest. FINDINGS: Patient rotation somewhat limits evaluation. Elevation of the right hemidiaphragm. No new focal airspace opacities, with improvement of patchy opacification at the right apex and left base since the most recent comparison radiograph. No pneumothorax or effusion. The cardiomediastinal contours are unremarkable. IMPRESSION: No acute cardiopulmonary process. EXAM DESCRIPTION: US - CP - 03/17/2023 6:28 am CLINICAL HISTORY: Syncope COMPARISON: Carotid Artery Bilateral dated 10/12/2022 TECHNIQUE: Real-time sonographic grayscale, color duplex, and spectral wave Doppler evaluation of both carotid systems was performed. FINDINGS: Normal high resistance waveforms are noted in both external carotid arteries. The common carotid arteries and internal carotid arteries show normal low resistance waveforms. Moderate to advanced calcified irregular atherosclerotic plaque most notably at the distal right CC 8 and carotid bulb, and mid to distal left CCA, and to lesser extent at the left carotid bulb and proximal left ICA. Elevated peak systolic velocity at the right carotid bulb with significant narrowing, peak systolic velocity measures 258 cm/sec. Peak systolic velocity is mildly elevated bilaterally along the internal carotid arteries, up to 142 cm/ sec bilaterally. ICA/CCA peak systolic ratios less than 2.0 bilaterally. Antegrade flow seen in both vertebral arteries. IMPRESSION: Moderate to advanced bilateral atherosclerotic changes noted. Mildly elevated bilateral ICA peak systolic velocities amounting to 50-69% stenosis. Markedly elevated peak systolic velocity at the right carotid bulb, not factored in the calculations, and most likely involving the ECA origin. EXAM DESCRIPTION: CT - Head Brain Wo Cont - 03/16/2023 12:56 pm CLINICAL HISTORY: MENTAL STATUS CHANGE COMPARISON: Head Brain Wo Cont dated 01/15/2021; Head Brain Wo Cont dated 06/08/2019 TECHNIQUE: Noncontrast head CT images were obtained without IV contrast. Multiplanar reformats were generated and reviewed. All CT scans are performed using dose optimization technique as appropriate and may include automated exposure control or mA/KV adjustment according to patient size. FINDINGS: No intracranial hemorrhage, mass, or edema. Midline structures are unremarkable, apart from re- demonstrated partially empty sella. Stable marginally calcified anterior falcine 1.7 centimeter mass most compatible with a meningioma. Moderate diffuse parenchymal volume loss. Ventricular caliber is stable. Patchy hypodensities in the periventricular and deep white matter, stable in pattern and nonspecific, but suggestive of chronic small vessel ischemic changes. Focus of hypoattenuation along the inferior right cerebellar folia is stable and may represent sequelae of a small infarct. Marie- white matter differentiation is otherwise preserved, without evidence of acute infarct. No abnormal extra-axial fluid collections. Mastoid air cells and visualized portions of the paranasal sinuses are clear. No acute bony findings. IMPRESSION: No evidence of an acute intracranial process. EXAM DESCRIPTION: MRI - MRA Abdomen W/Wo Cont - 06/12/2019 7:46 pm CLINICAL HISTORY: Acute kidney injury, hypertension COMPARISON: CT study November 2008 TECHNIQUE: Coronal heavily T2 weighted and axial T1 weighted and T2 haste sequences were obtained. Coronal acquisition plane utilized during 40 milliliter MultiHance contrast volume administration. Coronal postcontrast re-formatted images were generated and reviewed. Horizontal and vertical axes 3D rotational images obtained using maximum intensity projection protocol. FINDINGS: Anatomic assessment shows a small right kidney with cortical thinning. Small renal cysts present. Cyst is present posterior left kidney. The small right kidney is a new finding from the 2009 CT study. Significant irregular or atherosclerotic changes are present in the aorta from the level of the celiac artery to the bifurcation. No aneurysm or dissection. No significant luminal narrowing in the aorta. Bilateral common iliac and proximal portions of the external iliac arteries are unremarkable. Aorta above the celiac artery level shows no significant disease. 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 Superior mesenteric artery does not show significant disease. Inferior mesenteric artery is patent but there is significant luminal stenosis. There is very significant short-segment signal loss in the proximal left vertebral artery estimated at 80%. There is no history of left renal artery stenting. There is a short stump of the right renal artery identified. There is truncation of the right renal artery with little or no identifiable flow within the right renal artery. 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 Blood flow was difficult to identified at sonography as well. The right kidney is very small with cortical thinning. This is new from 2008. This finding would be consistent with infarcted or significantly compromised renal parenchyma. The left kidney has short-segment high-grade 80% stenosis near the origin. 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 Significant atherosclerotic change in the aorta without significant luminal narrowing or dissection. EXAM DESCRIPTION: US - Renal Ultrasound-Complete - 01/16/2021 8:06 am CLINICAL HISTORY: GURMEET COMPARISON: CT abdomen and pelvis January 15, MRI angio May 2019 FINDINGS: The right kidney is atrophic measuring 7.3 x 3.2. The earlier CT study showed atrophy of the right kidney. The left kidney measures grossly 9.7 x 4.5 cm. Left-sided renal cortical thickness and echogenicity are within range of normal. Right kidney shows cortical thinning and significant increase in cortical echogenicity. No hydronephrosis is present. No suspicious mass identified in either kidney. The low-density areas in the posterior mid and inferior aspects left kidney are not clearly seen. Visualization of the kidneys was limited. These appear to be cysts on the MRI study. No bladder wall thickening or mass. No intraluminal stone or mass. IMPRESSION: No hydronephrosis is present. No suspicious mass lesion identifiable. There are 2 rounded low-density areas in the posterior mid and lower pole left kidney that are not well visualized at sonography but appear to be cysts based on the CT angio from 2019. No bladder abnormality identifiable. Conclusions/Impression: Stage I GURMEET, resolved Unilateral small right kidney in the setting of ADRIANA -No NSAIDs RenoVascular HTN in the setting of Right ADRIANA -Restart Metoprolol and Hydralazine Diastolic CHF, chronic -Daily weight DM II -No sugar diet Anemia in chronic illness -Monitor H&H Acute infective cystitis -Continue abx -Follow up culture CAD/ PAD/ Atherosclerosis of aorta -Continue Lipitor Case reviewed with Dr. Kc Thank you kindly for the consultation
[2023-03-17] MEDS: METOPROLOL XL 50 MG TAB PO SCH (12:42)
[2023-03-17] MEDS: HYDRALAZINE HCL 25 MG TABLET PO SCH ×3 (12:58→20:13)
--- NOTE | 2023-03-17 14:08 | P.PN ---
Subjective Date of Service: 03/17/23 Chief Complaint: AMS Subjective: No new changes, Doing well HPI 03/16: Aditi Arreola is an 82-year-old female with past medical history of hypertension, seizures, congestive heart failure, and I DDM, anxiety, trigeminal neuralgia, 1 kidney present, who presents to the ED complaining of altered mental status. Family is at the bedside and reports Pilo was eating a snack at the table when she slumped over and became unresponsive, lost her bowel and bladder at that time. When EMS arrived she was becoming more alert and oriented. Initial vitals BP 180/70, heart rate 87, respirations 21, temperature 97.2, pulse ox 98% on room air, NIH Stroke Scale 0. Lab results: CBC unremarkable, troponin 140, BUN and creatinine 24/1.42, GFR 37, lactic 0.9. CT head reveals no intracranial hemorrhage, mass or edema. Midline structures are unremarkable.Stable marginally calcified anterior falcine 1.7 centimeter mass most compatible with a meningioma. Patchy hypodensities in the periventricular and deep white matter, stable in pattern and nonspecific, but suggestive of chronic small vessel ischemic changes, Focus of hypoattenuation along the inferior right cerebellar folia is stable and may represent sequelae of a small infarct. Aditi will be admitted for further investigations and treatment of altered mental status and UTI. 03/17: Aditi is sitting up in bed eating breakfast, daughter at bedside and reports Aditi has ambulated to the bathroom independentlay. She denies fever, chills, CP, SOB, and HAYDEN. Nephrology has seen her. Will continue Rocephin. Review of Systems 10-point ROS is otherwise unremarkable Physical Examination - Vital Signs Temperature: 98.1 F Blood Pressure: 208/71 Pulse: 75 Respirations: 18 Pulse Ox (%): 97 Assessment And Plan - Plan Physical Exam General: Alert, Oriented x3, NAD HEENT: Atraumatic, Normocephalic, PERRLA, Other (pain to left jaw on palpation) Neck: Supple, 2+ carotid pulse no bruit, JVD not distended Respiratory: Clear to auscultation bilaterally, Normal air movement Cardiovascular: No edema, Normal pulses, Regular rate/rhythm, Normal S1 S2 Capillary refill: <2 Seconds Gastrointestinal: Normal bowel sounds, Soft and benign Musculoskeletal: No clubbing, No swelling, No contractures Integumentary: No rashes, No breakdown, No significant lesion Neurological: Normal speech, Improved strength Assessment and plan Alerted mental status 2/2 UTI Questionable small infarct Syncopal episode h/o Seizures -head CT: Focus of hypoattenuation along the inferior right cerebellar folia is stable and may represent sequelae of a small infarct -MRI Sunday -consult Dr. Bansal -folic acid, statin, and asa -A1C, TSH, Lipid panel unremarkable -Fall risk -aspiration precautions Elevated troponin in a patient with history of coronary stent placement and CHF -ECHO pending -serial trop 117.9/117.3 -Restart home medications when available UTI -continue rocephin -urine cultures pending -blood cultures pending h/o trigeminal neuralgia -continue home medications DNR DVT ppx: SCD for now LOS >2 days Discharge Plan: Home Time Spent Managing PTS Care (In Minutes): 35
[2023-03-17] MEDS: METOPROLOL TARTRATE 5 MG/5 ML INJ IV PRN ×2 (14:27→23:38)
[2023-03-17] MEDS: DOCUSATE NA 100 MG CAP PO SCH ×2 (14:27→20:13)
[2023-03-17] MEDS ORDERED: METOPROLOL TAR 50 MG TAB PO ONE (18:20)
[2023-03-17] MEDS: carBAMazepine 200 MG TAB PO SCH (20:00)
[2023-03-17] MEDS: LOSARTAN POTASSIUM 50 MG TABLET PO SCH (20:14)
[2023-03-17] MEDS: ATORVASTATIN 40 MG TAB PO SCH (20:14)
--- NOTE | 2023-03-17 20:47 | RAD REPORT ---
EXAM DESCRIPTION: US - Abdomen Pelvis Scan US - 03/17/2023 6:12 pm CLINICAL HISTORY: High blood pressure Doppler Arterial Renal US for ADRIANA COMPARISON: No comparisons TECHNIQUE: Sonographic grayscale and color flow images of the kidneys. Spectral flow Doppler and co laura duplex imaging of the left kidney was performed. FINDINGS: Right kidney was not visualized, in part due to over shadowing gas. Reportedly, the right kidney is atrophic. The left kidney is normal in contour, measuring 9.1 cm in length. Increased echogenicity suggesting m edical renal disease. No hydronephrosis or radiopaque calculi. Aortic velocity: 53.7 cm/second Left proximal renal artery: 42.9 cm/second Left mid renal artery: 34 cm/second Left distal renal artery: 49.1 cm/second Left renal arcuate artery resistive index: 0.79 Normal waveforms demonstrated within the left renal artery. IMPRESSION: No evidence of hemodynamically significant stenosis within left renal artery. Nonvisualization of the right kidney.
[2023-03-18] MEDS ORDERED: MELATONIN 5 MG TABLET PO PRN (00:09)
[2023-03-18] MEDS: HYDRALAZINE HCL 20 MG/ML VIAL IV PRN ×2 (01:09→16:37)
[2023-03-18] MEDS: METOPROLOL XL 50 MG TAB PO SCH (05:16)
[2023-03-18] MEDS ORDERED: DRISDOL (VITAMIN D=ERGOCALCIFEROL) 50000 UNIT CAP PO SCH (09:00)
[2023-03-18] MEDS: FOLIC ACID 1 MG TABLET PO SCH (09:01)
[2023-03-18] MEDS: ASPIRIN EC 81 MG TAB PO SCH (09:01)
[2023-03-18] MEDS: LOSARTAN POTASSIUM 50 MG TABLET PO SCH ×2 (09:01→20:29)
[2023-03-18] MEDS: DOCUSATE NA 100 MG CAP PO SCH ×2 (09:01→20:29)
[2023-03-18] MEDS: levETIRAcetam 500 MG in NA CHLORIDE 0.9% 100 ML IV SCH ×2 (09:02→19:41)
[2023-03-18] MEDS: HYDRALAZINE HCL 25 MG TABLET PO SCH ×4 (09:13→20:30)
[2023-03-18] MEDS: carBAMazepine 200 MG TAB PO SCH ×3 (09:13→16:18)
[2023-03-18] MEDS ORDERED: BUSPIRONE HCL 5 MG TABLET PO ONE (11:30)
[2023-03-18] MEDS ORDERED: AMLODIPINE 10 MG TAB PO ONE (11:30)
--- NOTE | 2023-03-18 13:54 | EKG ---
Test Date: 2023-03-16 Test Time: 12:07:29 Warp Tension Tester: MIGUEL ANGEL MEASUREMENT RESULTS: Intervals: Rate: 66 MN: 144 QRSD: 104 QT: 426 QTc: 446 [place]: P: 52 MN: 144 QRS: -15 T: 239 INTERPRETIVE STATEMENTS: Normal sinus rhythm ST & T wave abnormality, consider inferolateral ischemia Abnormal ECG Compared to ECG 01/22/2021 10:19:34 Sinus tachycardia no longer present Ventricular premature complex(es) no longer present ST (T wave) deviation still present Possible ischemia still present Electronically Signed On 03-18-23 13:50:45 CDT by Sukhjinder Cohen
[2023-03-18] MEDS ORDERED: cloNIDine HCL 0.1 MG TAB PO ONE (17:55)
[2023-03-18] MEDS ORDERED: CEFTRIAXONE 1,000 MG in NA CHLORIDE 0.9% 50 ML IVPB ONE (19:00)
[2023-03-18] MEDS: ATORVASTATIN 40 MG TAB PO SCH (20:29)
[2023-03-19] MEDS: METOPROLOL XL 50 MG TAB PO SCH (06:00)
[2023-03-19] MEDS: HYDRALAZINE HCL 25 MG TABLET PO SCH ×3 (09:09→16:43)
[2023-03-19] MEDS: levETIRAcetam 500 MG in NA CHLORIDE 0.9% 100 ML IV SCH (09:09)
[2023-03-19] MEDS: LOSARTAN POTASSIUM 50 MG TABLET PO SCH (09:10)
[2023-03-19] MEDS: ASPIRIN EC 81 MG TAB PO SCH (09:10)
[2023-03-19] MEDS: FOLIC ACID 1 MG TABLET PO SCH (09:10)
[2023-03-19] MEDS: DOCUSATE NA 100 MG CAP PO SCH (09:10)
[2023-03-19] MEDS: carBAMazepine 200 MG TAB PO SCH ×3 (09:10→16:43)
[2023-03-19] MEDS: HYDRALAZINE HCL 20 MG/ML VIAL IV PRN (09:48)
[2023-03-19] MEDS ORDERED: QUETIAPINE 25 MG TAB PO ONE ×2 (11:01→13:30)
[2023-03-19] MEDS ORDERED: AMLODIPINE 5 MG TAB PO ONE (11:19)
--- NOTE | 2023-03-19 16:34 | RAD REPORT ---
EXAM DESCRIPTION: MRI - Brain Wo Cont - 03/19/2023 3:03 pm CLINICAL HISTORY: Syncope COMPARISON: September 2022 MRI TECHNIQUE: Axial, sagittal, and coronal magnetic resonance images of the brain were obtained. FINDINGS: Moderate signal within periventricular, deep and subcortical white matter probably ischemi c changes secondary to small vessel disease Areas of abnormal signal right cerebellum compatible with old infarction. Diffusion-weighted/ADC mapping does not reveal evidence of acute infarction. The ventricles are normal caliber. An extra-axial fluid collection is not noted. Fluid within the sinuses/mastoids is not seen IMPRESSION: No acute intracranial abnormality noted
--- NOTE | 2023-03-19 18:50 | P.PN ---
Subjective Date of Service: 03/18/23 Primary Care Provider: Dr. Bereket Diop Chief Complaint: AMS Subjective: Doing well HPI 03/16: Aditi Arreola is an 82-year-old female with past medical history of hypertension, seizures, congestive heart failure, and I DDM, anxiety, trigeminal neuralgia, 1 kidney present, who presents to the ED complaining of altered mental status. Family is at the bedside and reports Pilo was eating a snack at the table when she slumped over and became unresponsive, lost her bowel and bladder at that time. When EMS arrived she was becoming more alert and oriented. Initial vitals BP 180/70, heart rate 87, respirations 21, temperature 97.2, pulse ox 98% on room air, NIH Stroke Scale 0. Lab results: CBC unremarkable, troponin 140, BUN and creatinine 24/1.42, GFR 37, lactic 0.9. CT head reveals no intracranial hemorrhage, mass or edema. Midline structures are unremarkable.Stable marginally calcified anterior falcine 1.7 centimeter mass most compatible with a meningioma. Patchy hypodensities in the periventricular and deep white matter, stable in pattern and nonspecific, but suggestive of chronic small vessel ischemic changes, Focus of hypoattenuation along the inferior right cerebellar folia is stable and may represent sequelae of a small infarct. Aditi will be admitted for further investigations and treatment of altered mental status and UTI. 03/17: Aditi is sitting up in bed eating breakfast, daughter at bedside and reports Aditi has ambulated to the bathroom independentlay. She denies fever, chills, CP, SOB, and HAYDEN. Nephrology has seen her. Will continue Rocephin. 03/18: Aditi very anxious this morning, Blood pressure markedly elevated. She is ready to go home. Daughter in the room would like all tests completed before discharge. Will plan for MRI before discharge tomorrow. Review of Systems 10-point ROS is otherwise unremarkable Physical Examination - Vital Signs Temperature: 97.6 F Blood Pressure: 170/58 Pulse: 70 Respirations: 18 Pulse Ox (%): 96 - Studies Microbiology Data (last 24 hrs): 03/16/23 12:21 Clean Catch Urine [place] Count - Final >100,000 CFU/ML. 03/16/23 12:21 Clean Catch Urine - Final Escherichia Coli Gram Neg Daniel Assessment And Plan - Plan Physical Exam General: Alert, Oriented x3, NAD HEENT: Atraumatic, Normocephalic, PERRLA, Other (pain to left jaw on palpation) Neck: Supple, 2+ carotid pulse no bruit, JVD not distended Respiratory: Clear to auscultation bilaterally, Normal air movement Cardiovascular: No edema, Normal pulses, Regular rate/rhythm, Normal S1 S2 Capillary refill: <2 Seconds Gastrointestinal: Normal bowel sounds, Soft and benign Musculoskeletal: No clubbing, No swelling, No contractures Integumentary: No rashes, No breakdown, No significant lesion Neurological: Normal speech, Improved strength Assessment and plan Alerted mental status 2/2 UTI Questionable small infarct Syncopal episode h/o Seizures -head CT: Focus of hypoattenuation along the inferior right cerebellar folia is stable and may represent sequelae of a small infarct -MRI Sunday -consult Dr. Bansal -folic acid, statin, and asa -A1C, TSH, Lipid panel unremarkable -Fall risk -aspiration precautions Elevated troponin in a patient with history of coronary stent placement and CHF -ECHO pending -serial trop 117.9/117.3 -Restart home medications when available UTI -continue rocephin -urine cultures pending -blood cultures pending h/o trigeminal neuralgia -continue home medications DNR DVT ppx: SCD for now LOS >2 days Discharge Plan: Home Plan to discharge in: 24 Hours Time Spent Managing PTS Care (In Minutes): 35
--- NOTE | 2023-03-19 18:59 | P.DS ---
Admission Date: 03/16/23 Discharge Date: 03/19/23 Primary Care Provider: Dr. Bereket Diop Disposition: ROUTINE DISCHARGE Discharge Condition: GOOD Reason for Admission: AMS Brief History of Present Illness: Aditi Arreola is an 82-year-old female with past medical history of hypertension, seizures, congestive heart failure, and I DDM, anxiety, trigeminal neuralgia, 1 kidney present, who presents to the ED complaining of altered mental status. Family is at the bedside and reports Aditi was eating a snack at the table when she slumped over and became unresponsive, lost her bowel and bladder at that time. When EMS arrived she was becoming more alert and oriented. Initial vitals BP 180/70, heart rate 87, respirations 21, temperature 97.2, pulse ox 98% on room air, NIH Stroke Scale 0. Lab results: CBC unremarkable, troponin 140, BUN and creatinine 24/1.42, GFR 37, lactic 0.9. CT head reveals no intracranial hemorrhage, mass or edema. Midline structures are unremarkable.Stable marginally calcified anterior falcine 1.7 centimeter mass most compatible with a meningioma. Patchy hypodensities in the periventricular and deep white matter, stable in pattern and nonspecific, but suggestive of chronic small vessel ischemic changes, Focus of hypoattenuation along the inferior right cerebellar folia is stable and may represent sequelae of a small infarct. Aditi will be admitted for further investigations and treatment of altered mental status and UTI. Hospital Course: Aditi is a pleasant 82-year-old female with a past medical history significant for hypertension, seizures, congestive heart failure, and IDDM, anxiety, trigeminal neuralgia, 1 kidney who was admitted to the [facility] on 03/16/2023 for altered mental status due to UTI. Aditi's family reports that she was eating a snack at the table when she slumped over and became unresponsive. When EMS arrived she was awake alert and oriented and unaware of what occurred. Upon arrival to the ED UA was positive for a UTI and treatment was started. CT of the head showed no bleeding so MRI was ordered. MRI was performed today and resulted negative. Aditi is tolerating p.o. diet, ambulating independently, Blood pressure improved with manual BP checks, she is conversing well. On 03/19/2023, Aditi was seen on morning rounds and deemed medically stable for discharge. Aditi was discharged with instructions to schedule follow-up appointments with PCP and neurology. Aditi was provided with multiple prescriptions. The patient and family members were given the opportunity to ask questions and reported no further questions. Furthermore, all questions were answered to the best of my ability. A copy of this discharge summary will be sent to the above providers to facilitate continuity of care. Today, I personally spent 50 minutes with Aditi, of which greater than 50% of the time was spent in patient education, counseling, and coordination of care as described above. Physical Exam General: Alert, Oriented x3, NAD HEENT: Atraumatic, Normocephalic, PERRLA, Other (pain to left jaw on palpation) Neck: Supple, 2+ carotid pulse no bruit, JVD not distended Respiratory: Clear to auscultation bilaterally, Normal air movement Cardiovascular: No edema, Normal pulses, Regular rate/rhythm, Normal S1 S2 Capillary refill: <2 Seconds Gastrointestinal: Normal bowel sounds, Soft and benign Musculoskeletal: No clubbing, No swelling, No contractures Integumentary: No rashes, No breakdown, No significant lesion Neurological: Normal speech, Improved strength Vital Signs/Physical Exam: Temp Pulse Resp BP Pulse Ox 97.6 F 70 18 170/58 H 96 03/19/23 18:50 03/19/23 18:50 03/19/23 18:50 03/19/23 18:50 03/19/23 18:50 Laboratory Data at Discharge: WBC 5.10 thou/uL (4.3-10.9) 03/17/23 02:59 Hgb 11.2 g/dL (12.0-15.0) L D 03/17/23 02:59 Hct 32.6 % (36.0-45.0) L 03/17/23 02:59 Plt Count 150 thou/uL (152-406) L 03/17/23 02:59 PT 11.6 SECONDS (9.5-12.5) 03/16/23 12:15 INR 1.05 03/16/23 12:15 APTT 30.8 SECONDS (24.3-36.9) 03/16/23 12:15 Sodium 138 mEq/L (136-145) 03/17/23 02:59 Potassium 3.8 mEq/L (3.5-5.1) D 03/17/23 02:59 BUN 19 mg/dL (7-18) H 03/17/23 02:59 Creatinine 0.96 mg/dL (0.55-1.02) 03/17/23 02:59 Glucose 90 mg/dL (74-106) 03/17/23 02:59 Phosphorus 3.3 mg/dL (2.5-4.9) 03/17/23 02:59 Magnesium 2.1 mg/dL (1.6-2.4) 03/17/23 02:59 Total Bilirubin 0.3 mg/dL (0.2-1.0) 03/16/23 12:15 AST 16 U/L (15-37) 03/16/23 12:15 ALT 20 U/L (13-56) 03/16/23 12:15 Alkaline Phosphatase 135 U/L (45-117) H 03/16/23 12:15 Triglycerides 67 mg/dL (<150) 03/17/23 02:59 Cholesterol 199 mg/dL (<200) 03/17/23 02:59 HDL Cholesterol 56 mg/dL (40-60) 03/17/23 02:59 Cholesterol/HDL Ratio 3.55 03/17/23 02:59 Home Medications: Aspirin [Aspirin EC 81 MG] 81 mg PO DAILY 09/03/20 Clopidogrel Bisulfate [Plavix*] 75 mg PO DAILY 09/03/20 Memantine HCl [Namenda] 5 mg PO BID 03/16/23 OXcarbazepine [Oxcarbazepine] 300 mg PO BID 03/16/23 NIFEdipine [Nifedipine ER] 1 tab PO DAILY 03/17/23 Levetiracetam [Keppra] 1,000 mg PO BID #60 tab 03/18/23 Levetiracetam [Keppra] 1,000 mg PO BID #60 tab 03/18/23 Losartan Potassium [Cozaar*] 50 mg PO BID #60 03/18/23 Losartan Potassium [Cozaar*] 50 mg PO BID #60 tablet 03/18/23 Buspirone HCl [Buspar] 5 mg PO DAILY #30 tab 03/19/23 Cefdinir [Cefdinir*] 300 mg PO BID #20 cap 03/19/23 Hydralazine HCl 100 mg PO Q8H #90 tab 03/19/23 New Medications: Buspirone HCl [Buspar] 5 mg PO DAILY #30 tab Cefdinir [Cefdinir*] 300 mg PO BID #20 cap Losartan Potassium [Cozaar*] 50 mg PO BID #60 Losartan Potassium [Cozaar*] 50 mg PO BID #60 tablet Hydralazine HCl 100 mg PO Q8H #90 tab Levetiracetam [Keppra] 1,000 mg PO BID #60 tab Levetiracetam [Keppra] 1,000 mg PO BID #60 tab Physician Discharge Instructions: OK TO DC IV AND DC HOME FOLLOW-UP WITH PRIMARY CARE PROVIDER IN 1-2 WEEKS FOLLOW-UP WITH NEUROLOGY IN 1-2 WEEKS RETURN TO THE ER IF symptoms worsen CALL DR. ROMERO AT [phone] IF ANY QUESTIONS REGARDING HOSPITAL STAY. PLEASE CALL THE FLOOR AT [phone] IF ANY MEDICATION OR NURSING QUESTIONS. Diet: AHA Activity: Fall precautions Followup: Unknown,U [Primary Care Provider] - Time spent managing pt's care (in minutes): 55
--- NOTE | 2023-03-19 20:01 | P.PN ---
Date of Service: 03/19/23 Vital Signs Temp Pulse Resp BP Pulse Ox 97.6 F 70 18 170/58 H 96 03/19/23 18:50 03/19/23 18:50 03/19/23 18:50 03/19/23 18:50 03/19/23 18:50 Microbiology Results 03/16/23 12:21 Clean Catch Urine Benoit Count - Final >100,000 CFU/ML. 03/16/23 12:21 Clean Catch Urine - Final Escherichia Coli Gram Neg Daniel 03/16/23 12:33 Blood - Blood Aerobic Blood Culture - Preliminary No growth in 24 hours. 03/16/23 12:33 Blood - Blood Anaerobic Blood Culture - Preliminary No growth in 24 hours. 03/16/23 12:15 Blood - Blood Aerobic Blood Culture - Preliminary No growth in 24 hours. 03/16/23 12:15 Blood - Blood Anaerobic Blood Culture - Preliminary No growth in 24 hours. Assessment/ Plan: General: In no apparent distress, Oriented x3, Cooperative HEENT: Atraumatic Neck: Supple Respiratory: Clear to auscultation bilaterally Cardiovascular: No edema, Regular rate/rhythm Gastrointestinal: Soft and benign, Non-distended Musculoskeletal: No clubbing, No contractures Integumentary: No rashes, No cyanosis Neurological: Normal speech Laboratory Data (last 24 hrs) 03/16/23 03/16/23 03/16/23 12:15 12:15 12:15 WBC 5.10 Hgb 13.4 Hct 39.4 Plt Count 194 PT 11.6 INR 1.05 APTT 30.8 Sodium 136 Potassium 4.4 BUN 24 H Creatinine 1.42 H Glucose 130 H Total Bilirubin 0.3 AST 16 ALT 20 Alkaline Phosphatase 135 H Imagings Data: [facility] CLINICAL HISTORY: MALAISE COMPARISON: Chest Single View dated 01/21/2021; Chest Single View dated 01/18/2021; Chest Single View dated 01/15/2021; Chest Single View dated 09/02/2020 TECHNIQUE: Portable AP view of the chest. FINDINGS: Patient rotation somewhat limits evaluation. Elevation of the right hemidiaphragm. No new focal airspace opacities, with improvement of patchy opacification at the right apex and left base since the most recent comparison radiograph. No pneumothorax or effusion. The cardiomediastinal contours are unremarkable. IMPRESSION: No acute cardiopulmonary process. EXAM DESCRIPTION: US - CP - 03/17/2023 6:28 am CLINICAL HISTORY: Syncope COMPARISON: Carotid Artery Bilateral dated 10/12/2022 TECHNIQUE: Real-time sonographic grayscale, color duplex, and spectral wave Doppler evaluation of both carotid systems was performed. FINDINGS: Normal high resistance waveforms are noted in both external carotid arteries. The common carotid arteries and internal carotid arteries show normal low resistance waveforms. Moderate to advanced calcified irregular atherosclerotic plaque most notably at the distal right CC 8 and carotid bulb, and mid to distal left CCA, and to lesser extent at the left carotid bulb and proximal left ICA. Elevated peak systolic velocity at the right carotid bulb with significant narrowing, peak systolic velocity measures 258 cm/sec. Peak systolic velocity is mildly elevated bilaterally along the internal carotid arteries, up to 142 cm/ sec bilaterally. ICA/CCA peak systolic ratios less than 2.0 bilaterally. Antegrade flow seen in both vertebral arteries. IMPRESSION: Moderate to advanced bilateral atherosclerotic changes noted. Mildly elevated bilateral ICA peak systolic velocities amounting to 50-69% stenosis. Markedly elevated peak systolic velocity at the right carotid bulb, not factored in the calculations, and most likely involving the ECA origin. EXAM DESCRIPTION: CT - Head Brain Wo Cont - 03/16/2023 12:56 pm CLINICAL HISTORY: MENTAL STATUS CHANGE COMPARISON: Head Brain Wo Cont dated 01/15/2021; Head Brain Wo Cont dated 06/08/2019 TECHNIQUE: Noncontrast head CT images were obtained without IV contrast. Multiplanar reformats were generated and reviewed. All CT scans are performed using dose optimization technique as appropriate and may include automated exposure control or mA/KV adjustment according to patient size. FINDINGS: No intracranial hemorrhage, mass, or edema. Midline structures are unremarkable, apart from re- demonstrated partially empty sella. Stable marginally calcified anterior falcine 1.7 centimeter mass most compatible with a meningioma. Moderate diffuse parenchymal volume loss. Ventricular caliber is stable. Patchy hypodensities in the periventricular and deep white matter, stable in pattern and nonspecific, but suggestive of chronic small vessel ischemic changes. Focus of hypoattenuation along the inferior right cerebellar folia is stable and may represent sequelae of a small infarct. Marie- white matter differentiation is otherwise preserved, without evidence of acute infarct. No abnormal extra-axial fluid collections. Mastoid air cells and visualized portions of the paranasal sinuses are clear. No acute bony findings. IMPRESSION: No evidence of an acute intracranial process. EXAM DESCRIPTION: MRI - MRA Abdomen W/Wo Cont - 06/12/2019 7:46 pm CLINICAL HISTORY: Acute kidney injury, hypertension COMPARISON: CT study November 2008 TECHNIQUE: Coronal heavily T2 weighted and axial T1 weighted and T2 haste sequences were obtained. Coronal acquisition plane utilized during 40 milliliter MultiHance contrast volume administration. Coronal postcontrast re-formatted images were generated and reviewed. Horizontal and vertical axes 3D rotational images obtained using maximum intensity projection protocol. FINDINGS: Anatomic assessment shows a small right kidney with cortical thinning. Small renal cysts present. Cyst is present posterior left kidney. The small right kidney is a new finding from the 2008 [address] study. Significant irregular or atherosclerotic changes are present in the aorta from the level of the celiac artery to the bifurcation. No aneurysm or dissection. No significant luminal narrowing in the aorta. Bilateral common iliac and proximal portions of the external iliac arteries are unremarkable. Aorta above the celiac artery level shows no significant disease. 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 Superior mesenteric artery does not show significant disease. Inferior mesenteric artery is patent but there is significant luminal stenosis. There is very significant short-segment signal loss in the proximal left vertebral artery estimated at 80%. There is no history of left renal artery stenting. There is a short stump of the right renal artery identified. There is truncation of the right renal artery with little or no identifiable flow within the right renal artery. 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 Blood flow was difficult to identified at sonography as well. The right kidney is very small with cortical thinning. This is new from 2008. This finding would be consistent with infarcted or significantly compromised renal parenchyma. The left kidney has short-segment high-grade 80% stenosis near the origin. 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 Significant atherosclerotic change in the aorta without significant luminal narr owing or dissection. EXAM DESCRIPTION: US - Renal Ultrasound-Complete - 01/16/2021 8:06 am CLINICAL HISTORY: GURMEET COMPARISON: CT abdomen and pelvis January 15, MRI angio May 2019 FINDINGS: The right kidney is atrophic measuring 7.3 x 3.2. The earlier CT study showed atrophy of the right kidney. The left kidney measures grossly 9.7 x 4.5 cm. Left-sided renal cortical thickness and echogenicity are within range of normal. Right kidney shows cortical thinning and significant increase in cortical echogenicity. No hydronephrosis is present. No suspicious mass identified in either kidney. The low-density areas in the posterior mid and inferior aspects left kidney are not clearly seen. Visualization of the kidneys was limited. These appear to be cysts on the MRI study. No bladder wall thickening or mass. No intraluminal stone or mass. IMPRESSION: No hydronephrosis is present. No suspicious mass lesion identifiable. There are 2 rounded low-density areas in the posterior mid and lower pole left kidney that are not well visualized at sonography but appear to be cysts based on the CT angio from 2019. No bladder abnormality identifiable. Conclusions/Impression: Stage I GURMEET, resolved Unilateral small right kidney in the setting of ADRIANA -No NSAIDs RenoVascular HTN in the setting of Right ADRIANA -Continue Metoprolol and Hydralazine -Continue Losartan Diastolic CHF, chronic -Daily weight DM II -No sugar diet Anemia in chronic illness -Monitor H&H Acute E.coli cystitis -Continue abx CAD/ PAD/ Atherosclerosis of aorta -Continue Lipitor Hospitalist note reviewed
[2023-03-22 12:39] VITALS: BP 170/58; TEMP 97.6
== END 2023-03-19 17:59 | disposition home health service (06) | DRG 689 ==
LOC: ER 11:46 → ERHOLD 15:42 → 2ND 18:30
PROVIDERS: ADMIT Hospitalist; ATTEND Hospitalist
DX: N30.00 Acute cystitis without hematuria (principal); G92.9 Unspecified toxic encephalopathy; I50.32 Chronic diastolic (congestive) heart failure; N17.9 Acute kidney failure, unspecified; I11.0 Hypertensive heart disease with heart failure; G50.0 Trigeminal neuralgia; I48.0 Paroxysmal atrial fibrillation; I70.0 Atherosclerosis of aorta; E11.51 Type 2 diabetes mellitus with diabetic peripheral angiopathy without gangrene; D63.8 Anemia in other chronic diseases classified elsewhere; I25.10 Atherosclerotic heart disease of native coronary artery without angina pectoris; I25.2 Old myocardial infarction; R77.8 Other specified abnormalities of plasma proteins; Z66 Do not resuscitate; Z95.5 Presence of coronary angioplasty implant and graft; Z88.5 Allergy status to narcotic agent; Z88.8 Allergy status to other drugs, medicaments and biological substances; Z90.49 Acquired absence of other specified parts of digestive tract; Z77.22 Contact with and (suspected) exposure to environmental tobacco smoke (acute) (chronic); Z11.52 Encounter for screening for COVID-19; Z79.82 Long term (current) use of aspirin; Z79.02 Long term (current) use of antithrombotics/antiplatelets; Z79.84 Long term (current) use of oral hypoglycemic drugs; Z79.899 Other long term (current) drug therapy
CPT/HCPCS: 36415; 70450; 70551; 71045; 80048; 80053; 80061; 80156; 81001; 82947; 83036; 83605; 83735; 84100; 84439; 84443; 84484; 85025; 85610; 85730; 87040; 87077; 87086; 87088; 87186; 87811; 93005; 93880; 93975; 96374; 96375; 97116; 97161; 97530; 99285; J0360; J0696; J1953; J7030; J7040

== ENCOUNTER 2023-05-04 16:25 | Inpatient (IN) | payer OTHER ==
[2023-05-04 17:08] LABS: Absolute Lymphocytes (CBC) 0.8 K/uL (0.7-4.9); Hematocrit 31.5 % (36.0-45.0); Lymphocytes % 21.2 % (15.3-44.8); MCV 85.4 fL (80-100); MPV 8.4 fL (7.6-11.3); Platelets 191 thou/uL (152-406); RBC Red Blood Cell Count 3.69 M/uL (3.86-4.86)
[2023-05-04 17:11] LABS: Protime INR 1.11
[2023-05-04] MEDS ORDERED: LEVETIRACETAM 500 MG/5 ML VIAL IV ONE ×2 (17:11→22:16)
[2023-05-04] MEDS ORDERED: NA CHLORIDE 0.9% 100 ML ONE ×2 (17:12→22:17)
--- NOTE | 2023-05-04 17:13 | RAD REPORT ---
EXAM DESCRIPTION: RAD - Chest Single View - 05/04/2023 5:01 pm CLINICAL HISTORY: MALAISE Chest pain. COMPARISON: Chest Single View dated 03/16/2023; Chest Single View dated 01/21/2021; Chest Single View dated 01/18/2021; Chest Single View dated 01/15/2021 FINDINGS: Portable technique limits examination quality. Chronically elevated right hemidiaphragm noted. Mild pulmonary edema suspected. The heart is moderate ly enlarged. No displaced fractures. IMPRESSION: Mild CHF.
--- NOTE | 2023-05-04 17:15 | RAD REPORT ---
EXAM DESCRIPTION: CT - Head Brain Wo Cont - 05/04/2023 5:08 pm CLINICAL HISTORY: SEIZURE Headache, drowsiness, seizure COMPARISON: Head Brain Wo Cont dated 03/16/2023; Head Brain Wo Cont dated 01/15/2021 TECHNIQUE: All CT scans are performed using dose optimization technique as appropriate and may inclu de automated exposure control or mA/KV adjustment according to patient size. FINDINGS: No intracranial hemorrhage, hydrocephalus or extra-axial fluid collection.Mild generalized brain atrophy is present with mild periventricular and deep white matter chronic microvascular ische chong changes.No areas of brain edema or evidence of midline shift. 15 mm anterior frontal extra-axial lesion is unchanged. The paranasal sinuses and mastoids are clear. The calvarium is intact. IMPRESSION: No acute intracranial abnormality.
[2023-05-04 17:22] LABS: ALT/SGPT 18 U/L (13-56); AST/SGOT 12 U/L (15-37); Alkaline Phosphatase 121 U/L (45-117); BUN Blood Urea Nitrogen 34 mg/dL (7-18); Bicarbonate 24 mEq/L (21-32); Bilirubin Total 0.3 mg/dL (0.2-1.0); Glomerular Filtration Rate 40 ml/min (=/>90); Glucose Level 119 mg/dL (74-106); Magnesium 2.1 mg/dL (1.6-2.4); Potassium 4.1 mEq/L (3.5-5.1); Protein, Total 6.2 g/dL (6.4-8.2); Sodium Level 133 mEq/L (136-145)
[2023-05-04 17:23] LABS: Bilirubin Direct < 0.1 mg/dL (0-0.2); Bilirubin Indirect, Calculated ND mg/dL (0.2-0.8)
[2023-05-04 17:25] LABS: Troponin High Sensitivity 186.4 pg/mL (<58.9)
[2023-05-04] MEDS ORDERED: HYDRALAZINE HCL 20 MG/ML VIAL ONE (18:36)
[2023-05-04] MEDS ORDERED: ONDANSETRON 4 MG/2 ML VIAL IV PRN (19:30)
--- NOTE | 2023-05-04 19:32 | ER ---
Nurse's Notes [facility] Name: Aditi Arreola Age: 82 yrs Sex: Female : 1940 Arrival Date: 05/04/2023 Time: 16:25 Bed 3 Private MD: Diagnosis: Convulsions;Elevated troponin Presentation: 05/04 16:42 Chief complaint: EMS states: Pt has a history of absent seizures but started a new kd3 medication recently that causes seizures. Pt reportedly had a 2 minutes long clonic tonic seizure where she had turned blue. On scene, pt was post ictal and in route, pt began to vomit. Pt was administered 4 mg of Zofran in route, pt had good relief. Pt has a 20 G in the left hand and is post ictal and hypertensive in the ER room. Coronavirus screen: Vaccine status: unknown. Ebola Screen: No symptoms or risks identified at this time. Initial Sepsis Screen: Does the patient meet any 2 criteria? No. Patient's initial sepsis screen is negative. Does the patient have a suspected source of infection? No. Patient's initial sepsis screen is negative. Risk Assessment: Do you want to hurt yourself or someone else? Patient reports no desire to harm self or others. Onset of symptoms was May 04, 2023. 16:42 Method Of Arrival: EMS: [facility] kd3 16:42 Acuity: LUIS ARMANDO 2 kd3 Triage Assessment: 16:45 General: Appears in no apparent distress. Behavior is drowsy. Pain: Denies pain. Neuro: kd3 Level of Consciousness is confused, lethargic, Oriented to person. Historical: - Allergies: 16:45 codiene; kd3 - Immunization history:: Adult Immunizations up to date. - Social history:: Smoking status: unknown. Screenin:00 [facility] ED Fall Risk Assessment (Adult) History of falling in the last 3 months, jw7 including since admission Yes- single mechanical fall (1 pt) Confusion or Disorientation Yes (5 pts) Intoxicated or Sedated No (0 pts) Impaired Gait Yes (1 pt) Mobility Assist Device Used No (0 pt) Altered Elimination No (0 pt) Score/Fall Risk Level 3 or more points = High Risk Oriented to surroundings, Maintained a safe environment, Educated pt \T\ family on fall prevention, incl call for assistance when getting out of bed. Abuse screen: Denies threats or abuse. Denies injuries from another. Nutritional screening: No deficits noted. Tuberculosis screening: No symptoms or risk factors identified. Assessment: 18:28 General: Appears in no apparent distress. Behavior is calm, cooperative, drowsy. Neuro: kd3 Level of Consciousness is awake, alert, obeys commands, confused, Oriented to person. Respiratory: Airway is patent Trachea midline Respiratory effort is even, unlabored, Respiratory pattern is regular, symmetrical. 19:00 Reassessment: Patient appears in no apparent distress at this time. No changes from jw7 previously documented assessment. Patient and/or family updated on plan of care and expected duration. Pain level reassessed. 20:10 Reassessment: attempted to call report, manager of distribution Brooke reports that the room is jb4 not yet clean and house keeping has not been seen on the unit, will instruct receiving nurse to call back when ready. 20:35 Reassessment: Attempted to call report, KYLAH Cox reports room still not ready. jb4 21:00 Reassessment: Patient appears in no apparent distress at this time. No changes from jw7 previously documented assessment. Patient and/or family updated on plan of care and expected duration. Pain level reassessed. Vital Signs: 16:42 BP 207 / 65; Pulse 55; Resp 18; Pulse Ox 95% on R/A; kd3 16:42 Weight 67.5 kg; kd3 17:02 BP 197 / 58; Pulse 63; Resp 18; Temp 97.8(TE); Pulse Ox 99% on R/A; kd3 18:14 BP 172 / 89; Pulse 73; Resp 18; Pulse Ox 94% on R/A; kd3 18:28 BP 183 / 59; Pulse 71; Resp 18; Pulse Ox 99% on R/A; kd3 19:00 BP 183 / 66; Pulse 82; Resp 19 S; Pulse Ox 99% on R/A; jw7 19:45 BP 191 / 57; Pulse 81; Resp 20 S; Pulse Ox 96% on R/A; jw7 20:11 BP 184 / 65; Pulse 80; Resp 16; Pulse Ox 95% on R/A; jb4 21:00 BP 183 / 71; Pulse 78; Resp 21 S; Pulse Ox 97% on R/A; jw7 [place] Coma Score: 16:45 Eye Response: to voice(3). Motor Response: withdraws from pain(4). Verbal Response: kd3 inappropriate words(3). Total: 10. ED Course: 16:28 Patient arrived in ED. eb 16:31 Asa Diop MD is Attending Physician. sp3 16:42 Jocelyn Flower, KYLAH is Primary Nurse. kd3 16:45 Triage completed. kd3 16:45 Arm band placed on right wrist. kd3 16:47 EKG completed in triage. Results shown to MD. kd3 16:47 Maintain EMS IV. Dressing intact. Good blood return noted. Site clean \T\ dry. Gauge \T\ kd 3 site: 20 gauge left hand . 17:02 Chest Single View XRAY In Process Unspecified. EDMS 17:10 CT Head Brain wo Cont In Process Unspecified. EDMS 17:13 Attending Physician role handed off by Asa Diop MD rt 17:13 Graham Rowell MD is Attending Physician. rt 18:29 Seizure precautions initiated. Provided Education on: seizure . kd3 19:32 Corky Man MD is Hospitalizing Provider. rt 20:59 No provider procedures requiring assistance completed. Patient admitted, IV remains in jw7 place. Administered Medications: 17:02 Drug: Keppra IV 1000 mg IV at calculated rate once Route: IV; Rate: calculated rate; kd3 Site: left hand; 21:00 Follow up: Response: No adverse reaction; IV Status: Completed infusion; IV Intake: [id number] 18:28 Drug: hydrALAZINE IVP 20 mg IVP once Route: IVP; Site: left hand; kd3 21:00 Follow up: Response: No adverse reaction jw7 Medication: 21:00 VIS not applicable for this client. jw7 Intake: 21:00 IV: 10ml; Total: 10ml. jw7 Outcome: 19:32 Decision to Hospitalize by Provider. rt 20:59 Admitted to Med/surg accompanied by nurse, via stretcher, jw7 20:59 Condition: stable 20:59 Instructed on the need for admit, Demonstrated understanding of instructions, 21:02 Patient left the ED. jw7 Signatures: Dispatcher [employer] EDMS Lion Marin, KYLAH RN jb4 Rosemarie Walker Asa Diop MD MD sp3 Jocelyn Flower RN RN kd3 Kim Ruiz RN RN jw7 Graham Rowell MD MD rt Corrections: (The following items were deleted from the chart) 16:46 16:45 Allergies: [id number]; kd3 kd3
--- NOTE | 2023-05-04 19:33 | EDPHYS ---
Physician Documentation [facility] Name: Aditi Arreola Age: 82 yrs Sex: Female : 1940 Arrival Date: 05/04/2023 Time: 16:25 Bed 3 Private MD: ED Physician Graham Rowell HPI: 05/04 16:56 This 82 yrs old Female presents to ER via EMS with complaints of Seizure. sp3 16:56 82-year-old female with a history of absence seizures and trigeminal neuralgia sp3 currently taking Tegretol and Keppra for these items, hypertension, former diabetes before significant weight loss now presents to the ED with chief complaint of breakthrough seizure. Family states that patient's seizures are normally "the kind only detected by the machine" but today she had a full seizure consistent with a tonic-clonic type as described by family. Seizure activity was witnessed by son who is currently not at the bedside. Patient was also just discharged from [facility] where she was admitted for hypertension and observation among other things as per daughter. Patient currently has no complaints and is resting comfortably. No seizure activity witnessed in the ED. patient's neurologist is Dr. Barillas.. Historical: - Allergies: 16:45 codiene; kd3 - Immunization history:: Adult Immunizations up to date. - Social history:: Smoking status: unknown. ROS: 16:58 Constitutional: Negative for fever, chills, and weight loss, Eyes: Negative for injury, sp3 pain, redness, and discharge, ENT: Negative for injury, pain, and discharge, Neck: Negative for injury, pain, and swelling, Cardiovascular: Negative for chest pain, palpitations, and edema, Respiratory: Negative for shortness of breath, cough, wheezing, and pleuritic chest pain, Abdomen/GI: Negative for abdominal pain, nausea, vomiting, diarrhea, and constipation, Back: Negative for injury and pain, MS/Extremity: Negative for injury and deformity, Skin: Negative for injury, rash, and discoloration, Psych: Negative for depression, anxiety, suicide ideation, homicidal ideation, and hallucinations, Allergy/Immunology: Negative for hives, rash, and allergies, Endocrine: Negative for neck swelling, polydipsia, polyuria, polyphagia, and marked weight changes, 16:58 All other systems are negative, Exam: 16:59 Constitutional: This is a well developed, well nourished patient who is awake, alert, sp3 and in no acute distress. Head/Face: Normocephalic, atraumatic. Eyes: Pupils equal round and reactive to light, extra-ocular motions intact. Lids and lashes normal. Conjunctiva and sclera are non-icteric and not injected. Cornea within normal limits. Periorbital areas with no swelling, redness, or edema. ENT: Nares patent. No nasal discharge, no septal abnormalities noted. External auditory canals are clear. Oropharynx with no redness, swelling, or masses, exudates, or evidence of obstruction, uvula midline. Mucous membranes moist. Neck: Trachea midline, no thyromegaly or masses palpated, and no cervical lymphadenopathy. Supple, full range of motion without nuchal rigidity, or vertebral point tenderness. No Meningismus. Chest/axilla: Normal chest wall appearance and motion. Nontender with no deformity. No lesions are appreciated. Cardiovascular: Regular rate and rhythm with a normal S1 and S2. No gallops, murmurs, or rubs. Normal PMI, no JVD. No pulse deficits. Respiratory: Lungs have equal breath sounds bilaterally, clear to auscultation and percussion. No rales, rhonchi or wheezes noted. No increased work of breathing, no retractions or nasal flaring. Abdomen/GI: Soft, non-tender, with normal bowel sounds. No distension or tympany. No guarding or rebound. No evidence of tenderness throughout. Back: No spinal tenderness. No costovertebral tenderness. Full range of motion. Skin: Warm, dry with normal turgor. Normal color with no rashes, no lesions, and no evidence of cellulitis. MS/ Extremity: Pulses equal, no cyanosis. Neurovascular intact. Full, normal range of motion. Psych: Awake, alert, with orientation to person, place and time. Behavior, mood, and affect are within normal limits. 16:59 Neuro: No seizure activity noted in the ER. Patient has normal neurological exam including motor, sensory, proprioception, speech, memory. Gait was not tested., 17:00 ECG was reviewed by the Attending Physician. EKG demonstrates sinus bradycardia at 50 sp3 bpm with normal intervals, normal QRS, normal axis, nonspecific diffuse ST changes without evidence of acute ischemia. Vital Signs: 16:42 BP 207 / 65; Pulse 55; Resp 18; Pulse Ox 95% on R/A; kd3 16:42 Weight 67.5 kg; kd3 17:02 BP 197 / 58; Pulse 63; Resp 18; Temp 97.8(TE); Pulse Ox 99% on R/A; kd3 18:14 BP 172 / 89; Pulse 73; Resp 18; Pulse Ox 94% on R/A; kd3 18:28 BP 183 / 59; Pulse 71; Resp 18; Pulse Ox 99% on R/A; kd3 19:00 BP 183 / 66; Pulse 82; Resp 19 S; Pulse Ox 99% on R/A; jw7 19:45 BP 191 / 57; Pulse 81; Resp 20 S; Pulse Ox 96% on R/A; jw7 20:11 BP 184 / 65; Pulse 80; Resp 16; Pulse Ox 95% on R/A; jb4 21:00 BP 183 / 71; Pulse 78; Resp 21 S; Pulse Ox 97% on R/A; jw7 Beatrice Coma Score: 16:45 Eye Response: to voice(3). Motor Response: withdraws from pain(4). Verbal Response: kd3 inappropriate words(3). Total: 10. MDM: 16:40 Patient medically screened. sp3 17:00 Data reviewed: vital signs, nurses notes, EMS record, lab test result(s), EKG, sp3 radiologic studies. 17:00 ED course: 82-year-old female with unknown exact seizure history, trigeminal neuralgia, sp3 hypertension now presents via EMS for tonic-clonic type seizure which is not her normal baseline. Differential diagnosis includes epilepsy, breakthrough seizure, electrolyte abnormality, among others. I am not highly concerned about infection or meningitis or encephalitis at this time. Workup will include CT scan of the head, laboratory values, EKG, Keppra IV loading and general observation. Patient will be signed out to nighttime physician Dr. Rowell for final disposition and follow-up.. 19:52 Differential diagnosis: Seizure, dysrhythmia, electrolyte disturbance. Consideration of rt Admission/Observation Patient was admitted/placed on observation. Management of patient was discussed with the following: Hospitalist: Agrees to admit. I considered the following discharge prescriptions or medication management in the emergency department Medications were administered in the Emergency Department. See MAR. Independent interpretation of the following test(s) in the Emergency Department CT Scan: My interpretation is No hemorrhage seen on interpretation of CT scan images. Care significantly affected by the following chronic conditions: Seizure disorder. Counseling: I had a detailed discussion with the patient and/or guardian regarding the historical points, exam findings, and any diagnostic results supporting the discharge/admit diagnosis, lab results, radiology results, the need for further work-up and treatment in the hospital. 05/04 16:39 Order name: Basic Metabolic Panel; Complete Time: 17:28 sp3 05/04 16:39 Order name: CBC with Diff; Complete Time: 17:13 sp3 05/04 16:39 Order name: Hepatic Function; Complete Time: 17:28 sp3 05/04 16:39 Order name: Magnesium; Complete Time: 17:28 sp3 05/04 16:39 Order name: Protime (+inr); Complete Time: 17:13 sp3 05/04 16:39 Order name: Ptt, Activated; Complete Time: 17:13 sp3 05/04 16:39 Order name: Troponin High Sensitivity; Complete Time: 17:28 sp3 05/04 19:36 Order name: Urinalysis w/ reflexes EDMS 05/04 19:36 Order name: CBC with Automated Diff EDMS 05/04 19:36 Order name: CBC with Automated Diff EDMS 05/04 19:36 Order name: Comprehensive Metabolic Panel EDMS 05/04 19:36 Order name: Comprehensive Metabolic Panel EDMS 05/04 19:36 Order name: Troponin High Sensitivity EDMS 05/04 19:36 Order name: Troponin High Sensitivity EDMS 05/04 19:36 Order name: Troponin High Sensitivity EDMS 05/04 19:36 Order name: Troponin High Sensitivity EDMS 05/04 16:39 Order name: CT Head Brain wo Cont; Complete Time: 17:16 sp3 05/04 16:39 Order name: Chest Single View XRAY; Complete Time: 17:16 sp3 05/04 16:39 Order name: EKG; Complete Time: 16:40 sp3 05/04 16:39 Order name: Cardiac monitoring; Complete Time: 16:42 sp3 05/04 16:39 Order name: EKG - Nurse/Tech; Complete Time: 16:42 sp3 05/04 16:39 Order name: IV Saline Lock; Complete Time: 16:42 sp3 05/04 16:39 Order name: Labs collected and sent; Complete Time: 16:49 sp3 12 16:39 Order name: NPO; Complete Time: 16:49 sp3 05/04 16:39 Order name: O2 Per Protocol; Complete Time: 16:49 sp3 05/04 16:39 Order name: O2 Sat Monitoring; Complete Time: 16:49 sp3 12 16:39 Order name: Seizure Precautions; Complete Time: 16:42 sp3 Administered Medications: 17:02 Drug: Keppra IV 1000 mg IV at calculated rate once Route: IV; Rate: calculated rate; kd3 Site: left hand; 21:00 Follow up: Response: No adverse reaction; IV Status: Completed infusion; IV Intake: [id number] 18:28 Drug: hydrALAZINE IVP 20 mg IVP once Route: IVP; Site: left hand; kd3 21:00 Follow up: Response: No adverse reaction jw7 Disposition Summary: 05/04/23 19:32 Hospitalization Ordered Notes: Hospitalization Status: Observation rt Provider: Corky Man rt Location: Telemetry/MedSurg (observation) rt Condition: Stable rt Problem: new rt Symptoms: have improved rt Bed/Room Type: Standard rt Room Assignment: 232(05/04/23 19:47) [facility] Diagnosis - Convulsions rt - Elevated troponin rt Forms: - Medication Reconciliation Form rt - SBAR form rt - Leadership Thank You Letter rt Signatures: Dispatcher [employer] Asa Demarco MD MD 3 Jocelyn Flower RN RN kd3 Graham Rowell MD MD rt Gilma Herrera 12 Kim Ruiz RN jw7 Corrections: (The following items were deleted from the chart) 16:46 16:45 Allergies: [id number]; kd3 kd3 16:58 16:56 82-year-old female with a history of absence seizures and trigeminal neuralgia sp3 currently taking Tegretol and Keppra for these items, hypertension, former diabetes before significant weight loss now presents to the ED with chief complaint of breakthrough seizure. Family states that patient's seizures are normally "the kind only detected by the machine" but today she had a full seizure consistent with a tonic-clonic type as described by family. Seizure activity was witnessed by son who is currently not at the bedside. Patient was also just discharged from [facility] where she was admitted for hypertension and observation among other things as per daughter.. sp3 17:03 16:56 82-year-old female with a history of absence seizures and trigeminal neuralgia sp3 currently taking Tegretol and Keppra for these items, hypertension, former diabetes before significant weight loss now presents to the ED with chief complaint of breakthrough seizure. Family states that patient's seizures are normally "the kind only detected by the machine" but today she had a full seizure consistent with a tonic-clonic type as described by family. Seizure activity was witnessed by son who is currently not at the bedside. Patient was also just discharged from [facility] where she was admitted for hypertension and observation among other things as per daughter. Patient currently has no complaints and is resting comfortably. No seizure activity witnessed in the ED.. sp3 19:47 19:32 rt [id number]
--- NOTE | 2023-05-04 19:38 | P.HP ---
Certification for Inpatient Patient admitted to: Inpatient With expected LOS: >2 Midnights Practitioner: I am a practitioner with admitting privileges, knowledge of patient current condition, hospital course, and medical plan of care. Services: Services provided to patient in accordance with Admission requirements found in Title 42 Section 412.3 of the Code of Federal Regulations Patient History Date of Service: 05/04/23 Reason for admission: Seizure History of Present Illness: 82-year-old female with history of absence seizures and trigeminal neuralgia , hypertension, diabetes diet-controlled , CAD status post stents PAD, brought to ER with tonic-clonic seizures as described by the family . Patient had a recent adjustment of the antiepileptic drugs by Dr. Barillas who is her primary neurologist. Patient started having tonic-clonic seizures which was witnessed by the family which is a new thing for the patient as the patient had only absent seizures previously . Patient is drowsy and postictal at the time of interview hence most of the history is obtained from the chart review and also talking to the ER physician and family member over the phone. No fever or chills. Denies any chest pain or shortness of breath. Patient was assessed in the ER and was admitted for breakthrough seizures and also found to have elevated troponin Allergies codeine Allergy (Verified 09/03/20 02:23) Nausea/Vomiting lorazepam Allergy (Verified 09/03/20 02:23) hallucination, confusion Home medications list reviewed: Yes Home Medications: Aspirin [Aspirin EC 81 MG] 81 mg PO DAILY 09/03/20 Clopidogrel Bisulfate [Plavix*] 75 mg PO DAILY 09/03/20 Memantine HCl [Namenda] 5 mg PO BID 03/16/23 OXcarbazepine [Oxcarbazepine] 300 mg PO BID 03/16/23 NIFEdipine [Nifedipine ER] 1 tab PO DAILY 03/17/23 Levetiracetam [Keppra] 1,000 mg PO BID #60 tab 03/18/23 Levetiracetam [Keppra] 1,000 mg PO BID #60 tab 03/18/23 Losartan Potassium [Cozaar*] 50 mg PO BID #60 03/18/23 Losartan Potassium [Cozaar*] 50 mg PO BID #60 tablet 03/18/23 Buspirone HCl [Buspar] 5 mg PO DAILY #30 tab 10/23/23 Cefdinir [Cefdinir*] 300 mg PO BID #20 cap 03/19/23 Hydralazine HCl 100 mg PO Q8H #90 tab 03/19/23 - Past Medical/Surgical History Diabetic: Yes Past Medical History: Reviewed- Non-Contributory -: NIDDM -: HTN -: 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 -: HFpEF (Heart Failure w/ Preserved Ejection Fraction) -: Paroxysmal atrial fibrillation -: CAD/ Stent/ NSTEMI 04/2020 -: PAD/ Atherosclerosis of Aorta/ Celiac artery/ Carotid Disease Past Surgical History: Reviewed- Non-Contributory -: L KNEE RX -: C section Psychosocial/ Personal History: Patient lives at home with her and son - Family History Family History: Reviewed- Non-Contributory - Family History Father -: Heart disease Notes: NE Brother Notes: NE - Social History Smoking Status: Never smoker Alcohol use: No CD- Drugs: No Caffeine use: No Review of Systems is unable to be obtained Physical Examination - Vital Signs Temperature: 98.6 F Blood Pressure: 207/65 Pulse: 78 Respirations: 18 Pulse Ox (%): 98 - Physical Exam General: Other (Drowsy ,) HEENT: Atraumatic, Normocephalic Neck: Supple Respiratory: Clear to auscultation bilaterally, Normal air movement Cardiovascular: Regular rate/rhythm, Normal S1 S2 Capillary refill: <2 Seconds Gastrointestinal: Soft and benign, W/out hepatosplenomegaly, No tenderness Musculoskeletal: No clubbing, No swelling Integumentary: No rashes Neurological: Other (Drowsy , moves all the limbs ) Lymphatics: No axilla or inguinal lymphadenopathy - Studies Laboratory Data (last 24 hrs) 05/04/23 05/04/23 05/04/23 16:49 16:49 16:49 WBC 3.80 L Hgb 11.0 L Hct 31.5 L Plt Count 191 PT 12.2 INR 1.11 APTT 29.9 Sodium 133 L Potassium 4.1 BUN 34 H Creatinine 1.33 H Glucose 119 H Magnesium 2.1 Total Bilirubin 0.3 AST 12 L ALT 18 Alkaline Phosphatase 121 H Assessment and Plan - Problems (Diagnosis) (1) Breakthrough seizure Current Visit: Yes Status: Acute Plan: Monitor closely under telemetry Will start on Keppra IV for now Monitor neuro vital signs Seizure precautions Ativan as needed CT head was negative for acute changes Patient follows with Dr. Barillas as outpatient (2) History of seizure disorder Current Visit: Yes Status: Chronic Plan: Continue home medications and titrate as needed Patient also has history of trigeminal neuralgia Will continue the home medications Watch closely for any breakthrough seizures Ativan as needed (3) NSTEMI (non-ST elevated myocardial infarction) Current Visit: Yes Status: Acute Plan: Monitor under telemetry Trend cardiac enzymes Continue home medications including aspirin statin and Plavix Patient had a history of CAD (4) Accelerated hypertension Current Visit: Yes Status: Acute Plan: Hydralazine as needed Continue home antihypertensives Monitor closely (5) Paroxysmal A-fib Current Visit: No Status: Chronic Plan: Rate controlled at this time Beta-jose as needed Discharge Plan: Home Plan to discharge in: Greater than 2 days - Advance Directives Does patient have a Living Will: No Does patient have a Durable POA for Healthcare: Yes - Code Status/Comfort Care Code Status: Full Code Time Spent Managing Pts Care (In Minutes): 45
[2023-05-04] MEDS ORDERED: HOME MED 1 EA UNK (Hydralazine Hcl [Hydralazine Hcl] 100 MG Tablet) PO SCH (19:45)
[2023-05-04] MEDS: levETIRAcetam 1,000 MG in NA CHLORIDE 0.9% 100 ML IV SCH ×2 (19:45→21:00)
[2023-05-04] MEDS: LOSARTAN POTASSIUM 50 MG TABLET PO SCH ×2 (20:34→22:27)
[2023-05-04] MEDS ORDERED: HYDRALAZINE HCL 25 MG TABLET ONE (20:41)
[2023-05-04] MEDS ORDERED: levETIRAcetam 500 MG in NA CHLORIDE 0.9% 100 ML IV SCH (21:00)
[2023-05-04] MEDS: HYDRALAZINE HCL 25 MG TABLET PO SCH (22:21)
[2023-05-04] MEDS: MEMANTINE HCL 10 MG TABLET PO SCH (22:21)
[2023-05-04] MEDS: OXcarbazepine 150 MG TAB PO SCH (22:26)
[2023-05-05] MEDS: HYDRALAZINE HCL 25 MG TABLET PO SCH ×3 (06:51→23:00)
[2023-05-05 07:17] LABS: Absolute Lymphocytes (CBC) 0.9 K/uL (0.7-4.9); Hematocrit 31.8 % (36.0-45.0); MCV 86.1 fL (80-100); MPV 7.9 fL (7.6-11.3); Platelets 186 thou/uL (152-406); RBC Red Blood Cell Count 3.69 M/uL (3.86-4.86)
--- NOTE | 2023-05-05 07:23 | P.PN ---
Date of Service: 05/05/23 Subjective: Family reports patient was hospitalized at [facility] for ~2 days prior to admission, cardiac enzymes noted to be elevated, +uncontrolled HTN Patient was feeling better, BP had improved. Was discharged with 1 of her BP meds being increased per family was at home ~1-2 days after discharge from [facility] then back here in ER Seizure medication has not been changed per family Reports blood pressure has been an issue for months and hard to control. Family unsure if patient has been compliant with medications at home This morning, pt states having pain of left face - her trigeminal neuralgia ROS: 10 point ROS as noted above, otherwise negative Physical Exam: GEN: Alert, oriented, uncomfortable appearing HEENT: Normal conjunctiva, sclera anicteric CV: Regular rate and rhythm, no edema Pulm: Nonlabored respirations on room air, clear bilaterally ABD: Soft, nontender, nondistended Neuro: Normal speech, normal affect vitals reviewed Problem List: Breakthrough/new Seizure h/o seizure disorder / Trigeminal neuralgia severe, uncontrolled HTN GURMEET Stable 15 mm anterior frontal extra-axial lesion, likely meningioma NSTEMI, suspect demand ischemia Chronic CHF a-fib, paroxysmal Accelerated Hypertension h/o seizure disorder / Trigeminal neuralgia h/o CAD s/p PCI (~04/2020) h/o PAD Breakthrough Seizure h/o seizure disorder / Trigeminal neuralgia severe, uncontrolled HTN Stable 15 mm anterior frontal extra-axial lesion, likely meningioma Pt had new tonic-clonic seizures which was witnessed by the family. 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 Seizure medication has not been changed per family. Family unsure if patient has been compliant with medications at home. Patient follows with Dr. Fry as outpatient. Consulted Dr. Fry, to matheus tomorrow; recently saw patient earlier this week CT head (05/04): was negative for acute changes. 15 mm anterior frontal extra- axial lesion, unchanged from prior studys. Continue IV keppra at 1000mg bid Rx from hospital in february 2023 shows 1000mg bid, unsure if taking this still or dose changed continue home trileptal PRN ativan Monitor on telemetry. Seizure precautions. Watch closely for any further breakthrough seizures Continue home medications and titrate as needed suspect secondary to missed medication vs high blood pressure restart home anti-hypertensives improved PRN IV GURMEET unclear specific etiology - HTN vs pre-renal vs seizure possibly pre-renal, pt with minimal intake in last 24-48hrs possible from seizure, check CPK given h/o CHF, will start gentle ivf, LR @ 50/hr 05/05 NSTEMI, suspect demand ischemia Chronic CHF a-fib, paroxysmal h/o CAD s/p PCI (~04/2020) h/o PAD Recently seen at [facility] for ~2 days, cardiac enzymes noted to be elevated, +uncontrolled HTN BP had improved, was discharged with 1 of her BP meds being increased per family was at home ~1-2 days then back here in ER CXR (05/04): mild CHF Carotid u/s from last hospitalization (03/17/23): Moderate to advanced bilateral atherosclerotic changes Cardiology consulted troponins downtrending 186 -> 32, monitor on tele Continue home medications including aspirin, statin, Plavix Accelerated Hypertension confirm home medications, restart as appropriate VTE: Lovenox Code: Full Dispo: Home, 1-2 days Pending further work up / improvement
[2023-05-05 07:39] LABS: Albumin 2.8 g/dL (3.4-5.0); Bilirubin Total 0.3 mg/dL (0.2-1.0); Potassium 4.4 mEq/L (3.5-5.1); Protein, Total 5.8 g/dL (6.4-8.2)
[2023-05-05] MEDS: CLOPIDOGREL 75 MG TABLET PO SCH (10:59)
[2023-05-05] MEDS: levETIRAcetam 1,000 MG in NA CHLORIDE 0.9% 100 ML IV SCH ×2 (10:59→20:32)
[2023-05-05] MEDS: OXcarbazepine 150 MG TAB PO SCH ×2 (11:00→20:32)
[2023-05-05] MEDS: ASPIRIN EC 81 MG TAB PO SCH (11:00)
[2023-05-05] MEDS: NIFEDIPINE XL 60 MG TABLET PO SCH (11:00)
[2023-05-05] MEDS: MEMANTINE HCL 10 MG TABLET PO SCH ×2 (11:01→20:32)
[2023-05-05] MEDS: LOSARTAN POTASSIUM 50 MG TABLET PO SCH (11:01)
[2023-05-05] MEDS: BUSPIRONE HCL 5 MG TABLET PO SCH (11:02)
[2023-05-05] MEDS: ENOXAPARIN 30 MG/0.3 ML SQ SCH (11:02)
[2023-05-05] MEDS: Ringers Lactate 1,000 ML IV SCH (13:36)
[2023-05-06 00:57] VITALS: BMI 27.3
[2023-05-06] MEDS: HYDRALAZINE HCL 25 MG TABLET PO SCH ×3 (06:07→21:26)
--- NOTE | 2023-05-06 08:45 | P.PN ---
Date of Service: 05/06/23 Subjective: diffuse erythema & itching reported overnight mostly on arms / chest. Family noticed it twice yesterday around ~3-5 pm and ~10-11 pm possible allergic reaction to tape / adhesives. Family reports irritation/redness around IV site on arm at previous hospitalization Family reports keppra 750 BID at home. only was taking 1000 mg BID while hospitalized and was told to continue on regular home dose on discharge. Family reports difficulty to get patient to take meds at home. trileptal was increased to TID around this year per family Dr. Fry to [facility] today. ROS: 10 point ROS as noted above, otherwise negative Physical Exam: GEN: Alert, oriented, NAD HEENT: Normal conjunctiva, sclera anicteric CV: Regular rate and rhythm, no edema Pulm: Nonlabored respirations on room air, clear bilaterally ABD: Soft, nontender, nondistended Neuro: Normal speech, normal affect vitals reviewed Problem List: Breakthrough/new Seizure h/o seizure disorder / Trigeminal neuralgia severe, uncontrolled HTN GURMEET Stable 15 mm anterior frontal extra-axial lesion, likely meningioma NSTEMI, suspect demand ischemia Chronic CHF a-fib, paroxysmal Accelerated Hypertension h/o seizure disorder / Trigeminal neuralgia h/o CAD s/p PCI (~04/2020) h/o PAD Breakthrough Seizure h/o seizure disorder / Trigeminal neuralgia severe, uncontrolled HTN Stable 15 mm anterior frontal extra-axial lesion, likely meningioma Pt had new tonic-clonic seizures which was witnessed by the family. 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 Seizure medication has not been changed per family. Family unsure if patient has been compliant with medications at home. Patient follows with Dr. Fyr as outpatient. Consulted Dr. Fry, to matheus today; recently saw patient earlier this week CT head (05/04): was negative for acute changes. 15 mm anterior frontal extra- axial lesion, unchanged from prior studys. IV keppra changed to PO 05/06. continue at 1000mg bid for now Family reports keppra 750 mg BID at home. only was taking 1000 mg BID while hospitalized and was told to continue on regular home dose on discharge. continue home trileptal, increased to TID 05/06 (reported home dose that was c hanged around thanksgiving this year per family) PRN ativan Monitor on telemetry. Seizure precautions. Watch closely for any further breakthrough seizures Continue home medications and titrate as needed suspect secondary to missed medication vs high blood pressure restart home anti-hypertensives improved PRN IV PT consulted GURMEET improving, after ivf unclear specific etiology - HTN vs pre-renal vs seizure possibly pre-renal, pt with minimal intake in last 24-48hrs possible from seizure CPK ok given h/o CHF, started on gentle ivf, LR @ 50/hr 05/05 dc IVF 05/06 PM reportedly seen by nephro at [facility] during admission and had workup / 24h urine studies Nephrology consulted NSTEMI, suspect demand ischemia Chronic CHF a-fib, paroxysmal h/o CAD s/p PCI (~04/2020) h/o PAD Recently seen at [facility] for ~2 days, cardiac enzymes noted to be elevated, +uncontrolled HTN BP had improved, was discharged with 1 of her BP meds being increased per family was at home ~1-2 days then back here in ER CXR (05/04): mild CHF Carotid u/s from last hospitalization (03/17/23): Moderate to advanced bilateral atherosclerotic changes Cardiology consulted troponins downtrending 186 -> 32 -> 162 -> 157. monitor on tele suspect 32 was incorrect Continue home medications including aspirin, statin, Plavix Accelerated Hypertension confirm home medications, restart as appropriate VTE: Lovenox Code: Full Dispo: Home, HH 1 days Pending further work up / improvement
[2023-05-06] MEDS: Ringers Lactate 1,000 ML IV SCH (09:21)
[2023-05-06] MEDS: levETIRAcetam 500 MG TAB PO SCH ×2 (09:21→21:25)
[2023-05-06] MEDS: OXcarbazepine 150 MG TAB PO SCH ×3 (09:22→21:26)
[2023-05-06] MEDS: MEMANTINE HCL 10 MG TABLET PO SCH ×2 (09:22→21:26)
[2023-05-06] MEDS: CLOPIDOGREL 75 MG TABLET PO SCH (09:23)
[2023-05-06] MEDS: ASPIRIN EC 81 MG TAB PO SCH (09:23)
[2023-05-06] MEDS: LOSARTAN POTASSIUM 50 MG TABLET PO SCH ×2 (09:23→21:26)
[2023-05-06] MEDS: BUSPIRONE HCL 5 MG TABLET PO SCH (09:23)
[2023-05-06] MEDS: ENOXAPARIN 30 MG/0.3 ML SQ SCH (09:24)
[2023-05-06] MEDS: NIFEDIPINE XL 60 MG TABLET PO SCH (09:24)
[2023-05-06 12:20] LABS: Absolute Lymphocytes (CBC) 0.6 K/uL (0.7-4.9); MCV 85.5 fL (80-100); Platelets 185 thou/uL (152-406); RBC Red Blood Cell Count 3.97 M/uL (3.86-4.86)
[2023-05-06 12:24] LABS: Albumin 2.9 g/dL (3.4-5.0); Bilirubin Total 0.4 mg/dL (0.2-1.0); Phosphorus 2.7 mg/dL (2.5-4.9); Potassium 3.9 mEq/L (3.5-5.1); Protein, Total 6.5 g/dL (6.4-8.2)
--- NOTE | 2023-05-06 17:17 | CON ---
Date of Consultation: 05/06/2023 Time: 1540. Reason For Consultation: Seizure. History Of Present Illness: 82-year-old lady with history of trigeminal neuralgia and more recently memory problems/early dementia, and seizures and other than the memory issues, the seizures have not really been problematic and the trigeminal neuralgia was slightly problematic last month, but we incr eased the Trileptal and that took care of that problem. At least her last Keppra level that I have o n file was 25, and Trileptal level was 17. Normally, she is on 750 b.i.d. of Keppra and the Trilepta l level was on a b.i.d. dosing regimen, now she is on t.i.d. While she has had issues with poorly co ntrolled blood pressure. On within the office just last week, her blood pressure was 200s systolic a nd she saw Cardiology that day and apparently got admitted to [facility] for the high blood pressure. Because of the memory problem, it does seem that perhaps sometimes she forgets to take her medication and she was in her usual state of health until Sunday when the patient had what was described as gen eralized tonic-clonic seizure witnessed by family. Came to the emergency department. Was drowsy. C T scan demonstrated no acute intracranial abnormality. There was a 15 mm anterior frontal extraaxial lesion, likely meningioma. She is being admitted. Keppra has been increased with 1000 mg twice willian ly and she has not had any further seizures. Patient does not have any active complaints, right now. Troponins are elevated. Consultation was requested. Past Medical History: Neurologic history as alluded to. Hypertension. Social History: Patient lives with her son. She is requiring increasing assistance with activities of daily living. Family History: Coronary artery disease. Review of Systems: General: Good health. Eyes: Negative. Ears, Nose, Throat: No dysphagia. Cardiovascular: Hypertension. Pulmonary: Negative. GI: Negative. : Negative. Musculoskeletal: Arthralgias. Neurologic: As noted. Psychiatric: Negative. Endocrine: History of diabetes. Physical Examination: Vital Signs: 97.3, 76, 16, 182/73. General: Pleasant lady, lying in bed, in no distress. She is awake, alert, oriented to time, person , place, and situation. HEENT: Pupils reactive. Ocular motion full. Visual arambula full to confrontation. Facial strength and sensation are normal. Tongue protrudes evenly. Soft palate elevates symmetrically bilaterally. Extremity: Strength full. Neurological: Sensation intact. Reflexes 1/4. Symmetric toes are downgoing. Cerebellar exam demon strates no ataxia. She does have a slight tremor. Impression: 1.Breakthrough seizure, unclear if it is a missed dose or complication of the patient's vascular dis ease and difficult to control blood pressure. 2.Trigeminal neuralgia, stable. 3.Dementia, primarily vascular. Her Namenda was recently increased, so we will move that back to 10 mg b.i.d. dosing. Plan: Other than the change of the Namenda, the neurologic medications are in agreement with the out patient regimen except for the increase in the Keppra and I think I would just recommend leaving at 1 000 b.i.d. on discharge. We will check a brain MRI to evaluate for stroke or posterior reversible en cephalopathy changes associated with the elevated blood pressure. Hopefully, if the imaging is witho ut acute abnormality, tomorrow she can go home with the outpatient followup. Thank you for the consult. We will continue to follow. Till now that we are checking Keppra levels or Trileptal levels will be insightful, they are sent outs and are not generally back in a timely enough fashion to alter management. JENN/CAROLE Voice ID: [id number] Report ID: [id number]
[2023-05-06] MEDS: carvediloL 12.5 MG TAB PO SCH ×2 (17:19→17:23)
[2023-05-06] MEDS: DOCUSATE NA 100 MG CAP PO PRN (17:19)
[2023-05-06] MEDS: ACETAMINOPHEN 500 MG TAB PO PRN (21:25)
[2023-05-07] MEDS: carvediloL 12.5 MG TAB PO SCH ×2 (05:24→17:08)
[2023-05-07] MEDS: HYDRALAZINE HCL 25 MG TABLET PO SCH ×2 (06:02→13:23)
[2023-05-07] MEDS: ENOXAPARIN 30 MG/0.3 ML SQ SCH (08:58)
[2023-05-07] MEDS: BUSPIRONE HCL 5 MG TABLET PO SCH (08:59)
[2023-05-07] MEDS: MEMANTINE HCL 10 MG TABLET PO SCH ×2 (08:59→21:24)
[2023-05-07] MEDS: LOSARTAN POTASSIUM 50 MG TABLET PO SCH ×2 (09:00→21:24)
[2023-05-07] MEDS: DOCUSATE NA 100 MG CAP PO PRN (09:00)
[2023-05-07] MEDS: ACETAMINOPHEN 500 MG TAB PO PRN ×2 (09:00→17:07)
[2023-05-07] MEDS: NIFEDIPINE XL 60 MG TABLET PO SCH ×2 (09:01→21:24)
[2023-05-07] MEDS: OXcarbazepine 150 MG TAB PO SCH ×3 (09:01→21:25)
[2023-05-07] MEDS: ASPIRIN EC 81 MG TAB PO SCH (09:02)
[2023-05-07] MEDS: CLOPIDOGREL 75 MG TABLET PO SCH (09:02)
[2023-05-07] MEDS: levETIRAcetam 500 MG TAB PO SCH ×2 (09:04→21:23)
[2023-05-07] MEDS ORDERED: HYDROCODONE/APAP 5/325 MG TAB PO PRN (09:39)
--- NOTE | 2023-05-07 09:48 | P.PN ---
Date of Service: 05/07/23 Subjective: Ambulated around the floor today bilateral leg pain from hip down during and after walk. pain ~same on both sides. redness / itchyness continues. family reports shes been constantly scratching when at bedside. mild urticarial rash on right elbow. possible allergic vs contact reaction Feeling constipated, has urge to go. family reports patient straining to have BM with small amount of blood noted from rectum. ROS: 10 point ROS as noted above, otherwise negative Physical Exam: GEN: Alert, oriented, uncomfortable (Itching) HEENT: Normal conjunctiva, sclera anicteric CV: Regular rate and rhythm, no edema Pulm: Nonlabored respirations on room air, clear bilaterally ABD: Soft, nontender, nondistended Intergumentary: mild urticarial rash on right elbow / forearm Neuro: Normal speech, normal affect vitals reviewed Problem List: Breakthrough/new Seizure h/o seizure disorder / Trigeminal neuralgia severe, uncontrolled HTN Stable 15 mm anterior frontal extra-axial lesion, likely meningioma Urticaria GURMEET NSTEMI, suspect demand ischemia Chronic CHF a-fib, paroxysmal Accelerated Hypertension h/o seizure disorder / Trigeminal neuralgia h/o CAD s/p PCI (~04/2020) h/o PAD Constipation Breakthrough Seizure h/o seizure disorder / Trigeminal neuralgia severe, uncontrolled HTN Stable 15 mm anterior frontal extra-axial lesion, likely meningioma new tonic-clonic seizure which was witnessed by the family. 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 Seizure medication has not been changed per family. Family unsure if patient has been compliant with medications at home. Neuro Consulted - Dr. Fry (saw as outpatient few days prior to admission) MRI ordered (05/07) CT head (05/04): was negative for acute changes. 15 mm anterior frontal extra- axial lesion, unchanged from prior studys. IV keppra changed to PO 05/06. continue at 1000mg bid for now. keppra 750 mg BID at home previously. Dr. Fry recommending to continue at 1000mg on discharge for now. continue home trileptal, increased to TID 05/06 (reported home dose that was changed around this year per family) PRN ativan Monitor on telemetry. Seizure precautions. Watch closely for any further breakthrough seizures Continue home medications and titrate as needed suspect secondary to missed medication vs high blood pressure continue home anti-hypertensives PT consulted Urticaria unclear etiology. mild urticarial rash on right elbow. reports 2 days of itchiness of arms / neck / upper chest where she had IV and tape. Possible contact dermatitis vs allergic reaction to adhesives. Monitor for worsening signs. Benadryl added 05/07 dc IVF for now GURMEET improved, after ivf (dc'd 12 PM) unclear specific etiology - HTN vs pre-renal vs seizure possibly pre-renal, pt with minimal intake in last 24-48hrs possible from seizure CPK ok reportedly seen by nephro at [facility] during admission and had workup / 24h urine studies Nephrology consulted NSTEMI, suspect demand ischemia Chronic CHF a-fib, paroxysmal h/o CAD s/p PCI (~04/2020) h/o PAD Recently seen at [facility] for ~2 days, cardiac enzymes noted to be elevated, +uncontrolled HTN BP had improved, was discharged with 1 of her BP meds being increased per family was at home ~1-2 days then back here in ER CXR (05/04): mild CHF Carotid u/s from last hospitalization (03/17/23): Moderate to advanced bilateral atherosclerotic changes Cardiology consulted troponins downtrending 186 -> 32 -> 162 -> 157. monitor on tel suspect 32 was incorrect Continue home medications including aspirin, statin, Plavix Accelerated Hypertension confirm home medications, restart as appropriate Constipation PRN glycolax, PRN colace cap VTE: Lovenox Code: Full Dispo: Home, HH ~1 days Pending further improvement, MRI, BP control
[2023-05-07] MEDS ORDERED: POLYETHYL GLY 3350 17 GM/DOSE PO PRN (09:56)
[2023-05-07] MEDS: DIPHENHYDRAMINE 25 MG TAB/CAP PO PRN (10:39)
--- NOTE | 2023-05-07 10:56 | P.CNS ---
Date of Consult: 05/07/23 Reason for Consult: GURMEET Requesting Physician: Jax Medina Chief Complaint: Seizure History of Present Illness: 82-year-old female with history of absence seizures and trigeminal neuralgia , hypertension, diabetes diet-controlled , CAD status post stents PAD, brought to ER with tonic-clonic seizures as described by the family . Patient had a recent adjustment of the antiepileptic drugs by Dr. Barillas who is her primary neurologis t. Patient started having tonic-clonic seizures which was witnessed by the family which is a new thing for the patient as the patient had only absent seizures previously . Patient is drowsy and postictal at the time of interview hence most of the history is obtained from the chart review and also talking to the ER physician and family member over the phone. No fever or chills. Denies any chest pain or shortness of breath. Patient was assessed in the ER and was admitted for breakthrough seizures and also found to have elevated troponin. 16:56 This 82 yrs old Female presents to ER via EMS with complaints of Seizure. sp3 16:56 82-year-old female with a history of absence seizures and trigeminal neuralgia sp3 currently taking Tegretol and Keppra for these items, hypertension, former diabetes before significant weight loss now presents to the ED with chief complaint of breakthrough seizure. Family states that patient's seizures are normally "the kind only detected by the machine" but today she had a full seizure consistent with a tonic-clonic type as described by family. Seizure activity was witnessed by son who is currently not at the bedside. Patient was also just discharged from [facility] where she was admitted for hypertension and observation among other things as per daughter. Patient currently has no complaints and is resting comfortably. No seizure activity witnessed in the ED. patient's neurologist is Dr. Barillas. Allergies codeine Allergy (Verified 09/03/20 02:23) Nausea/Vomiting lorazepam Allergy (Verified 09/03/20 02:23) hallucination, confusion Home medications list reviewed: Yes Home Medications: Aspirin [Aspirin EC 81 MG] 81 mg PO DAILY 09/03/20 Clopidogrel Bisulfate [Plavix*] 75 mg PO DAILY 09/03/20 Memantine HCl [Namenda] 5 mg PO BID 03/16/23 OXcarbazepine [Oxcarbazepine] 300 mg PO BID 03/16/23 NIFEdipine [Nifedipine ER] 1 tab PO DAILY 03/17/23 Losartan Potassium [Cozaar*] 50 mg PO BID #60 03/18/23 Levetiracetam [Keppra] 500 mg PO BID 05/05/23 - Past Medical/Surgical History Diabetic: Yes -: NIDDM -: HTN -: Right ADRIANA with Atrophic Kidney (Dr. Cai/ Carlos) -: HFpEF (Heart Failure w/ Preserved Ejection Fraction) -: Paroxysmal atrial fibrillation -: CAD/ Stent/ NSTEMI 04/2020 -: PAD/ Atherosclerosis of Aorta/ Celiac artery/ Carotid Disease -: L KNEE RX -: C section Psychosocial/ Personal History: Patient lives at home with her and son - Family History Father Medical History: Heart disease Notes: [place] Brother Notes: [place] - Social History Smoking Status: Unknown if ever smoked Alcohol use: No CD- Drugs: No Caffeine use: No Place of Residence: Home Review of Systems 10-point ROS is otherwise unremarkable General: Weakness, Malaise Musculoskeletal: Shoulder Pain, Arm Pain, Back Pain, Leg Pain Physical Examination Temp Pulse Resp BP Pulse Ox 97.1 F 66 28 H 192/82 H 98 05/07/23 08:00 05/07/23 09:01 05/07/23 08:00 05/07/23 09:01 05/07/23 08:00 General: In no apparent distress, Oriented x3, Cooperative HEENT: Atraumatic Neck: Supple Respiratory: Clear to auscultation bilaterally, Normal air movement Cardiovascular: No edema, Regular rate/rhythm Gastrointestinal: Soft and benign, Non-distended Musculoskeletal: No clubbing, No contractures Integumentary: No rashes, No cyanosis Neurological: Normal speech Blood work reviewed in the chart. Imagings Data: EXAM DESCRIPTION: RAD - Chest Single View - 05/04/2023 5:01 pm CLINICAL HISTORY: MALAISE Chest pain. COMPARISON: Chest Single View dated 03/16/2023; Chest Single View dated 01/21/2021; Chest Single View dated 01/18/2021; Chest Single View dated 01/15/2021 FINDINGS: Portable technique limits examination quality. Chronically elevated right hemidiaphragm noted. Mild pulmonary edema suspected. The heart is moderately enlarged. No displaced fractures. IMPRESSION: Mild CHF. Conclusions/Impression: Stage I GURMEET CKD IIIa Right ADRIANA with atrophic kidney -No NSAIDs Hyponatremia -Consider fluid restriction HTN with CHF -Increase Nifedipine ER 60mg BID -Continue Losartan -Continue Coreg -Continue Hydralazine Diastolic CHF, chronic -Daily weight -Low sodium diet NIDDM -No sugar diet Hypoalbuminemia -Recommend protein supplementation Anemia in chronic illness -Monitor H&H Thank you kindly for the consultation
--- NOTE | 2023-05-07 11:02 | P.CNS ---
Date of Consult: 05/07/23 Reason for Consult: Elevated troponin Requesting Physician: Facundo Marion Chief Complaint: Seizure History of Present Illness: Pt is an [address] Marquez. She has a seizure d/o. She presented to the ED last pm for a grand mal seizure. Her troponin was noted to be elevated. They have since trended down. Home medications list reviewed: Yes - Past Medical/Surgical History Diabetic: Yes -: NIDDM -: HTN -: 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 -: HFpEF (Heart Failure w/ Preserved Ejection Fraction) -: Paroxysmal atrial fibrillation -: CAD/ Stent/ NSTEMI 04/2020 -: PAD/ Atherosclerosis of Aorta/ Celiac artery/ Carotid Disease -: L KNEE RX -: C section Psychosocial/ Personal History: Patient lives at home with her and son - Family History Father Medical History: Heart disease Notes: [place] Brother Notes: [place] - Social History Smoking Status: Unknown if ever smoked Alcohol use: No CD- Drugs: No Caffeine use: No Place of Residence: Home <Sukhjinder Cohen - Last Filed: 05/07/23 10:58> <Kim Adame - Last Filed: 05/08/23 05:46> Allergies codeine Allergy (Verified 09/03/20 02:23) Nausea/Vomiting lorazepam Allergy (Verified 09/03/20 02:23) hallucination, confusion Home Medications: Aspirin [Aspirin EC 81 MG] 81 mg PO DAILY 09/03/20 Clopidogrel Bisulfate [Plavix*] 75 mg PO DAILY 09/03/20 Memantine HCl [Namenda] 5 mg PO BID 03/16/23 OXcarbazepine [Oxcarbazepine] 300 mg PO BID 03/16/23 NIFEdipine [Nifedipine ER] 1 tab PO DAILY 03/17/23 Losartan Potassium [Cozaar*] 50 mg PO BID #60 03/18/23 Levetiracetam [Keppra] 500 mg PO BID 05/05/23 Review of Systems 10-point ROS is otherwise unremarkable Neurological: As per HPI <Sukhjinder Cohen - Last Filed: 05/07/23 10:58> Physical Examination Temp Pulse Resp BP Pulse Ox 97.1 F 66 28 H 192/82 H 98 05/07/23 08:00 05/07/23 09:01 05/07/23 08:00 05/07/23 09:01 05/07/23 08:00 General: Alert, Oriented x3 HEENT: Atraumatic, Normocephalic, PERRLA Neck: 2+ carotid pulse no bruit Respiratory: Clear to auscultation bilaterally Cardiovascular: No edema Capillary refill: <2 Seconds Gastrointestinal: Normal bowel sounds Musculoskeletal: No clubbing Integumentary: No rashes Neurological: Normal speech, Normal tone Lymphatics: No axilla or inguinal lymphadenopathy External genitalia: Deferred Rectal: Deferred <Sukhjinder Cohen - Last Filed: 05/07/23 10:58> Temp Pulse Resp BP Pulse Ox 97.7 F 64 18 149/64 H 95 05/08/23 00:00 05/08/23 00:00 05/08/23 00:00 05/08/23 00:00 05/08/23 00:00 <Kim Adame - Last Filed: 05/08/23 05:46> - Problems (1) Elevated troponin Current Visit: Yes Status: Acute Plan: Outpatient stress test. Cardiology will sign off <Kim Adame - Last Filed: 05/08/23 05:46>
[2023-05-07] MEDS ORDERED: QUETIAPINE 25 MG TAB PO ONE (12:45)
[2023-05-07 13:35] LABS: Hematocrit 32.1 % (36.0-45.0); MCV 84.6 fL (80-100); Platelets 184 thou/uL (152-406)
[2023-05-07 13:49] LABS: Phosphorus 2.5 mg/dL (2.5-4.9); Potassium 4.1 mEq/L (3.5-5.1)
--- NOTE | 2023-05-07 15:52 | RAD REPORT ---
EXAM DESCRIPTION: MRI - Brain Wo Cont - 05/07/2023 2:29 pm CLINICAL HISTORY: Seizure COMPARISON: Head CT May 04, 2023 TECHNIQUE: Axial, sagittal, and coronal magnetic resonance images of the brain were obtained. FINDINGS: Some images are degraded by patient motion artifact Moderate signal within periventricular, deep and subcortical white matter probably ischemic changes s econdary to small vessel disease 15 millimeter probable meningioma abutting the anterior falx unchanged. No surrounding edema Old right cerebellar infarct No significant abnormality of the hippocampal gyri Diffusion-weighted/ADC mapping does not reveal evidence of acute infarction. The ventricles are normal caliber. An extra-axial fluid collection is not noted. Fluid within the sinuses/mastoids is not seen IMPRESSION: No acute intracranial abnormality noted
[2023-05-08] MEDS: HYDRALAZINE HCL 25 MG TABLET PO SCH ×4 (00:14→23:29)
[2023-05-08] MEDS: ACETAMINOPHEN 500 MG TAB PO PRN ×3 (00:14→23:37)
[2023-05-08 03:54] LABS: Absolute Lymphocytes (CBC) 1.1 K/uL (0.7-4.9); Hematocrit 31.6 % (36.0-45.0); Lymphocytes % 34.3 % (15.3-44.8); MCV 85.3 fL (80-100); MPV 7.9 fL (7.6-11.3); Platelets 174 thou/uL (152-406); RBC Red Blood Cell Count 3.71 M/uL (3.86-4.86)
[2023-05-08 04:29] LABS: Bilirubin Total 0.4 mg/dL (0.2-1.0); Magnesium 1.9 mg/dL (1.6-2.4); Potassium 4.1 mEq/L (3.5-5.1); Protein, Total 5.8 g/dL (6.4-8.2); Uric Acid 3.9 mg/dL (2.6-6.0)
[2023-05-08] MEDS: carvediloL 12.5 MG TAB PO SCH ×2 (05:47→18:14)
[2023-05-08 06:33] LABS: Renal Epithelial <5 /HPF (None Seen); Specific Gravity 1.015 (1.005-1.030); Urine Bacteria None Seen /HPF (<20); Urine Bilirubin NEGATIVE (Negative); Urine Blood Negative (Negative); Urine Clarity Clear (Clear); Urine Color Light-Yellow (Yellow); Urine Glucose NEGATIVE (Negative); Urine Protein NEGATIVE (Negative); Urine RBC <5 /HPF (None Seen); Urine Urobilinogen Normal (Normal); Urine pH 6.5 (5.0-7.0)
[2023-05-08] MEDS: OXcarbazepine 150 MG TAB PO SCH ×3 (08:08→20:46)
[2023-05-08] MEDS: ASPIRIN EC 81 MG TAB PO SCH (08:09)
[2023-05-08] MEDS: ENOXAPARIN 30 MG/0.3 ML SQ SCH (08:09)
[2023-05-08] MEDS: NIFEDIPINE XL 60 MG TABLET PO SCH ×2 (08:09→20:46)
[2023-05-08] MEDS: MEMANTINE HCL 10 MG TABLET PO SCH ×2 (08:09→20:46)
[2023-05-08] MEDS: levETIRAcetam 500 MG TAB PO SCH ×2 (08:09→20:46)
[2023-05-08] MEDS: LOSARTAN POTASSIUM 50 MG TABLET PO SCH ×2 (08:09→20:45)
[2023-05-08] MEDS: CLOPIDOGREL 75 MG TABLET PO SCH (08:09)
[2023-05-08] MEDS: BUSPIRONE HCL 5 MG TABLET PO SCH (08:09)
[2023-05-08 10:04] LABS: UR PROTEIN 14.7 mg/dL (<11.9); Urine Protein/Creatinine Ratio 0.22 ratio (<0.15)
[2023-05-08 10:46] VITALS: O2SAT 96
[2023-05-08 10:50] LABS: UR MICROALBUMIN 0.9 mg/dL (< 1.9)
--- NOTE | 2023-05-08 12:56 | PN ---
Reason: Seizure. Interval History: No seizures. Brain MRI, no stroke. Known meningioma. The patient has some myalgias and back discomfort. No weakness. Does complain of some dysphagia that is new since the seizure, so we will request Speech Therapy evaluation. Physical Examination: General: She is awake, alert. Vital Signs: Blood pressure 187/81. Neuromuscular: Ocular motion full. Spencer full. Face symmetric. Tongue midline. Soft palate elevates bilaterally. Extremity strength is full. Sensation is intact. Reflexes symmetric. The patient has been ambulating with therapy. Impression: 1. Seizures. Continue the Keppra on discharge. 2. Trigeminal neuralgia. Complaining of some facial pain now. Would just continue the Trileptal at the t.i.d. dosing. 3. Dysphagia. We will ask for Speech Therapy evaluation prior to discharge. We will continue to follow with you. SKYE Voice ID: [id number] Report ID: [id number] ABBY
--- NOTE | 2023-05-08 13:56 | EKG ---
Test Date: 2023-05-04 Test Time: 16:36:32 Service Writer: HANANE MEASUREMENT RESULTS: Intervals: Rate: 52 IA: 166 QRSD: 110 QT: 468 QTc: 435 New Site: P: 54 IA: 166 QRS: 21 T: -46 INTERPRETIVE STATEMENTS: Sinus bradycardia Incomplete left bundle branch block ST & T wave abnormality, consider inferolateral ischemia Abnormal ECG Compared to ECG 03/16/2023 12:07:29 Left bundle-branch block now present Sinus rhythm no longer present ST (T wave) deviation still present Possible ischemia still present Electronically Signed On 05-08-23 13:43:27 FLY SETTER by Sukhjinder Cohen
--- NOTE | 2023-05-08 17:42 | P.PN ---
Date of Service: 05/08/23 Vital Signs Temp Pulse Resp BP Pulse Ox 98.0 F 69 18 195/79 H 98 05/08/23 16:00 05/08/23 16:00 05/08/23 16:00 05/08/23 16:00 05/08/23 16:00 Medications Acetaminophen (Acetaminophen 500 Mg Tab) 500 mg PO Q4HP PRN PRN Reason: TEMP > 100' F Last Admin: 05/08/23 05:47 Dose: 500 mg Hydrocodone Bitart/Acetaminophen (Hydrocodone/Apap 5/325 Mg Tab) 1 tab PO Q8H PRN PRN Reason: Pain scale 5-7 (Moderate) Aspirin (Aspirin Ec 81 Mg Tab) 81 mg PO DAILY [facility] Last Admin: 05/08/23 08:09 Dose: 81 mg Buspirone HCl (Buspirone Hcl 5 Mg Tablet) 5 mg PO DAILY [facility] Last Admin: 05/08/23 08:09 Dose: 5 mg Carvedilol (Carvedilol 12.5 Mg Tab) 12.5 mg PO BID 6AM 6PM [facility] Last Admin: 05/08/23 05:47 Dose: 12.5 mg Clopidogrel Bisulfate (Clopidogrel 75 Mg Tablet) 75 mg PO DAILY [facility] Last Admin: 05/08/23 08:09 Dose: 75 mg Diphenhydramine HCl (Diphenhydramine 25 Mg Tab/Cap) 25 mg PO Q8H PRN PRN Reason: ITCHING Last Admin: 05/07/23 10:39 Dose: 25 mg Docusate Sodium (Docusate Na 100 Mg Cap) 100 mg PO DAILY PRN PRN Reason: CONSTIPATION Last Admin: 05/07/23 09:00 Dose: 100 mg Enoxaparin Sodium (Enoxaparin 30 Mg/0.3 Ml) 30 mg SQ DAILY [facility] Last Admin: 05/08/23 08:09 Dose: 30 mg Hydralazine HCl (Hydralazine Hcl 25 Mg Tablet) 100 mg PO Q8H [facility] Last Admin: 05/08/23 15:34 Dose: 100 mg Levetiracetam (Levetiracetam 500 Mg Tab) 1,000 mg PO BID [facility] Last Admin: 05/08/23 08:09 Dose: 1,000 mg Losartan Potassium (Losartan Potassium 50 Mg Tablet) 50 mg PO BID [facility] Last Admin: 05/08/23 08:09 Dose: 50 mg Memantine (Memantine Hcl 10 Mg Tablet) 10 mg PO BID [facility] Last Admin: 05/08/23 08:09 Dose: 10 mg Nifedipine (Nifedipine Xl 60 Mg Tablet) 60 mg PO BID [facility] Last Admin: 05/08/23 08:09 Dose: 60 mg Ondansetron HCl (Ondansetron 4 Mg/2 Ml Vial) 4 mg IV Q6HP PRN PRN Reason: NAUSEA / VOMITING Oxcarbazepine (Oxcarbazepine 150 Mg Tab) 300 mg PO TID [facility] Last Admin: 05/08/23 15:33 Dose: 300 mg Polyethylene Glycol (Polyethyl Gly 3350 17 Gm/Dose) 17 gm PO DAILY PRN PRN Reason: CONSTIPATION Last Admin: 05/07/23 10:39 Dose: 17 gm Urea (Urea 15 Gm Powder Packet) 30 gm PO DAILY [facility] Assessment/ Plan: Nephrology Progress Note No Dyspnea No Chest Pain Feeling better today No Acute Events Overnight Vital Signs, Medications, Blood Work, and Imaging reviewed in the chart General: In no apparent distress, Oriented x3, Cooperative HEENT: Atraumatic Neck: Supple Respiratory: Clear to auscultation bilaterally, Normal air movement Cardiovascular: No edema, Regular rate/rhythm Gastrointestinal: Soft and benign, Non-distended Musculoskeletal: No clubbing, No contractures Integumentary: No rashes, No cyanosis Neurological: Normal speech Blood work reviewed in the chart. Imagings Data: EXAM DESCRIPTION: RAD - Chest Single View - 05/04/2023 5:01 pm CLINICAL HISTORY: MALAISE Chest pain. COMPARISON: Chest Single View dated 03/16/2023; Chest Single View dated 01/21/2021; Chest Single View dated 01/18/2021; Chest Single View dated 01/15/2021 FINDINGS: Portable technique limits examination quality. Chronically elevated right hemidiaphragm noted. Mild pulmonary edema suspected. The heart is moderately enlarged. No displaced fractures. IMPRESSION: Mild CHF. Conclusions/Impression: Stage I GURMEET CKD IIIa Right ADRIANA with atrophic kidney -No NSAIDs Hyponatremia -Counseled regarding excess free water intake -Urea X1 dose HTN with CHF -Continue Nifedipine ER BID; titrate as needed -Continue Losartan -Continue Coreg -Continue Hydralazine Diastolic CHF, chronic -Daily weight -Low sodium diet NIDDM -No sugar diet Hypoalbuminemia -Recommend protein supplementation Anemia in chronic illness -Monitor H&H Hospitalist note reviewed
[2023-05-08] MEDS ORDERED: UREA 15 GM POWDER PACKET PO SCH (17:45)
--- NOTE | 2023-05-08 17:59 | P.PN ---
Subjective Date of Service: 05/08/23 Chief Complaint: Seizure Patient is complaining of problems cramps in both thighs. No other complaint. Physical Examination - Vital Signs Temperature: 98.0 F Blood Pressure: 195/79 Pulse: 69 Respirations: 18 Pulse Ox (%): 98 Assessment And Plan - Plan Physical Exam: GEN: Alert, oriented, NAD. CV: Regular rate and rhythm, no edema Pulm: Clear to auscultation bilaterally, adequate breath sounds bilaterally. ABD: Soft, nontender, nondistended Intergumentary: mild urticarial rash on right elbow / forearm Neuro: Normal speech, normal affect. No focal motor deficit. vitals reviewed Diagnosis Breakthrough/new Seizure h/o seizure disorder / Trigeminal neuralgia severe, uncontrolled HTN Stable 15 mm anterior frontal extra-axial lesion, likely meningioma Urticaria GURMEET NSTEMI, suspect demand ischemia Chronic CHF a-fib, paroxysmal Accelerated Hypertension h/o seizure disorder / Trigeminal neuralgia h/o CAD s/p PCI (~04/2020) h/o PAD Constipation Breakthrough Seizure h/o seizure disorder / Trigeminal neuralgia severe, uncontrolled HTN Stable 15 mm anterior frontal extra-axial lesion, likely meningioma new tonic-clonic seizure which was witnessed by the family. 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 Seizure medication has not been changed per family. Family unsure if patient has been compliant with medications at home. Neuro Consulted - Dr. Fry (saw as outpatient few days prior to admission) CT head (05/04): was negative for acute changes. 15 mm anterior frontal extra- axial lesion, unchanged from prior studys. MRI brain: No acute disease IV keppra changed to PO 05/06. Keppra dose increased from 750 mg twice daily to 1000mg bid for now. Check Keppra level. Dr. Fry recommending to continue at 1000mg on discharge for now. continue home trileptal, increased to TID from twice daily on 05/06. PRN ativan Seizure precautions. continue home anti-hypertensives PT input appreciated. Patient ambulated 250 feet with a rolling walker today. Urticaria unclear etiology. mild urticarial rash on right elbow. reports 2 days of itchiness of arms / neck / upper chest where she had IV and tape. Possible contact dermatitis vs allergic reaction to adhesives. Monitor for worsening signs. Benadryl added 05/07 GURMEET improved, after ivf (dc'd 05/06 PM) unclear specific etiology - HTN vs pre-renal vs seizure possibly pre-renal, pt with minimal intake in last 24-48hrs CPK ok Nephrology input appreciated. Patient with a history of chronic kidney disease stage III and renal artery stenosis. Continue to monitor renal function. NSTEMI, suspect demand ischemia Chronic CHF a-fib, paroxysmal h/o CAD s/p PCI (~04/2020) h/o PAD Recently seen at [facility] for ~2 days, cardiac enzymes noted to be elevated, +uncontrolled HTN BP had improved, was discharged with 1 of her BP meds being increased per family was at home ~1-2 days then back here in ER CXR (05/04): mild CHF Carotid u/s from last hospitalization (03/17/23): Moderate to advanced bilateral atherosclerotic changes. Troponin trended flat. No ACS. Cardiology Dr. Cohen input appreciated. Outpatient stress test recommended. Continue home medications including aspirin, statin, Plavix Accelerated Hypertension Continue home antihypertensives. Hydralazine IV as needed for BP spikes. Constipation PRN glycolax, PRN colace cap VTE: Lovenox Code: Full Dispo: Home, HH ~1 days
[2023-05-08] MEDS ORDERED: UREA 15 GM POWDER PACKET PO ONE (18:00)
[2023-05-08] MEDS: DOCUSATE NA 100 MG CAP PO SCH (20:46)
[2023-05-09 03:51] LABS: Absolute Lymphocytes (CBC) 0.9 K/uL (0.7-4.9); Hematocrit 28.6 % (36.0-45.0); MCV 84.6 fL (80-100); MPV 8.2 fL (7.6-11.3); Platelets 169 thou/uL (152-406); RBC Red Blood Cell Count 3.38 M/uL (3.86-4.86)
[2023-05-09 04:42] LABS: Potassium 4.4 mEq/L (3.5-5.1)
[2023-05-09] MEDS: carvediloL 12.5 MG TAB PO SCH (05:26)
[2023-05-09 06:38] LABS: UR PROTEIN 6.7 mg/dL (<11.9); Urine Protein/Creatinine Ratio 0.18 ratio (<0.15)
[2023-05-09] MEDS: HYDRALAZINE HCL 25 MG TABLET PO SCH (07:23)
[2023-05-09] MEDS: DIPHENHYDRAMINE 25 MG TAB/CAP PO PRN (07:23)
[2023-05-09] MEDS: ASPIRIN EC 81 MG TAB PO SCH (09:00)
[2023-05-09] MEDS: OXcarbazepine 150 MG TAB PO SCH (09:00)
[2023-05-09] MEDS: ENOXAPARIN 30 MG/0.3 ML SQ SCH (09:00)
--- NOTE | 2023-05-09 09:10 | P.DS ---
Admission Date: 05/04/23 Discharge Date: 05/09/23 Disposition: DC HOME/HOME HEALTH CARE Reason for Admission: Seizure Brief History of Present Illness: 82-year-old female with history of absence seizures and trigeminal neuralgia , hypertension, diabetes diet-controlled , CAD status post stents PAD, brought to ER with tonic-clonic seizures as described by the family . Patient had a recent adjustment of the antiepileptic drugs by Dr. Fry who is her primary neurologist. Patient started having tonic-clonic seizures which was witnessed by the family which is a new thing for the patient as the patient had only absent seizures previously . Patient was drowsy and postictal at the time of interview hence most of the history is obtained from the chart review and also talking to the ER physician and family member over the phone. Workup done in the emergency department significant for elevated troponin. Head CT negative. Patient was hospitalized for further management. Hospital Course: Diagnosis Breakthrough/new Seizure h/o seizure disorder / Trigeminal neuralgia severe, uncontrolled HTN Stable 15 mm anterior frontal extra-axial lesion, likely meningioma Urticaria GURMEET NSTEMI, suspect demand ischemia Chronic CHF a-fib, paroxysmal Accelerated Hypertension h/o seizure disorder / Trigeminal neuralgia h/o CAD s/p PCI (~04/2020) h/o PAD Constipation Patient was admitted to the medical floor and the following medical problems addressed: Breakthrough Seizure h/o seizure disorder / Trigeminal neuralgia severe, uncontrolled HTN Stable 15 mm anterior frontal extra-axial lesion, likely meningioma new tonic-clonic seizure which was witnessed by the family. 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 Seizure medication has not been changed per family. Family unsure if patient has been compliant with medications at home. Neuro Consulted - Dr. Fry (saw as outpatient few days prior to admission) CT head (05/04): was negative for acute changes. 15 mm anterior frontal extra- axial lesion, unchanged from prior studys. MRI brain: No acute disease IV keppra changed to PO 05/06. Keppra dose increased from 750 mg twice daily to 1000mg bid for now. Dr. Fry recommending to continue at 1000mg on discharge for now. continued home trileptal, dose increased to TID from twice daily on 05/06. continue home anti-hypertensives No more seizures during the hospital stay. Seen by PT. Patient ambulated 250 feet with a rolling walker today. She is discharged to home with home health. Urticaria/contact dermatitis unclear etiology. mild urticarial rash on right elbow. reports 2 days of itchiness of arms / neck / upper chest where she had IV and tape. Likely contact dermatitis adhesives. Symptoms improved. Benadryl added 05/07 GURMEET Resolved with IV fluid. unclear specific etiology - HTN vs pre-renal vs seizure possibly pre-renal secondary to decreased oral intake. Seen by nephrology. Patient with a history of chronic kidney disease stage III and renal artery stenosis. NSTEMI, suspect demand ischemia Chronic CHF a-fib, paroxysmal h/o CAD s/p PCI (~04/2020) h/o PAD Recently seen at [place] for ~2 days, cardiac enzymes noted to be elevated, +uncontrolled HTN BP had improved, was discharged with 1 of her BP meds being increased per family was at home ~1-2 days then back here in ER CXR (05/04): mild CHF Carotid u/s from last hospitalization (03/17/23): Moderate to advanced bilateral atherosclerotic changes. Troponin trended flat. No ACS. Seen by cardiology Dr. Cohen Outpatient stress test recommended. Continued home medications including aspirin, statin, Plavix Accelerated Hypertension Continued home antihypertensives. Coreg added for blood pressure control. Constipation Treated with PRN glycolax, and colace. Vital Signs/Physical Exam: Temp Pulse Resp BP Pulse Ox 97.8 F 63 15 140/66 96 05/09/23 04:00 05/09/23 04:00 05/09/23 04:00 05/09/23 04:00 05/09/23 04:00 General: Alert, In no apparent distress, Oriented x2 HEENT: Mucous membr. moist/pink Neck: JVD not distended Respiratory: Clear to auscultation bilaterally, Normal air movement Cardiovascular: No edema, Regular rate/rhythm, Normal S1 S2 Gastrointestinal: Normal bowel sounds, Soft and benign, Non-distended, No tenderness Musculoskeletal: No swelling Integumentary: No rashes, No cyanosis Neurological: Normal speech, Normal strength at 5/5 x4 extr Laboratory Data at Discharge: WBC 3.40 thou/uL (4.3-10.9) L 05/09/23 02:53 Hgb 9.9 g/dL (12.0-15.0) L D 05/09/23 02:53 Hct 28.6 % (36.0-45.0) L 05/09/23 02:53 Plt Count 169 thou/uL (152-406) 05/09/23 02:53 PT 12.2 SECONDS (9.5-12.5) 05/04/23 16:49 INR 1.11 05/04/23 16:49 APTT 29.9 SECONDS (24.3-36.9) 05/04/23 16:49 Sodium 129 mEq/L (136-145) L 05/09/23 02:53 Potassium 4.4 mEq/L (3.5-5.1) 05/09/23 02:53 BUN 61 mg/dL (7-18) H 05/09/23 02:53 Creatinine 1.02 mg/dL (0.55-1.02) 05/09/23 02:53 Glucose 82 mg/dL (74-106) 05/09/23 02:53 Uric Acid 3.9 mg/dL (2.6-6.0) 05/08/23 03:35 Phosphorus 2.5 mg/dL (2.5-4.9) 05/07/23 13:04 Magnesium 1.9 mg/dL (1.6-2.4) 05/08/23 03:35 Total Bilirubin 0.4 mg/dL (0.2-1.0) 05/08/23 03:35 AST 27 U/L (15-37) 05/08/23 03:35 ALT 32 U/L (13-56) 05/08/23 03:35 Alkaline Phosphatase 106 U/L (45-117) 05/08/23 03:35 Home Medications: Aspirin [Aspirin EC 81 MG] 81 mg PO DAILY 09/03/20 Clopidogrel Bisulfate [Plavix*] 75 mg PO DAILY 09/03/20 Memantine HCl [Namenda] 5 mg PO BID 03/16/23 OXcarbazepine [Oxcarbazepine] 300 mg PO BID 03/16/23 NIFEdipine [Nifedipine ER] 1 tab PO DAILY 03/17/23 Losartan Potassium [Cozaar*] 50 mg PO BID #60 03/18/23 Docusate [Colace Cap*] 100 mg PO BID #30 cap 05/09/23 Hydralazine [Apresoline*] 100 mg PO Q8H #90 tab 05/09/23 OXcarbazepine [Trileptal*] 300 mg PO TID #90 tab 05/09/23 Urea [Ure-Na] 30 gm PO DAILY #30 packet 05/09/23 carvediloL [Coreg*] 12.5 mg PO BID 6AM 6PM #60 tab 05/09/23 levETIRAcetam [Keppra*] 1,000 mg PO BID #60 tab 05/09/23 New Medications: Hydralazine [Apresoline*] 100 mg PO Q8H #90 tab Docusate [Colace Cap*] 100 mg PO BID #30 cap carvediloL [Coreg*] 12.5 mg PO BID 6AM 6PM #60 tab levETIRAcetam [Keppra*] 1,000 mg PO BID #60 tab OXcarbazepine [Trileptal*] 300 mg PO TID #90 tab Urea [Ure-Na] 30 gm PO DAILY #30 packet Diet: AHA Activity: Fall precautions Followup: Cheo Fry MD [ACTIVE - CAN ADMIT] - 1-2 Weeks Bereket Diop DO [Primary Care Provider] - 1-2 Weeks Time spent managing pt's care (in minutes): 37
[2023-05-09] MEDS ORDERED: UREA 15 GM POWDER PACKET PO SCH (09:30)
[2023-05-09 09:40] VITALS: BP 172/72; TEMP 98
[2023-05-09] MEDS: MEMANTINE HCL 10 MG TABLET PO SCH (10:03)
[2023-05-09] MEDS: LOSARTAN POTASSIUM 50 MG TABLET PO SCH (10:03)
[2023-05-09] MEDS: levETIRAcetam 500 MG TAB PO SCH (10:03)
[2023-05-09] MEDS: CLOPIDOGREL 75 MG TABLET PO SCH (10:03)
[2023-05-09] MEDS: BUSPIRONE HCL 5 MG TABLET PO SCH (10:04)
[2023-05-09] MEDS: NIFEDIPINE XL 60 MG TABLET PO SCH (10:04)
[2023-05-09] MEDS: DOCUSATE NA 100 MG CAP PO SCH (10:05)
--- NOTE | 2023-05-09 21:00 | P.PN ---
Date of Service: 05/09/23 Vital Signs Temp Pulse Resp BP Pulse Ox 98 F 64 20 172/72 H 99 05/09/23 08:00 05/09/23 10:04 05/09/23 08:00 05/09/23 10:04 05/09/23 08:00 Assessment/ Plan: Nephrology Progress Note No Dyspnea No Chest Pain Feeling better today No Acute Events Overnight Vital Signs, Medications, Blood Work, and Imaging reviewed in the chart General: In no apparent distress, Oriented x3, Cooperative HEENT: Atraumatic Neck: Supple Respiratory: Clear to auscultation bilaterally, Normal air movement Cardiovascular: No edema, Regular rate/rhythm Gastrointestinal: Soft and benign, Non-distended Musculoskeletal: No clubbing, No contractures Integumentary: No rashes, No cyanosis Neurological: Normal speech Blood work reviewed in the chart. Imagings Data: EXAM DESCRIPTION: RAD - Chest Single View - 05/04/2023 5:01 pm CLINICAL HISTORY: MALAISE Chest pain. COMPARISON: Chest Single View dated 03/16/2023; Chest Single View dated 01/21/2021; Chest Single View dated 01/18/2021; Chest Single View dated 01/15/2021 FINDINGS: Portable technique limits examination quality. Chronically elevated right hemidiaphragm noted. Mild pulmonary edema suspected. The heart is moderately enlarged. No displaced fractures. IMPRESSION: Mild CHF. Conclusions/Impression: Stage I GURMEET CKD IIIa Right ADRIANA with atrophic kidney -No NSAIDs Hyponatremia -Counseled regarding excess free water intake -Urea X1 dose HTN with CHF -Continue Nifedipine ER BID; titrate as needed -Continue Losartan -Continue Coreg -Continue Hydralazine Diastolic CHF, chronic -Daily weight -Low sodium diet NIDDM -No sugar diet Hypoalbuminemia -Recommend protein supplementation Anemia in chronic illness -Monitor H&H Hospitalist note reviewed Case reviewed with Dr. Tom
== END 2023-05-09 10:50 | disposition home health service (06) | DRG 100 ==
LOC: ER 16:25 → ERHOLD 19:30 → 2ND 20:48
PROVIDERS: ADMIT Family Medicine; ATTEND Internal Medicine
DX: G40.409 Other generalized epilepsy and epileptic syndromes, not intractable, without status epilepticus (principal); I21.A1 Myocardial infarction type 2; I50.32 Chronic diastolic (congestive) heart failure; N17.9 Acute kidney failure, unspecified; I13.0 Hypertensive heart and chronic kidney disease with heart failure and stage 1 through stage 4 chronic kidney disease, or unspecified chronic kidney disease; E87.1 Hypo-osmolality and hyponatremia; N18.31 Chronic kidney disease, stage 3a; E11.22 Type 2 diabetes mellitus with diabetic chronic kidney disease; E11.51 Type 2 diabetes mellitus with diabetic peripheral angiopathy without gangrene; D63.1 Anemia in chronic kidney disease; I48.0 Paroxysmal atrial fibrillation; L50.9 Urticaria, unspecified; G50.0 Trigeminal neuralgia; D32.9 Benign neoplasm of meninges, unspecified; E88.09 Other disorders of plasma-protein metabolism, not elsewhere classified; K59.00 Constipation, unspecified; I25.10 Atherosclerotic heart disease of native coronary artery without angina pectoris; F01.50 Vascular dementia, unspecified severity, without behavioral disturbance, psychotic disturbance, mood disturbance, and anxiety; I25.2 Old myocardial infarction; Z95.5 Presence of coronary angioplasty implant and graft; Z88.5 Allergy status to narcotic agent; Z88.1 Allergy status to other antibiotic agents; Z79.82 Long term (current) use of aspirin; Z79.02 Long term (current) use of antithrombotics/antiplatelets; Z79.899 Other long term (current) drug therapy
CPT/HCPCS: 36415; 70450; 70551; 71045; 80048; 80053; 80076; 81001; 82043; 82550; 82570; 83735; 84100; 84156; 84484; 84550; 85025; 85027; 85610; 85730; 87077; 87086; 87088; 87186; 92610; 93005; 96365; 96366; 96375; 97116; 97161; 99285; J0360; J1650; J1953; J7120

== ENCOUNTER → 2023-05-25 | Emergency (ER) | payer OTHER ==
[~2023-05-25] MED LIST: ACETAMINOPHEN 325 MG TABLET ONE; ASPIRIN 81 MG CHEWABLE TABLET ONE; CEFTRIAXONE 1000 MG/VIAL ONE; ENOXAPARIN 60 MG/0.6 ML SQ ONE; FAMOTIDINE 20 MG/2 ML VIAL IV ONE; FUROSEMIDE 20 MG/ 2ML VIAL ONE; HYDRALAZINE HCL 20 MG/ML VIAL ONE; NA CHLORIDE 0.9% 1,000 ML ONE; NA CHLORIDE 0.9% 50 ML ONE; ONDANSETRON 4 MG/2 ML VIAL ONE
--- NOTE | 2023-05-25 22:05 | RAD REPORT ---
EXAM DESCRIPTION: RADChest Single View05/25/2023 9:40 pm CLINICAL HISTORY: COUGH COMPARISON: Chest Single View dated 05/04/2023; Chest Single View dated 03/16/2023; Chest Single View dated 01/21/2021; Chest Single View dated 01/18/2021 TECHNIQUE: Portable AP view of the chest. FINDINGS: Mild central interstitial prominence. Elevation of the right hemidiaphragm again seen. . No pneumothorax or effusion. Stable mild cardiomegaly. Mediastinal contours are unremarkable. IMPRESSION: Mild central interstitial prominence which may relate to chronic scarring/atelectasis, o r CHF.
[2023-05-25 22:10] LABS: Absolute Lymphocytes (CBC) 0.7 K/uL (0.7-4.9); Lymphocytes % 8.2 % (15.3-44.8); MCV 83.2 fL (80-100); MPV 7.6 fL (7.6-11.3); Platelets 171 thou/uL (152-406); RBC Red Blood Cell Count 4.08 M/uL (3.86-4.86)
[2023-05-25 22:15] LABS: Protime INR 1.11
[2023-05-25 22:20] LABS: Albumin 3.6 g/dL (3.4-5.0); Bilirubin Direct 0.2 mg/dL (0-0.2); Bilirubin Indirect, Calculated 0.3 mg/dL (0.2-0.8); Bilirubin Total 0.5 mg/dL (0.2-1.0); Magnesium 1.9 mg/dL (1.6-2.4); Potassium 4.1 mEq/L (3.5-5.1); Protein, Total 6.6 g/dL (6.4-8.2)
[2023-05-25 22:22] LABS: Troponin High Sensitivity 101.3 pg/mL (<58.9)
[2023-05-25 22:41] LABS: Blood Morphology Comment NOT SEEN (NOT SEEN); Platelet Estimate ADEQ
--- NOTE | 2023-05-25 22:44 | EDPHYS ---
Physician Documentation [facility] Name: Aditi Arreola Age: 82 yrs Sex: Female : 1940 Arrival Date: 05/25/2023 Time: 19:54 Bed 5 Private MD: ED Physician Jacek Hansen HPI: 05/25 22:35 This 82 yrs old Female presents to ER via EMS with complaints of shashi Nausea/Vomiting. 22:35 The patient presents to the emergency department with nausea, vomiting, described as shashi bilious, undigested food. Onset: The symptoms/episode began/occurred 2 day(s) ago. Historical: - Allergies: 20:23 codiene; km8 - PMHx: 20:23 a-fib; Diabetes - NIDDM; Hypertension; 8 - PSHx: 20:23 cardiac stent; Cholecystectomy; Left knee sx; km8 - Immunization history:: Client reports having NOT received the Covid vaccine. Flu vaccine is not up to date. - Social history:: Smoking status: Patient denies any tobacco usage or history of. Patient/guardian denies using alcohol, street drugs. - Family history:: not pertinent. ROS: 22:36 Constitutional: Negative for fever, chills, and weight loss, Eyes: Negative for injury, shashi pain, redness, and discharge, ENT: Negative for injury, pain, and discharge, Neck: Negative for injury, pain, and swelling, Respiratory: Negative for shortness of breath, cough, wheezing, and pleuritic chest pain, Back: Negative for injury and pain, : Negative for injury, bleeding, discharge, and swelling, Skin: Negative for injury, rash, and discoloration, Neuro: Negative for headache, weakness, numbness, tingling, and seizure, Psych: Negative for depression, anxiety, suicide ideation, homicidal ideation, and hallucinations, Allergy/Immunology: Negative for hives, rash, and allergies, Endocrine: Negative for neck swelling, polydipsia, polyuria, polyphagia, and marked weight changes, 22:36 Cardiovascular: Positive for chest pain, 22:36 Respiratory: Negative for cough, shortness of breath, 22:36 Abdomen/GI: Positive for abdominal pain, nausea and vomiting, 22:36 MS/extremity: Positive for pain, of the right leg, Exam: 22:36 Head/Face: Normocephalic, atraumatic. Eyes: Pupils equal round and reactive to light, shashi extra-ocular motions intact. Lids and lashes normal. Conjunctiva and sclera are non-icteric and not injected. Cornea within normal limits. Periorbital areas with no swelling, redness, or edema. ENT: Nares patent. No nasal discharge, no septal abnormalities noted. Tympanic membranes are normal and external auditory canals are clear. Oropharynx with no redness, swelling, or masses, exudates, or evidence of obstruction, uvula midline. Mucous membranes moist. Neck: Trachea midline, no thyromegaly or masses palpated, and no cervical lymphadenopathy. Supple, full range of motion without nuchal rigidity, or vertebral point tenderness. No Meningismus. Chest/axilla: Normal chest wall appearance and motion. Nontender with no deformity. No lesions are appreciated. Respiratory: Lungs have equal breath sounds bilaterally, clear to auscultation and percussion. No rales, rhonchi or wheezes noted. No increased work of breathing, no retractions or nasal flaring. Abdomen/GI: Soft, non-tender, with normal bowel sounds. No distension or tympany. No guarding or rebound. No evidence of tenderness throughout. Back: No spinal tenderness. No costovertebral tenderness. Full range of motion. Female : Normal external genitalia. Skin: Warm, dry with normal turgor. Normal color with no rashes, no lesions, and no evidence of cellulitis. MS/ Extremity: Pulses equal, no cyanosis. Neurovascular intact. Full, normal range of motion. Psych: Awake, alert, with orientation to person, place and time. Behavior, mood, and affect are within normal limits. 22:36 Constitutional: The patient appears lethargic, obviously ill, pale, 22:36 ECG was reviewed by the Attending Physician. Vital Signs: 20:25 BP 183 / 87; Pulse 55; Resp 20; Temp 97.1(IR); Pulse Ox 100% on R/A; Weight 58.51 kg km8 (R); Height 5 ft. 2 in. (R); 22:00 BP 216 / 48; Pulse 63; Resp 17; Pulse Ox 100% ; vc1 23:00 BP 193 / 60; Pulse 67; Resp 20; Pulse Ox 97% ; vc1 1230 00:00 BP 156 / 68; Pulse 68; Resp 18; Pulse Ox 96% ; vc1 01:34 BP 111 / 85; Pulse 65; Resp 18 S; Pulse Ox 98% on R/A; jw7 05/25 20:25 Body Mass Index 23.59 (58.51 kg, 157.48 cm) km8 MDM: 05/25 20:07 Patient medically screened. shashi 22:40 Differential diagnosis: Nonspecific abd pain, gastritis, cholecystitis, pancreatitis, shashi appendicitis, diverticulitis, viral gastroenteritis, gastroenteritis. HEART Score: History: Slightly Suspicious (0), ECG: Non specific repolarization disturbance / LBTB / PM (1), Age: > or = 65 years (2), Risk Factors: > or = 3 Risk factors for atherosclerotic disease (2), [Hypertension] [DM] [+ Family HX] Troponin: > 1 and < 3 x normal limit (1), Total Score = 5. The patient was given aspirin in the Emergency Department. ARIAS Risk Score: 1 - patient's age is greater or equal to 65 years, 1 - Three or more CAD risk factors, 1- Known CAD, 1 - ASA use in past 7 days, 1 - Recent [<24hrs] Severe Angina, TOTAL SCORE = 5. Data reviewed: vital signs, nurses notes, EMS record, lab test result(s), EKG, radiologic studies, CT scan, plain films. Consideration of Admission/Observation Patient was admitted/placed on observation. Escalation of care including admission/observation considered. I considered the following discharge prescriptions or medication management in the emergency department Medications were administered in the Emergency Department. See MAR. Historians other than the Patient: Family Member: sisters. 05/25 20:09 Order name: Basic Metabolic Panel; Complete Time: 22:[address] [facility] 05/25 20:09 Order name: CBC with Diff; Complete Time: 22:[address] [facility] 05/25 20:09 Order name: LFT's; Complete Time: 22:[address] [facility] 05/25 20:09 Order name: Magnesium; Complete Time: 22:[address] [facility] 05/25 20:09 Order name: NT PRO-BNP; Complete Time: 22:[address] [facility] 05/25 20:09 Order name: PT-INR; Complete Time: 22:[address] [facility] 05/25 20:09 Order name: Troponin HS; Complete Time: 22:[address] [facility] 05/25 20:09 Order name: Lipase; Complete Time: 22:[address] [facility] 05/25 22:15 Order name: Manual Differential; Complete Time: 22:58 EDMS 05/25 22:17 Order name: Flu; Complete Time: 23:[address] [facility] 05/25 22:17 Order name: SARS RAPID [facility] 05/25 22:18 Order name: Lactate w/ 2H reflex if indic. [facility] 05/25 22:18 Order name: Blood Culture Adult (2) [facility] 05/25 22:34 Order name: Urine Osmolality [facility] 05/25 22:34 Order name: Osmolality, Serum [facility] 05/25 20:09 Order name: XRAY Chest (1 view); Complete Time: 22:[address] [facility] 05/25 22:13 Order name: CT Traumagram (Head C Spine CAP wo con) [facility] 05/25 22:13 Order name: US Extremity Venous W Compression Shakeel [facility] 05/25 20:09 Order name: EKG; Complete Time: 20:[address] [facility] 05/25 20:09 Order name: Cardiac monitoring; Complete Time: 21:[address] [facility] 05/25 20:09 Order name: EKG - Nurse/Tech; Complete Time: 22:[address] [facility] 05/25 20:09 Order name: IV Saline Lock; Complete Time: 21:[address] [facility] 05/25 20:09 Order name: Labs collected and sent; Complete Time: 21:[address] [facility] 05/25 20:09 Order name: O2 Per Protocol; Complete Time: 21:[address] [facility] 05/25 20:09 Order name: O2 Sat Monitoring; Complete Time: 21:[address] [facility] 05/25 22:35 Order name: Seizure Precautions; Complete Time: 00:[address] [facility] EC:36 Rate is 62 beats/min. Rhythm is regular. QRS English is Normal. IL interval is normal. QRS shashi interval is normal. QT interval is normal. No Q waves. T waves are Normal. No ST changes noted. Clinical impression: NSR w/ Non-specific ST/T Changes and Abnormal EKG without significant change. Interpreted by me. Reviewed by me. Administered Medications: 22:12 Discontinued: ns 0.9% 1000 ml IV at 1 bolus Per protocol; [address] [facility] 20:00 Drug: NS 0.9% IV 500 ml IV at bolus once Route: IV; Rate: bolus; Site: right jw7 antecubital; 05/26 00:11 Follow up: Response: No adverse reaction; IV Status: Completed infusion; IV Intake: jw7 500ml 05/25 21:50 Drug: NS 0.9% IV 1000 ml IV at 1 bolus Per protocol; 1000 mL bolus Route: IV; Rate: 1 pf1 bolus; Site: right antecubital; 05/26 01:36 Follow up: Response: No adverse reaction; IV Status: Order to discontinue infusion 7 05/25 21:50 Drug: Ondansetron IVP 4 mg IVP once; over 2 minutes Route: IVP; Site: right antecubital;pf1 05/26 01:37 Follow up: Response: No adverse reaction; Marked relief of symptoms 7 05/25 21:50 Drug: Famotidine IVP 20 mg IVP once; dilute with 10 mL 0.9% NaCl; give over 2 minutes pf1 Route: IVP; Site: right antecubital; 05/26 01:37 Follow up: Response: No adverse reaction; Marked relief of symptoms 05/25 22:15 Drug: NS 0.9% IV 1000 ml IV at 100 ml/hr continuous Route: IV; Rate: 100 ml/hr; [facility]; 05/26 01:37 Follow up: Response: No adverse reaction; IV Status: Infusion continued upon transfer; [facility] IV Intake: 300ml 05/25 22:30 Drug: Rocephin IV 1 grams IV at per protocol once; Given slow IV push per pharmacy jw7 instructions Route: IV; Rate: per protocol; Site: right antecubital; 05/26 01:37 Follow up: Response: No adverse reaction; IV Status: Completed infusion; IV Intake: [id number] 05/25 22:40 Drug: hydrALAZINE IVP 5 mg IVP once Route: IVP; Site: right antecubital; 7 05/26 01:38 Follow up: Response: No adverse reaction; Marked relief of symptoms 05/25 23:00 Drug: Aspirin PO Chewable Tablet 162 mg PO once Route: PO; 7 05/26 01:38 Follow up: Response: No adverse reaction 00:12 Drug: Acetaminophen PO 650 mg PO once Route: PO; 01:38 Follow up: Response: No adverse reaction; Marked relief of symptoms 00:12 Drug: Furosemide IVP 20 mg IVP once; give over 2 minutes Route: IVP; Site: right jw7 antecubital; 01:38 Follow up: Response: No adverse reaction jw7 00:12 Drug: Enoxaparin Sub-Q 1 mg/kg Sub-Q once Route: Sub-Q; Site: abdomen; jw7 01:38 Follow up: Response: No adverse reaction jw7 01:38 Not Given (Hemodynamic Parameters): [id number] mg IVP once jw7 Disposition Summary: 05/25/23 22:44 Transfer Ordered Notes: Transfer Location: [facility] shashi Reason: Higher level of care shashi Condition: Fair shashi Problem: new shashi Symptoms: have improved shashi Accepting Physician: to [facility], [facility](05/26/23 01:39) jwThang Diagnosis - Weakness shashi - Vomiting shashi - Hypo-osmolality and hyponatremia shashi - Chest pain, unspecified shashi - Non ST elevation GA shashi - Essential (primary) hypertension shashi - Cardiomegaly shashi - Pleural effusion in other conditions classified elsewhere shashi Forms: - Medication Reconciliation Form shashi - SBAR form shashi Signatures: Dispatcher [employer] EDMS Jacek Hansen MD MD cha Waits, Jodi, RN RN jw7 Rosalina Sierra RN RN pf1 Serena Sevilla, RN RN km8 Corrections: (The following items were deleted from the chart) 05/25 22:18 20:09 Abdomen Pelvis W Con+CT.RAD.BRZ ordered. [facility] EDMS 23:21 22:44 to [facility] 23:59 23:21 to [facility] 05/26 01:39 05/25 23:59 to [facility], [facility] jw7
--- NOTE | 2023-05-25 22:44 | ER ---
Nurse's Notes [facility] Name: Aditi Arreola Age: 82 yrs Sex: Female : 1940 Arrival Date: 05/25/2023 Time: 19:54 Bed 5 Private MD: Diagnosis: Weakness;Vomiting;Hypo-osmolality and hyponatremia;Chest pain, unspecified;Non ST elevation SD;Essential (primary) hypertension;Cardiomegaly;Pleural effusion in other conditions classified elsewhere Presentation: 05/25 20:21 Chief complaint: EMS states: vomiting, pale, diaphoretic for 2 days with weakness. km8 Coronavirus screen: Client denies travel out of the [place] in the last 14 days. Ebola Screen: No symptoms or risks identified at this time. Risk Assessment: Do you want to hurt yourself or someone else? Patient reports no desire to harm self or others. Onset of symptoms was May 23, 2023. 20:21 Method Of Arrival: EMS: [facility] km 20:21 Acuity: LUIS ARMANDO 3 km8 20:25 Initial Sepsis Screen: Does the patient meet any 2 criteria? No. Patient's initial km8 sepsis screen is negative. Does the patient have a suspected source of infection? No. Patient's initial sepsis screen is negative. Triage Assessment: 20:23 General: Appears uncomfortable, Behavior is cooperative, appropriate for age, quiet. km8 Pain: Complains of pain in generalized body. EENT: No signs and/or symptoms were reported regarding the EENT system. Neuro: Level of Consciousness is awake, alert, obeys commands, Oriented to person, place, time, situation. Cardiovascular: Denies chest pain, shortness of breath, Capillary refill < 3 seconds Patient's skin is warm and dry. Respiratory: Airway is patent Respiratory effort is even, unlabored, Respiratory pattern is regular, symmetrical. GI: Reports lower abdominal pain, upper abdominal pain, incontinence, nausea, vomiting. : No signs and/or symptoms were reported regarding the genitourinary system. Derm: No signs and/or symptoms reported regarding the dermatologic system. Skin is intact, is healthy with good turgor, Skin is dry, Skin is pink, warm \T\ dry. normal, Skin temperature is warm. Musculoskeletal: Range of motion: intact in all extremities, Reports weakness in generalized body. Historical: - Allergies: 20:23 codiene; km8 - PMHx: 20:23 a-fib; Diabetes - NIDDM; Hypertension; km8 - PSHx: 20:23 cardiac stent; Cholecystectomy; Left knee sx; km8 - Immunization history:: Client reports having NOT received the Covid vaccine. Flu vaccine is not up to date. - Social history:: Smoking status: Patient denies any tobacco usage or history of. Patient/guardian denies using alcohol, street drugs. - Family history:: not pertinent. Screenin/30 00:39 [facility] ED Fall Risk Assessment (Adult) History of falling in the last 3 months, vc1 including since admission No falls in past 3 months (0 pts) Confusion or Disorientation No (0 pts) Intoxicated or Sedated No (0 pts) Impaired Gait No (0 pts) Mobility Assist Device Used No (0 pt) Altered Elimination Yes (1 pt). Abuse screen: Denies threats or abuse. Nutritional screening: No deficits noted. Tuberculosis screening: No symptoms or risk factors identified. Assessment: 05/25 21:30 General: see triage assessment. jw7 21:45 GI: Abdomen is flat, non-distended, Bowel sounds present X 4 quads. Reports upper jw7 abdominal pain, nausea, vomiting. 22:30 Reassessment: Patient appears in no apparent distress at this time. No changes from jw7 previously documented assessment. Patient and/or family updated on plan of care and expected duration. Pain level reassessed. Patient is alert, oriented x 3, equal unlabored respirations, skin warm/dry/pink. 23:30 Reassessment: Patient appears in no apparent distress at this time. No changes from jw7 previously documented assessment. Patient and/or family updated on plan of care and expected duration. Pain level reassessed. Patient is alert, oriented x 3, equal unlabored respirations, skin warm/dry/pink. 05/26 00:37 Reassessment: No changes from previously documented assessment. Patient and/or family vc1 updated on plan of care and expected duration. Pain level reassessed. Patient is alert, oriented x 3, equal unlabored respirations, skin warm/dry/pink. 01:30 Reassessment: Patient appears in no apparent distress at this time. Patient and/or jw7 family updated on plan of care and expected duration. Pain level reassessed. Patient is alert, oriented x 3, equal unlabored respirations, skin warm/dry/pink. Patient states symptoms have improved. Vital Signs: 05/25 20:25 BP 183 / 87; Pulse 55; Resp 20; Temp 97.1(IR); Pulse Ox 100% on R/A; Weight 58.51 kg km8 (R); Height 5 ft. 2 in. (R); 22:00 BP 216 / 48; Pulse 63; Resp 17; Pulse Ox 100% ; vc1 23:00 BP 193 / 60; Pulse 67; Resp 20; Pulse Ox 97% ; vc1 05/26 00:00 BP 156 / 68; Pulse 68; Resp 18; Pulse Ox 96% ; vc1 01:34 BP 111 / 85; Pulse 65; Resp 18 S; Pulse Ox 98% on R/A; jw7 05/25 20:25 Body Mass Index 23.59 (58.51 kg, 157.48 cm) km8 ED Course: 05/25 19:56 Patient arrived in ED. ag3 20:07 Jacek Hansen MD is Attending Physician. shashi 20:23 Triage completed. km8 20:23 Arm band placed on right wrist. km8 21:10 Robe Salcido, RN is Primary Nurse. bp 21:18 Radiology exam delayed due to lab results not completed at this time. (BUN/Creatinine) eh4 IV insertion attempt and/or patient not having appropriate IV at this time. 21:40 Inserted saline lock: 22 gauge in right antecubital area, using aseptic technique. pf1 Blood collected. 21:42 XRAY Chest (1 view) In Process Unspecified. EDMS 21:46 Basic Metabolic Panel Sent. pf1 21:46 CBC with Diff Sent. pf1 21:46 Lipase Sent. pf1 21:46 LFT's Sent. pf1 21:46 Magnesium Sent. pf1 21:46 NT PRO-BNP Sent. pf1 21:46 PT-INR Sent. pf1 21:46 Troponin HS Sent. pf1 22:01 EKG done, by ED staff, reviewed by Jacek Hansen MD. jw7 22:40 Initiated patient transfer with [facility]. mb4 22:56 CT Traumagram (Head C Spine CAP wo con) In Process Unspecified. EDMS 23:08 US Extremity Venous W Compression Shakeel In Process Unspecified. EDMS 23:59 Patient accepted to [facility] under Dr. Keon Conner at 2359. mb4 05/26 00:07 Primary Nurse role handed off by Robe Salcido, KYLAH mb4 00:13 Admin approval by [address] [facility]. mb4 00:13 Serena at [facility] advised a crew would arrive RUTH. mb4 00:39 Patient has correct armband on for positive identification. Bed in low position. Placed vc1 in gown. Client placed on continuous cardiac and pulse oximetry monitoring. NIBP monitoring applied. 01:35 No provider procedures requiring assistance completed. Patient transferred, IV remains jw7 in place. 01:36 Provided Education on: need for transfer. [facility] Administered Medications: 05/25 22:12 Discontinued: ns 0.9% 1000 ml IV at 1 bolus Per protocol; 1000 mL bolus shashi 20:00 Drug: NS 0.9% IV 500 ml IV at bolus once Route: IV; Rate: bolus; Site: right [facility] antecubital; 05/26 00:11 Follow up: Response: No adverse reaction; IV Status: Completed infusion; IV Intake: jw7 500ml 05/25 21:50 Drug: NS 0.9% IV 1000 ml IV at 1 bolus Per protocol; 1000 mL bolus Route: IV; Rate: 1 pf1 bolus; Site: right antecubital; 05/26 01:36 Follow up: Response: No adverse reaction; IV Status: Order to discontinue infusion [facility] 05/25 21:50 Drug: Ondansetron IVP 4 mg IVP once; over 2 minutes Route: IVP; Site: right antecubital;pf1 05/26 01:37 Follow up: Response: No adverse reaction; Marked relief of symptoms [facility] 05/25 21:50 Drug: Famotidine IVP 20 mg IVP once; dilute with 10 mL 0.9% NaCl; give over 2 minutes pf1 Route: IVP; Site: right antecubital; 05/26 01:37 Follow up: Response: No adverse reaction; Marked relief of symptoms [facility] 05/25 22:15 Drug: NS 0.9% IV 1000 ml IV at 100 ml/hr continuous Route: IV; Rate: 100 ml/hr; Site: [facility] right antecubital; 05/26 01:37 Follow up: Response: No adverse reaction; IV Status: Infusion continued upon transfer; jw7 IV Intake: 300ml 05/25 22:30 Drug: Rocephin IV 1 grams IV at per protocol once; Given slow IV push per pharmacy jw7 instructions Route: IV; Rate: per protocol; Site: right antecubital; 05/26 01:37 Follow up: Response: No adverse reaction; IV Status: Completed infusion; IV Intake: [id number] 05/25 22:40 Drug: hydrALAZINE IVP 5 mg IVP once Route: IVP; Site: right antecubital; jw7 05/26 01:38 Follow up: Response: No adverse reaction; Marked relief of symptoms jw7 05/25 23:00 Drug: Aspirin PO Chewable Tablet 162 mg PO once Route: PO; jw7 05/26 01:38 Follow up: Response: No adverse reaction jw7 00:12 Drug: Acetaminophen PO 650 mg PO once Route: PO; jw7 01:38 Follow up: Response: No adverse reaction; Marked relief of symptoms jw7 00:12 Drug: Furosemide IVP 20 mg IVP once; give over 2 minutes Route: IVP; Site: right [facility] antecubital; 01:38 Follow up: Response: No adverse reaction jw7 00:12 Drug: Enoxaparin Sub-Q 1 mg/kg Sub-Q once Route: Sub-Q; Site: abdomen; jw7 01:38 Follow up: Response: No adverse reaction jw7 01:38 Not Given (Hemodynamic Parameters): [id number] mg IVP once jw7 Medication: 00:39 VIS not applicable for this client. vc1 Intake: 00:11 IV: 500ml; Total: 500ml. jw7 01:37 IV: 300ml; Total: 800ml. jw7 01:37 IV: 50ml; Total: 850ml. jw7 Outcome: 05/25 22:44 ER care complete, transfer ordered by MD. danielle 05/26 01:35 Transferred by ground EMS [place] [facility] Condition: stable Instructed on the need for transfer, Demonstrated understanding of instructions, 01:39 Patient left the ED. jw7 Signatures: Dispatcher [employer] EDMS Jacek Hansen MD MD cha Peltier, Brian, RN RN Maryanne Trevino4 Marce Ludwig3 Evangelina Carbajal, RN RN vc1 Kim Ruiz, RN RN jw7 Josh Paz 4 Rosalina Sierra, RN RN pf1 Serena Sevilla RN RN km8
[2023-05-26 00:05] LABS: SARS-CoV-2 Antigen Rapid Res Negative (Negative)
[2023-05-26 04:17] VITALS: TEMP 97.1
[2023-05-26 04:34] VITALS: BP 111/85; O2SAT 98
--- NOTE | 2023-05-26 19:02 | RAD REPORT ---
EXAM DESCRIPTION: CT - Head C Spine Cap Wo Con - 05/26/2023 7:34 am CLINICAL HISTORY: The patient is 82 years old and is Female; Dizziness;Headache;Pain;Weakness TECHNIQUE: Axial computed tomography images of the head/brain and cervical spine without intravenous contrast. Sagittal and coronal reformatted images were created and reviewed. This CT exam was pe rformed using one or more of the following dose reduction techniques: automated exposure control, a djustment of the mA and/or kV according to patient size, and/or use of iterative reconstruction techn ique. COMPARISON: CT of the head May 04, 2023 FINDINGS: BRAIN: Redemonstration of the partially calcified left frontal meningioma is present. No surrounding vasogenic edema is noted. There is diffuse cerebral atrophy present, consistent with thi s patient's age. There is patchy hypoattenuation of the deep white matter which is non-specific, bu t most likely owing to chronic small vessel ischemic change in a patient of this age group. No intr acranial hemorrhage, mass effect, or midline shift is seen. There are no extra-axial fluid collection s. VENTRICLES: Unremarkable. No ventriculomegaly. SKULL: No acute fracture. SINUSES: Unremarkable as visualized. No acute sinusitis. MASTOID AIR CELLS: Unremarkable as visualized. No mastoid effusion. VERTEBRAE: The vertebral body heights and alignment are maintained. No acute fracture. DISCS/SPINAL CANAL/NEURAL FORAMINA: Minimal intervertebral disc space narrowing at C5-C6 and C6-C 7 is present. The remaining intervertebral disc spaces are maintained. There is no significant canal stenosis or neural foraminal narrowing. SOFT TISSUES: The soft tissues are normal. VASCULATURE: Atherosclerosis of intracranial vasculature is present. LUNG APICES: Unremarkable as visualized. IMPRESSION: 1. No acute intracranial findings. 2. Minimal spondylosis of the cervical spine without acute findings. EXAM DESCRIPTION: CT Chest, Abdomen and Pelvis Without Intravenous Contrast CLINICAL HISTORY: The patient is 82 years old and is Female; Dizziness;Headache;Pain;Weakness TECHNIQUE: Axial computed tomography images of the chest, abdomen and pelvis without intravenous con trast. Sagittal and coronal reformatted images were created and reviewed. This CT exam was perfor med using one or more of the following dose reduction techniques: automated exposure control, adjus tment of the mA and/or kV according to patient size, and/or use of iterative reconstruction technique . COMPARISON: No relevant prior studies available. FINDINGS: CHEST: LUNGS: Dependent atelectasis within the lower lobes is noted. The lungs are otherwise clear. PLEURAL SPACE: Trace right pleural effusion is present. No pneumothorax. HEART: The heart is enlarged with a small pericardial effusion. Calcification of the mitral marco ulus is present. ABDOMEN: LIVER: Homogeneous without focal mass. GALLBLADDER AND BILE DUCTS: Surgical clips are present in the right upper quadrant, consistent wi th previous cholecystectomy. PANCREAS: Unremarkable. No ductal dilation. SPLEEN: Unremarkable. ADRENALS: Unremarkable. No mass. KIDNEYS AND URETERS: The right kidney is atrophic. The left kidney is hypertrophied. No obstructi ng renal or ureteral calculus of either kidney is seen. There is no hydronephrosis or hydroureter of either kidney. STOMACH AND BOWEL: The stomach is minimally distended with fluid and air. The small bowel is rela tively normal in caliber. Mild mucosal thickening involving a few small bowel loops in the midabdomen is noted. Minimal stool is noted throughout the colon. Scattered colonic diverticula are present wit hout surrounding inflammation. PELVIS: APPENDIX: No findings to suggest acute appendicitis. BLADDER: The bladder is moderately distended. No stones. REPRODUCTIVE: Unremarkable as visualized. CHEST, ABDOMEN and PELVIS: INTRAPERITONEAL SPACE: Unremarkable. No significant fluid collection. No free air. BONES/JOINTS: Mild scoliotic curvature of the spine is present. Multilevel intervertebral disc sp janice narrowing with osteophyte formation is noted. There is no acute fracture of the visualized axial and appendicular skeleton. The vertebral body heights and alignment are maintained. 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 Fat-containing ventral wall hernias noted. VASCULATURE: Calcification of coronary vessels is noted. Atherosclerosis of the aorta is present. No aortic aneurysm. LYMPH NODES: Unremarkable. No enlarged lymph nodes. IMPRESSION: 1. Cardiomegaly with trace pericardial effusion. 2. Small right pleural effusion with bibasilar atelectasis. 3. Nonspecific mucosal thickening involving a few small bowel loops within the central abdomen whic h may be secondary to enteritis. There is no evidence of obstruction. 4. Colonic diverticulosis. Electronically signed by: Judy Cabrera MD 05/25/2023 11:17 PM [employer]IL [employer]ARD [employer] Due to temporary technical issues with the PACS/Fluency reporting system, reports are being signed by the in house radiologists without review as a courtesy to insure prompt reporting. The interpreting radiologist is fully responsible for the content of the report.
--- NOTE | 2023-05-26 19:13 | RAD REPORT ---
EXAM DESCRIPTION: US - Extrem Venous W Compress Shakeel - 05/25/2023 11:06 pm CLINICAL HISTORY: Pain. COMPARISON: None. TECHNIQUE: Grayscale, color Doppler, duplex Doppler, spectral Doppler images and analysis with compr ession and augmentation of right and left lower extremity veins. FINDINGS: Right and Left common femoral, greater saphenous, femoral, deep (profunda) femoral, poplit eal, posterior tibial veins unremarkable without evidence of clot. IMPRESSION: No sonographic evidence of right or left lower extremity DVT. Electronically signed by: Keegan Anderson MD 05/26/2023 12:41 AM SENIOR QUALITY METHODS SPECIALIST Due to temporary technical issues with the PACS/Fluency reporting system, reports are being signed by the in house radiologists without review as a courtesy to insure prompt reporting. The interpreting radiologist is fully responsible for the content of the report.
== END ==
LOC: ER 19:54
DX: I21.4 Non-ST elevation (NSTEMI) myocardial infarction (principal); E87.1 Hypo-osmolality and hyponatremia; I51.7 Cardiomegaly; J90 Pleural effusion, not elsewhere classified; I10 Essential (primary) hypertension; R07.9 Chest pain, unspecified; R53.1 Weakness; I48.91 Unspecified atrial fibrillation; E11.9 Type 2 diabetes mellitus without complications; Z11.52 Encounter for screening for COVID-19; Z95.818 Presence of other cardiac implants and grafts; Z88.5 Allergy status to narcotic agent; Z28.310 Unvaccinated for COVID-19
CPT/HCPCS: 96365; 96361; 93005; 87040 ×2; 85025; 80048; 36415; 83735; 85610; 80076; 83605; 84484; 83690; 83880; 83930; 83935; 87804 ×2; 70450; 71250; 72125; 71045; 93970; 96375; 96372; 99285; 96366; 87811; J1650; J0360; J1940; J2405; J7030 ×2; J0696

== ENCOUNTER → 2023-06-06 | Emergency (ER) | payer OTHER ==
[~2023-06-06] MED LIST changes: -ACETAMINOPHEN 325 MG TABLET ONE; -ASPIRIN 81 MG CHEWABLE TABLET ONE; +CEFAZOLIN SODIUM 1 GM/VIAL ONE; -CEFTRIAXONE 1000 MG/VIAL ONE; -ENOXAPARIN 60 MG/0.6 ML SQ ONE; -FAMOTIDINE 20 MG/2 ML VIAL IV ONE; -FUROSEMIDE 20 MG/ 2ML VIAL ONE; -HYDRALAZINE HCL 20 MG/ML VIAL ONE; +LEVETIRACETAM 500 MG/5 ML VIAL IV ONE; +MORPHINE 4 MG/ML SYR ONE; -NA CHLORIDE 0.9% 1,000 ML ONE; +NA CHLORIDE 0.9% 100 ML ONE; -NA CHLORIDE 0.9% 50 ML ONE; +TDAP (DIPHTH,PERTUSS(ACELL),TET VAC) 0.5 ML VIAL IMVAC ONE
--- NOTE | 2023-06-06 13:49 | RAD REPORT ---
EXAM DESCRIPTION: CT - Head C Spine Mpr Wo Con - 06/06/2023 1:29 pm CLINICAL HISTORY: Head and neck injury status post fall. Head and neck pain COMPARISON: April 2023 TECHNIQUE: Computed axial tomography of the head and cervical spine was obtained. Sagittal and coronal reconstruction was performed. All CT scans are performed using dose optimization technique as appropriate and may include automated exposure control or mA/KV adjustment according to patient size. FINDINGS: Left cerebral scalp hematoma. Small to moderate acute subdural hematoma is present along the left frontal, temporal and left pariet al convexities. Subarachnoid blood is present within left frontal and left parietal lobes. Mild shift of the midline structures towards the right. 19 millimeter meningioma abuts the anterior falx. No surrounding edema. It is unchanged from prior ex am. No significant hypodensity within the brain. An extra-axial fluid collection is not noted. Fluid within the visualized sinuses and mastoids is not seen A cervical fracture is not visualized. No dislocation is noted. Mild chronic anterior subluxation C4 on C5. Mild chronic posterior subluxation C5 on C6 IMPRESSION: Small to moderate acute subdural hematoma along the left cerebral convexities Left cerebral subarachnoid bleed A cervical fracture is not visualized. Dr. Medina was notified 1:35 p.m. on June 06, 2023
--- NOTE | 2023-06-06 13:56 | EDPHYS ---
Physician Documentation [facility] Name: Aditi Arreola Age: 82 yrs Sex: Female : 1940 Arrival Date: 06/06/2023 Time: 12:53 Bed 3 Private MD: ED Physician Gabriel Medina HPI: 06/06 13:33 This 82 yrs old Female presents to ER via Wheelchair with complaints of Wrist rn Injury, Fall Injury. 13:33 The patient or guardian reports decreased range of motion, deformity, injury. The rn complaints affect the left wrist diffusely. Onset: The symptoms/episode began/occurred just prior to arrival. Modifying factors: The symptoms are alleviated by nothing, the symptoms are aggravated by movement. The patient has not experienced similar symptoms in the past. Patient reports walking outside of her home, tripped, mechanical fall, hit head on concrete and has left wrist deformity and pain. Denies any other injury. . Historical: - Allergies: 13: codiene; ll1 - PMHx: 13: a-fib; Diabetes - NIDDM; Hypertension; ll1 - PSHx: 13:01 cardiac stent; Cholecystectomy; Left knee sx; ll1 - Immunization history:: Adult Immunizations up to date. - Social history:: Smoking status: Patient denies any tobacco usage or history of. - Family history:: not pertinent. - Hospitalizations: : No recent hospitalization is reported. ROS: 13:33 Constitutional: Negative for fever, chills, and weight loss, Neck: Negative for injury, rn pain, and swelling, Cardiovascular: Negative for chest pain, palpitations, and edema, Respiratory: Negative for shortness of breath, cough, wheezing, and pleuritic chest pain, Abdomen/GI: Negative for abdominal pain, nausea, vomiting, diarrhea, and constipation, MS/Extremity: Positive for left wrist injury and deformity Exam: 13:33 Constitutional: This is a well developed, well nourished patient who is awake, alert, rn appears in pain, holding left wrist Head/Face: Normocephalic, 2 cm hematoma left lateral forehead with central abrasion, no laceration Eyes: Pupils equal round and reactive to light, extra-ocular motions intact. Neck: No midline cervical tenderness Chest/axilla: Normal chest wall appearance and motion. Nontender with no deformity. Cardiovascular: Regular rate and rhythm. No pulse deficits. Respiratory: No increased work of breathing, no retractions or nasal flaring. Abdomen/GI: Soft, non-tender MS/ Extremity: Pulses equal, no cyanosis. Left moderate wrist deformity with open wound overlying the distal left ulna near deformity with slow venous bleeding. Neuro: Awake and alert, GCS 15 14:35 ECG was reviewed by the Attending Physician. rn Vital Signs: 13:05 BP 153 / 49; Pulse 53; Resp 16; Pulse Ox 99% ; ko1 13:13 BP 111 / 89; Pulse 64; Resp 17; Temp 98; Pulse Ox 95% on R/A; Weight 68.04 kg; Height 5 ll1 ft. 5 in. ; Pain 10/10; 14:53 BP 146 / 55; Pulse 51; Resp 18; Pulse Ox 93% on R/A; ld1 13:13 Body Mass Index 24.96 (68.04 kg, 165.1 cm) ll1 13:13 Pain Scale: Adult ll1 MDM: 13:06 Patient medically screened. rn 13:46 Differential diagnosis: open fracture, contusion, Head injury, subdural hemorrhage, rn subarachnoid hemorrhage, cerebral contusion. Data reviewed: vital signs, nurses notes, radiologic studies, CT scan, plain films, and as a result, I will admit patient. Consideration of Admission/Observation Patient was admitted/placed on observation. Escalation of care including admission/observation considered. Counseling: I had a detailed discussion with the patient and/or guardian regarding the historical points, exam findings, and any diagnostic results supporting the discharge/admit diagnosis, radiology results, the need for further work-up and treatment in the hospital, the need to transfer to another facility, for higher level of care, [facility] does not immediately have the required specialist. Response to treatment: the patient's symptoms have mildly improved after treatment. ED course: Patient with likely open left wrist fracture as well as subdural and subarachnoid hemorrhage from mechanical fall. Will clean and dress wound as well as splint left wrist but ultimately will require transfer for higher level of care and to address intracranial hemorrhages.. 14:32 ED course: I personally spent 35 minutes engaged in work directly related to the rn individual patient's care. This does not include any time spent performing procedures. The patient has been deemed critically ill because of acute traumatic subdural and subarachnoid hemorrhages as well as open fracture of the left wrist requiring emergent transfer and organization.. 06/06 13:15 Order name: CBC with Diff; Complete Time: 07:08 rn 06/06 13:15 Order name: Basic Metabolic Panel; Complete Time: 14:32 rn 06/06 13:15 Order name: Protime (+inr); Complete Time: 14:32 rn 06/06 13:15 Order name: Ptt, Activated; Complete Time: 14:32 rn 06/06 14:48 Order name: CBC Smear Scan; Complete Time: 07:08 EDMS 06/06 13:15 Order name: XRAY Wrist LEFT 3 view; Complete Time: 14:12 rn 06/06 13:15 Order name: CT Head C Spine; Complete Time: 13:50 rn 06/06 13:15 Order name: EKG; Complete Time: 13:16 rn 06/06 13:15 Order name: IV Start; Complete Time: 13:56 rn 06/06 13:15 Order name: EKG - Nurse/Tech; Complete Time: 14:00 rn 06/06 13:16 Order name: NPO; Complete Time: 13:34 rn 06/06 13:45 Order name: Wound Care: clean/irrigate/xeroform; Complete Time: 14:37 rn 06/06 13:45 Order name: Splint - Volar Wrist Splint; Complete Time: 14:52 rn EC:35 Rate is 54 beats/min. Rhythm is regular. QRS [place] is Normal. MO interval is normal. QRS rn interval is normal. QT interval is normal. No Q waves. T waves are Inverted in leads II, III, aVF, V5, V6. No ST changes noted. Clinical impression: NSR w/ Non-specific ST/T Changes. Interpreted by me. Reviewed by me. Administered Medications: 13:55 Drug: Tetanus Toxoid,Adsorbed IM 0.5 ml IM once; Provide Vaccine Information Statement ld1 (VIS). {Packer Inspector: [employer]; Exp: SunOct 17 2024; Lot #: [id number]; Series: 1 of 1; Patient Consent: Obtained; Date/Time: ; Source Name: Aditi Arreola; Source Relationship: Self; Address Information: [address] [place] [address]; ; Education: Provided; VIS Presented Date: ; VIS Publication: Tetanus/Diphtheria (Td) Vaccine VIS 09/05/2016 (historic)} Route: IM; Site: right deltoid; 13:56 Drug: morphine IVP or IV 4 mg IVP once over 4 mins Route: IVP; Infused Over: 4 mins; ld1 Site: right forearm; 13:56 Drug: Ondansetron IVP 4 mg IVP once; over 2 minutes Route: IVP; Site: right forearm; ld1 13:59 Drug: Keppra IV 1000 mg IV at calculated rate once Route: IV; Rate: calculated rate; ld1 Site: right forearm; 14:44 Drug: ceFAZolin IVPB 1 grams IVPB once Route: IVPB; Site: right antecubital; ld1 Disposition Summary: 06/06/23 13:56 Transfer Ordered Notes: Transfer Location: [facility] rn Reason: Higher level of care rn Condition: Stable rn Problem: new rn Symptoms: have improved rn Accepting Physician: (06/06/23 14:53) ld1 Diagnosis - Traumatic subdural hemorrhage rn - Acute, open, left distal radius and ulnar fracture rn Forms: - Medication Reconciliation Form rn - SBAR form burnisher and bumper time excluding procedures: 14:32 Critical care time: Bedside Care: 30 minutes, Consultation: 5 minutes. Total time: 35 rn minutes Signatures: Dispatcher [employer] Gabriel Segovia MD MD rn Lewis, Lynsay, RN RN ll1 Nidia Marion RN RN ld1 Corrections: (The following items were deleted from the chart) 14:53 13:56 rn ld1
--- NOTE | 2023-06-06 13:56 | ER ---
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 Cant remember ll1 everything. Fell onto concrete, hit L side of head and L wrist deformity. Blood thinners in her history, patient cant remember her meds. Coronavirus screen: Vaccine status: Patient reports receiving the 2nd dose of the covid vaccine. Client denies travel out of the [place] in the last 14 days. At this time, the client does not indicate any symptoms associated with coronavirus-19. Ebola Screen: Patient denies travel to an Ebola-affected area in the 21 days before illness onset. Initial Sepsis Screen: Does the patient meet any 2 criteria? No. Patient's initial sepsis screen is negative. Does the patient have a suspected source of infection? No. Patient's initial sepsis screen is negative. Risk Assessment: Do you want to hurt yourself or someone else? Patient reports no desire to harm self or others. Onset of symptoms was June 06, 2023. 13:13 Method Of Arrival: Wheelchair ll1 13:13 Acuity: LUIS ARMANDO 2 ll1 Triage Assessment: 13:02 General: Appears uncomfortable, Behavior is cooperative, appropriate for age, quiet. ll1 Pain: Complains of pain in L wrist. Derm: Wound noted L wrist and L side of head. Musculoskeletal: Circulation, motion, and sensation intact. Capillary refill < 3 seconds, Bony deformity noted of L wrist. Injury Description: Head injury Bruise Deformity. Historical: - Allergies: 13: codiene; ll1 - PMHx: 13: a-fib; Diabetes - NIDDM; Hypertension; ll1 - PSHx: 13:01 cardiac stent; Cholecystectomy; Left knee sx; ll1 Historical Immunization: - Administered Vaccines 14:44 ceFAZolin IVPB 1 grams ld1 13:59 Keppra IV 1000 mg ld1 13:56 morphine IVP or IV 4 mg ld1 13:56 Ondansetron IVP 4 mg ld1 13:55 Tetanus Toxoid,Adsorbed IM 0.5 ml ld1 Harness Tier: [employer]; Exp: SunOct 17 2024; Lot #: [id number]; Series: 1 of 1; Patient Consent: Obtained; Date/Time: ; Source Name: Aditi Arreola; Source Relationship: Self; Address Information: [address] [place] [address]; ; Education: Provided; VIS Presented Date: ; VIS Publication: Tetanus/Diphtheria (Td) Vaccine VIS 09/05/2016 (historic) - Immunization history:: Adult Immunizations up to date. - Social history:: Smoking status: Patient denies any tobacco usage or history of. - Family history:: not pertinent. - Hospitalizations: : No recent hospitalization is reported. Screenin:05 [facility] ED Fall Risk Assessment (Adult) History of falling in the last 3 months, ko1 including since admission Yes- single mechanical fall (1 pt) Confusion or Disorientation Yes (5 pts) Intoxicated or Sedated No (0 pts) Impaired Gait No (0 pts) Mobility Assist Device Used No (0 pt) Altered Elimination No (0 pt) Score/Fall Risk Level 3 or more points = High Risk Oriented to surroundings, Maintained a safe environment, Educated pt \T\ family on fall prevention, incl call for assistance when getting out of bed, Assessed \T\ reinforced patient's understanding of fall precautions, Provided non-skid footwear, Hourly rounding (assess needs \T\ fall precautionary measures) done, Used ambulatory aids as needed (educated on \T\ assisted with), Used gait belt as appropriate Implemented a Fall Risk Plan of Care, Apply high fall risk patient identification: yellow non skid footwear/ fall signage, Remained w/in arm's length of patient and in sight while toileting, Offered frequent toileting (1:1 observation), Remained with patient while ambulating, Utilized family, sitter, or virtual shipping and receiving supervisor as indicated. Abuse screen: Denies threats or abuse. Denies injuries from another. Nutritional screening: No deficits noted. Tuberculosis screening: No symptoms or risk factors identified. Assessment: 13:05 Neuro: Level of Consciousness is awake, alert, obeys commands. Cardiovascular: No ko1 deficits noted. Respiratory: No deficits noted. GI: No deficits noted. : No deficits noted. EENT: No deficits noted. Derm: Wound noted left wrist. Musculoskeletal: left wrist. Injury Description: Deformity sustained to left wrist Laceration sustained to left wrist. Vital Signs: 13:05 BP 153 / 49; Pulse 53; Resp 16; Pulse Ox 99% ; ko1 13:13 BP 111 / 89; Pulse 64; Resp 17; Temp 98; Pulse Ox 95% on R/A; Weight 68.04 kg; Height 5 ll1 ft. 5 in. ; Pain 10/10; 14:53 BP 146 / 55; Pulse 51; Resp 18; Pulse Ox 93% on R/A; ld1 13:13 Body Mass Index 24.96 (68.04 kg, 165.1 cm) ll1 13:13 Pain Scale: Adult ll1 ED Course: 12:55 Patient arrived in ED. im 13:02 Arm band placed on Patient placed in an exam room, on a stretcher. ll1 13:05 Patient has correct armband on for positive identification. Allergy band placed. Fall ko1 risk band placed. Placed in gown. Bed in low position. Call light in reach. Side rails up X2. Adult w/ patient. Provided Education on: transfer. Client placed on continuous cardiac and pulse oximetry monitoring. NIBP monitoring applied. property assessment monitor on. Door closed. Noise minimized. Lights dimmed. Warm blanket given. Pillow given. 13:06 Gabriel Medina MD is Attending Physician. rn 13:15 Inserted saline lock: 18 gauge in right antecubital area, using aseptic technique. ko1 Blood collected. 13:17 Triage completed. ll1 13:29 XRAY Wrist LEFT 3 view In Process Unspecified. EDMS 13:31 CT Head C Spine In Process Unspecified. EDMS 13:49 initiated transfer to [facility]. bd 14:00 Protime (+inr) Sent. ld1 14:00 Ptt, Activated Sent. ld1 14:00 Basic Metabolic Panel Sent. ld1 14:00 CBC with Diff Sent. ld1 14:07 Stephanie Barrios, RN is Primary Nurse. ko1 14:42 No provider procedures requiring assistance completed. Patient transferred, IV remains ko1 in place. Administered Medications: 13:55 Drug: Tetanus Toxoid,Adsorbed IM 0.5 ml IM once; Provide Vaccine Information Statement ld1 (VIS). {Harness Tier: [employer]; Exp: SunOct 17 2024; Lot #: [id number]; Series: 1 of 1; Patient Consent: Obtained; Date/Time: ; Source Name: Aditi Arreola; Source Relationship: Self; Address Information: [address] [place] [address]; ; Education: Provided; VIS Presented Date: ; VIS Publication: Tetanus/Diphtheria (Td) Vaccine VIS 09/05/2016 (historic)} Route: IM; Site: right deltoid; 13:56 Drug: morphine IVP or IV 4 mg IVP once over 4 mins Route: IVP; Infused Over: 4 mins; ld1 Site: right forearm; 13:56 Drug: Ondansetron IVP 4 mg IVP once; over 2 minutes Route: IVP; Site: right forearm; ld1 13:59 Drug: Keppra IV 1000 mg IV at calculated rate once Route: IV; Rate: calculated rate; ld1 Site: right forearm; 14:44 Drug: ceFAZolin IVPB 1 grams IVPB once Route: IVPB; Site: right antecubital; ld1 Medication: 13:05 VIS not applicable for this client. ko1 Outcome: 13:56 ER care complete, transfer ordered by MD. acosta 14:52 Transferred by ground EMS ld1 14:52 Condition: stable 14:52 Instructed on the need for transfer, 14:53 Patient left the ED. ld1 Signatures: Dispatcher [employer] EDMS Dorothy Porter Roman, MD MD rn Lewis, Lynsay, RN RN ll1 Nidia Marion RN RN ld1 Stephanie Barrios RN RN ko1 Brittany Liu im Corrections: (The following items were deleted from the chart) 13:17 13:13 BP 111 / 89; Pulse 64bpm; Resp 17bpm; Pulse Ox 95% RA; Temp 98F; Height 5 ft. 5 ll1 in.; Pain 10/, Adult; ll1 14:42 13:05 No provider procedures requiring assistance completed. ko1 ko1 13:05 Patient transferred, IV remains in place. ko1 ko1
--- NOTE | 2023-06-06 14:07 | RAD REPORT ---
EXAM DESCRIPTION: RAD - Wrist Left 3 View - 06/06/2023 1:27 pm CLINICAL HISTORY: Left wrist pain status post injury FINDINGS: Comminuted, impacted markedly displaced fracture distal radius. Avulsion fracture ulnar styloid No dislocation Osteoporosis
[2023-06-06 14:14] LABS: Absolute Lymphocytes (CBC) 0.5 K/uL (0.7-4.9); Hematocrit 30.3 % (36.0-45.0); Lymphocytes % 5.5 % (15.3-44.8); MCV 83.7 fL (80-100); MPV 7.3 fL (7.6-11.3); Platelets 232 thou/uL (152-406); RBC Red Blood Cell Count 3.62 M/uL (3.86-4.86)
[2023-06-06 14:18] LABS: Protime INR 1.2
[2023-06-06 14:23] LABS: Potassium 4.4 mEq/L (3.5-5.1)
[2023-06-06 14:47] LABS: Blood Morphology Comment NOT SEEN (NOT SEEN); Platelet Estimate ADEQ; White Blood Cell Scan OK (OK)
[2023-06-06 15:32] VITALS: BP 146/55; TEMP 98; O2SAT 93
--- NOTE | 2023-06-08 13:29 | EKG ---
Test Date: 2023-06-06 Test Time: 13:56:34 Fireworks Assembler: SIRI MEASUREMENT RESULTS: Intervals: Rate: 54 SC: 156 QRSD: 112 QT: 458 QTc: 434 [place]: P: 90 SC: 156 QRS: 16 T: -57 INTERPRETIVE STATEMENTS: Sinus bradycardia ST & T wave abnormality, consider inferolateral ischemia Abnormal ECG Compared to ECG 05/25/2023 21:53:03 Sinus rhythm no longer present Sinus arrhythmia no longer present Prolonged QT interval no longer present ST (T wave) deviation still present Possible ischemia still present Electronically Signed On 06-08-23 13:24:32 MINCEMEAT MAKER by Sukhjinder Cohen
== END ==
LOC: ER 12:53
DX: S06.5X0A Traumatic subdural hemorrhage without loss of consciousness, initial encounter (principal); S52.502B Unspecified fracture of the lower end of left radius, initial encounter for open fracture type I or II; S52.602B Unspecified fracture of lower end of left ulna, initial encounter for open fracture type I or II; E11.9 Type 2 diabetes mellitus without complications; I10 Essential (primary) hypertension; Z23 Encounter for immunization; Z88.5 Allergy status to narcotic agent; Z95.818 Presence of other cardiac implants and grafts
CPT/HCPCS: 93005; 85025; 80048; 36415; 85610; 85730; 70450; 72125; 73110; 90471; 99285; J1953; J2405; J0690